=== PATIENT | male | born 1940 | race Caucasian/White ===

== ENCOUNTER 2016-09-04 10:06 | Inpatient (IN) | payer OTHER, MEDICARE ==
--- NOTE | 2016-09-04 10:36 | PDOC ---
History of Present Illness - General Chief Complaint: Hematuria Stated Complaint: BLOOD URINE History Source: Patient, Old Records Exam Limitations: Clinical Condition - History of Present Illness Travel History: No Initial Comments: 09/04/16 10:36 HPI: This 75-year-old male presents via EMS for hematuria. According to the caregiver that is present with him both of them are poor historians however they did hand me the number for his primary care physician. Patient has not had any frequency, clotting, fever, chills. Patient recently had a UTI that was treated from a senior care to home. 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 Pt has not been in contact with people who have traveled out of the country, in contact with people who have been ill with fever, n, v, d. SH: smoking use: NONE illicit drug use: NONE alcohol use: NONE Lives with Mrs. Kenisha Lou who is his caregiver PSH: Angiogram to lower extremities Home med use noted on OCT Allergies: NKA Immunizations: PCP: Dr. Peter Garcia at [phone] Digital Photographic Printer, Dr. Felix Past History - Past Medical History Allergies/Adverse Reactions: Allergies Allergy/AdvReac Type Severity Reaction Status Date / Time No Known Allergies Allergy Verified 12/17/11 10:08 Home Medications: Ambulatory Orders Aspirin [Aspirin EC] 81 mg PO DAILY 09/04/16 Atorvastatin Ca [Lipitor] 20 mg PO HS 09/04/16 Bupropion HCl [Bupropion HCl Sr] 150 mg PO BID 09/04/16 Celecoxib [Celebrex] 200 mg PO DAILY 09/04/16 Clopidogrel Bisulfate [Plavix -] 75 mg PO DAILY 09/04/16 Colchicine 0.6 mg PO DAILY 09/04/16 Finasteride 5 mg PO DAILY 09/04/16 Folic Acid 0.8 mg PO DAILY 09/04/16 Glipizide 5 mg PO BID 09/04/16 Insulin Detemir [Levemir Flextouch] 100 unit SQ DAILY 09/04/16 Insulin Lispro [Humalog] 100 unit SQ TID 09/04/16 Iron Polysaccharide Complex [Ferrex 150] 150 mg PO WEEKLY 09/04/16 Liraglutide [Victoza -] 1.8 mg SQ DAILY@0700 09/04/16 Lisinopril [Prinivil] 20 mg PO DAILY 09/04/16 Metformin HCl 500 mg PO BID 09/04/16 Metoprolol Succinate [Toprol Xl -] 25 mg PO DAILY 09/04/16 Omeprazole 20 mg PO WEEKLY 09/04/16 Sennosides [Senna] 8.6 mg PO DAILY 09/04/16 Tamsulosin HCl 0.4 mg PO DAILY 09/04/16 Thiamine HCl [Vitamin B1] 100 mg PO DAILY 09/04/16 Cardiac Disorders: Yes (cardiac stents) CHF: Yes Diabetes: Yes HTN: Yes Hypercholesterolemia: Yes - Psycho/Social/Smoking Cessation Hx Anxiety: No Suicidal Ideation: No Smoking History: Never smoked Have you smoked in the past 12 months: No Information on smoking cessation initiated: No Hx Alcohol Use: No Drug/Substance Use Hx: No Substance Use Type: None Review of Systems - Review of Systems Able to Perform ROS?: No (poor historian) Comments:: 09/04/16 11:59 *Physical Exam - Vital Signs Last Vital Signs Temp Pulse Resp BP Pulse Ox 98.3 F 100 H 20 123/67 100 09/04/16 10:17 09/04/16 10:17 09/04/16 10:17 09/04/16 10:17 09/04/16 10:17 - Physical Exam Comments: 09/04/16 11:59 General Appearance: This 75-year-old male V/S: hemodynamically stable, afebrile Skin: WNL of pt's skin color, no signs of pallor, mottling, cyanosis Head: Left-sided weakness from an old stroke tends to lean to the left Eyes: EOM's intact, PERRLA Ears: denies pain Nose: patent Lungs: Chest symmetry equal. Cap refill <3 seconds. Lung sounds diminished Cardiac: PMI at R 4MCL space, pos S1 and S2, regular rate. Abdomen: Soft, round, nontender : Becerra catheter placed with gil red blood without clotting noted Muscularskeletal: Brought in via EMS no edema +PMS Neuro: Awake and alert however does not know where he is, does not know time, does recognize his caregiver. At times he can follow commands however he has left-sided hemiparesis from a stroke in March ED Treatment Course - LABORATORY CBC & Chemistry Diagram: 09/04/16 10:43 09/04/16 10:43 Medical Decision Making - Medical Decision Making 09/04/16 11:49 Patient initially seen and examined. Patient was brought in via ambulance with hematuria. According to his home health aides son who is present with him he was at home and developed bleeding and he was concerned and called 911. He's been afebrile. According to the son he was seen by his primary physician yesterday. Patient's PMD is Dr. Garcia in [facility] at [phone] I have called and spoken with the primary in regards to the patient's past medical history as well as his recent assessment. Apparently he had bloods drawn yesterday while in the office which results have been faxed to us and attached to the chart. Labs from the physician's office noted as Glucose 229 BUN 71 Creatinine 1.66 Sodium 146 Chloride 109 Potassium 4.7 CO2 23 WBCs are 17.5 Hemoglobin is 10.8 Hematocrit 34.8 Platelets 356 He did not do a UA in the office Becerra catheter was placed and gil blood without clotting noted to drain from the Becerra catheter. Left in place. Discussed with Dr. Amin A/P Hematuria w/o stones, cystitis 1. Labs 2. Ua/cx 3. u/s bladder, kidney, renal 4. t and s 5. zosyn for ABT 6. Becerra 7. Admission 09/04/16 13:34 Pt still pending with u/s and will be going shortly Spoke with Hospitalist regarding admission and at this time does not feel it is necessary to admit suggesting a urology consult and plan for outpt work up . Called urology space operations, Dr. Parker will be arriving shortly. 09/04/16 15:18 Dr. Bhandari urology seen pt in ER and suggests pt to be admitted, spiral CT , and monitor for bleeding, hemodynamic monitor and treat IV ABT for UTI with a consult to urology. *DC/Admit/Observation/Transfer Diagnosis at time of Disposition: Hematuria, Cystitis - Discharge Dispostion Condition at time of disposition: Guarded Admit: Yes
[2016-09-04 11:02] LABS: EOSINOPHIL 5.7 % (0-4.5); MCH 28.6 pg (25.7-33.7); MCHC 31.7 g/dl (32.0-35.9); MEAN CELL VOLUME 90.1 fl (80-96); MEAN PLT VOLUME 8.4 fl (7.5-11.1); NEUTROPHILS 72.1 % (42.8-82.8); PLATELET COUNT 312 K/MM3 (134-434); RDW 15.6 % (11.9-15.9); WHITE BLOOD COUNT 12.8 K/mm3 (4.0-10.0)
[2016-09-04 11:24] LABS: ALBUMIN 3.1 g/dl (3.4-5.0); ALK PHOS 105 U/L (45-117); ANION GAP 11 (8-16); CALCIUM 9.2 mg/dL (8.5-10.1); CO2 25 mmol/L (21-32); GLUCOSE,RANDOM 190 mg/dL (74-106); SGPT/ALT 14 U/L (12-78); URINE APPEARANCE CLOUDY; URINE BILIRUBIN NEGATIVE (NEGATIVE); URINE COLOR RED; URINE GLUCOSE (UA) NEGATIVE (NEGATIVE); URINE KETONE NEGATIVE (NEGATIVE); URINE NITRITE NEGATIVE (NEGATIVE); URINE UROBILINOGEN NEGATIVE E.U./dl (0.2-1.0)
[2016-09-04 11:26] LABS: SGOT/AST 36 U/L (15-37)
[2016-09-04 11:30] LABS: URINE BLOOD 2+ (NEGATIVE); URINE LEUK ESTERASE 1+ (NEGATIVE); URINE PROTEIN 2+ (NEGATIVE)
[2016-09-04 11:32] LABS: URINE RBC 3924 /hpf (0-3); URINE WBC 21 /hpf (3-5)
[2016-09-04 11:33] LABS: INR 1.19 (0.82-1.09); PROTHROMBIN TIME (PATIENT) 13.1 SEC (9.98-11.88)
[2016-09-04] MEDS ORDERED: PIPERACILLIN/TAZOB 3.375 GM/50 ML PRE-DOCKED IV ONE (12:46)
[2016-09-04] MEDS ORDERED: PIPERACILLIN/TAZOB 3.375 GM 50 ML IVPB ONE (13:09)
--- NOTE | 2016-09-04 16:15 | EKG ---
Test Reason : Blood Pressure : / mmHG Vent. Rate : 093 BPM Atrial Rate : 093 BPM P-R Int : 164 ms QRS Dur : 104 ms QT Int : 410 ms P-R-T Axes : 071 012 021 degrees QTc Int : 509 ms NORMAL SINUS RHYTHM INFERIOR INFARCT , AGE UNDETERMINED PROLONGED QT ABNORMAL ECG WHEN COMPARED WITH ECG OF 04-SEP-2000 13:25, INFERIOR INFARCT IS NOW PRESENT T WAVE INVERSION NOW EVIDENT IN INFERIOR LEADS QT HAS LENGTHENED Confirmed by DAYTON ALLISON MD ([id number]) on 09/04/2016 4:14:48 PM Referred By: Confirmed By:DAYTON ALLISON MD
--- NOTE | 2016-09-04 17:22 | HP ---
CHIEF COMPLAINT: Hematuria PCP: PCP: Dr. Peter Garcia at [phone] Inspector Missile, Dr. Felix HISTORY OF PRESENT ILLNESS: 75-year-old male presented via EMS for hematuria x 1 day. Patient is poor historian. Accompanied by caregiver. No Hx of trauma or renal stones. Evaluate by urology service. Patient has not had any frequency, clotting, fever, chills. Patient recently had a UTI that was treated from a half-way to home. 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 Kenisha Lou who is his caregiver Family History: none reported Allergies No Known Allergies Allergy (Verified 12/17/11 10:08) HOME MEDICATIONS: Medication Instructions Recorded Aspirin [Aspirin EC] 81 mg PO DAILY 09/04/16 Atorvastatin Ca [Lipitor] 20 mg PO HS 09/04/16 Bupropion HCl [Bupropion HCl Sr] 150 mg PO BID 09/04/16 Celecoxib [Celebrex] 200 mg PO DAILY 09/04/16 Clopidogrel Bisulfate [Plavix -] 75 mg PO DAILY 09/04/16 Colchicine 0.6 mg PO DAILY 09/04/16 Finasteride 5 mg PO DAILY 09/04/16 Folic Acid 0.8 mg PO DAILY 09/04/16 Glipizide 5 mg PO BID 09/04/16 Insulin Detemir [Levemir Flextouch] 100 unit SQ DAILY 09/04/16 Insulin Lispro [Humalog] 100 unit SQ TID 09/04/16 Iron Polysaccharide Complex 150 mg PO WEEKLY 09/04/16 [Ferrex 150] Liraglutide [Victoza -] 1.8 mg SQ DAILY@0700 09/04/16 Lisinopril [Prinivil] 20 mg PO DAILY 09/04/16 Metformin HCl 500 mg PO BID 09/04/16 Metoprolol Succinate [Toprol Xl -] 25 mg PO DAILY 09/04/16 Omeprazole 20 mg PO WEEKLY 09/04/16 Sennosides [Senna] 8.6 mg PO DAILY 09/04/16 Tamsulosin HCl 0.4 mg PO DAILY 09/04/16 Thiamine HCl [Vitamin B1] 100 mg PO DAILY 09/04/16 REVIEW OF SYSTEMS CONSTITUTIONAL: Absent: fever, chills, diaphoresis, generalized weakness, malaise, loss of appetite, weight change HEENT: Absent: rhinorrhea, nasal congestion, throat pain, throat swelling, difficulty swallowing, mouth swelling, ear pain, eye pain, visual changes CARDIOVASCULAR: Absent: chest pain, syncope, palpitations, irregular heart rate, lightheadedness , peripheral edema RESPIRATORY: Absent: cough, shortness of breath, dyspnea with exertion, orthopnea, wheezing, stridor, hemoptysis GASTROINTESTINAL: Absent: abdominal pain, abdominal distension, nausea, vomiting, diarrhea, constipation, melena, hematochezia GENITOURINARY: Absent: frequency, urgency, hesitancy,flank pain, genital pain MUSCULOSKELETAL: Absent: myalgia, arthralgia, joint swelling, back pain, neck pain SKIN: Absent: rash, itching, pallor HEMATOLOGIC/IMMUNOLOGIC: Absent: easy bleeding, easy bruising, lymphadenopathy, frequent infections ENDOCRINE: Absent: unexplained weight gain, unexplained weight loss, heat intolerance, cold intolerance NEUROLOGIC: Absent: headache, dizziness, seizure, bladder or bowel incontinence + hematuria PHYSICAL EXAMINATION GENERAL: Awake, alert oriented only to self, not to place or time HEAD: Normal with no signs of trauma. EYES: sclera anicteric, conjunctiva clear. No lid lag. EARS, NOSE, THROAT: Ears normal, nares patent, oropharynx clear without exudates. Moist mucous membranes. NECK: Normal range of motion, supple without lymphadenopathy, JVD, or masses. LUNGS: Breath sounds equal, clear to auscultation bilaterally. No wheezes, and no crackles. No accessory muscle use. HEART: Regular rate and rhythm, normal S1 and S2 without murmur ABDOMEN: Soft, nontender, not distended, normoactive bowel sounds, no guarding, no rebound, no masses. No hepatomegaly or splenomegaly. MUSCULOSKELETAL: contracted upper extremities NEUROLOGICAL: impaired speech SKIN: Warm, dry, normal turgor, b/l venous stasis skin changes noted on lower ext b/l Studies Abnormal Lab Results 09/04/16 09/04/16 09/04/16 10:43 10:43 10:43 WBC 12.8 H RBC 3.99 L Hgb 11.4 L MCHC 31.7 L Eosinophils % 5.7 H INR Sodium 147 H Chloride 111 H BUN 62 H Random Glucose 190 H Albumin 3.1 L Urine Protein 2+ H Urine Blood 2+ H Ur Leukocyte Esterase 1+ H 09/04/16 11:16 WBC RBC Hgb MCHC Eosinophils % INR 1.19 H Sodium Chloride BUN Random Glucose Albumin Urine Protein Urine Blood Ur Leukocyte Esterase ASSESSMENT/PLAN: #Hematuria for one day- uncertain etiology - -observation -hold ASA and plavix -repeat CBC q 6hrs -maintain fraga catheter -avoid heparin sc -urology f/u -CT of abdomen/pelvis to evaluate for renal stones #UTI - previously on ciprofloxacin for UTI -switch to ceftriaxone 2g IVPB q24hrs # DM -insulin sliding scale -diabetic diet #HTN -controlled -continue home meds # BPH -continue tamsulosin 0.4mg qhs #DVT ppx -compression stockings b/l Visit type - Emergency Visit Emergency Visit: Yes ED Registration Date: 09/04/16 Care time: The patient presented to the Emergency Department on the above date and was hospitalized for further evaluation of their emergent condition. - New Patient This patient is new to me today: Yes Date on this admission: 09/04/16 - Critical Care Critical Care patient: No
[2016-09-04] MEDS ORDERED: PANTOPRAZOLE 20 MG TABLET (FP) PO ONE (17:45)
[2016-09-04] MEDS ORDERED: TAMSULOSIN HCL 0.4 MG CAP.ER.24H (FP) PO ONE (17:45)
[2016-09-04] MEDS ORDERED: PANTOPRAZOLE 40 MG TABLET (FP) ONE (18:28)
[2016-09-04] MEDS ORDERED: TAMSULOSIN HCL 0.4 MG CAP.ER.24H (FP) ONE (18:29)
[2016-09-04] MEDS ORDERED: CEFTRIAXONE 100 ML IVPB ONE (18:29)
[2016-09-04] MEDS: CEFTRIAXONE 100 ML IVPB SCH (18:38)
[2016-09-04 21:23] LABS: MCH 28.4 pg (25.7-33.7); MCHC 31.8 g/dl (32.0-35.9); MEAN CELL VOLUME 89.1 fl (80-96); MEAN PLT VOLUME 8.3 fl (7.5-11.1); PLATELET COUNT 294 K/MM3 (134-434); WHITE BLOOD COUNT 11.8 K/mm3 (4.0-10.0)
[2016-09-04] MEDS: ATORVASTATIN CA 20 MG TABLET (FP) PO SCH (21:26)
[2016-09-04 22:44] LABS: URINE APPEARANCE CLOUDY; URINE BILIRUBIN NEGATIVE (NEGATIVE); URINE COLOR DKYELLOW; URINE GLUCOSE (UA) 1+ (NEGATIVE); URINE KETONE NEGATIVE (NEGATIVE); URINE NITRITE NEGATIVE (NEGATIVE); URINE UROBILINOGEN NEGATIVE E.U./dl (0.2-1.0)
[2016-09-04 22:55] LABS: URINE BLOOD 2+ (NEGATIVE); URINE LEUK ESTERASE 1+ (NEGATIVE); URINE PROTEIN 2+ (NEGATIVE)
[2016-09-04 22:57] LABS: URINE BACTERIA FEW /hpf (NONE SEEN); URINE HYALINE CAST 56 /lpf; URINE RBC 553 /hpf (0-3); URINE WBC 759 /hpf (3-5)
[2016-09-04 23:06] VITALS: BMI 24.9
[2016-09-04] MEDS ORDERED: DEXTROSE 5%-NORMAL SALINE 1,000 ML IV SCH (23:45)
[2016-09-05] MEDS: INSULIN SLIDING SCALE (NOVOLOG) 1 VIAL SQ SCH ×5 (00:06→22:41)
[2016-09-05] MEDS ORDERED: INSULIN SLIDING SCALE (NOVOLOG) 1 VIAL SQ SCH ×2 (07:00)
[2016-09-05 07:39] LABS: MCHC 32.5 g/dl (32.0-35.9); MEAN CELL VOLUME 89.4 fl (80-96); MEAN PLT VOLUME 8.4 fl (7.5-11.1); PLATELET COUNT 276 K/MM3 (134-434); RDW 16.1 % (11.9-15.9); WHITE BLOOD COUNT 12.1 K/mm3 (4.0-10.0)
[2016-09-05 08:02] LABS: CALCIUM 9.2 mg/dL (8.5-10.1); CREATININE 1.1 mg/dL (0.7-1.3); MAGNESIUM 2.2 mg/dL (1.8-2.4); PHOSPHOROUS 3.6 mg/dL (2.5-4.9)
[2016-09-05] MEDS: METOPROLOL SUCCINATE 25 MG TAB.SR.24H (FP) PO SCH (10:00)
[2016-09-05] MEDS: LISINOPRIL 10 MG TABLET (FP) PO SCH (10:00)
--- NOTE | 2016-09-05 10:22 | PN ---
Physical Exam: SUBJECTIVE: Patient seen and examined. He is awake, in no acute distress. OBJECTIVE: GENERAL: Awake, alert oriented to self, anxious at times HEAD: Normal with no signs of trauma. EYES: sclera anicteric, conjunctiva clear. No lid lag. EARS, NOSE, THROAT: Ears normal, nares patent, oropharynx clear without exudates. Moist mucous membranes. NECK: Normal range of motion. LUNGS: Breath sounds equal, clear to auscultation bilaterally. No wheezes, and no crackles. No accessory muscle use. HEART: Regular rate and rhythm ABDOMEN: Soft, non-tender, not distended, normoactive bowel sounds, NEUROLOGICAL: impaired speech SKIN: multiple unsteageable pressure ulcers present on admission as follows: (1) Coccyx unstageable pressure ulcer (2 cm L x 2 cm W) (2) Right lateral malleous unstageable pressure ulcer (2cm x 2cm) (3) Right heal unstageable pressure ulcer (2.5cm L x 2.0 cm W) Vital Signs Period Temp Pulse Resp BP Sys/Olsen Pulse Ox Last 24 Hr 97.4 F-98.6 F 94-102 20-22 94-126/57-90 100 Laboratory Results - last 24 hr 09/04/16 09/04/16 09/04/16 21:00 21:30 22:15 WBC 11.8 H RBC 3.66 L Hgb 10.4 L Hct 32.6 L MCV 89.1 MCHC 31.8 L RDW 16.0 H Plt Count 294 MPV 8.3 Sodium Potassium Chloride Carbon Dioxide Anion Gap BUN Creatinine POC Glucometer 311 Random Glucose Calcium Phosphorus Magnesium Urine Color Dkyellow Urine Appearance Cloudy Urine pH 6.0 Ur Specific Zortman 1.020 Urine Protein 2+ H Urine Glucose (UA) 1+ H Urine Ketones Negative Urine Blood 2+ H Urine Nitrite Negative Urine Bilirubin Negative Urine Urobilinogen Negative Ur Leukocyte Esterase 1+ H Urine RBC 553 Urine WBC 759 Urine Bacteria Few Hyaline Casts 56 09/05/16 09/05/16 09/05/16 05:13 06:00 06:00 WBC 12.1 H RBC 3.52 L Hgb 10.2 L Hct 31.5 L MCV 89.4 MCHC 32.5 RDW 16.1 H Plt Count 276 MPV 8.4 Sodium 150 H Potassium 4.5 Chloride 113 H Carbon Dioxide 25 Anion Gap 12 BUN 63 H Creatinine 1.1 POC Glucometer 187 Random Glucose 226 H Calcium 9.2 Phosphorus 3.6 Magnesium 2.2 Urine Color Urine Appearance Urine pH Ur Specific Zortman Urine Protein Urine Glucose (UA) Urine Ketones Urine Blood Urine Nitrite Urine Bilirubin Urine Urobilinogen Ur Leukocyte Esterase Urine RBC Urine WBC Urine Bacteria Hyaline Casts Active Medications Generic Name Dose Route Start Last Admin Trade Name Brynn PRN Reason Stop Dose Admin Atorvastatin Calcium 20 mg 09/04/16 22:00 09/04/16 21:26 Lipitor - PO 20 mg HS ZARI Administration Ceftriaxone Sodium 100 mls @ 200 mls/hr 09/04/16 18:30 09/04/16 18:38 Rocephin 2gm Ivpb (Pre-Docked) IVPB 200 mls/hr DAILY ZARI Administration Sodium Chloride 1,000 mls @ 83 mls/hr 09/05/16 08:45 08/10 Normal Saline IV ASDIR ZARI Insulin Aspart 1 vial 09/05/16 07:00 09/05/16 06:07 Novolog Vial Sliding Scale - SQ Not Given ACHS [facility] Protocol Lisinopril 10 mg 09/05/16 10:00 Prinivil PO DAILY ZARI Metoprolol Succinate 25 mg 09/05/16 10:00 Toprol Xl - PO DAILY [facility] ASSESSMENT/PLAN: Patient is a 75 year old male with a significant past medical history of 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 He presented to the ED on 09/04/2016 via EMS for hematuria x 1 day. No history of trauma or renal stones reported. On admission, pt denies any frequency, urine clots, fever, chills. He was recently treated for a UTI at a longterm. : Hematuria/Cystitis - acute Assessment/Plan: Fraga catheter with with gross hematuria, no clots noted. Continue fraga cath until urine clears, then voiding trial monitor [facility]/t UTI - acute Assessment/Plan: Was recently on Cipro as outpatient His caregiver does not recall if he finished the full course of the antibiotics Now on Ceftriaxone daily (started on 09/04/2016) Urine cultures pending KOBE Assessment/Plan: Likely secondary to dehydration On 08/10 NS @ 83cc/hr Dehydration improving, BUN/Creatinine from his MD office reported to be 71/1.66 Now at 48/1.0 BPH - chronic Assessment/Plan: On flomax 0.4mg daily Endocrine: Diabetes Mellitus - On Novolog sliding scale Monitor BGMs. Cardiology: Hypertension - chronic Continue Lisinopril, Monitor BPs Integumentary/Skin: Pressure Ulcers - multiple pressure ulcers on present admission: (1) Coccyx unstageable pressure ulcer (2 cm L x 2 cm W) (2) Right lateral malleous unstageable pressure ulcer (2cm x 2cm) (3) Right heal unstageable pressure ulcer (2.5cm L x 2.0 cm W) Started on Prostat turn and pos Q2 Started on Collagenase F.E.N. Fluids: 08/10 NS @83cc/hr Electrolytes: hypernatremia, on 08/10 NS @83cc/hr Nutrition: Diabetic diet Prophylaxis: DVT: SCDs, hold anticoag secondary to hematuria GI: Protonix IVPB Will need PT evaluation as HCP is asking for short term rehab.
[2016-09-05] MEDS: CEFTRIAXONE 100 ML IVPB SCH (11:00)
--- NOTE | 2016-09-05 12:27 | CON.GU ---
Consult - History of Present Illness History of Present Illness: 75 yo male admitted with gross hematuria, reporetdly with recent uti. CT scan unremarkable. Fraga in place urine light brown in color, ucx neg to date - Alcohol/Substance Use Hx Alcohol Use: No - Smoking History Smoking history: Never smoked Have you smoked in the past 12 months: No Home Medications - Allergies Allergies/Adverse Reactions: Allergies Allergy/AdvReac Type Severity Reaction Status Date / Time No Known Allergies Allergy Verified 12/17/11 10:08 - Home Medications Home Medications: Ambulatory Orders Aspirin [Aspirin EC] 81 mg PO DAILY 09/04/16 Atorvastatin Ca [Lipitor] 20 mg PO HS 09/04/16 Bupropion HCl [Bupropion HCl Sr] 150 mg PO BID 09/04/16 Celecoxib [Celebrex] 200 mg PO DAILY 09/04/16 Clopidogrel Bisulfate [Plavix -] 75 mg PO DAILY 09/04/16 Colchicine 0.6 mg PO DAILY 09/04/16 Finasteride 5 mg PO DAILY 09/04/16 Folic Acid 0.8 mg PO DAILY 09/04/16 Glipizide 5 mg PO BID 09/04/16 Insulin Detemir [Levemir Flextouch] 100 unit SQ DAILY 09/04/16 Insulin Lispro [Humalog] 100 unit SQ TID 09/04/16 Iron Polysaccharide Complex [Ferrex 150] 150 mg PO WEEKLY 09/04/16 Liraglutide [Victoza -] 1.8 mg SQ DAILY@0700 09/04/16 Lisinopril [Prinivil] 20 mg PO DAILY 09/04/16 Metformin HCl 500 mg PO BID 09/04/16 Metoprolol Succinate [Toprol Xl -] 25 mg PO DAILY 09/04/16 Omeprazole 20 mg PO WEEKLY 09/04/16 Sennosides [Senna] 8.6 mg PO DAILY 09/04/16 Tamsulosin HCl 0.4 mg PO DAILY 09/04/16 Thiamine HCl [Vitamin B1] 100 mg PO DAILY 09/04/16 Physical Exam- Vital Signs: Vital Signs Temperature 98.6 F 09/05/16 05:26 Pulse Rate 94 H 09/05/16 05:26 Respiratory Rate 20 09/05/16 05:26 Blood Pressure 94/57 09/05/16 05:26 O2 Sat by Pulse Oximetry (%) 100 09/04/16 18:38 Labs: CBC, BMP 09/05/16 06:00 09/05/16 06:00 Imaging - Results Cat Scan: Image Reviewed Problem List - Problems (1) Hematuria Assessment/Plan: cont fraga, empiric abx, hold anticoagulants until urine is clear at which point would d/c fraga for a voiding trial Code(s): R31.9 - HEMATURIA, UNSPECIFIED
[2016-09-05] MEDS: SODIUM CHLORIDE 0.45% 1,000 ML IV SCH ×2 (15:22→20:00)
[2016-09-05] MEDS ORDERED: TAMSULOSIN HCL 0.4 MG CAP.ER.24H (FP) PO ONE ×2 (17:55→22:45)
[2016-09-05] MEDS: PANTOPRAZOLE 40 MG TABLET (FP) PO SCH (17:56)
[2016-09-05] MEDS: COLLAGENASE CLOSTRIDIUM HIST. 30 GRAMS TUBE TP SCH (17:56)
[2016-09-05] MEDS: AMINO ACIDS/PROTEIN HYDROLYS SUGAR-FREE 30 ML PACKET PO SCH (17:57)
[2016-09-05] MEDS: ATORVASTATIN CA 20 MG TABLET (FP) PO SCH (22:32)
[2016-09-05] MEDS ORDERED: INSULIN (NOVOLOG) ASPART 100 UNITS/ML 10ML VIAL ONE (22:37)
[2016-09-06] MEDS: INSULIN SLIDING SCALE (NOVOLOG) 1 VIAL SQ SCH ×3 (06:33→22:08)
[2016-09-06 07:19] LABS: BASOPHIL 0.7 % (0-2.0); EOSINOPHIL 6.5 % (0-4.5); MCH 28.9 pg (25.7-33.7); MCHC 32.1 g/dl (32.0-35.9); MEAN CELL VOLUME 90.2 fl (80-96); MEAN PLT VOLUME 8.1 fl (7.5-11.1); NEUTROPHILS 70.4 % (42.8-82.8); PLATELET COUNT 256 K/MM3 (134-434); RDW 15.9 % (11.9-15.9); WHITE BLOOD COUNT 11.1 K/mm3 (4.0-10.0)
[2016-09-06 07:55] LABS: ALBUMIN 2.6 g/dl (3.4-5.0); ALK PHOS 87 U/L (45-117); ANION GAP 10 (8-16); BILIRUBIN,TOTAL 0.7 mg/dL (0.2-1.0); CALCIUM 8.8 mg/dL (8.5-10.1); CO2 26 mmol/L (21-32); GLUCOSE,RANDOM 275 mg/dL (74-106); SGOT/AST 13 U/L (15-37); SGPT/ALT 12 U/L (12-78); TOT PROT 5.9 g/dl (6.4-8.2)
[2016-09-06] MEDS ORDERED: INSULIN SLIDING SCALE (NOVOLOG) 1 VIAL SQ SCH (08:54)
--- NOTE | 2016-09-06 10:11 | PN ---
Physical Exam: SUBJECTIVE: Patient seen and examined. His caregiver Kenisha at the bedside. Kenisha reports patient looks better today, more alert. She does not recall if he finished the full course of the antibiotics he was on previously for a UTI. OBJECTIVE: Vital Signs Period Temp Pulse Resp BP Sys/Olsen Pulse Ox Last 24 Hr 97.4 F-98.9 F 83-95 20-20 102-140/55-85 OBJECTIVE: GENERAL: Awake, alert oriented to self, anxious at times HEAD: Normal with no signs of trauma. EYES: sclera anicteric, conjunctiva clear. No lid lag. EARS, NOSE, THROAT: Ears normal, nares patent, oropharynx clear without exudates. Moist mucous membranes. NECK: Normal range of motion. LUNGS: Breath sounds equal, clear to auscultation bilaterally. No wheezes, and no crackles. No accessory muscle use. HEART: Regular rate and rhythm ABDOMEN: Soft, non-tender, not distended, normoactive bowel sounds, NEUROLOGICAL: impaired speech SKIN: multiple unsteageable pressure ulcers present on admission as follows: (1) Coccyx unstageable pressure ulcer (2 cm L x 2 cm W) (2) Right lateral malleous unstageable pressure ulcer (2cm x 2cm) (3) Right heal unstageable pressure ulcer (2.5cm L x 2.0 cm W) Laboratory Results - last 24 hr 09/05/16 09/05/16 09/06/16 17:26 22:34 05:58 WBC RBC Hgb Hct MCV MCHC RDW Plt Count MPV Neutrophils % Lymphocytes % Monocytes % Eosinophils % Basophils % Sodium Potassium Chloride Carbon Dioxide Anion Gap BUN Creatinine Creat Clearance w eGFR POC Glucometer 338 394 268 Random Glucose Calcium Total Bilirubin AST ALT Alkaline Phosphatase Total Protein Albumin 09/06/16 09/06/16 06:00 06:00 WBC 11.1 H RBC 3.40 L Hgb 9.8 L Hct 30.6 L MCV 90.2 MCHC 32.1 RDW 15.9 Plt Count 256 MPV 8.1 Neutrophils % 70.4 Lymphocytes % 13.7 Monocytes % 8.7 Eosinophils % 6.5 H Basophils % 0.7 Sodium 151 H Potassium 4.4 Chloride 115 H Carbon Dioxide 26 Anion Gap 10 BUN 48 H D Creatinine 1.0 Creat Clearance w eGFR > 60 POC Glucometer Random Glucose 275 H D Calcium 8.8 Total Bilirubin 0.7 D AST 13 L D ALT 12 Alkaline Phosphatase 87 Total Protein 5.9 L Albumin 2.6 L Active Medications Generic Name Dose Route Start Last Admin Trade Name Brynn PRN Reason Stop Dose Admin Amino Acids 30 ml 09/05/16 17:30 09/05/16 17:57 Prostat Sugar-Free Packet - PO Not Given BID@0800,1730 ZARI Atorvastatin Calcium 20 mg 09/04/16 22:00 09/05/16 22:32 Lipitor - PO 20 mg HS [facility]ARI Administration Collagenase 1 applic 09/05/16 16:00 09/05/16 17:56 Santyl - TP 1 applic DAILY [facility]I Administration Ceftriaxone Sodium 100 mls @ 200 mls/hr 09/04/16 18:30 09/05/16 11:00 Rocephin 2gm Ivpb (Pre-Docked) IVPB 200 mls/hr DAILY [facility]I Administration Sodium Chloride 1,000 mls @ 83 mls/hr 09/05/16 08:45 09/05/16 20:00 1/2 Normal Saline IV 83 mls/hr ASDIR [facility]I Administration Insulin Aspart 1 vial 09/06/16 08:54 Novolog Vial Sliding Scale - SQ ACHS [facility] Protocol Lisinopril 10 mg 09/05/16 10:00 09/05/16 10:00 Prinivil PO 10 mg DAILY [facility]I Administration Metoprolol Succinate 25 mg 09/05/16 10:00 09/05/16 10:00 Toprol Xl - PO 25 mg DAILY [facility] Administration Pantoprazole Sodium 40 mg 09/05/16 15:45 09/05/16 17:56 Protonix - PO 40 mg DAILY [facility]ARI Administration ASSESSMENT/PLAN: Patient is a 75 year old male with a significant past medical history of 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 He presented to the ED on 09/04/2016 via EMS for hematuria x 1 day. No history of trauma or renal stones reported. On admission, pt denies any frequency, urine clots, fever, chills. He was recently treated for a UTI at a halfway. : Hematuria/Cystitis - acute Assessment/Plan: Fraga catheter with with gross hematuria, no clots noted. Continue fraga cath until urine clears, then voiding trial monitor hmg/hmt - slight drop noted today UTI - acute Assessment/Plan: Was recently on Cipro as outpatient His caregiver does not recall if he finished the full course of the antibiotics Now on Ceftriaxone daily (started on 09/04/2016) Urine cultures pending KOBE - improvin Assessment/Plan: Likely secondary to dehydration On 08/10 NS @ 83cc/hr Dehydration improving, BUN/Creatinine from his MD office reported to be 71/1.66 Now at 48/1.0 BPH - chronic Assessment/Plan: On flomax 0.4mg daily Endocrine: Diabetes Mellitus - On Novolog sliding scale Adjusted Novolog scale for tighter control Cardiology: Hypertension - chronic Continue Lisinopril, Monitor BPs Integumentary/Skin: Pressure Ulcers - multiple pressure ulcers on present admission: (1) Coccyx unstageable pressure ulcer (2 cm L x 2 cm W) (2) Right lateral malleous unstageable pressure ulcer (2cm x 2cm) (3) Right heal unstageable pressure ulcer (2.5cm L x 2.0 cm W) Started on Prostat turn and pos Q2 Started on Collagenase F.E.N. Fluids: 08/10 NS @83cc/hr Electrolytes: hypernatremia, on 08/10 NS @83cc/hr Nutrition: Diabetic diet Prophylaxis: DVT: SCDs, hold anticoag secondary to hematuria GI: Protonix IVPB Will need PT evaluation as HCP is asking for short term rehab. Visit type - Emergency Visit Emergency Visit: Yes ED Registration Date: 09/04/16 Care time: The patient presented to the Emergency Department on the above date and was hospitalized for further evaluation of their emergent condition. - New Patient This patient is new to me today: No - Critical Care Critical Care patient: No - Discharge Referral Referred to [facility] Med P.C.: No
[2016-09-06] MEDS: AMINO ACIDS/PROTEIN HYDROLYS SUGAR-FREE 30 ML PACKET PO SCH ×2 (10:43→17:26)
[2016-09-06] MEDS: PANTOPRAZOLE 40 MG TABLET (FP) PO SCH (10:43)
[2016-09-06] MEDS: LISINOPRIL 10 MG TABLET (FP) PO SCH (10:43)
[2016-09-06] MEDS: METOPROLOL SUCCINATE 25 MG TAB.SR.24H (FP) PO SCH (10:43)
[2016-09-06] MEDS: CEFTRIAXONE 100 ML IVPB SCH (10:43)
[2016-09-06] MEDS: SODIUM CHLORIDE 0.45% 1,000 ML IV SCH ×2 (10:50→23:28)
[2016-09-06] MEDS: COLLAGENASE CLOSTRIDIUM HIST. 30 GRAMS TUBE TP SCH (15:37)
[2016-09-06] MEDS: TAMSULOSIN HCL 0.4 MG CAP.ER.24H (FP) PO SCH (17:26)
[2016-09-06] MEDS: ATORVASTATIN CA 20 MG TABLET (FP) PO SCH (22:09)
[2016-09-07] MEDS: INSULIN SLIDING SCALE (NOVOLOG) 1 VIAL SQ SCH ×4 (06:42→22:08)
[2016-09-07 07:14] LABS: BASOPHIL 0.3 % (0-2.0); EOSINOPHIL 9.1 % (0-4.5); MCH 28.8 pg (25.7-33.7); MCHC 32.1 g/dl (32.0-35.9); MEAN CELL VOLUME 89.9 fl (80-96); MEAN PLT VOLUME 8.6 fl (7.5-11.1); PLATELET COUNT 255 K/MM3 (134-434); RDW 15.8 % (11.9-15.9); WHITE BLOOD COUNT 11.8 K/mm3 (4.0-10.0)
[2016-09-07 07:51] LABS: ALBUMIN 2.5 g/dl (3.4-5.0); ANION GAP 9 (8-16); CALCIUM 8.6 mg/dL (8.5-10.1); CO2 25 mmol/L (21-32); CREATININE 0.7 mg/dL (0.7-1.3); GLUCOSE,RANDOM 235 mg/dL (74-106); SGOT/AST 8 U/L (15-37); SGPT/ALT 10 U/L (12-78)
[2016-09-07 07:53] LABS: ALK PHOS 82 U/L (45-117); BILIRUBIN,TOTAL 0.6 mg/dL (0.2-1.0); TOT PROT 5.8 g/dl (6.4-8.2)
[2016-09-07] MEDS ORDERED: TAMSULOSIN HCL 0.4 MG CAP.ER.24H (FP) PO SCH ×2 (08:30→10:30)
[2016-09-07] MEDS: METOPROLOL SUCCINATE 25 MG TAB.SR.24H (FP) PO SCH (09:50)
[2016-09-07] MEDS: AMINO ACIDS/PROTEIN HYDROLYS SUGAR-FREE 30 ML PACKET PO SCH ×2 (09:50→16:58)
[2016-09-07] MEDS: CEFTRIAXONE 100 ML IVPB SCH (09:51)
[2016-09-07] MEDS: PANTOPRAZOLE 40 MG TABLET (FP) PO SCH (09:51)
[2016-09-07] MEDS: TAMSULOSIN HCL 0.4 MG CAP.ER.24H (FP) PO SCH (09:51)
[2016-09-07] MEDS: LISINOPRIL 10 MG TABLET (FP) PO SCH (09:51)
[2016-09-07] MEDS: COLLAGENASE CLOSTRIDIUM HIST. 30 GRAMS TUBE TP SCH (09:51)
[2016-09-07] MEDS ORDERED: METOPROLOL SUCCINATE 25 MG TAB.SR.24H (FP) PO SCH (10:45)
[2016-09-07] MEDS ORDERED: DEXTROSE 5%-WATER - 1,000 ML IV SCH (10:45)
[2016-09-07] MEDS: SODIUM CHLORIDE 0.45% 1,000 ML IV SCH (11:09)
[2016-09-07] MEDS ORDERED: INSULIN (NOVOLOG) ASPART 100 UNITS/ML 10ML VIAL ONE ×2 (11:27→16:50)
[2016-09-07] MEDS: FINASTERIDE 5 MG TABLET (FP) PO SCH (11:35)
--- NOTE | 2016-09-07 13:14 | PN ---
Physical Exam: SUBJECTIVE: Patient seen and examined.l He is concerned with his food and when asked questions, he avoids or says fine. No acute issues noted. OBJECTIVE: Last Vital Signs Temp Pulse Resp BP Pulse Ox 98.8 F 76 20 115/61 99 09/07/16 09:00 09/07/16 09:00 09/07/16 09:00 09/07/16 09:00 09/07/16 00:00 PE Neuro: awake, alert, oriented to self, says he is in [facility], is selective about responses HEENT: missing teeth Pulm: Clear anteriorly CV: s1 s2 rrr : light red tinged urine + fraga Abd: s nt nd + bs Ext: no le edema, no LE movement, right sided weakness weakness, LUE 4/5 motor, heel ulcers CBCD WBC 11.8 K/mm3 (4.0-10.0) H 09/07/16 05:52 RBC 3.39 M/mm3 (4.00-5.60) L 09/07/16 05:52 Hgb 9.8 GM/dL (11.7-16.9) L 09/07/16 05:52 Hct 30.5 % (35.4-49) L 09/07/16 05:52 MCV 89.9 fl (80-96) 09/07/16 05:52 MCHC 32.1 g/dl (32.0-35.9) 09/07/16 05:52 RDW 15.8 % (11.9-15.9) 09/07/16 05:52 Plt Count 255 K/MM3 (134-434) 09/07/16 05:52 MPV 8.6 fl (7.5-11.1) 09/07/16 05:52 CMP Sodium 150 mmol/L (136-145) H 09/07/16 05:52 Potassium 4.5 mmol/L (3.5-5.1) 09/07/16 05:52 Chloride 116 mmol/L (98-107) H 09/07/16 05:52 Carbon Dioxide 25 mmol/L (21-32) 09/07/16 05:52 Anion Gap 9 (8-16) 09/07/16 05:52 BUN 37 mg/dL (7-18) H D 09/07/16 05:52 Creatinine 0.7 mg/dL (0.7-1.3) D 09/07/16 05:52 Creat Clearance w eGFR > 60 (>60) 09/07/16 05:52 Calcium 8.6 mg/dL (8.5-10.1) 09/07/16 05:52 Total Bilirubin 0.6 mg/dL (0.2-1.0) 09/07/16 05:52 AST 8 U/L (15-37) L D 09/07/16 05:52 ALT 10 U/L (12-78) L 09/07/16 05:52 Alkaline Phosphatase 82 U/L (45-117) 09/07/16 05:52 Total Protein 5.8 g/dl (6.4-8.2) L 09/07/16 05:52 Albumin 2.5 g/dl (3.4-5.0) L 09/07/16 05:52 Active Medications Generic Name Dose Route Start Last Admin Trade Name Freq PRN Reason Stop Dose Admin Amino Acids 30 ml 09/05/16 17:30 09/07/16 09:50 Prostat Sugar-Free Packet - PO 30 ml BID@0800,1730 ZARI Administration Atorvastatin Calcium 20 mg 09/04/16 22:00 09/06/16 22:09 Lipitor - PO Not Given HS ZARI Bupropion HCl 150 mg 09/07/16 22:00 Wellbutrin Xl - PO BID ZARI Collagenase 1 applic 09/05/16 16:00 09/07/16 09:51 Santyl - TP 1 applic DAILY ZARI Administration Finasteride 5 mg 09/07/16 10:00 09/07/16 11:35 Proscar - PO 5 mg DAILY ZARI Administration Ceftriaxone Sodium 100 mls @ 200 mls/hr 09/04/16 18:30 09/07/16 09:51 Rocephin 2gm Ivpb (Pre-Docked) IVPB 200 mls/hr DAILY ZARI Administration Dextrose 1,000 mls @ 83 mls/hr 09/07/16 10:45 09/07/16 12:00 D5w - IV 09/07/16 22:48 83 mls/hr ASDIR ZARI Administration Insulin Aspart 1 vial 09/07/16 10:29 09/07/16 11:34 Novolog Vial Sliding Scale - SQ 6 unit ACHS ZARI Administration Protocol Liraglutide 1.8 mg 09/07/16 07:00 Victoza - SQ DAILY@0700 [facility] Lisinopril 20 mg 09/07/16 10:35 Prinivil PO DAILY [facility] Metoprolol Succinate 25 mg 09/05/16 10:00 09/07/16 09:50 Toprol Xl - PO 25 mg DAILY [facility] Administration Pantoprazole Sodium 40 mg 09/05/16 15:45 09/07/16 09:51 Protonix - PO 40 mg DAILY ZARI Administration Tamsulosin HCl 0.4 mg 09/06/16 16:00 09/07/16 09:51 Flomax - PO 0.4 mg DAILY@0830 [facility] Administration Assessment: 75 year old male with a significant past medical history of 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 Plan: 1. Hematuria - Maintain fraga until urine clears - Renal US reviewed - Hgb stable - Urology seeing 2. UTI - Decrease ceftriaxone to 1gm (day 4) - Urine cx negative 3. Hypernatremia - 3L water deficit - Start D5 83cc/hr x1 bag - Recheck BMP 1600 4. BPH - Continue Flomax - Continue Finasteride - Monitor BP 5. KOBE - Resolved 6. DM II - Resume home Liraglutide - ISS BGM ACHS - Sugars likely to be elevated today with D5, will treats as needed - Home insulin regime to be adjusted following sodium correction 7. HTN - Controlled - Continue lisinopril 20mg daily - Decrease metoprolol 12.5mg daily 8. hx of DVA 03/2016 - Hold ASA/Plavix 9. PAD - Lipitor HS 10. Depression - Continue wellbutrin xl 11. Pressure ulcers - Pt admitted with ulcers - Daily wound changes with collagenase - Continue prostat 12. Prophylaxis DVT: SCDs, hold AC d/t hematuria GI: PPI Visit type - Emergency Visit Emergency Visit: Yes ED Registration Date: 09/07/16 Care time: The patient presented to the Emergency Department on the above date and was hospitalized for further evaluation of their emergent condition. - New Patient This patient is new to me today: Yes Date on this admission: 09/07/16 - Critical Care Critical Care patient: No
[2016-09-07] MEDS ORDERED: INSULIN LISPRO 100 UNIT SQ SCH (14:00)
[2016-09-07] MEDS: LIRAGLUTIDE 0.6 MG/0.1 ML PEN.INJCTR SQ SCH (16:55)
[2016-09-07 17:27] LABS: CALCIUM 8.8 mg/dL (8.5-10.1); CREATININE 0.7 mg/dL (0.7-1.3)
--- NOTE | 2016-09-07 18:41 | CON.PSY ---
Psychiatry Consult Chief Complaint: Patient is laughing, denies any psych problems. application integration engineer says patient has been cogniyivly intact at home. No history of Dementia. History of CVA [id number] - Previous Psychiatric Treatment Outpatient: None Inpatient: None - Previous Substance Abuse Treatment Outpatient: None Inpatient: None - Family History Family History: Unremarkable - Current Medications Current Medications: Active Medications Amino Acids (Prostat Sugar-Free Packet -) 30 ml PO BID@0800,1730 [facility] Last Admin: 09/07/16 16:58 Dose: 30 ml Atorvastatin Calcium (Lipitor -) 20 mg PO HS [facility] Last Admin: 09/06/16 22:09 Dose: Not Given Bupropion HCl (Wellbutrin Xl -) 150 mg PO BID [facility] Collagenase (Santyl -) 1 applic TP DAILY [facility] Last Admin: 09/07/16 09:51 Dose: 1 applic Finasteride (Proscar -) 5 mg PO DAILY [facility] Last Admin: 09/07/16 11:35 Dose: 5 mg Dextrose (D5w -) 1,000 mls @ 83 mls/hr IV ASDIR [facility] Stop: 09/07/16 22:48 Last Admin: 09/07/16 12:00 Dose: 83 mls/hr Ceftriaxone Sodium (Rocephin 1gm Ivpb (Pre-Docked)) 50 mls @ 100 mls/hr IVPB DAILY [facility] Insulin Aspart (Novolog Vial Sliding Scale -) 1 vial SQ ACHS [facility] PRN Reason: Protocol Last Admin: 09/07/16 16:58 Dose: 6 unit Insulin Detemir (Levemir Vial) 10 units SQ HS [facility] Liraglutide (Victoza -) 1.8 mg SQ DAILY@0700 [facility] Last Admin: 09/07/16 16:55 Dose: Not Given Lisinopril (Prinivil) 20 mg PO DAILY [facility] Metoprolol Succinate (Toprol Xl -) 12.5 mg PO DAILY [facility] Pantoprazole Sodium (Protonix -) 40 mg PO DAILY [facility] Last Admin: 09/07/16 09:51 Dose: 40 mg Tamsulosin HCl (Flomax -) 0.4 mg PO DAILY@0830 [facility] Last Admin: 09/07/16 09:51 Dose: 0.4 mg - Allergies Allergies: Allergies Allergy/AdvReac Type Severity Reaction Status Date / Time No Known Allergies Allergy Verified 12/17/11 10:08 - Current Living Status Usual Living Arrangement: With Significant Other - Current Mental Status Evaluation Appearance: Well Groomed Attitude: Cooperative - Affect Affect: Labile Appropriateness: Appropriate to Content - Mood Mood: Euthymic - Speech/Language Expressive: Coherent - Psychomotor Activity Psychomotor Activity: Slowed - Thought Process Thought Process: Intact - Thought Content Hallucinations: Absent Delusions: Absent - Self Perception Self Perception: No Impairment - Cognition Attention: Alert Orientation: Time, Person Memory, Short Term: 2/3 Memory, Remote with Promptin/3 - Concentration Serial Sevens Intact: No Simple Calculations Intact: No - Abstraction Proverb Interpretation: Intact Judgement: Intact - Insight Insight: Intact - Impulse Control Impulse Control: Good Control - Suicidal Ideation Suicidal Ideation: No - Homicidal Ideation Homicidal Ideation: No Assessment/Plan Patient has the functional capacity to make informed decisions at this time.
[2016-09-07] MEDS ORDERED: ATORVASTATIN CA 20 MG TABLET (FP) PO SCH (22:00)
[2016-09-07] MEDS: INSULIN DETEMIR 100 UNITS/ML MDV SQ SCH (22:07)
[2016-09-07] MEDS: ATORVASTATIN CA 20 MG TABLET (FP) PO SCH (22:08)
[2016-09-08] MEDS: LIRAGLUTIDE 0.6 MG/0.1 ML PEN.INJCTR SQ SCH (06:34)
[2016-09-08] MEDS: INSULIN SLIDING SCALE (NOVOLOG) 1 VIAL SQ SCH ×4 (06:35→22:07)
[2016-09-08] MEDS ORDERED: INSULIN DETEMIR 100 UNITS/ML MDV SQ ONE (07:06)
[2016-09-08 07:37] LABS: BASOPHIL 1.1 % (0-2.0); EOSINOPHIL 9.1 % (0-4.5); MCH 29.3 pg (25.7-33.7); MCHC 33.1 g/dl (32.0-35.9); MEAN CELL VOLUME 88.5 fl (80-96); MEAN PLT VOLUME 8.2 fl (7.5-11.1); PLATELET COUNT 259 K/MM3 (134-434); RDW 15.4 % (11.9-15.9); WHITE BLOOD COUNT 10.1 K/mm3 (4.0-10.0)
[2016-09-08 08:11] LABS: ALBUMIN 2.5 g/dl (3.4-5.0); ALK PHOS 83 U/L (45-117); ANION GAP 9 (8-16); BILIRUBIN,TOTAL 0.6 mg/dL (0.2-1.0); CALCIUM 8.9 mg/dL (8.5-10.1); CO2 26 mmol/L (21-32); CREATININE 0.8 mg/dL (0.7-1.3); GLUCOSE,RANDOM 221 mg/dL (74-106); SGOT/AST 7 U/L (15-37); SGPT/ALT 10 U/L (12-78); TOT PROT 5.7 g/dl (6.4-8.2)
[2016-09-08] MEDS: AMINO ACIDS/PROTEIN HYDROLYS SUGAR-FREE 30 ML PACKET PO SCH ×3 (08:39→17:42)
[2016-09-08] MEDS: TAMSULOSIN HCL 0.4 MG CAP.ER.24H (FP) PO SCH (08:40)
[2016-09-08] MEDS: FINASTERIDE 5 MG TABLET (FP) PO SCH (10:45)
[2016-09-08] MEDS: LISINOPRIL 20 MG TABLET (FP) PO SCH (10:49)
[2016-09-08] MEDS: CEFTRIAXONE 50 ML IVPB SCH (10:55)
[2016-09-08] MEDS: PANTOPRAZOLE 40 MG TABLET (FP) PO SCH (10:55)
[2016-09-08] MEDS: COLLAGENASE CLOSTRIDIUM HIST. 30 GRAMS TUBE TP SCH (10:56)
[2016-09-08] MEDS: METOPROLOL SUCCINATE 25 MG TAB.SR.24H (FP) PO SCH (10:56)
[2016-09-08] MEDS ORDERED: ONDANSETRON 4 MG/2 ML VIAL IVPUSH ONE (15:22)
[2016-09-08] MEDS ORDERED: BISACODYL 10 MG SUPP.RECT PR ONE (15:22)
--- NOTE | 2016-09-08 18:46 | PN ---
Physical Exam: SUBJECTIVE: Patient seen and examined. He is inquiring about his aid. He has no acute issues. OBJECTIVE: Vital Signs Period Temp Pulse Resp BP Sys/Olsen Pulse Ox Last 24 Hr 97.4 F-98.7 F 82-102 2-20 112-138/58-83 99-100 PE Neuro: awake, alert, oriented to self cn 2-12intact Pulm: Clear anteriorly CV: s1 s2 rrr no mrg Abd: s nt nd + bs Ext: no le edema, no LE movement, right sided weakness weakness, LUE 4/5 motor, heel ulcers CBCD WBC 10.1 K/mm3 (4.0-10.0) H 09/08/16 06:00 RBC 3.47 M/mm3 (4.00-5.60) L 09/08/16 06:00 Hgb 10.1 GM/dL (11.7-16.9) L 09/08/16 06:00 Hct 30.7 % (35.4-49) L 09/08/16 06:00 MCV 88.5 fl (80-96) 09/08/16 06:00 MCHC 33.1 g/dl (32.0-35.9) 09/08/16 06:00 RDW 15.4 % (11.9-15.9) 09/08/16 06:00 Plt Count 259 K/MM3 (134-434) 09/08/16 06:00 MPV 8.2 fl (7.5-11.1) 09/08/16 06:00 CMP Sodium 143 mmol/L (136-145) 09/08/16 06:00 Potassium 3.6 mmol/L (3.5-5.1) 09/08/16 06:00 Chloride 108 mmol/L (98-107) H 09/08/16 06:00 Carbon Dioxide 26 mmol/L (21-32) 09/08/16 06:00 Anion Gap 9 (8-16) 09/08/16 06:00 BUN 22 mg/dL (7-18) H D 09/08/16 06:00 Creatinine 0.8 mg/dL (0.7-1.3) 09/08/16 06:00 Creat Clearance w eGFR > 60 (>60) 09/08/16 06:00 Calcium 8.9 mg/dL (8.5-10.1) 09/08/16 06:00 Total Bilirubin 0.6 mg/dL (0.2-1.0) 09/08/16 06:00 AST 7 U/L (15-37) L 09/08/16 06:00 ALT 10 U/L (12-78) L 09/08/16 06:00 Alkaline Phosphatase 83 U/L (45-117) 09/08/16 06:00 Total Protein 5.7 g/dl (6.4-8.2) L 09/08/16 06:00 Albumin 2.5 g/dl (3.4-5.0) L 09/08/16 06:00 Active Medications Generic Name Dose Route Start Last Admin Trade Name Brynn PRN Reason Stop Dose Admin Amino Acids 30 ml 09/05/16 17:30 09/08/16 17:42 Prostat Sugar-Free Packet - PO Not Given BID@0800,1730 [facility] Atorvastatin Calcium 20 mg 09/04/16 22:00 09/07/16 22:08 Lipitor - PO 20 mg HS ZARI Administration Bupropion HCl 150 mg 09/07/16 22:00 09/08/16 10:57 Wellbutrin Xl - PO 150 mg BID [facility]ARI Administration Collagenase 1 applic 09/05/16 16:00 09/08/16 10:56 Santyl - TP 1 applic DAILY [facility]ARI Administration Finasteride 5 mg 09/07/16 10:00 09/08/16 10:45 Proscar - PO 5 mg DAILY [facility]I Administration Ceftriaxone Sodium 50 mls @ 100 mls/hr 09/08/16 10:00 09/08/16 10:55 Rocephin 1gm Ivpb (Pre-Docked) IVPB 100 mls/hr DAILY [facility]ARI Administration Insulin Aspart 1 vial 09/07/16 10:29 09/08/16 17:32 Novolog Vial Sliding Scale - SQ Not Given ACHS [facility] Protocol Insulin Detemir 10 units 09/07/16 22:00 09/07/16 22:07 Levemir Vial SQ 10 unit HS [facility]ARI Administration Liraglutide 1.8 mg 09/07/16 07:00 09/08/16 06:34 Victoza - SQ 1.8 mg DAILY@0700 [facility] Administration Lisinopril 20 mg 09/07/16 10:35 09/08/16 10:49 Prinivil PO 20 mg DAILY [facility]I Administration Metoprolol Succinate 12.5 mg 09/07/16 13:27 09/08/16 10:56 Toprol Xl - PO 12.5 mg DAILY [facility]I Administration Pantoprazole Sodium 40 mg 09/05/16 15:45 09/08/16 10:55 Protonix - PO 40 mg DAILY [facility]I Administration Tamsulosin HCl 0.4 mg 09/06/16 16:00 09/08/16 08:40 Flomax - PO 0.4 mg DAILY@0830 [facility] Administration Assessment: 75 year old male with a significant past medical history of 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 Plan: 1. Hematuria - Urine clear and yellow - Discontinue fraga now, voiding trial commences 2. UTI - Ceftriaxone to 1gm (day 5) 3. Hypernatremia - Resolved 4. BPH - Continue Flomax - Continue Finasteride - Monitor BP 5. KOBE - Resolved 6. DM II - Resume home Liraglutide - ISS BGM ACHS - Sugars likely to be elevated today with D5, will treats as needed - Home insulin regime to be adjusted following sodium correction 7. HTN - Stable with decrease in beta vane - Continue lisinopril 20mg daily - Cont metoprolol 12.5mg daily 8. hx of DVA 03/2016 - Restart ASA and Plavix tomorrow 9. PAD - Lipitor HS 10. Depression - Continue Wellbutrin xl 11. Pressure ulcers - Pt admitted with ulcers - Daily wound changes with collagenase - Continue prostat 12. Prophylaxis DVT: SCDs, hold AC d/t hematuria GI: PPI Visit type - Emergency Visit Emergency Visit: Yes ED Registration Date: 09/07/16 Care time: The patient presented to the Emergency Department on the above date and was hospitalized for further evaluation of their emergent condition. - New Patient This patient is new to me today: No - Critical Care Critical Care patient: No
[2016-09-08] MEDS ORDERED: PT OWN MED DRAWER 7, Y5N ONE (19:41)
[2016-09-08] MEDS: ATORVASTATIN CA 20 MG TABLET (FP) PO SCH (22:07)
[2016-09-08] MEDS: INSULIN DETEMIR 100 UNITS/ML MDV SQ SCH (22:07)
[2016-09-09] MEDS ORDERED: INSULIN DETEMIR 100 UNITS/ML MDV SQ ONE (05:58)
[2016-09-09] MEDS: INSULIN SLIDING SCALE (NOVOLOG) 1 VIAL SQ SCH ×4 (06:11→23:49)
[2016-09-09] MEDS: LIRAGLUTIDE 0.6 MG/0.1 ML PEN.INJCTR SQ SCH (06:11)
[2016-09-09] MEDS: AMINO ACIDS/PROTEIN HYDROLYS SUGAR-FREE 30 ML PACKET PO SCH ×2 (08:57→16:54)
[2016-09-09] MEDS: TAMSULOSIN HCL 0.4 MG CAP.ER.24H (FP) PO SCH (08:57)
[2016-09-09] MEDS: CEFTRIAXONE 50 ML IVPB SCH (09:00)
[2016-09-09] MEDS: METOPROLOL SUCCINATE 25 MG TAB.SR.24H (FP) PO SCH (09:00)
[2016-09-09] MEDS: ASPIRIN COATED 81 MG TABLET.EC PO SCH (09:01)
[2016-09-09] MEDS: PANTOPRAZOLE 40 MG TABLET (FP) PO SCH (09:01)
[2016-09-09] MEDS: FINASTERIDE 5 MG TABLET (FP) PO SCH (09:01)
[2016-09-09] MEDS: LISINOPRIL 20 MG TABLET (FP) PO SCH (09:01)
[2016-09-09] MEDS: CLOPIDOGREL BISULFATE 75 MG TABLET (FP) PO SCH (09:01)
[2016-09-09] MEDS: COLLAGENASE CLOSTRIDIUM HIST. 30 GRAMS TUBE TP SCH (10:45)
[2016-09-09] MEDS ORDERED: MAGNESIUM HYDROX 2400MG/30ML ORAL SUSPENSION 30 ML CUP PO ONE (15:51)
--- NOTE | 2016-09-09 16:00 | PN ---
Physical Exam: SUBJECTIVE: Patient seen and examined. He had a pasty bowel movement this AM. He vomited and c/o abs discomfort/pain. OBJECTIVE: Vital Signs Period Temp Pulse Resp BP Sys/Olsen Pulse Ox Last 24 Hr 97.7 F-98.5 F 95-101 2-20 112-142/60-86 100-100 PE Neuro: awake, alert, oriented to self cn 2-12intact Pulm: Clear anteriorly CV: s1 s2 rrr no mrg Abd: LLq point tenderness s nt nd + bs SKIN: Sacral ulcer stage III Ext: no le edema, no LE movement, right sided weakness weakness, LUE 4/5 motor, Laboratory Results - last 24 hr 09/08/16 09/08/16 09/09/16 17:31 22:06 05:49 POC Glucometer 127 131 132 09/09/16 11:21 POC Glucometer 147 Active Medications Generic Name Dose Route Start Last Admin Trade Name Freq PRN Reason Stop Dose Admin Amino Acids 30 ml 09/05/16 17:30 09/09/16 08:57 Prostat Sugar-Free Packet - PO 30 ml BID@0800,1730 [facility]ARI Administration Aspirin 81 mg 09/09/16 10:00 09/09/16 09:01 Ecotrin - PO 81 mg DAILY [facility]I Administration Atorvastatin Calcium 20 mg 09/04/16 22:00 09/08/16 22:07 Lipitor - PO 20 mg HS [facility]ARI Administration Bupropion HCl 150 mg 09/07/16 22:00 09/09/16 09:01 Wellbutrin Xl - PO 150 mg BID [facility]ARI Administration Clopidogrel Bisulfate 75 mg 09/09/16 10:00 09/09/16 09:01 Plavix - PO 75 mg DAILY [facility]I Administration Collagenase 1 applic 09/05/16 16:00 09/09/16 10:45 Santyl - TP 1 applic DAILY [facility] Administration Finasteride 5 mg 09/07/16 10:00 09/09/16 09:01 Proscar - PO 5 mg DAILY [facility] Administration Insulin Aspart 1 vial 09/07/16 10:29 09/09/16 11:22 Novolog Vial Sliding Scale - SQ Not Given ACHS [facility]I Protocol Insulin Detemir 10 units 09/07/16 22:00 09/08/16 22:07 Levemir Vial SQ 10 unit HS [facility] Administration Liraglutide 1.8 mg 09/07/16 07:00 02/01/17 06:11 Victoza - SQ 1.8 mg DAILY@0700 [facility] Administration Lisinopril 20 mg 09/07/16 10:35 09/09/16 09:01 Prinivil PO 20 mg DAILY [facility] Administration Magnesium Hydroxide 30 ml 09/09/16 15:51 Milk Of Magnesia - PO 09/09/16 15:52 ONCE ONE Metoprolol Succinate 12.5 mg 09/07/16 13:27 09/09/16 09:00 Toprol Xl - PO 12.5 mg DAILY [facility] Administration Pantoprazole Sodium 40 mg 09/05/16 15:45 09/09/16 09:01 Protonix - PO 40 mg DAILY [facility] Administration Senna 2 tab 09/09/16 22:00 Senna - PO HS [facility] Tamsulosin HCl 0.4 mg 09/06/16 16:00 09/09/16 08:57 Flomax - PO 0.4 mg DAILY@0830 [facility] Administration Assessment: 75 year old male with a significant past medical history of 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 Plan: 1. Hematuria - Resolved - Urinating freely 2. UTI - Completed 5 days ceftriaxone today - Urine cx neg 3. Hypernatremia - Resolved 4. BPH - Continue Flomax - Continue Finasteride 5. KOBE - Resolved 6. DM II - Levemir 10 units HS - Continue Liraglutide - ISS BGM ACHS 7. HTN - Lisinopril 20mg daily - Increase metoprolol xl 25mg daily for tachycardia 8. hx of DVA 03/2016 - Continue ASA and Plavix - Monitor for hematuria 9. PAD - Lipitor 20mg HS 10. Depression - Continue Wellbutrin xl 11. Pressure ulcers - Pt admitted with ulcers - Daily wound changes with collagenase - Continue prostat - Will need wound care follow up in wound care center and VNS 12. Constipation - Noted on KUB - Will give milk of magnesia x1, senna HS Dispo: - Probable DC home tomorrow Visit type - Emergency Visit Emergency Visit: Yes ED Registration Date: 09/07/16 Care time: The patient presented to the Emergency Department on the above date and was hospitalized for further evaluation of their emergent condition. - New Patient This patient is new to me today: No - Critical Care Critical Care patient: No
[2016-09-09] MEDS ORDERED: BISACODYL 10 MG SUPP.RECT PR ONE (19:00)
[2016-09-09] MEDS ORDERED: SODIUM CHLORIDE 1,000 ML IV SCH (19:15)
--- NOTE | 2016-09-09 22:36 | HOSP ---
Subjective - Review of Symptoms Events since last encounter: Patient is new to me, this is my first encounter. Patient admitted 4 days prior for UTI with hematuria. Notified by RN that patient had another episode of vomiting despite anorexia. chart reviewed and abdominal xray done today negative for SBO. Patient documented to have recent constipation and was given milk of magnesia On examination patient alert and in mild distress, with yellow food content vomitus on chest. Afebrile. CVS and Respiratory WNL Vital Signs - 24 hr 09/09/16 09/09/16 09/09/16 00:00 06:00 09:02 Temperature 98 F 98.5 F 97.9 F Pulse Rate 101 H 95 H 95 H Respiratory 20 20 20 Rate Blood Pressure 142/80 140/86 126/68 O2 Sat by Pulse Oximetry (%) 09/09/16 09/09/16 09/09/16 14:00 14:05 18:15 Temperature 98 F 98.2 F Pulse Rate 99 H 100 H Respiratory 20 20 20 Rate Blood Pressure 138/73 116/65 O2 Sat by Pulse 100 Oximetry (%) Physical Examination Vital Signs: Vital Signs Temperature 98.2 F 09/09/16 18:15 Pulse Rate 100 H 09/09/16 18:15 Respiratory Rate 20 09/09/16 18:15 Blood Pressure 116/65 09/09/16 18:15 O2 Sat by Pulse Oximetry (%) 100 09/09/16 14:00 Labs: CBC, BMP 09/08/16 06:00 09/08/16 06:00 Hospitalist Encounter Assessment: Nausea and vomitus, SBO ruled out, r/o ileus secondary to uncontrolled DM2 or DKA. CBC, CMP Reglan NPO IVF D5NS @100cc will consider NGT to protect airway if vomiting persist.
[2016-09-09] MEDS: INSULIN DETEMIR 100 UNITS/ML MDV SQ SCH (23:47)
[2016-09-09] MEDS: ATORVASTATIN CA 20 MG TABLET (FP) PO SCH (23:48)
[2016-09-09] MEDS: SENNOSIDES 8.6MG TABLET (FP) PO SCH (23:48)
[2016-09-09] MEDS: POLYETHYLENE GLYCOL 3350 119 GM BTL PO SCH (23:49)
[2016-09-09] MEDS: DEXTROSE 5%-NORMAL SALINE 1,000 ML IV SCH (23:50)
[2016-09-10 00:07] LABS: MCH 28.3 pg (25.7-33.7); MCHC 31.8 g/dl (32.0-35.9); MEAN CELL VOLUME 88.9 fl (80-96); MEAN PLT VOLUME 8.2 fl (7.5-11.1); PLATELET COUNT 291 K/MM3 (134-434); RDW 15.8 % (11.9-15.9); WHITE BLOOD COUNT 10.3 K/mm3 (4.0-10.0)
[2016-09-10 00:29] LABS: ALBUMIN 2.8 g/dl (3.4-5.0); ALK PHOS 94 U/L (45-117); ANION GAP 12 (8-16); BILIRUBIN,TOTAL 0.7 mg/dL (0.2-1.0); CO2 25 mmol/L (21-32); CREATININE 0.7 mg/dL (0.7-1.3); GLUCOSE,RANDOM 175 mg/dL (74-106); SGOT/AST 9 U/L (15-37); SGPT/ALT 9 U/L (12-78); TOT PROT 6.2 g/dl (6.4-8.2)
[2016-09-10] MEDS: METOCLOPRAMIDE HCL INJECTION 10 MG/2 ML VIAL IVPB PRN ×3 (06:00→11:58)
[2016-09-10] MEDS: INSULIN SLIDING SCALE (NOVOLOG) 1 VIAL SQ SCH ×4 (06:01→21:53)
[2016-09-10] MEDS: LIRAGLUTIDE 0.6 MG/0.1 ML PEN.INJCTR SQ SCH (06:01)
[2016-09-10] MEDS ORDERED: PT OWN MED DRAWER 7, Y5N ONE ×2 (06:10→17:55)
[2016-09-10] MEDS ORDERED: INSULIN DETEMIR 100 UNITS/ML MDV SQ ONE (06:15)
[2016-09-10 07:07] LABS: BASOPHIL 0.7 % (0-2.0); EOSINOPHIL 5.8 % (0-4.5); MCH 28.9 pg (25.7-33.7); MCHC 32.8 g/dl (32.0-35.9); MEAN CELL VOLUME 88.3 fl (80-96); MEAN PLT VOLUME 7.4 fl (7.5-11.1); NEUTROPHILS 68.9 % (42.8-82.8); PLATELET COUNT 251 K/MM3 (134-434); RDW 15.4 % (11.9-15.9); WHITE BLOOD COUNT 10.9 K/mm3 (4.0-10.0)
[2016-09-10 07:37] LABS: CALCIUM 8.3 mg/dL (8.5-10.1); CREATININE 0.7 mg/dL (0.7-1.3)
[2016-09-10] MEDS ORDERED: Methylnaltrexone Bromide 12 MG/0.6 ML KIT SQ ONE (09:30)
[2016-09-10] MEDS: POLYETHYLENE GLYCOL 3350 119 GM BTL PO SCH ×2 (11:53→21:41)
[2016-09-10] MEDS: AMINO ACIDS/PROTEIN HYDROLYS SUGAR-FREE 30 ML PACKET PO SCH ×2 (11:53→17:49)
[2016-09-10] MEDS: LISINOPRIL 20 MG TABLET (FP) PO SCH (12:36)
[2016-09-10] MEDS: METOPROLOL SUCCINATE 25 MG TAB.SR.24H (FP) PO SCH (12:37)
[2016-09-10] MEDS: FINASTERIDE 5 MG TABLET (FP) PO SCH (12:37)
[2016-09-10] MEDS: TAMSULOSIN HCL 0.4 MG CAP.ER.24H (FP) PO SCH (12:37)
[2016-09-10] MEDS: PANTOPRAZOLE 40 MG TABLET (FP) PO SCH (12:37)
[2016-09-10] MEDS: CLOPIDOGREL BISULFATE 75 MG TABLET (FP) PO SCH (12:37)
[2016-09-10] MEDS: ASPIRIN COATED 81 MG TABLET.EC PO SCH (12:37)
[2016-09-10] MEDS: COLLAGENASE CLOSTRIDIUM HIST. 30 GRAMS TUBE TP SCH (12:37)
--- NOTE | 2016-09-10 14:44 | PN ---
Physical Exam: SUBJECTIVE: Patient seen and examined. He vomited partially digested food overnight. He has not had a meaningful bowel movement. Abx xray shows: fecal debris in right colon OBJECTIVE: Vital Signs Period Temp Pulse Resp BP Sys/Olsen Pulse Ox Last 24 Hr 97.8 F-998.3 F 85-100 20-20 116-133/63-74 100 PE Neuro: awake, alert, oriented to self cn 2-12intact Pulm: Clear anteriorly CV: s1 s2 rrr no mrg Abd: abd tenderness lower abd, s nt nd + bs SKIN: Sacral ulcer stage III Ext: no le edema, no LE movement, right sided weakness weakness, LUE 4/5 motor CBCD WBC 10.9 K/mm3 (4.0-10.0) H 09/10/16 06:00 RBC 3.46 M/mm3 (4.00-5.60) L 09/10/16 06:00 Hgb 10.0 GM/dL (11.7-16.9) L 09/10/16 06:00 Hct 30.6 % (35.4-49) L 09/10/16 06:00 MCV 88.3 fl (80-96) 09/10/16 06:00 MCHC 32.8 g/dl (32.0-35.9) 09/10/16 06:00 RDW 15.4 % (11.9-15.9) 09/10/16 06:00 Plt Count 251 K/MM3 (134-434) 09/10/16 06:00 MPV 7.4 fl (7.5-11.1) L 09/10/16 06:00 CMP Sodium 148 mmol/L (136-145) H 09/10/16 06:00 Potassium 3.8 mmol/L (3.5-5.1) 09/10/16 06:00 Chloride 112 mmol/L (98-107) H 09/10/16 06:00 Carbon Dioxide 27 mmol/L (21-32) 09/10/16 06:00 Anion Gap 9 (8-16) 09/10/16 06:00 BUN 19 mg/dL (7-18) H 09/10/16 06:00 Creatinine 0.7 mg/dL (0.7-1.3) 09/10/16 06:00 Creat Clearance w eGFR > 60 (>60) 09/09/16 23:45 Calcium 8.3 mg/dL (8.5-10.1) L 09/10/16 06:00 Total Bilirubin 0.7 mg/dL (0.2-1.0) 09/09/16 23:45 AST 9 U/L (15-37) L D 09/09/16 23:45 ALT 9 U/L (12-78) L 09/09/16 23:45 Alkaline Phosphatase 94 U/L (45-117) 09/09/16 23:45 Total Protein 6.2 g/dl (6.4-8.2) L 09/09/16 23:45 Albumin 2.8 g/dl (3.4-5.0) L 09/09/16 23:45 Active Medications Generic Name Dose Route Start Last Admin Trade Name Freq PRN Reason Stop Dose Admin Amino Acids 30 ml 09/05/16 17:30 09/10/16 11:53 Prostat Sugar-Free Packet - PO Not Given BID@0800,1730 ZARI Aspirin 81 mg 09/09/16 10:00 09/10/16 12:37 Ecotrin - PO 81 mg DAILY ZAIR Administration Atorvastatin Calcium 20 mg 09/04/16 22:00 09/09/16 23:48 Lipitor - PO 20 mg HS ZARI Administration Bupropion HCl 150 mg 09/07/16 22:00 09/10/16 12:37 Wellbutrin Xl - PO 150 mg BID ZARI Administration Clopidogrel Bisulfate 75 mg 09/09/16 10:00 09/10/16 12:37 Plavix - PO 75 mg DAILY ZARI Administration Collagenase 1 applic 09/05/16 16:00 09/10/16 12:37 Santyl - TP 1 applic DAILY ZARI Administration Finasteride 5 mg 09/07/16 10:00 09/10/16 12:37 Proscar - PO 5 mg DAILY ZARI Administration Dextrose/Sodium Chloride 1,000 mls @ 100 mls/hr 09/09/16 22:30 09/09/16 23:50 D5-Ns - IV 100 mls/hr ASDIR ZARI Administration Insulin Aspart 1 vial 09/07/16 10:29 09/10/16 12:37 Novolog Vial Sliding Scale - SQ 4 unit ACHS ZARI Administration Protocol Insulin Detemir 12 units 09/10/16 22:00 Levemir Vial SQ HS [facility] Liraglutide 1.8 mg 09/07/16 07:00 09/10/16 06:01 Victoza - SQ 1.8 mg DAILY@0700 ZARI Administration Lisinopril 20 mg 09/07/16 10:35 09/10/16 12:36 Prinivil PO 20 mg DAILY ZARI Administration Metoclopramide HCl 10 mg 09/09/16 22:22 09/10/16 11:58 Reglan Injection - IVPB 10 mg Q6H PRN Administration NAUSEA AND/OR VOMITING Metoprolol Succinate 25 mg 09/09/16 15:56 09/10/16 12:37 Toprol Xl - PO 25 mg DAILY ZARI Administration Pantoprazole Sodium 40 mg 09/05/16 15:45 09/10/16 12:37 Protonix - PO 40 mg DAILY ZARI Administration Polyethylene Glycol 17 gm 09/09/16 22:00 09/10/16 11:53 Miralax (For Daily Use) - PO Not Given BID ZARI Senna 2 tab 09/09/16 22:00 09/09/16 23:48 Senna - PO 2 tab HS ZARI Administration Tamsulosin HCl 0.4 mg 09/06/16 16:00 09/10/16 12:37 Flomax - PO 0.4 mg DAILY@0830 ZARI Administration Assessment: 75 year old male with a significant past medical history of 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 Plan: 1. Constipation/ Vomiting - Reglan ordered overnight - Relistor x1 this AM - SSE x1 - Continue fluids 2. Hypernatremia - Water deficit 3L - Continue d5 @100cc/hr x24 hrs 3. Hematuria - Resolved - Urinating freely 4. UTI - Completed 5 days ceftriaxone today - Urine cx neg 5. Hypernatremia - Resolved 6. BPH - Continue Flomax - Continue Finasteride 7. KOBE - Resolved 8. DM II - Increase levemir 12 units HS - Continue Liraglutide - ISS BGM ACHS 9. HTN - Controlled - Lisinopril 20mg daily - Maintain home dose Metoprolol xl 25mg daily 10. hx of DVA 03/2016 - Continue ASA and Plavix - Monitor for hematuria 11. PAD - Lipitor 20mg HS 12. Depression - Continue Wellbutrin xl 13. Pressure ulcers - Pt admitted with ulcers - Daily wound changes with collagenase - Continue prostat - Will need wound care follow up in wound care center and VNS Visit type - Emergency Visit Emergency Visit: Yes ED Registration Date: 09/07/16 Care time: The patient presented to the Emergency Department on the above date and was hospitalized for further evaluation of their emergent condition. - New Patient This patient is new to me today: No - Critical Care Critical Care patient: No
[2016-09-10] MEDS ORDERED: LACTULOSE 20 GM/30 ML UDC (FOR ORAL USE ONLY) PO ONE (16:49)
[2016-09-10] MEDS: SENNOSIDES 8.6MG TABLET (FP) PO SCH (21:12)
[2016-09-10] MEDS: ATORVASTATIN CA 20 MG TABLET (FP) PO SCH (21:12)
[2016-09-10] MEDS ORDERED: INSULIN DETEMIR 100 UNITS/ML MDV SQ SCH (22:00)
[2016-09-10] MEDS: DEXTROSE 5%-NORMAL SALINE 1,000 ML IV SCH (23:17)
[2016-09-11] MEDS: DEXTROSE 5%-NORMAL SALINE 1,000 ML IV SCH (04:48)
[2016-09-11] MEDS ORDERED: PT OWN MED DRAWER 7, Y5N ONE (06:22)
[2016-09-11] MEDS: INSULIN SLIDING SCALE (NOVOLOG) 1 VIAL SQ SCH ×2 (06:35→12:40)
[2016-09-11] MEDS: LIRAGLUTIDE 0.6 MG/0.1 ML PEN.INJCTR SQ SCH (06:38)
[2016-09-11 07:12] LABS: CALCIUM 8.5 mg/dL (8.5-10.1); CREATININE 0.6 mg/dL (0.7-1.3)
[2016-09-11] MEDS: AMINO ACIDS/PROTEIN HYDROLYS SUGAR-FREE 30 ML PACKET PO SCH (10:16)
[2016-09-11] MEDS: TAMSULOSIN HCL 0.4 MG CAP.ER.24H (FP) PO SCH (10:16)
--- NOTE | 2016-09-11 10:49 | DS ---
Physical Exam: SUBJECTIVE: Patient seen and examined. 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 He is smiling, appears very comfortable at rest. OBJECTIVE: GENERAL: Awake, alert oriented HEAD: Normal with no signs of trauma. EYES: sclera anicteric, conjunctiva clear. No lid lag. EARS, NOSE, THROAT: Ears normal, nares patent, oropharynx clear without exudates. Moist mucous membranes. NECK: Normal range of motion. LUNGS: Breath sounds equal, clear to auscultation bilaterally. No wheezes, and no crackles. No accessory muscle use. HEART: Regular rate and rhythm ABDOMEN: Soft, non-tender, non distended, normoactive bowel sounds, tolerating breakfast, had small BM last night NEUROLOGICAL: impaired speech SKIN: multiple unsteageable pressure ulcers present on admission as follows: (1) Coccyx unstageable pressure ulcer (2 cm L x 2 cm W) (2) Right lateral malleous unstageable pressure ulcer (2cm x 2cm) (3) Right heal unstageable pressure ulcer (2.5cm L x 2.0 cm W) Vital Signs Period Temp Pulse Resp BP Sys/Olsen Pulse Ox Last 24 Hr 97.2 F-98.5 F 90-93 20-20 133-140/68-92 100-100 PHYSICAL EXAM LABS Laboratory Results - last 24 hr 09/10/16 09/10/16 09/10/16 12:36 16:20 21:04 Sodium Potassium Chloride Carbon Dioxide Anion Gap BUN Creatinine POC Glucometer 194 234 216 Random Glucose Calcium 09/11/16 09/11/16 05:40 06:00 Sodium 148 H Potassium 3.8 Chloride 114 H Carbon Dioxide 24 Anion Gap 10 BUN 11 D Creatinine 0.6 L POC Glucometer 163 Random Glucose 171 H Calcium 8.5 HOSPITAL COURSE: Date of Admission:09/07/16 Date of Discharge: 09/11/16 ASSESSMENT/PLAN: Patient is a 75 year old male with a significant past medical history of 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 He presented to the ED on 09/04/2016 via EMS for hematuria x 1 day. No history of trauma or renal stones reported. On admission, pt denies any frequency, urine clots, fever, chills. He was recently treated for a [facility] a detention. : Hematuria/Cystitis - resolved Assessment/Plan: Voiding freely, no urgency or pain on urination, no hematuria UTI - resolved Assessment/Plan: Finished full course of antibiotics for UTI Urine cultures negative KOBE - resolved Assessment/Plan: Likely secondary to dehydration BPH - chronic Assessment/Plan: On flomax 0.4mg daily GI: Constipation - improving Assessment/Plan: Yesterday he was noted to have episodes of vomiting, no BM Given Relistor yesterday and Reglan, had small BM today Will order Fleet enema He denies any discomfort, no pain illicited on palpation of the abdomen Abdominal xray negative for SBO Tolerating breakfast this morning, no nausea, no abdominal pain + bowel sounds on all four quadrants Endocrine: Diabetes Mellitus - On Novolog sliding scale Adjusted Novolog scale for tighter control Cardiology: Hypertension - chronic Continue Lisinopril, Monitor BPs Integumentary/Skin: Pressure Ulcers - multiple pressure ulcers on present admission: (1) Coccyx unstageable pressure ulcer (2 cm L x 2 cm W) (2) Right lateral malleous unstageable pressure ulcer (2cm x 2cm) (3) Right heal unstageable pressure ulcer (2.5cm L x 2.0 cm W) Started on Prostat turn and pos Q2 Started on Collagenase Electrolyes: Hypernatremia - slowly resolving Assessment/Plan: Will need repeat CMP as outpatient Will need close monitoring of I&Os. Minutes to complete discharge: 45 Discharge Summary Reason For Visit: HEMATURIA; CYSTITIS Current Active Problems Cystitis (Acute) Hematuria (Acute) Condition: Stable - Instructions Diet, Activity, Other Instructions: PCP: Dr. Peter Garcia at [phone] Short Order Fry Cook, Dr. Felix Please follow up with your PCP upon discharge for repeat blood work. Please drink adequate amount of fluids 8 cups of water per day. Please return to the ED if you have any of the following: Hematuria Pain on urination Clots of blood in your urine shortness of breath chest pain Disposition: LONG-TERM FACILITY - Home Medications Comprehensive Discharge Medication List: Ambulatory Orders Aspirin [Aspirin EC] 81 mg PO DAILY 09/04/16 Atorvastatin Ca [Lipitor] 20 mg PO HS 09/04/16 Bupropion HCl [Bupropion HCl Sr] 150 mg PO BID 09/04/16 Clopidogrel Bisulfate [Plavix -] 75 mg PO DAILY 09/04/16 Colchicine 0.6 mg PO DAILY 09/04/16 Finasteride 5 mg PO DAILY 09/04/16 Folic Acid 0.8 mg PO DAILY 09/04/16 Iron Polysaccharide Complex [Ferrex 150] 150 mg PO WEEKLY 09/04/16 Liraglutide [Victoza -] 1.8 mg SQ DAILY@0700 09/04/16 Lisinopril [Prinivil] 20 mg PO DAILY 09/04/16 Metoprolol Succinate [Toprol XL -] 25 mg PO DAILY 09/04/16 Omeprazole 20 mg PO WEEKLY 09/04/16 Tamsulosin HCl 0.4 mg PO DAILY 09/04/16 Thiamine HCl [Vitamin B1 -] 100 mg PO DAILY 09/04/16 Amino Acids/Protein Hydrolys [Prostat Sugar-Free Packet -] 30 ml PO BID@0800, 1730 packet 09/09/16 Collagenase Clostridium Hist. [Santyl -] 1 applic TP DAILY tube 09/09/16 Sennosides [Senna -] 1 tab PO HS #30 tablet 09/09/16 Insulin Detemir [Levemir Flextouch] 12 unit SQ HS #1 insuln.pen 09/10/16 Insulin Sliding Scale [Novolog Vial Sliding Scale -] 1 vial SQ ACHS units 09/10 This patient is new to me today: No Emergency Visit: Yes ED Registration Date: 09/07/16 Care time: The patient presented to the Emergency Department on the above date and was hospitalized for further evaluation of their emergent condition. Critical Care patient: No - Discharge Referral Referred to [facility] Med P.C.: No
[2016-09-11] MEDS: LISINOPRIL 20 MG TABLET (FP) PO SCH (10:52)
[2016-09-11] MEDS: PANTOPRAZOLE 40 MG TABLET (FP) PO SCH (10:52)
[2016-09-11] MEDS: METOCLOPRAMIDE HCL INJECTION 10 MG/2 ML VIAL IVPB PRN (10:52)
[2016-09-11] MEDS: CLOPIDOGREL BISULFATE 75 MG TABLET (FP) PO SCH (10:52)
[2016-09-11] MEDS: COLLAGENASE CLOSTRIDIUM HIST. 30 GRAMS TUBE TP SCH (10:53)
[2016-09-11] MEDS: FINASTERIDE 5 MG TABLET (FP) PO SCH (10:53)
[2016-09-11] MEDS: ASPIRIN COATED 81 MG TABLET.EC PO SCH (10:53)
[2016-09-11] MEDS: METOPROLOL SUCCINATE 25 MG TAB.SR.24H (FP) PO SCH (10:54)
[2016-09-11] MEDS: POLYETHYLENE GLYCOL 3350 119 GM BTL PO SCH (10:54)
[2016-09-11] MEDS ORDERED: SODIUM PHOSPHATE/NA BIPHOS 133 ML ENEMA PR ONE (11:30)
[2016-09-11] MEDS ORDERED: ONDANSETRON 4 MG/2 ML VIAL IVPUSH ONE (12:13)
[2016-09-11 14:29] VITALS: BP 149/74; PULSE 95; TEMP 97.7
--- NOTE | 2016-09-27 11:44 | CON.GI ---
Consult Consult Specialty:: GI Referred by:: Dr. Diop Reason for Consultation:: Vomiting - History of Present Illness Chief Complaint: Patient with minimal verbalization History of Present Illness: 75M from [place] admitted for evaluation of N/V. Recent Hospitalization end of 08/25 for gross hematuria. Noted to have vomiting at that time. Non contrast CT scan of the abdomen and pelvis at that time was unrevealing. AXR revealed fecal material in the right colon. Called to evaluate "gastroparesis vs. acute cholecystitis". Per Mr. Bhatti's nurse there has been no reported vomiting, the patient has been denying any abdominal pain and he is having formed bowel movements. there has been no reported rectal bleeding or melena. He seems to have tolerated his soft diet for breakfast this morning. In ER WBC 13K. 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 Cardio/Vascular: Yes: CAD, CHF Gastrointestinal: Yes: Other (gallbladder sludge) Renal/: Yes: BPH, Hematuria - Alcohol/Substance Use Hx Alcohol Use: No - Smoking History Smoking history: Never smoked Have you smoked in the past 12 months: No - Social History Usual Living Arrangement: Group Home Place of : [facility] History of Recent Travel: No Home Medications - Allergies Allergies/Adverse Reactions: Allergies Allergy/AdvReac Type Severity Reaction Status Date / Time No Known Allergies Allergy Verified 09/26/16 13:24 - Home Medications Home Medications: Ambulatory Orders Aspirin [Aspirin EC] 81 mg PO DAILY 09/04/16 Bupropion HCl [Bupropion HCl Sr] 150 mg PO BID 09/04/16 Clopidogrel Bisulfate [Plavix -] 75 mg PO DAILY 09/04/16 Colchicine 0.6 mg PO DAILY 09/04/16 Finasteride 5 mg PO DAILY 09/04/16 Folic Acid 0.8 mg PO DAILY 09/04/16 Iron Polysaccharide Complex [Ferrex 150] 150 mg PO WEEKLY 09/04/16 Liraglutide [Victoza -] 1.8 mg SQ DAILY@0700 09/04/16 Lisinopril [Prinivil] 20 mg PO DAILY 09/04/16 Metoprolol Succinate [Toprol XL -] 25 mg PO DAILY 09/04/16 Omeprazole 20 mg PO WEEKLY 09/04/16 Tamsulosin HCl 0.4 mg PO DAILY 09/04/16 Thiamine HCl [Vitamin B1 -] 100 mg PO DAILY 09/04/16 Amino Acids/Protein Hydrolys [Prostat Sugar-Free Packet -] 30 ml PO BID@0800, 1730 packet 09/09/16 Collagenase Clostridium Hist. [Santyl -] 1 applic TP DAILY tube 09/09/16 Sennosides [Senna -] 1 tab PO HS #30 tablet 09/09/16 Insulin Detemir [Levemir Flextouch] 12 unit SQ HS #1 insuln.pen 09/10/16 Insulin Sliding Scale [Novolog Vial Sliding Scale -] 1 vial SQ ACHS units 09/10 Atorvastatin Ca [Lipitor] 20 mg PO HS tablet 09/11/16 Polyethylene Glycol 3350 [Miralax 119 gm Btl -] 17 gm PO BID bottle 09/11/16 Ondansetron [Zofran Odt -] 4 mg SL TID 09/26/16 Family Disease History - Family Disease History Family History: Unable to Obtain Review of Systems Unable to obtain ROS, reason: Patient minimally verbal Findings/Remarks: Limited ROS - Review of Systems Gastrointestinal: denies: Abdominal Pain Physical Exam-GI Vital Signs: Vital Signs Temperature 97.7 F 09/11/16 14:28 Pulse Rate 95 H 09/11/16 14:28 Respiratory Rate 20 09/11/16 14:28 Blood Pressure 149/74 09/11/16 14:28 O2 Sat by Pulse Oximetry (%) 100 09/11/16 08:00 Constitutional: Yes: Calm Eyes: No: Sclera Icterus Cardiovascular: Yes: Regular Rate and Rhythm. No: Murmur Respiratory: Yes: Diminished (at bases b/l, poor insp effort) Gastrointestinal Inspection: No: Distention, Scars ...Auscultate: Yes: Normoactive Bowel Sounds ...Palpate: No: Hepatomegaly, Splenomegaly, Tenderness ...Percussion: No: Tympanitic ...Rectal Exam: Yes: Other (copious formed light brown stool, guaiac negative.) Extremities: Yes: Other (dressing on right foot) Edema: No (LE stasis changes) Neurological: Yes: Alert Labs: CBC, BMP 09/10/16 06:00 09/11/16 06:00 INR, PTT INR 1.19 (0.82-1.09) H 09/04/16 11:16 Imaging - Results Ultrasound: Pending Problem List - Problems (1) Vomiting Assessment/Plan: No current vomiting. No focal findings on abdominal exam. No RUQ tenderness to clinically suspect acute cholecystitis copious stool noted on rectal exam. ? if fecal retention contributing to nausea , ? if episodes of hyperglycemia contributing, polypharmacy ? if UTI contributing to elevated WBC and nausea / vomiting Plan: Ordered UA/Culture Await abdominal US Streamline medical regimen as feasible MiraLAX 17g daily UGIS if patient can cooperate Code(s): R11.10 - VOMITING, UNSPECIFIED Qualifiers: Vomiting type: unspecified Vomiting Intractability: intractable Nausea presence: with nausea Qualified Code(s): R11.2 - Nausea with vomiting , unspecified
== END 2016-09-11 16:54 | DRG 689 ==
LOC: JER 10:06 → JERBED 12:55 → J7W 20:12 → OBSVTOIN 09-07 12:55
PROVIDERS: ADMIT Internal Medicine; ATTEND Nurse Practitioner Family
DX: N30.01 Acute cystitis with hematuria (principal); L89.153 Pressure ulcer of sacral region, stage 3; I69.351 Hemiplegia and hemiparesis following cerebral infarction affecting right dominant side; N17.9 Acute kidney failure, unspecified; E87.0 Hyperosmolality and hypernatremia; N40.0 Benign prostatic hyperplasia without lower urinary tract symptoms; K59.00 Constipation, unspecified; E11.9 Type 2 diabetes mellitus without complications; I10 Essential (primary) hypertension; F32.9 Major depressive disorder, single episode, unspecified; L89.610 Pressure ulcer of right heel, unstageable
CPT/HCPCS: 36415; 71010-TC; 74000-TC; 74176; 76775-TC; 76856-TC; 80048; 80053; 81003; 81015; 83735; 84100; 85025; 85027; 85610; 86850; 86900; 86901; 87086; 93005; 93010; 97161-GP; 99285-25; G0378

== ENCOUNTER 2016-09-26 12:26 | Inpatient (IN) | payer OTHER, MEDICARE ==
--- NOTE | 2016-09-26 12:45 | PDOC ---
History of Present Illness - General History Source: Patient Exam Limitations: Clinical Condition - History of Present Illness Initial Comments: 09/26/16 13:31 The patient is a 75 year old male, resident of [facility], with a significant past medical history of right CVA (in 2005) with right-sided hemiparesis, hypertension, hypercholesterolemia, cervical osteoarthritis, BPH, kidney stones, PAD with angiogram, DM II, HTN, and anemia, who is referred to the ER by Dr. Diop for intractable vomiting for one week. Patient is a baseline poor historian. He states he has a fat pad on the right foot. He denies chills, cough, shortness of breath, chest pain. <Tamiko De Leon - Last Filed: 09/26/16 14:07> <Alicia Mckinley - Last Filed: 09/26/16 21:23> - General Chief Complaint: Nausea/Vomiting Stated Complaint: DEHYDRATION Time Seen by Provider: 09/26/16 12:38 Past History <Tamiko De Leon - Last Filed: 09/26/16 14:07> - Past Medical History Cardiac Disorders: Yes (cardiac stents) CHF: Yes Diabetes: Yes HTN: Yes Hypercholesterolemia: Yes - Psycho/Social/Smoking Cessation Hx Anxiety: No Suicidal Ideation: No Smoking History: Never smoked Have you smoked in the past 12 months: No Hx Alcohol Use: No Drug/Substance Use Hx: No Substance Use Type: None <Alicia Mckinley - Last Filed: 09/26/16 21:23> - Past Medical History Allergies/Adverse Reactions: Allergies Allergy/AdvReac Type Severity Reaction Status Date / Time No Known Allergies Allergy Verified 09/26/16 13:24 Home Medications: Ambulatory Orders Aspirin [Aspirin EC] 81 mg PO DAILY 09/04/16 Bupropion HCl [Bupropion HCl Sr] 150 mg PO BID 09/04/16 Clopidogrel Bisulfate [Plavix -] 75 mg PO DAILY 09/04/16 Colchicine 0.6 mg PO DAILY 09/04/16 Finasteride 5 mg PO DAILY 09/04/16 Folic Acid 0.8 mg PO DAILY 09/04/16 Iron Polysaccharide Complex [Ferrex 150] 150 mg PO WEEKLY 09/04/16 Liraglutide [Victoza -] 1.8 mg SQ DAILY@0700 09/04/16 Lisinopril [Prinivil] 20 mg PO DAILY 09/04/16 Metoprolol Succinate [Toprol XL -] 25 mg PO DAILY 09/04/16 Omeprazole 20 mg PO WEEKLY 09/04/16 Tamsulosin HCl 0.4 mg PO DAILY 09/04/16 Thiamine HCl [Vitamin B1 -] 100 mg PO DAILY 09/04/16 Amino Acids/Protein Hydrolys [Prostat Sugar-Free Packet -] 30 ml PO BID@0800, 1730 packet 09/09/16 Collagenase Clostridium Hist. [Santyl -] 1 applic TP DAILY tube 09/09/16 Sennosides [Senna -] 1 tab PO HS #30 tablet 09/09/16 Insulin Detemir [Levemir Flextouch] 12 unit SQ HS #1 insuln.pen 09/10/16 Insulin Sliding Scale [Novolog Vial Sliding Scale -] 1 vial SQ ACHS units 09/10 Atorvastatin Ca [Lipitor] 20 mg PO HS tablet 09/11/16 Polyethylene Glycol 3350 [Miralax 119 gm Btl -] 17 gm PO BID bottle 09/11/16 Ondansetron [Zofran Odt -] 4 mg SL TID 09/26/16 Review of Systems - Review of Systems Able to Perform ROS?: Yes Comments:: 09/26/16 13:32 GENERAL/CONSTITUTIONAL: No fever or chills. No weakness. HEAD, EYES, EARS, NOSE AND THROAT: No change in vision. No ear pain or discharge. No sore throat. CARDIOVASCULAR: No chest pain or shortness of breath. RESPIRATORY: No cough, wheezing, or hemoptysis. GASTROINTESTINAL: Nauesa, vomiting. No diarrhea or constipation. GENITOURINARY: No dysuria, frequency, or change in urination. MUSCULOSKELETAL: No joint or muscle swelling or pain. No neck or back pain. SKIN: No rash NEUROLOGIC: No headache, vertigo, loss of consciousness, or change in strength/ sensation. ENDOCRINE: No increased thirst. No abnormal weight change. HEMATOLOGIC/LYMPHATIC: Anemia. No easy bleeding, or history of blood clots. ALLERGIC/IMMUNOLOGIC: No hives or skin allergy. <Uts,Tamiko - Last Filed: 09/26/16 14:07> *Physical Exam - Vital Signs Last Vital Signs Temp Pulse Resp BP Pulse Ox 97.8 F 83 22 123/67 98 09/26/16 13:00 09/26/16 13:00 09/26/16 13:00 09/26/16 13:00 09/26/16 13:00 - Physical Exam Comments: 09/26/16 13:33 GENERAL: Awake, alert, and fully oriented, in no acute distress HEAD: No signs of trauma EYES: PERRLA, EOMI, sclera anicteric, conjunctiva clear ENT: Dry mucous membranes. Auricles normal inspection, hearing grossly normal, nares patent, oropharynx clear without exudates. NECK: Normal ROM, supple, no lymphadenopathy, JVD, or masses LUNGS: Breath sounds equal, clear to auscultation bilaterally. No wheezes, and no crackles HEART: Regular rate and rhythm, normal S1 and S2, no murmurs, rubs or gallops ABDOMEN: Tenderness on the RLQ. Soft, normoactive bowel sounds. No guarding, no rebound. No masses EXTREMITIES: Normal range of motion, no edema. No clubbing or cyanosis. No cords, erythema, or tenderness NEUROLOGICAL: Cranial nerves II through XII grossly intact. Normal speech, normal gait SKIN: Warm, Dry, normal turgor, no rashes or lesions noted. <Tamiko De Leon - Last Filed: 09/26/16 14:07> Heart Score/ECG Review - ECG Impressions Comment:: EKG read 15:36- NSR 83 bpm, no acute ST/T changes <Alicia Mckinley - Last Filed: 09/26/16 21:23> ED Treatment Course - LABORATORY CBC & Chemistry Diagram: 09/26/16 13:04 09/26/16 13:04 - ADDITIONAL ORDERS Additional order review: 09/26/16 13:04 RBC 3.97 L MCV 86.7 MCHC 32.1 RDW 15.0 MPV 7.5 Neutrophils % 70.5 Lymphocytes % 15.4 Monocytes % 6.2 Eosinophils % 6.6 H Basophils % 1.3 - Medications Given in the ED: ED Medications Discontinued Medications Generic Name Dose Route Start Last Admin Trade Name Freq PRN Reason Stop Dose Admin Sodium Chloride 250 mls @ 500 mls/hr 09/26/16 12:56 09/26/16 13:00 Normal Saline - IV 09/26/16 13:25 500 mls/hr ASDIR STA Administration Ondansetron HCl 4 mg 09/26/16 12:54 09/26/16 13:28 Zofran Injection IVPUSH 09/26/16 12:55 4 mg ONCE ONE Administration <Tamiko De Leon - Last Filed: 09/26/16 14:07> - LABORATORY CBC & Chemistry Diagram: 09/26/16 13:04 09/26/16 13:04 <Alicia Mckinley - Last Filed: 09/26/16 21:23> Medical Decision Making - Medical Decision Making 09/26/16 13:[address] Diop. Patient had recent CT with no acute findings. He has had persistent intractable vomiting. She sent him for admission to her service for additional evaluation, including GI evaluation. As per our discussion, I will not repeat CT at this time. I have given gentle hydration based on initial unclear history (patient is a very poor historian, poss hx CHF , was uncertain, but appeared dehydrated). <Alicia Mckinley - Last Filed: 09/26/16 21:23> *DC/Admit/Observation/Transfer - Attestations Scribe Attestion: 09/26/16 13:34 Documentation prepared by Tamiko De Leon, acting as medical customer service representative for Alicia Mckinley MD. <Tamiko De Leon - Last Filed: 09/26/16 14:07> - Discharge Dispostion Admit: Yes <Alicia Mckinley - Last Filed: 09/26/16 21:23> Diagnosis at time of Disposition: Dehydration Vomiting Qualifiers: Vomiting type: unspecified Vomiting Intractability: intractable Nausea presence : with nausea Qualified Code(s): R11.2 - Nausea with vomiting, unspecified - Discharge Dispostion Condition at time of disposition: Stable
[2016-09-26] MEDS ORDERED: ONDANSETRON 4 MG/2 ML VIAL IVPUSH ONE (12:54)
[2016-09-26] MEDS ORDERED: SODIUM CHLORIDE 250 ML IV STA (12:56)
[2016-09-26] MEDS ORDERED: ONDANSETRON 4 MG/2 ML VIAL ONE (13:26)
[2016-09-26 13:27] LABS: BASOPHIL 1.3 % (0-2.0); EOSINOPHIL 6.6 % (0-4.5); MCH 27.8 pg (25.7-33.7); MCHC 32.1 g/dl (32.0-35.9); MEAN CELL VOLUME 86.7 fl (80-96); MEAN PLT VOLUME 7.5 fl (7.5-11.1); NEUTROPHILS 70.5 % (42.8-82.8); PLATELET COUNT 258 K/MM3 (134-434); WHITE BLOOD COUNT 13.3 K/mm3 (4.0-10.0)
[2016-09-26 14:03] LABS: ALBUMIN 2.5 g/dl (3.4-5.0); ANION GAP 11 (8-16); BILIRUBIN,TOTAL 1.1 mg/dL (0.2-1.0); CALCIUM 8.2 mg/dL (8.5-10.1); CO2 25 mmol/L (21-32); CREATININE 0.8 mg/dL (0.7-1.3); GLUCOSE,RANDOM 244 mg/dL (74-106); SGOT/AST 6 U/L (15-37); SGPT/ALT 7 U/L (12-78)
[2016-09-26 14:06] LABS: ALK PHOS 84 U/L (45-117); TROPONIN I < 0.02 ng/ml (0.00-0.05)
[2016-09-26 17:30] VITALS: BMI 28.3
[2016-09-26] MEDS ORDERED: ONDANSETRON 4 MG/2 ML VIAL IVPB PRN (18:40)
[2016-09-26] MEDS ORDERED: PANTOPRAZOLE SODIUM 80 MG in SODIUM CHLORIDE 100 ML IVPB SCH (18:45)
[2016-09-26] MEDS: D5-1/2NS+20 MEQ KCL - 1,000 ML IV SCH (18:50)
--- NOTE | 2016-09-26 18:51 | HP ---
Admitting History and Physical - Admission Chief Complaint: nausea, vomiting , poor oral intake for more then a month intermittently History of Present Illness: 75 yo male with multiple medical problems recently admitted at [facility] for UTI, with symptoms of n/v at that time discharged to subacute rehab, in rehab he continued to have the mentioned symptoms to the point that the patient was unable to have any po intake, i decide to transfer him for complete investigations and treatment . 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) Cardiovascular: Yes: CAD, CHF, Other (peripheral artery disease, with angiogram in the past) Hepatobiliary: Yes: Cholelithiasis Renal/: Yes: BPH Musculoskeletal: Yes: Hemiplegia (right) Endocrine: Yes: Diabetes Mellitus - Past Surgical History Past Surgical History: Yes: Hernia Repair - Advance Directives Advance Directives: Yes: Health Care Proxy, DNR - Smoking History Smoking history: Never smoked Have you smoked in the past 12 months: No - Alcohol/Substance Use Hx Alcohol Use: No Home Medications - Allergies Allergies/Adverse Reactions: Allergies Allergy/AdvReac Type Severity Reaction Status Date / Time No Known Allergies Allergy Verified 09/26/16 13:24 - Home Medications Home Medications: Ambulatory Orders Aspirin [Aspirin EC] 81 mg PO DAILY 09/04/16 Bupropion HCl [Bupropion HCl Sr] 150 mg PO BID 09/04/16 Clopidogrel Bisulfate [Plavix -] 75 mg PO DAILY 09/04/16 Colchicine 0.6 mg PO DAILY 09/04/16 Finasteride 5 mg PO DAILY 09/04/16 Folic Acid 0.8 mg PO DAILY 09/04/16 Iron Polysaccharide Complex [Ferrex 150] 150 mg PO WEEKLY 09/04/16 Liraglutide [Victoza -] 1.8 mg SQ DAILY@0700 09/04/16 Lisinopril [Prinivil] 20 mg PO DAILY 09/04/16 Metoprolol Succinate [Toprol XL -] 25 mg PO DAILY 09/04/16 Omeprazole 20 mg PO WEEKLY 09/04/16 Tamsulosin HCl 0.4 mg PO DAILY 09/04/16 Thiamine HCl [Vitamin B1 -] 100 mg PO DAILY 09/04/16 Amino Acids/Protein Hydrolys [Prostat Sugar-Free Packet -] 30 ml PO BID@0800, 1730 packet 09/09/16 Collagenase Clostridium Hist. [Santyl -] 1 applic TP DAILY tube 09/09/16 Sennosides [Senna -] 1 tab PO HS #30 tablet 09/09/16 Insulin Detemir [Levemir Flextouch] 12 unit SQ HS #1 insuln.pen 09/10/16 Insulin Sliding Scale [Novolog Vial Sliding Scale -] 1 vial SQ ACHS units 09/10 Atorvastatin Ca [Lipitor] 20 mg PO HS tablet 09/11/16 Polyethylene Glycol 3350 [Miralax 119 gm Btl -] 17 gm PO BID bottle 09/11/16 Ondansetron [Zofran Odt -] 4 mg SL TID 09/26/16 Review of Systems - Review of Systems Constitutional: reports: Weakness Eyes: reports: No Symptoms HENT: reports: No Symptoms Neck: reports: No Symptoms Cardiovascular: reports: Edema (right upper extremity). denies: Chest Pain Respiratory: reports: No Symptoms Gastrointestinal: reports: Vomiting. denies: Abdominal Pain, Bloating Genitourinary: reports: No Symptoms Musculoskeletal: denies: Back Pain Integumentary: reports: Other (pressure ulcer stage 2 sacrum and pressure u; lcer right external malleola) Neurological: reports: Weakness (right hemiplegia) Endocrine: reports: No Symptoms Physical Examination Vital Signs: Vital Signs Temperature 99.7 F H 09/26/16 17:10 Pulse Rate 88 09/26/16 17:10 Respiratory Rate 18 09/26/16 17:10 Blood Pressure 114/55 09/26/16 17:10 O2 Sat by Pulse Oximetry (%) 97 09/26/16 17:10 Constitutional: Yes: No Distress Eyes: Yes: Conjunctiva Clear, EOM Intact HENT: Yes: Atraumatic, Normocephalic Neck: Yes: Supple, Trachea Midline Cardiovascular: Yes: Regular Rate and Rhythm, S1, S2 Respiratory: Yes: Regular, CTA Bilaterally Gastrointestinal: Yes: Normal Bowel Sounds, Soft, Abdomen, Obese. No: Ascites, Hepatomegaly, Splenomegaly ...Rectal Exam: Yes: Deferred Breast(s): Yes: WNL Musculoskeletal: Yes: WNL. No: Back Pain Extremities: No: Calf Tenderness Edema: RUE: 2+ Peripheral Pulses WNL: Yes Neurological: Yes: Alert, Oriented Psychiatric: Yes: Alert, Oriented Problem List - Problems (1) Cholelithiasis Assessment/Plan: non obstructing with no signs of cholecystitis on previous studies Code(s): K80.20 - CALCULUS OF GALLBLADDER W/O CHOLECYSTITIS W/O OBSTRUCTION (2) Diabetes mellitus Assessment/Plan: patient may possibly have gastroparesis Code(s): E11.9 - TYPE 2 DIABETES MELLITUS WITHOUT COMPLICATIONS (3) Cerebrovascular accident (CVA) Assessment/Plan: 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 Code(s): I63.9 - CEREBRAL INFARCTION, UNSPECIFIED (4) Pressure ulcer of right heel, stage 2 Assessment/Plan: apply collagenase daily Code(s): L89.612 - PRESSURE ULCER OF RIGHT HEEL, STAGE 2 (5) Pressure ulcer of sacral region, stage 2 Assessment/Plan: apply collagenase daily Code(s): L89.152 - PRESSURE ULCER OF SACRAL REGION, STAGE 2 (6) Pressure ulcer of right ankle, stage 2 Assessment/Plan: collagenase daily Code(s): L89.512 - PRESSURE ULCER OF RIGHT ANKLE, STAGE 2
[2016-09-26] MEDS ORDERED: CLOPIDOGREL BISULFATE 75 MG TABLET (FP) PO SCH (19:15)
[2016-09-26] MEDS: METOPROLOL SUCCINATE 25 MG TAB.SR.24H (FP) PO SCH (21:08)
[2016-09-26] MEDS: INSULIN SLIDING SCALE (NOVOLOG) 1 VIAL SQ SCH (21:12)
[2016-09-26] MEDS ORDERED: INSULIN (NOVOLOG) ASPART 100 UNITS/ML 10ML VIAL ONE (21:12)
[2016-09-27] MEDS ORDERED: INSULIN (NOVOLOG) ASPART 100 UNITS/ML 10ML VIAL ONE (06:13)
[2016-09-27] MEDS: INSULIN SLIDING SCALE (NOVOLOG) 1 VIAL SQ SCH ×4 (06:15→22:25)
[2016-09-27] MEDS: METOPROLOL SUCCINATE 25 MG TAB.SR.24H (FP) PO SCH (09:07)
[2016-09-27] MEDS: CLOPIDOGREL BISULFATE 75 MG TABLET (FP) PO SCH (09:07)
[2016-09-27] MEDS: PANTOPRAZOLE SODIUM 100 ML IVPB SCH (09:47)
[2016-09-27] MEDS: D5-1/2NS+20 MEQ KCL - 1,000 ML IV SCH ×2 (09:47→23:26)
--- NOTE | 2016-09-27 14:35 | PN ---
Progress Note, Physician Chief Complaint: patient seen, comfortable and without complaints History of Present Illness: 75 yo male with complaints of recurrent vomiting and inability to have po. He has h/o DM and CVA and is a poor historian - Current Medication List Current Medications: Active Medications Clopidogrel Bisulfate (Plavix -) 75 mg PO DAILY [facility] Last Admin: 09/27/16 09:07 Dose: 75 mg Pantoprazole Sodium (Protonix 40mg Ivpb (Pre-Docked)) 100 mls @ 200 mls/hr IVPB DAILY [facility] Last Admin: 09/27/16 09:47 Dose: 200 mls/hr Insulin Aspart (Novolog Vial Sliding Scale -) 1 vial SQ ACHS [facility] PRN Reason: Protocol Last Admin: 09/27/16 11:05 Dose: 6 units Metoprolol Succinate (Toprol Xl -) 25 mg PO DAILY [facility] Last Admin: 09/27/16 09:07 Dose: 25 mg Ondansetron HCl (Zofran Injection) 4 mg IVPB Q8H PRN PRN Reason: NAUSEA - Objective Vital Signs: Vital Signs Temperature 97.6 F 09/27/16 14:30 Pulse Rate 86 09/27/16 12:10 Respiratory Rate 20 09/27/16 14:30 Blood Pressure 105/53 09/27/16 12:10 O2 Sat by Pulse Oximetry (%) 97 09/26/16 22:00 Constitutional: Yes: No Distress, Calm Eyes: Yes: Conjunctiva Clear, EOM Intact HENT: Yes: Atraumatic, Normocephalic Neck: Yes: Supple, Trachea Midline Cardiovascular: Yes: Regular Rate and Rhythm, S1, S2 Respiratory: Yes: Regular, CTA Bilaterally Gastrointestinal: Yes: Normal Bowel Sounds, Soft. No: Hepatomegaly, Palpable Mass, Splenomegaly, Tenderness ...Rectal Exam: Yes: Deferred Breast(s): Yes: WNL Musculoskeletal: Yes: WNL Edema: Yes Edema: RUE: 1+ Peripheral Pulses WNL: Yes Integumentary: Yes: Pressure Ulcer (right malleola, sacrum) Psychiatric: Yes: Alert, Oriented Problem List - Problems (1) Cholelithiasis Assessment/Plan: non obstructing with signs of cholecystitis on ultrasound start Unasyn iv d/w surgery, cholecystectomy planned for this week Code(s): K80.20 - CALCULUS OF GALLBLADDER W/O CHOLECYSTITIS W/O OBSTRUCTION (2) Diabetes mellitus Assessment/Plan: patient may possibly have gastroparesis Code(s): E11.9 - TYPE 2 DIABETES MELLITUS WITHOUT COMPLICATIONS (3) Cerebrovascular accident (CVA) Assessment/Plan: 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, hold Plaviz, continue ASA Code(s): I63.9 - CEREBRAL INFARCTION, UNSPECIFIED
--- NOTE | 2016-09-27 19:56 | CONS ---
DATE OF CONSULTATION: 09/27/2016 REFERRING PHYSICIAN: Sofiya Diop MD REASON FOR REFERRAL: Symptomatic cholelithiasis. BRIEF HISTORY: This is a 75-year-old gentleman who was recently admitted to a subacute rehab. From that rehab, the patient was noted to have complaints of nausea and vomiting and subsequently the rehab had sent him to [facility] for further evaluation and management. Patient has a known history of biliary sludge and cholelithiasis and it is thought that the patient had biliary disease and therefore referred here for further evaluation and management. Patient had an ultrasound performed. The ultrasound results are not completed at this moment. Patient currently complains of having no abdominal pain; however, the patient is a very poor historian. He is alert and oriented to where he is, however, he is disoriented to time. Patient has no history of change in stool color or urine color; however, as mentioned, he is a very poor historian and the history is limited from this gentleman. PAST MEDICAL HISTORY: Significant for diabetes, coronary artery disease, hypertension, peptic ulcer disease. PAST SURGICAL HISTORY: Unknown. MEDICATIONS: Patient is on aspirin, BuSpar, Plavix, colchicine, finasteride, folic acid, iron, lisinopril, metoprolol, omeprazole, tamsulosin, thiamine, collagenase, insulin, atorvastatin, MiraLAX on a p.r.n. basis. SOCIAL HISTORY: Patient denies tobacco and alcohol use. PHYSICAL EXAMINATION: HEENT: There is no icterus. Abdomen: Moderately obese, soft, nontender, nondistended. LABORATORY DATA: The patient's LFTs are low. They are not elevated. He has a mild elevation in his bilirubin at 1.1. IMPRESSION/PLAN: Cholelithiasis, chronic cholecystitis. This is a 75-year-old gentleman who was admitted with nausea, vomiting, decreased p.o. intake, and abdominal pain. It was thought that this may be related to his biliary disease. At this point, the patient's gastrointestinal symptomatology is no longer present; however, the patient is a very poor historian. It is hard to determine whether or not he is truly symptomatic from his biliary disease, but given the fact that he is diabetic and a poor communicator, I feel that it is worthwhile at this time to proceed with laparoscopic cholecystectomy. If this gentleman would worsen in this condition from cholecystitis, I think he would present very late given his diabetes and being a poor historian and therefore present with higher complications therefore supporting the judgement to proceed with a laparoscopic cholecystectomy. We will discuss the case with Dr. Diop. If the patient is off anticoagulation, we can proceed with laparoscopic cholecystectomy some time during this admission. If he is on anticoagulants, the patient should be managed as an outpatient for an elective laparoscopic cholecystectomy. Further recommendations will be made after discussion with Dr. Diop. Thank you for allowing me to participate in the care of your patient. OCTAVIO MAK M.D. [id number] cc: Sofiya Diop MD
[2016-09-27] MEDS ORDERED: AMPICILLIN NA/SULBACTAM NA 3 GM in SODIUM CHLORIDE 100 ML IVPB ONE (23:00)
--- NOTE | 2016-09-28 00:46 | EKG ---
Test Reason : Blood Pressure : / mmHG Vent. Rate : 083 BPM Atrial Rate : 083 BPM P-R Int : 140 ms QRS Dur : 102 ms QT Int : 392 ms P-R-T Axes : 031 028 011 degrees QTc Int : 460 ms NORMAL SINUS RHYTHM INFERIOR INFARCT (CITED ON OR BEFORE 04-SEP-2016) ABNORMAL ECG WHEN COMPARED WITH ECG OF 04-SEP-2016 11:39, NO SIGNIFICANT CHANGE WAS FOUND Confirmed by JOHNSON FINCH MD ([id number]) on 09/28/2016 12:46:15 AM Referred By: Confirmed By:JOHNSON FINCH MD
[2016-09-28] MEDS ORDERED: INSULIN (NOVOLOG) ASPART 100 UNITS/ML 10ML VIAL ONE ×2 (06:56→11:54)
[2016-09-28] MEDS: INSULIN SLIDING SCALE (NOVOLOG) 1 VIAL SQ SCH ×4 (06:57→22:12)
[2016-09-28] MEDS: METOPROLOL SUCCINATE 25 MG TAB.SR.24H (FP) PO SCH (09:45)
[2016-09-28] MEDS: PANTOPRAZOLE SODIUM 100 ML IVPB SCH (09:47)
[2016-09-28] MEDS: AMPICILLIN NA/SULBACTAM NA 3 GM in SODIUM CHLORIDE 100 ML IVPB SCH (12:21)
--- NOTE | 2016-09-28 12:29 | PN ---
Progress Note, Physician Chief Complaint: patient developed loose stools over night, denies any abdominal pain and has no fever - Current Medication List Current Medications: Active Medications Clopidogrel Bisulfate (Plavix -) 75 mg PO DAILY [facility] Last Admin: 09/27/16 09:07 Dose: 75 mg Pantoprazole Sodium (Protonix 40mg Ivpb (Pre-Docked)) 100 mls @ 200 mls/hr IVPB DAILY [facility] Last Admin: 09/28/16 09:47 Dose: 200 mls/hr Potassium Chloride/Dextrose/Sod Cl (D5-1/2ns+20 Meq Kcl -) 1,000 mls @ 75 mls/ hr IV ASDIR [facility] Last Admin: 09/27/16 23:26 Dose: 75 mls/hr Levofloxacin (Levaquin 500 Mg Premixed Ivpb -) 100 mls @ 100 mls/hr IVPB DAILY [facility] Insulin Aspart (Novolog Vial Sliding Scale -) 1 vial SQ ACHS [facility] PRN Reason: Protocol Last Admin: 09/28/16 11:57 Dose: 8 units Metoprolol Succinate (Toprol Xl -) 25 mg PO DAILY [facility] Last Admin: 09/28/16 09:45 Dose: 25 mg - Objective Vital Signs: Vital Signs Temperature 98.6 F 09/28/16 05:53 Pulse Rate 89 09/28/16 05:53 Respiratory Rate 18 09/28/16 05:53 Blood Pressure 120/54 09/28/16 05:53 O2 Sat by Pulse Oximetry (%) 96 09/27/16 22:00 Constitutional: Yes: No Distress, Calm Eyes: Yes: Conjunctiva Clear, EOM Intact, Ptosis HENT: Yes: Normocephalic Neck: Yes: Supple, Trachea Midline Cardiovascular: Yes: Regular Rate and Rhythm, S1, S2 Respiratory: Yes: Regular, CTA Bilaterally Gastrointestinal: Yes: Normal Bowel Sounds, Soft. No: Hepatomegaly, Splenomegaly, Tenderness, Tenderness, Epigastrium, Vomiting ...Rectal Exam: Yes: Deferred Edema: Yes Edema: RUE: 1+, RLE: 1+ Peripheral Pulses WNL: Yes Integumentary: Yes: Pressure Ulcer (right heel and right malleola stage 2 , pressure ulcer of the sacral area stage 2) Neurological: Yes: Alert, Oriented Psychiatric: Yes: Alert, Oriented - ....Imaging Ultrasound: Other (of the gallbladder showing cholelithiasis and cholecystitis) Problem List - Problems (1) Cholelithiasis Assessment/Plan: non obstructing with signs of cholecystitis on ultrasound start Levaquin iv d/w surgery, cholecystectomy planned for this week Code(s): K80.20 - CALCULUS OF GALLBLADDER W/O CHOLECYSTITIS W/O OBSTRUCTION (2) Diabetes mellitus Assessment/Plan: patient may possibly have gastroparesis, nuclear gastric emptying study is pending continue accuchecks with coverage Code(s): E11.9 - TYPE 2 DIABETES MELLITUS WITHOUT COMPLICATIONS (3) Cerebrovascular accident (CVA) Assessment/Plan: 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, hold Plavix until surgery, continue ASA Code(s): I63.9 - CEREBRAL INFARCTION, UNSPECIFIED (4) Diarrhea Assessment/Plan: C dificile in stool continue IV fluids Code(s): R19.7 - DIARRHEA, UNSPECIFIED
[2016-09-28] MEDS: D5-1/2NS+20 MEQ KCL - 1,000 ML IV SCH ×2 (13:10→19:25)
[2016-09-28] MEDS: LEVOFLOXACIN 500 MG IVPB 100 ML IVPB SCH (13:11)
[2016-09-28] MEDS: COLLAGENASE CLOSTRIDIUM HIST. 30 GRAMS TUBE TP SCH ×2 (13:49→14:26)
[2016-09-29] MEDS: INSULIN SLIDING SCALE (NOVOLOG) 1 VIAL SQ SCH ×4 (06:17→21:43)
[2016-09-29 09:03] LABS: ALBUMIN 1.9 g/dl (3.4-5.0); ALK PHOS 83 U/L (45-117); ANION GAP 8 (8-16); BILIRUBIN,TOTAL 0.9 mg/dL (0.2-1.0); CALCIUM 7.8 mg/dL (8.5-10.1); CO2 26 mmol/L (21-32); CREATININE 0.7 mg/dL (0.7-1.3); GLUCOSE,RANDOM 233 mg/dL (74-106); SGOT/AST 11 U/L (15-37); SGPT/ALT 7 U/L (12-78); TOT PROT 4.9 g/dl (6.4-8.2)
[2016-09-29 09:05] LABS: INR 1.46 (0.82-1.09); PROTHROMBIN TIME (PATIENT) 16.2 SEC (9.98-11.88)
--- NOTE | 2016-09-29 10:20 | CON.CARD ---
Consult Consult Specialty:: Cardiology Referred by:: Dr. 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 He presented with intractable vomiting and was found to have cholelithiasis and cholecystitis. Surgery was consulted and currently awaits for laparoscopic cholecystectomy. He denies chest pain, shortness of breath or palpitations. He denies paroxysmal nocturnal dyspnea or orthopnea. He denies fever or chills. Denies headache or lightheadedness. Cardiology consultation was called for further evaluation and for cardiac clearance. Patient is a poor historian. 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) Cardio/Vascular: Yes: CAD, CHF, Other (peripheral artery disease, with angiogram in the past) Hepatobiliary: Yes: Cholelithiasis Renal/: Yes: BPH Musculoskeletal: Yes: Hemiplegia (right) Endocrine: Yes: Diabetes Mellitus - Past Surgical History Past Surgical History: Yes: Hernia Repair - Alcohol/Substance Use Hx Alcohol Use: No - Smoking History Smoking history: Never smoked Have you smoked in the past 12 months: No - Social History Usual Living Arrangement: With Significant Other Home Medications - Allergies Allergies/Adverse Reactions: Allergies Allergy/AdvReac Type Severity Reaction Status Date / Time No Known Allergies Allergy Verified 09/26/16 13:24 - Home Medications Home Medications: Ambulatory Orders Aspirin [Aspirin EC] 81 mg PO DAILY 09/04/16 Bupropion HCl [Bupropion HCl Sr] 150 mg PO BID 09/04/16 Clopidogrel Bisulfate [Plavix -] 75 mg PO DAILY 09/04/16 Colchicine 0.6 mg PO DAILY 09/04/16 Finasteride 5 mg PO DAILY 09/04/16 Folic Acid 0.8 mg PO DAILY 09/04/16 Iron Polysaccharide Complex [Ferrex 150] 150 mg PO WEEKLY 09/04/16 Liraglutide [Victoza -] 1.8 mg SQ DAILY@0700 09/04/16 Lisinopril [Prinivil] 20 mg PO DAILY 09/04/16 Metoprolol Succinate [Toprol XL -] 25 mg PO DAILY 09/04/16 Omeprazole 20 mg PO WEEKLY 09/04/16 Tamsulosin HCl 0.4 mg PO DAILY 09/04/16 Thiamine HCl [Vitamin B1 -] 100 mg PO DAILY 09/04/16 Amino Acids/Protein Hydrolys [Prostat Sugar-Free Packet -] 30 ml PO BID@0800, 1730 packet 09/09/16 Collagenase Clostridium Hist. [Santyl -] 1 applic TP DAILY tube 09/09/16 Sennosides [Senna -] 1 tab PO HS #30 tablet 09/09/16 Insulin Detemir [Levemir Flextouch] 12 unit SQ HS #1 insuln.pen 09/10/16 Insulin Sliding Scale [Novolog Vial Sliding Scale -] 1 vial SQ ACHS units 09/10 Atorvastatin Ca [Lipitor] 20 mg PO HS tablet 09/11/16 Polyethylene Glycol 3350 [Miralax 119 gm Btl -] 17 gm PO BID bottle 09/11/16 Ondansetron [Zofran Odt -] 4 mg SL TID 09/26/16 Family Disease History - Family Disease History Family History: Unable to Obtain Review of Systems - Review of Systems Constitutional: denies: Chills, Fever Cardiovascular: denies: Chest Pain, Palpitations, Shortness of Breath Respiratory: denies: Cough, Hemoptysis, Orthopnea, PND, SOB, SOB on Exertion Gastrointestinal: reports: Nausea, Vomiting. denies: Abdominal Pain, Constipation, Diarrhea, Melena, Rectal Bleeding Genitourinary: denies: Dysuria Neurological: denies: Dizziness, Headache, Seizure, Syncope Vital Signs: Vital Signs Temperature 98.1 F 09/29/16 09:20 Pulse Rate 86 09/29/16 09:20 Respiratory Rate 20 09/29/16 09:20 Blood Pressure 119/61 09/29/16 09:20 O2 Sat by Pulse Oximetry (%) 97 09/28/16 21:00 Neck: Yes: Supple Respiratory: Yes: Diminished Gastrointestinal: Yes: Normal Bowel Sounds, Soft. No: Tenderness Cardiovascular: Yes: Regular Rate and Rhythm JVD: No Carotid Bruit: No PMI: Non-Displaced Heart Sounds: Yes: S1, S2 Edema: No - Other Data Labs, Other Data: CBC, BMP 09/29/16 07:00 INR, PTT INR 1.46 (0.82-1.09) H 09/29/16 07:00 Laboratory Results - last 24 hr 09/29/16 09/29/16 07:00 07:00 INR 1.46 H Sodium 139 Potassium 4.1 Chloride 105 Carbon Dioxide 26 Anion Gap 8 BUN 13 Creatinine 0.7 Creat Clearance w eGFR > 60 POC Glucometer Random Glucose 233 H D Calcium 7.8 L Total Bilirubin 0.9 AST 11 L D ALT 7 L Alkaline Phosphatase 83 Total Protein 4.9 L Albumin 1.9 L D Sinus rhythm with small inferior Q wave Echo: Pending Imaging - Results Ultrasound: Report Reviewed (Gallbladder US) Problem List - Problems (1) Cerebrovascular accident (CVA) Code(s): I63.9 - CEREBRAL INFARCTION, UNSPECIFIED Qualifiers: CVA mechanism: occlusion Precerebral and cerebral artery: middle cerebral artery, left Qualified Code(s): I63.512 - Cerebral infarction due to unspecified occlusion or stenosis of left middle cerebral artery (2) Cholelithiasis Code(s): K80.20 - CALCULUS OF GALLBLADDER W/O CHOLECYSTITIS W/O OBSTRUCTION Qualifiers: Cholelithiasis location: gallbladder Cholecystitis presence: with cholecystitis Cholecystitis acuity: acute Biliary obstruction: without biliary obstruction Qualified Code(s): K80.00 - Calculus of gallbladder with acute cholecystitis without obstruction (3) Diabetes mellitus Code(s): E11.9 - TYPE 2 DIABETES MELLITUS WITHOUT COMPLICATIONS Qualifiers: Diabetes mellitus type: type 2 Diabetes mellitus complication status: without complication Diabetes mellitus long-term insulin use: without long-term use Qualified Code(s): E11.9 - Type 2 diabetes mellitus without complications (4) Vomiting Code(s): R11.10 - VOMITING, UNSPECIFIED Qualifiers: Vomiting type: unspecified Vomiting Intractability: intractable Nausea presence: with nausea Qualified Code(s): R11.2 - Nausea with vomiting , unspecified (5) HTN (hypertension) Code(s): I10 - ESSENTIAL (PRIMARY) HYPERTENSION Qualifiers: Hypertension type: essential hypertension Qualified Code(s): I10 - Essential (primary) hypertension (6) Hypercholesterolemia Code(s): E78.0 - PURE HYPERCHOLESTEROLEMIA * DO NOT USE * (7) Cholecystitis Code(s): K81.9 - CHOLECYSTITIS, UNSPECIFIED Assessment/Plan 1. Intractable vomiting with cholelithiasis and cholecystitis 2. Type 2 diabetes mellitus 3. Hypertension 4. CVA with residual right hemiparesis 5. Hypercholesterolemia 6. PAD 7. Anemia PLAN: 1. Hold Plavix prior to surgery (7 days). Continue ASA for now but will also need to be stopped prior to surgery 2. Continue Metoprolol and Prinivil as tolerated 3. Transthoracic echocardiography to assess LV and valvular function 4. Empiric antibiotic coverage 5. There appears to be no absolute contraindication in proceeding with laparoscopic cholecystectomy in view of absence of ischemic symptoms, decompensated congestive heart failure or malignant arrhythmias. Further plans are to follow Hamilton Dominguez MD
[2016-09-29] MEDS: PANTOPRAZOLE SODIUM 100 ML IVPB SCH (10:48)
[2016-09-29] MEDS: D5-1/2NS+20 MEQ KCL - 1,000 ML IV SCH (10:48)
[2016-09-29] MEDS: LEVOFLOXACIN 500 MG IVPB 100 ML IVPB SCH (10:50)
[2016-09-29] MEDS: METOPROLOL SUCCINATE 25 MG TAB.SR.24H (FP) PO SCH (10:51)
[2016-09-29] MEDS: COLLAGENASE CLOSTRIDIUM HIST. 30 GRAMS TUBE TP SCH (10:53)
[2016-09-29 12:32] LABS: BASOPHIL 1.1 % (0-2.0); EOSINOPHIL 5.4 % (0-4.5); MCH 27.9 pg (25.7-33.7); MCHC 32.2 g/dl (32.0-35.9); MEAN CELL VOLUME 86.6 fl (80-96); MEAN PLT VOLUME 8.1 fl (7.5-11.1); NEUTROPHILS 72.1 % (42.8-82.8); PLATELET COUNT 258 K/MM3 (134-434); RDW 15.1 % (11.9-15.9); WHITE BLOOD COUNT 14.5 K/mm3 (4.0-10.0)
--- NOTE | 2016-09-29 16:15 | PN ---
Progress Note, Physician Chief Complaint: patient seen, comfortable and without complaints, did not have his gastric emptying study, scheduled for surgery in am History of Present Illness: 75 yo male with intractable vomiting was admitted for evaluation. Cholecystectomy was scheduled. - Current Medication List Current Medications: Active Medications Clopidogrel Bisulfate (Plavix -) 75 mg PO DAILY [facility] Last Admin: 09/27/16 09:07 Dose: 75 mg Collagenase (Santyl -) 1 applic TP DAILY [facility] Last Admin: 09/29/16 10:53 Dose: 1 applic Pantoprazole Sodium (Protonix 40mg Ivpb (Pre-Docked)) 100 mls @ 200 mls/hr IVPB DAILY [facility] Last Admin: 09/29/16 10:48 Dose: 200 mls/hr Levofloxacin (Levaquin 500 Mg Premixed Ivpb -) 100 mls @ 100 mls/hr IVPB DAILY [facility] Last Admin: 09/29/16 10:50 Dose: 100 mls/hr Potassium Chloride/Dextrose/Sod Cl (D5-1/2ns+20 Meq Kcl -) 1,000 mls @ 50 mls/ hr IV ASDIR [facility] Last Admin: 09/29/16 10:48 Dose: 50 mls/hr Insulin Aspart (Novolog Vial Sliding Scale -) 1 vial SQ ACHS [facility] PRN Reason: Protocol Last Admin: 09/29/16 15:04 Dose: Not Given Metoprolol Succinate (Toprol Xl -) 25 mg PO DAILY [facility] Last Admin: 09/29/16 10:51 Dose: 25 mg - Objective Vital Signs: Vital Signs Temperature 98.6 F 09/29/16 13:37 Pulse Rate 75 09/29/16 13:37 Respiratory Rate 20 09/29/16 13:37 Blood Pressure 119/61 09/29/16 09:20 O2 Sat by Pulse Oximetry (%) 97 09/29/16 09:00 Constitutional: Yes: No Distress, Calm Eyes: Yes: Conjunctiva Clear, EOM Intact HENT: Yes: Atraumatic, Normocephalic Neck: Yes: Supple, Trachea Midline Cardiovascular: Yes: Regular Rate and Rhythm, S1, S2 Respiratory: Yes: Regular, CTA Bilaterally Gastrointestinal: Yes: Normal Bowel Sounds, Soft, Abdomen, Obese. No: Hepatomegaly, Palpable Mass, Splenomegaly ...Rectal Exam: Yes: Deferred Breast(s): Yes: WNL Musculoskeletal: Yes: WNL Extremities: Yes: WNL. No: Calf Tenderness Edema: Yes Edema: RUE: Trace, RLE: Trace Peripheral Pulses WNL: Yes Integumentary: Yes: Other (multiple pressure ulcers right heel and ankle sacral area) Neurological: Yes: Alert, Oriented Psychiatric: Yes: Alert, Oriented Labs: CBC, BMP 09/29/16 07:00 09/29/16 07:00 INR, PTT INR 1.46 (0.82-1.09) H 09/29/16 07:00 - ....Imaging Other: Other (ECHO: aortic sclerosis, pulmonary hypertension) Problem List - Problems (1) Cholelithiasis Assessment/Plan: non obstructing with signs of cholecystitis on ultrasound Levaquin iv d/w surgery, cholecystectomy planned for tomorrow medically clear class III ASA Code(s): K80.20 - CALCULUS OF GALLBLADDER W/O CHOLECYSTITIS W/O OBSTRUCTION Qualifiers: Cholelithiasis location: gallbladder Cholecystitis presence: with cholecystitis Cholecystitis acuity: acute Biliary obstruction: without biliary obstruction Qualified Code(s): K80.00 - Calculus of gallbladder with acute cholecystitis without obstruction (2) Diabetes mellitus Assessment/Plan: patient may possibly have gastroparesis gatric emptying study rescheduled for WednesdayOctober 02 Code(s): E11.9 - TYPE 2 DIABETES MELLITUS WITHOUT COMPLICATIONS Qualifiers: Diabetes mellitus type: type 2 Diabetes mellitus complication status: without complication Diabetes mellitus correction insulin use: without continuous churn buttermaker use Qualified Code(s): E11.9 - Type 2 diabetes mellitus without complications (3) Cerebrovascular accident (CVA) Assessment/Plan: 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, hold Plavix, and ASA pending surgery Code(s): I63.9 - CEREBRAL INFARCTION, UNSPECIFIED Qualifiers: CVA mechanism: occlusion Precerebral and cerebral artery: middle cerebral artery, left Qualified Code(s): I63.512 - Cerebral infarction due to unspecified occlusion or stenosis of left middle cerebral artery (4) Pressure ulcer of right heel, stage 2 Assessment/Plan: apply collagenase daily Code(s): L89.612 - PRESSURE ULCER OF RIGHT HEEL, STAGE 2 (5) Pressure ulcer of sacral region, stage 2 Assessment/Plan: apply collagenase daily Code(s): L89.152 - PRESSURE ULCER OF SACRAL REGION, STAGE 2 (6) Pressure ulcer of right ankle, stage 2 Assessment/Plan: collagenase daily Code(s): L89.512 - PRESSURE ULCER OF RIGHT ANKLE, STAGE 2
--- NOTE | 2016-09-29 16:42 | PN ---
Progress Note, Physician Chief Complaint: patient seen, comfortable and without complaints, did not have his gastric emptying study - Current Medication List Current Medications: Active Medications Clopidogrel Bisulfate (Plavix -) 75 mg PO DAILY [facility] Last Admin: 09/27/16 09:07 Dose: 75 mg Collagenase (Santyl -) 1 applic TP DAILY [facility] Last Admin: 09/29/16 10:53 Dose: 1 applic Pantoprazole Sodium (Protonix 40mg Ivpb (Pre-Docked)) 100 mls @ 200 mls/hr IVPB DAILY [facility] Last Admin: 09/29/16 10:48 Dose: 200 mls/hr Levofloxacin (Levaquin 500 Mg Premixed Ivpb -) 100 mls @ 100 mls/hr IVPB DAILY [facility] Last Admin: 09/29/16 10:50 Dose: 100 mls/hr Potassium Chloride/Dextrose/Sod Cl (D5-1/2ns+20 Meq Kcl -) 1,000 mls @ 50 mls/ hr IV ASDIR [facility] Last Admin: 09/29/16 10:48 Dose: 50 mls/hr Insulin Aspart (Novolog Vial Sliding Scale -) 1 vial SQ ACHS [facility] PRN Reason: Protocol Last Admin: 09/29/16 15:04 Dose: Not Given Metoprolol Succinate (Toprol Xl -) 25 mg PO DAILY [facility] Last Admin: 09/29/16 10:51 Dose: 25 mg - Objective Vital Signs: Vital Signs Temperature 98.6 F 09/29/16 13:37 Pulse Rate 75 09/29/16 13:37 Respiratory Rate 20 09/29/16 13:37 Blood Pressure 119/61 09/29/16 09:20 O2 Sat by Pulse Oximetry (%) 97 09/29/16 09:00 Constitutional: Yes: No Distress, Calm Eyes: Yes: Conjunctiva Clear, EOM Intact HENT: Yes: Atraumatic, Normocephalic Neck: Yes: Supple, Trachea Midline Cardiovascular: Yes: Regular Rate and Rhythm, S1, S2 Respiratory: Yes: Regular, CTA Bilaterally Gastrointestinal: Yes: Normal Bowel Sounds, Soft. No: Abdomen, Obese, Hepatomegaly, Splenomegaly ...Rectal Exam: Yes: Deferred Breast(s): Yes: WNL Musculoskeletal: No: Back Pain Extremities: No: Calf Tenderness Edema: RUE: Trace, RLE: Trace Peripheral Pulses WNL: Yes Integumentary: Yes: Pressure Ulcer (right malleola, right heel,posteriopr left calf open wound) Neurological: Yes: Alert, Oriented (X2) Labs: CBC, BMP 09/29/16 07:00 09/29/16 07:00 INR, PTT INR 1.46 (0.82-1.09) H 09/29/16 07:00 Problem List - Problems (1) Cholelithiasis Assessment/Plan: non obstructing with signs of cholecystitis on ultrasound Levaquin iv d/w surgery, cholecystectomy planned for tomorrow medically clear class III ASA Code(s): K80.20 - CALCULUS OF GALLBLADDER W/O CHOLECYSTITIS W/O OBSTRUCTION Qualifiers: Cholelithiasis location: gallbladder Cholecystitis presence: with cholecystitis Cholecystitis acuity: acute Biliary obstruction: without biliary obstruction Qualified Code(s): K80.00 - Calculus of gallbladder with acute cholecystitis without obstruction (2) Diabetes mellitus Assessment/Plan: patient may possibly have gastroparesis gatric emptying study rescheduled for WednesdayOctober 02 Code(s): E11.9 - TYPE 2 DIABETES MELLITUS WITHOUT COMPLICATIONS Qualifiers: Diabetes mellitus type: type 2 Diabetes mellitus complication status: without complication Diabetes mellitus mcfp insulin use: without dedicated intermodal truck driver use Qualified Code(s): E11.9 - Type 2 diabetes mellitus without complications (3) Cerebrovascular accident (CVA) Assessment/Plan: 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, hold Plavix, and ASA pending surgery Code(s): I63.9 - CEREBRAL INFARCTION, UNSPECIFIED Qualifiers: CVA mechanism: occlusion Precerebral and cerebral artery: middle cerebral artery, left Qualified Code(s): I63.512 - Cerebral infarction due to unspecified occlusion or stenosis of left middle cerebral artery (4) Pressure ulcer of right heel, stage 2 Assessment/Plan: apply collagenase daily Code(s): L89.612 - PRESSURE ULCER OF RIGHT HEEL, STAGE 2 (5) Pressure ulcer of sacral region, stage 2 Assessment/Plan: apply collagenase daily Code(s): L89.152 - PRESSURE ULCER OF SACRAL REGION, STAGE 2 (6) Pressure ulcer of right ankle, stage 2 Assessment/Plan: collagenase daily Code(s): L89.512 - PRESSURE ULCER OF RIGHT ANKLE, STAGE 2 Assessment/Plan 75 yo male with Acute Cholecystitis and cholelithiasis, medically clear class III ASA for cholecystectomy in am NPO starting midnight except for Toprol
[2016-09-29] MEDS ORDERED: INSULIN (NOVOLOG) ASPART 100 UNITS/ML 10ML VIAL ONE (17:15)
[2016-09-30] MEDS: INSULIN SLIDING SCALE (NOVOLOG) 1 VIAL SQ SCH ×4 (06:16→22:57)
[2016-09-30] MEDS: D5-1/2NS+20 MEQ KCL - 1,000 ML IV SCH ×2 (06:16→18:02)
[2016-09-30] MEDS ORDERED: PT OWN MED DRAWER 7, Y5N ONE (09:46)
[2016-09-30] MEDS: METOPROLOL SUCCINATE 25 MG TAB.SR.24H (FP) PO SCH (09:48)
[2016-09-30] MEDS: PANTOPRAZOLE SODIUM 100 ML IVPB SCH (09:48)
[2016-09-30] MEDS: LEVOFLOXACIN 500 MG IVPB 100 ML IVPB SCH (09:53)
[2016-09-30] MEDS: COLLAGENASE CLOSTRIDIUM HIST. 30 GRAMS TUBE TP SCH (10:35)
[2016-09-30] MEDS ORDERED: ETOMIDATE 20 MG/10 ML AMPUL IVPUSH ONE (12:52)
[2016-09-30] MEDS ORDERED: ROCURONIUM BROMIDE 50 MG/5 ML VIAL ONE (12:56)
[2016-09-30] MEDS ORDERED: DEXAMETHASONE SOD PHOSPHATE 4 MG/1 ML VIAL ONE (12:58)
[2016-09-30] MEDS ORDERED: SUCCINYLCHOLINE CHLORIDE 200 MG/10 ML VIAL ONE (13:00)
[2016-09-30] MEDS ORDERED: NEOSTIGMINE METHYLSULFATE 0.5 MG/ML - 10 ML MDV ONE (13:41)
[2016-09-30] MEDS ORDERED: GLYCOPYRROLATE 0.2 MG/1 ML VIAL ONE (13:41)
[2016-09-30] MEDS ORDERED: PHENYLEPHRINE HCL 10 MG/1 ML SINGLE DOSE VIAL ONE (13:59)
[2016-09-30] MEDS ORDERED: ONDANSETRON 4 MG/2 ML VIAL IVPUSH PRN ×2 (15:50→17:21)
[2016-09-30] MEDS ORDERED: morphine CARPU-JECT 4 MG/1 ML DISP.SYRIN IVPB PRN (17:20)
[2016-09-30] MEDS ORDERED: morphine CARPU-JECT 10 MG/1 ML DISP.SYRIN IVPB PRN (17:20)
[2016-09-30] MEDS ORDERED: FAMOTIDINE 20 MG/50 ML IVPB 50 ML IVPB SCH (22:00)
[2016-09-30] MEDS ORDERED: INSULIN (NOVOLOG) ASPART 100 UNITS/ML 10ML VIAL ONE (22:57)
[2016-10-01] MEDS: D5-1/2NS+20 MEQ KCL - 1,000 ML IV SCH ×2 (02:53→15:31)
[2016-10-01] MEDS ORDERED: INSULIN (NOVOLOG) ASPART 100 UNITS/ML 10ML VIAL ONE ×3 (06:32→21:48)
[2016-10-01] MEDS: INSULIN SLIDING SCALE (NOVOLOG) 1 VIAL SQ SCH ×4 (06:34→21:49)
[2016-10-01 09:17] LABS: BASOPHIL 0.2 % (0-2.0); MCH 27.3 pg (25.7-33.7); MCHC 32.4 g/dl (32.0-35.9); MEAN CELL VOLUME 84.3 fl (80-96); MEAN PLT VOLUME 7.3 fl (7.5-11.1); NEUTROPHILS 86.9 % (42.8-82.8); PLATELET COUNT 287 K/MM3 (134-434); RDW 14.8 % (11.9-15.9); WHITE BLOOD COUNT 14.4 K/mm3 (4.0-10.0)
[2016-10-01] MEDS ORDERED: PT OWN MED DRAWER 7, Y5N ONE (09:28)
[2016-10-01] MEDS: METOPROLOL SUCCINATE 25 MG TAB.SR.24H (FP) PO SCH (09:31)
[2016-10-01] MEDS: PANTOPRAZOLE SODIUM 100 ML IVPB SCH (09:31)
[2016-10-01] MEDS: LEVOFLOXACIN 500 MG IVPB 100 ML IVPB SCH (09:31)
[2016-10-01] MEDS: COLLAGENASE CLOSTRIDIUM HIST. 30 GRAMS TUBE TP SCH (09:36)
[2016-10-01 09:43] LABS: ALBUMIN 1.7 g/dl (3.4-5.0); ALK PHOS 90 U/L (45-117); ANION GAP 10 (8-16); BILIRUBIN,TOTAL 0.4 mg/dL (0.2-1.0); CALCIUM 7.7 mg/dL (8.5-10.1); CO2 22 mmol/L (21-32); CREATININE 0.7 mg/dL (0.7-1.3); GLUCOSE,RANDOM 300 mg/dL (74-106); MAGNESIUM 1.3 mg/dL (1.8-2.4); SGOT/AST 31 U/L (15-37); SGPT/ALT 17 U/L (12-78); TOT PROT 4.7 g/dl (6.4-8.2)
[2016-10-01] MEDS: CLOPIDOGREL BISULFATE 75 MG TABLET (FP) PO SCH (10:37)
--- NOTE | 2016-10-01 13:41 | OP ---
DATE OF OPERATION: 09/30/2016 PREOPERATIVE DIAGNOSES: Acute cholecystitis, chronic cholecystitis, markedly thickened gallbladder wall, multiple medical comorbidities such as diabetes, coronary artery disease, hypertension, peptic ulcer disease, history of stroke, right hemiparesis. POSTOPERATIVE DIAGNOSES: Acute cholecystitis, chronic cholecystitis, markedly thickened gallbladder wall, multiple medical comorbidities such as diabetes, coronary artery disease, hypertension, peptic ulcer disease, history of stroke, right hemiparesis. PROCEDURE: Laparoscopic cholecystectomy, drainage right upper quadrant abscess, peritoneal lavage. SURGEON: Telly Marrero MD MOTOR EXPRESS CLERK: Fredrick Astorga MD ANESTHESIA: Kaylan Huertas MD (general). ESTIMATED BLOOD LOSS: Minimal. SPECIMEN: Gallbladder. INDICATION FOR PROCEDURE: This is a 75-year-old gentleman with a multitude of medical issues admitted for nonspecific abdominal complaints and nausea and vomiting. Workup demonstrated findings consistent with that of normal gallbladder. The patient is not able to give complete history, and most of this history is obtained via the chart. After multiple discussions with the patient, primary care physician, and review of the labs, it is felt that he would benefit from a laparoscopic cholecystectomy even with his multitude of medical issues. Therefore, we are here today for a laparoscopic cholecystectomy. DESCRIPTION OF PROCEDURE: The patient was identified and appropriately positioned on the operating room table. After placement of general anesthesia, the abdomen was prepped and draped in the usual sterile fashion with ChloraPrep. An infraumbilical incision was made deep into subcutaneous tissue. The fascia was divided sharply. The peritoneum was incised under direct vision with a Veress needle followed by an 11-mm port placed. The remaining ports were placed under direct vision as well. The gallbladder was identified in the right upper quadrant. It was markedly thickened and could not be retracted over the dome of the liver in standard fashion due to its marked thickening. There was also significant omentum and transverse colon plastered to the dome and body of the gallbladder. These thickened adhesive bands were then divided with blunt dissection and the gallbladder was slowly teased out of this adhesive mess. The gallbladder was then percutaneously decompressed, and the abscess in the gallbladder was subsequently drained. This was done under direct vision. The gallbladder was reflected over the dome of the liver in standard fashion going from lateral to medial. The neck and infundibulum of the gallbladder identified followed by the cystic duct. The cystic duct was then circumferentially isolated. The cystic artery was identified more medially and posteriorly. It was subsequently clipped and then divided. The artery was clipped and divided in a similar fashion. The gallbladder itself was removed from the liver bed sharply. The operative field was noted to be hemostatic. The specimen was placed in an EndoCatch bag. The right upper quadrant was then copiously irrigated with warm saline, irrigated, and retrieved. The operative field was noted to be hemostatic. The liver bed and gallbladder peritoneal reflected edges were cauterized as needed. The ports were removed. Port sites are hemostatic. The fascia at the infraumbilical port site was markedly lengthened to facilitate removal of this markedly enlarged, thickened, inflamed gallbladder. The fascia at the midline was then reapproximated with interrupted 0 Vicryl suture. All skin closed with nahomy. At the conclusion of the case, sponge counts were correct. ATTESTATION: Brief operative note handwritten on the preprinted form. Diane SAGASTUME [id number]
--- NOTE | 2016-10-01 16:57 | PN ---
Progress Note, Physician History of Present Illness: No complaints post lap blanca with drain RUQ abscess and peritoneal lavage, tolerating clear liquids. - Current Medication List Current Medications: Active Medications Clopidogrel Bisulfate (Plavix -) 75 mg PO DAILY [facility] Last Admin: 10/01/16 10:37 Dose: 75 mg Collagenase (Santyl -) 1 applic TP DAILY [facility] Last Admin: 10/01/16 09:36 Dose: 1 applic Pantoprazole Sodium (Protonix 40mg Ivpb (Pre-Docked)) 100 mls @ 200 mls/hr IVPB DAILY [facility] Last Admin: 10/01/16 09:31 Dose: 200 mls/hr Levofloxacin (Levaquin 500 Mg Premixed Ivpb -) 100 mls @ 100 mls/hr IVPB DAILY [facility] Last Admin: 10/01/16 09:31 Dose: 100 mls/hr Potassium Chloride/Dextrose/Sod Cl (D5-1/2ns+20 Meq Kcl -) 1,000 mls @ 100 mls/ hr IV ASDIR [facility] Last Admin: 10/01/16 15:31 Dose: 100 mls/hr Insulin Aspart (Novolog Vial Sliding Scale -) 1 vial SQ ACHS [facility] PRN Reason: Protocol Last Admin: 10/01/16 16:42 Dose: 8 units Metoprolol Succinate (Toprol Xl -) 25 mg PO DAILY [facility] Last Admin: 10/01/16 09:31 Dose: 25 mg Morphine Sulfate (Morphine Injection -) 4 mg IVPB Q3H PRN Morphine Sulfate (Morphine Injection -) 6 mg IVPB Q3H PRN Ondansetron HCl (Zofran Injection) 4 mg IVPUSH Q6H PRN PRN Reason: NAUSEA AND/OR VOMITING - Objective Vital Signs: Vital Signs Temperature 97.7 F 10/01/16 14:00 Pulse Rate 74 10/01/16 14:00 Respiratory Rate 20 10/01/16 14:00 Blood Pressure 118/58 10/01/16 08:00 O2 Sat by Pulse Oximetry (%) 96 10/01/16 09:00 Constitutional: Yes: No Distress, Calm Neck: Yes: Supple Cardiovascular: Yes: Regular Rate and Rhythm Respiratory: Yes: Regular, Diminished Gastrointestinal: Yes: Soft, Hypoactive Bowel Sounds Edema: No Labs: CBC, BMP 10/01/16 08:20 10/01/16 08:20 INR, PTT INR 1.46 (0.82-1.09) H 09/29/16 07:00 Problem List - Problems (1) Cholecystitis Code(s): K81.9 - CHOLECYSTITIS, UNSPECIFIED (2) Cholelithiasis Code(s): K80.20 - CALCULUS OF GALLBLADDER W/O CHOLECYSTITIS W/O OBSTRUCTION Qualifiers: Cholelithiasis location: gallbladder Cholecystitis presence: with cholecystitis Cholecystitis acuity: acute Biliary obstruction: without biliary obstruction Qualified Code(s): K80.00 - Calculus of gallbladder with acute cholecystitis without obstruction (3) Diabetes mellitus Code(s): E11.9 - TYPE 2 DIABETES MELLITUS WITHOUT COMPLICATIONS Qualifiers: Diabetes mellitus type: type 2 Diabetes mellitus complication status: without complication Diabetes mellitus intermediate insulin use: without intermediate use Qualified Code(s): E11.9 - Type 2 diabetes mellitus without complications (4) HTN (hypertension) Code(s): I10 - ESSENTIAL (PRIMARY) HYPERTENSION Qualifiers: Hypertension type: essential hypertension Qualified Code(s): I10 - Essential (primary) hypertension (5) Hypercholesterolemia Code(s): E78.0 - PURE HYPERCHOLESTEROLEMIA * DO NOT USE * (6) Status post laparoscopic cholecystectomy Code(s): Z90.49 - ACQUIRED ABSENCE OF OTHER SPECIFIED PARTS OF DIGESTIVE TRACT Assessment/Plan 09/29/2016 Echo: Normal LV size and fxn, mild MR, TR, OK, RVSO 40-50 mmHg 1. Cholelithiasis and cholecystitis post lap blanca with drain RUQ abscess and peritoneal lavage 2. Type 2 diabetes mellitus 3. Hypertension 4. CVA with residual right hemiparesis 5. Hypercholesterolemia 6. PAD 7. Anemia PLAN: 1. Resumed Plavix post-op 2. Continue Metoprolol 25 qd 3. Complete antibiotic course 4. DVT and GI prophylaxis, post-op care, advance diet as tolerated
[2016-10-01] MEDS ORDERED: MAGNESIUM SULF 50% (8.12 MEQ/2 ML-1 GM VIAL) IVPB ONE ×2 (19:14→22:00)
--- NOTE | 2016-10-01 19:59 | PN ---
Progress Note, Physician Chief Complaint: patient had cholecystectomy yesterday did not have his gastric emptying study History of Present Illness: 75 yo male with intractable vomiting was admitted for evaluation. Cholecystectomy was performed for cholelithiasis and acute cholecystitis. The patient tolerated well the surgical intervention and today he he alert and oriented in no apparent distress, without vomiting or fever. - Current Medication List Current Medications: Active Medications Amino Acids (Prosource No Carb Liquid Pkt) 30 ml PO BID@0800,1730 [facility] Clopidogrel Bisulfate (Plavix -) 75 mg PO DAILY [facility] Last Admin: 10/01/16 10:37 Dose: 75 mg Collagenase (Santyl -) 1 applic TP DAILY [facility] Last Admin: 10/01/16 09:36 Dose: 1 applic Pantoprazole Sodium (Protonix 40mg Ivpb (Pre-Docked)) 100 mls @ 200 mls/hr IVPB DAILY [facility] Last Admin: 10/01/16 09:31 Dose: 200 mls/hr Levofloxacin (Levaquin 500 Mg Premixed Ivpb -) 100 mls @ 100 mls/hr IVPB DAILY [facility] Last Admin: 10/01/16 09:31 Dose: 100 mls/hr Potassium Chloride/Dextrose/Sod Cl (D5-1/2ns+20 Meq Kcl -) 1,000 mls @ 100 mls/ hr IV ASDIR [facility] Last Admin: 10/01/16 15:31 Dose: 100 mls/hr Insulin Aspart (Novolog Vial Sliding Scale -) 1 vial SQ ACHS [facility] PRN Reason: Protocol Last Admin: 10/01/16 16:42 Dose: 8 units Metoprolol Succinate (Toprol Xl -) 25 mg PO DAILY [facility] Last Admin: 10/01/16 09:31 Dose: 25 mg Morphine Sulfate (Morphine Injection -) 4 mg IVPB Q3H PRN Morphine Sulfate (Morphine Injection -) 6 mg IVPB Q3H PRN Ondansetron HCl (Zofran Injection) 4 mg IVPUSH Q6H PRN PRN Reason: NAUSEA AND/OR VOMITING - Objective Vital Signs: Vital Signs Temperature 97.7 F 10/01/16 14:00 Pulse Rate 74 10/01/16 14:00 Respiratory Rate 20 10/01/16 14:00 Blood Pressure 118/58 10/01/16 08:00 O2 Sat by Pulse Oximetry (%) 96 10/01/16 09:00 Constitutional: Yes: No Distress, Calm Eyes: Yes: Conjunctiva Clear, EOM Intact HENT: Yes: Atraumatic, Normocephalic Neck: Yes: Supple, Trachea Midline Cardiovascular: Yes: Regular Rate and Rhythm, S1, S2 Respiratory: Yes: Regular, CTA Bilaterally Gastrointestinal: Yes: Normal Bowel Sounds, Soft, Abdomen, Obese, Tenderness ...Rectal Exam: Yes: Deferred Breast(s): Yes: WNL Musculoskeletal: Yes: Joint Stiffness (right upper extremity and right lower extremity) Extremities: No: Calf Tenderness Edema: Yes Edema: RUE: Trace, RLE: Trace Peripheral Pulses WNL: Yes Neurological: Yes: Alert, Oriented Psychiatric: Yes: Alert, Oriented Labs: CBC, BMP 10/01/16 08:20 10/01/16 08:20 INR, PTT INR 1.46 (0.82-1.09) H 09/29/16 07:00 Problem List - Problems (1) Cholelithiasis Assessment/Plan: and cholecystitis s/p cholecystectomy continue Levaquin iv restart Plavix and ASA within 5 days post surgery Code(s): K80.20 - CALCULUS OF GALLBLADDER W/O CHOLECYSTITIS W/O OBSTRUCTION Qualifiers: Cholelithiasis location: gallbladder Cholecystitis presence: with cholecystitis Cholecystitis acuity: acute Biliary obstruction: without biliary obstruction Qualified Code(s): K80.00 - Calculus of gallbladder with acute cholecystitis without obstruction (2) Diabetes mellitus Assessment/Plan: patient may possibly have gastroparesis gatric emptying study rescheduled for WednesdayOctober 02 and to be completed as ordered Code(s): E11.9 - TYPE 2 DIABETES MELLITUS WITHOUT COMPLICATIONS Qualifiers: Diabetes mellitus type: type 2 Diabetes mellitus complication status: without complication Diabetes mellitus skilled nursing insulin use: without skilled nursing use Qualified Code(s): E11.9 - Type 2 diabetes mellitus without complications (3) Cerebrovascular accident (CVA) Assessment/Plan: 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, restart Plavix, and ASA Code(s): I63.9 - CEREBRAL INFARCTION, UNSPECIFIED Qualifiers: CVA mechanism: occlusion Precerebral and cerebral artery: middle cerebral artery, left Qualified Code(s): I63.512 - Cerebral infarction due to unspecified occlusion or stenosis of left middle cerebral artery (4) Pressure ulcer of right heel, stage 2 Assessment/Plan: apply collagenase daily Code(s): L89.612 - PRESSURE ULCER OF RIGHT HEEL, STAGE 2 (5) Pressure ulcer of sacral region, stage 2 Assessment/Plan: apply collagenase daily Code(s): L89.152 - PRESSURE ULCER OF SACRAL REGION, STAGE 2 (6) Pressure ulcer of right ankle, stage 2 Assessment/Plan: collagenase daily Code(s): L89.512 - PRESSURE ULCER OF RIGHT ANKLE, STAGE 2
[2016-10-02] MEDS: D5-1/2NS+20 MEQ KCL - 1,000 ML IV SCH ×2 (02:12→18:27)
[2016-10-02] MEDS ORDERED: INSULIN (NOVOLOG) ASPART 100 UNITS/ML 10ML VIAL ONE ×4 (06:06→22:12)
[2016-10-02] MEDS: INSULIN SLIDING SCALE (NOVOLOG) 1 VIAL SQ SCH ×4 (06:20→22:14)
[2016-10-02 07:21] LABS: BASOPHIL 0.4 % (0-2.0); EOSINOPHIL 0.6 % (0-4.5); MCH 27.7 pg (25.7-33.7); MEAN CELL VOLUME 83.8 fl (80-96); MEAN PLT VOLUME 7.5 fl (7.5-11.1); NEUTROPHILS 78.2 % (42.8-82.8); PLATELET COUNT 290 K/MM3 (134-434); RDW 14.6 % (11.9-15.9); WHITE BLOOD COUNT 9.4 K/mm3 (4.0-10.0)
[2016-10-02 07:47] LABS: ALBUMIN 1.7 g/dl (3.4-5.0); ANION GAP 7 (8-16); CALCIUM 7.9 mg/dL (8.5-10.1); CO2 25 mmol/L (21-32); GLUCOSE,RANDOM 293 mg/dL (74-106); MAGNESIUM 1.7 mg/dL (1.8-2.4)
[2016-10-02 07:51] LABS: ALK PHOS 77 U/L (45-117); BILIRUBIN,TOTAL 0.4 mg/dL (0.2-1.0); CREATININE 0.6 mg/dL (0.7-1.3); SGOT/AST 31 U/L (15-37); SGPT/ALT 20 U/L (12-78); TOT PROT 4.7 g/dl (6.4-8.2)
[2016-10-02] MEDS: AMINO ACIDS/PROTEIN HYDROLYS 30 ML LIQUID.PKT PO SCH ×2 (11:11→16:34)
[2016-10-02] MEDS: PANTOPRAZOLE SODIUM 100 ML IVPB SCH (12:36)
[2016-10-02] MEDS: CLOPIDOGREL BISULFATE 75 MG TABLET (FP) PO SCH (12:37)
[2016-10-02] MEDS: LEVOFLOXACIN 500 MG IVPB 100 ML IVPB SCH (12:37)
[2016-10-02] MEDS: METOPROLOL SUCCINATE 25 MG TAB.SR.24H (FP) PO SCH (12:38)
[2016-10-02] MEDS: COLLAGENASE CLOSTRIDIUM HIST. 30 GRAMS TUBE TP SCH (12:38)
--- NOTE | 2016-10-02 13:50 | PATH ---
Surgical Pathology Report Patient Name: WILLARD NARAYAN JR [facility]. Rec. #: [id number] /Age/Gender: 1940 (Age: 75) / M Account: [id number] Location: [address] [place] [address]/[facility] Taken: 09/30/2016 Received: 10/01/2016 Reported: 10/02/2016 Physicians: Telly Marrero Specimen(s) Received GALLBLADDER Clinical History Cholecystitis Final Diagnosis GALLBLADDER, CHOLECYSTECTOMY: MARKED ACUTE NECROTIZING AND CHRONIC CHOLECYSTITIS , CHOLELITHIASIS. Electronically Signed Randal Carrillo M.D. Gross Description Received in formalin, labeled "gallbladder" is a 12.5 x 4.5 x 4.5 cm gallbladder with a 1.0 cm in length portion of cystic duct attached. The outer surface is de la cruz-green and varies from smooth to shaggy. The lumen contains brown, tenacious bile as well as multiple brown irregular choleliths ranging from 0.1-1.0 cm in greatest dimension. The mucosa is green and focally eroded. The wall of the gallbladder is edematous and measures up to 1.1 cm in thickness. Electric Track Switch Maintainer sections are submitted in one cassette. /10/01/2016 [facility]10/01/2016
--- NOTE | 2016-10-02 20:14 | PN ---
Progress Note, Physician Chief Complaint: patient seen, comfortable and without complaints, had his gastric emptying study which shows minimal delay, scheduled for surgery in am - Current Medication List Current Medications: Active Medications Amino Acids (Prosource No Carb Liquid Pkt) 30 ml PO BID@0800,1730 [facility] Last Admin: 10/02/16 16:34 Dose: 30 ml Clopidogrel Bisulfate (Plavix -) 75 mg PO DAILY [facility] Last Admin: 10/02/16 12:37 Dose: 75 mg Collagenase (Santyl -) 1 applic TP DAILY [facility] Last Admin: 10/02/16 12:38 Dose: 1 applic Pantoprazole Sodium (Protonix 40mg Ivpb (Pre-Docked)) 100 mls @ 200 mls/hr IVPB DAILY [facility] Last Admin: 10/02/16 12:36 Dose: 200 mls/hr Levofloxacin (Levaquin 500 Mg Premixed Ivpb -) 100 mls @ 100 mls/hr IVPB DAILY [facility] Last Admin: 10/02/16 12:37 Dose: 100 mls/hr Potassium Chloride/Dextrose/Sod Cl (D5-1/2ns+20 Meq Kcl -) 1,000 mls @ 100 mls/ hr IV ASDIR [facility] Last Admin: 10/02/16 18:27 Dose: 100 mls/hr Insulin Aspart (Novolog Vial Sliding Scale -) 1 vial SQ ACHS [facility] PRN Reason: Protocol Last Admin: 10/02/16 16:34 Dose: 6 units Metoprolol Succinate (Toprol Xl -) 25 mg PO DAILY [facility] Last Admin: 10/02/16 12:38 Dose: 25 mg Morphine Sulfate (Morphine Injection -) 4 mg IVPB Q3H PRN Morphine Sulfate (Morphine Injection -) 6 mg IVPB Q3H PRN Ondansetron HCl (Zofran Injection) 4 mg IVPUSH Q6H PRN PRN Reason: NAUSEA AND/OR VOMITING - Objective Vital Signs: Vital Signs Temperature 98.1 F 10/02/16 18:51 Pulse Rate 76 10/02/16 18:51 Respiratory Rate 20 10/02/16 18:51 Blood Pressure 100/50 10/02/16 18:51 O2 Sat by Pulse Oximetry (%) 98 10/02/16 09:00 Eyes: Yes: Conjunctiva Clear, EOM Intact HENT: Yes: Atraumatic, Normocephalic Neck: Yes: Supple, Trachea Midline Cardiovascular: Yes: Regular Rate and Rhythm, S1, S2 Respiratory: Yes: Regular, CTA Bilaterally Breast(s): Yes: WNL Labs: CBC, BMP 10/02/16 06:30 10/02/16 06:30 INR, PTT INR 1.46 (0.82-1.09) H 09/29/16 07:00 Problem List - Problems (1) Cholelithiasis Assessment/Plan: non obstructing with signs of cholecystitis on ultrasound Levaquin iv d/w surgery, cholecystectomy planned for tomorrow medically clear class III ASA Code(s): K80.20 - CALCULUS OF GALLBLADDER W/O CHOLECYSTITIS W/O OBSTRUCTION Qualifiers: Cholelithiasis location: gallbladder Cholecystitis presence: with cholecystitis Cholecystitis acuity: acute Biliary obstruction: without biliary obstruction Qualified Code(s): K80.00 - Calculus of gallbladder with acute cholecystitis without obstruction (2) Diabetes mellitus Assessment/Plan: patient may possibly have gastroparesis gatric emptying study rescheduled for WednesdayOctober 02 Code(s): E11.9 - TYPE 2 DIABETES MELLITUS WITHOUT COMPLICATIONS Qualifiers: Diabetes mellitus type: type 2 Diabetes mellitus complication status: without complication Diabetes mellitus intermediate card tender insulin use: without senior care use Qualified Code(s): E11.9 - Type 2 diabetes mellitus without complications (3) Cerebrovascular accident (CVA) Assessment/Plan: 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, hold Plavix, and ASA pending surgery Code(s): I63.9 - CEREBRAL INFARCTION, UNSPECIFIED Qualifiers: CVA mechanism: occlusion Precerebral and cerebral artery: middle cerebral artery, left Qualified Code(s): I63.512 - Cerebral infarction due to unspecified occlusion or stenosis of left middle cerebral artery (4) Pressure ulcer of right heel, stage 2 Assessment/Plan: apply collagenase daily Code(s): L89.612 - PRESSURE ULCER OF RIGHT HEEL, STAGE 2 (5) Pressure ulcer of sacral region, stage 2 Assessment/Plan: apply collagenase daily Code(s): L89.152 - PRESSURE ULCER OF SACRAL REGION, STAGE 2 (6) Pressure ulcer of right ankle, stage 2 Assessment/Plan: collagenase daily Code(s): L89.512 - PRESSURE ULCER OF RIGHT ANKLE, STAGE 2
[2016-10-02] MEDS ORDERED: ACETAMINOPHEN 500 MG TABLET (FP) PO PRN (20:27)
[2016-10-03] MEDS: INSULIN SLIDING SCALE (NOVOLOG) 1 VIAL SQ SCH ×4 (06:50→22:07)
[2016-10-03 07:50] LABS: BASOPHIL 0.6 % (0-2.0); EOSINOPHIL 6.4 % (0-4.5); MCH 28.5 pg (25.7-33.7); MCHC 33.7 g/dl (32.0-35.9); MEAN CELL VOLUME 84.4 fl (80-96); MEAN PLT VOLUME 7.6 fl (7.5-11.1); PLATELET COUNT 326 K/MM3 (134-434); RDW 14.8 % (11.9-15.9); WHITE BLOOD COUNT 10.7 K/mm3 (4.0-10.0)
[2016-10-03 08:20] LABS: ALBUMIN 1.9 g/dl (3.4-5.0); ALK PHOS 76 U/L (45-117); ANION GAP 5 (8-16); BILIRUBIN,TOTAL 0.4 mg/dL (0.2-1.0); CALCIUM 8.2 mg/dL (8.5-10.1); CO2 28 mmol/L (21-32); CREATININE 0.6 mg/dL (0.7-1.3); GLUCOSE,RANDOM 179 mg/dL (74-106); SGOT/AST 21 U/L (15-37); SGPT/ALT 20 U/L (12-78); TOT PROT 4.7 g/dl (6.4-8.2)
[2016-10-03] MEDS: PANTOPRAZOLE SODIUM 100 ML IVPB SCH (10:23)
[2016-10-03] MEDS: AMINO ACIDS/PROTEIN HYDROLYS 30 ML LIQUID.PKT PO SCH ×2 (10:24→17:07)
[2016-10-03] MEDS: CLOPIDOGREL BISULFATE 75 MG TABLET (FP) PO SCH (10:25)
[2016-10-03] MEDS: METOPROLOL SUCCINATE 25 MG TAB.SR.24H (FP) PO SCH (10:25)
[2016-10-03] MEDS: MAGNESIUM OXIDE 400 MG TABLET (FP) PO SCH (10:25)
[2016-10-03] MEDS: LEVOFLOXACIN 500 MG IVPB 100 ML IVPB SCH (10:26)
[2016-10-03] MEDS: COLLAGENASE CLOSTRIDIUM HIST. 30 GRAMS TUBE TP SCH (10:26)
[2016-10-03] MEDS ORDERED: INSULIN (NOVOLOG) ASPART 100 UNITS/ML 10ML VIAL ONE ×2 (11:59→22:06)
--- NOTE | 2016-10-03 13:31 | PN ---
Progress Note, Physician - Current Medication List Current Medications: Active Medications Acetaminophen (Tylenol -) 500 mg PO Q6H PRN PRN Reason: FEVER OR PAIN Amino Acids (Prosource No Carb Liquid Pkt) 30 ml PO BID@0800,1730 [facility] Last Admin: 10/03/16 10:24 Dose: 30 ml Clopidogrel Bisulfate (Plavix -) 75 mg PO DAILY [facility] Last Admin: 10/03/16 10:25 Dose: 75 mg Collagenase (Santyl -) 1 applic TP DAILY [facility] Last Admin: 10/03/16 10:26 Dose: 1 applic Gabapentin (Neurontin -) 300 mg PO ONCE ONE Stop: 10/03/16 13:31 Pantoprazole Sodium (Protonix 40mg Ivpb (Pre-Docked)) 100 mls @ 200 mls/hr IVPB DAILY [facility] Last Admin: 10/03/16 10:23 Dose: 200 mls/hr Levofloxacin (Levaquin 500 Mg Premixed Ivpb -) 100 mls @ 100 mls/hr IVPB DAILY [facility] Last Admin: 10/03/16 10:26 Dose: 100 mls/hr Insulin Aspart (Novolog Vial Sliding Scale -) 1 vial SQ ACHS [facility] PRN Reason: Protocol Last Admin: 10/03/16 12:12 Dose: 4 units Magnesium Oxide (Mag-Ox -) 400 mg PO DAILY [facility] Last Admin: 10/03/16 10:25 Dose: 400 mg Metoprolol Succinate (Toprol Xl -) 25 mg PO DAILY [facility] Last Admin: 10/03/16 10:25 Dose: 25 mg Morphine Sulfate (Morphine Injection -) 4 mg IVPB Q3H PRN Morphine Sulfate (Morphine Injection -) 6 mg IVPB Q3H PRN Ondansetron HCl (Zofran Injection) 4 mg IVPUSH Q6H PRN PRN Reason: NAUSEA AND/OR VOMITING - Objective Vital Signs: Vital Signs Temperature 97.3 F L 10/03/16 08:34 Pulse Rate 84 10/03/16 08:34 Respiratory Rate 18 10/03/16 08:34 Blood Pressure 125/66 10/03/16 08:34 O2 Sat by Pulse Oximetry (%) 98 10/03/16 09:00 Labs: CBC, BMP 10/03/16 07:05 10/03/16 07:05 INR, PTT INR 1.46 (0.82-1.09) H 09/29/16 07:00 Problem List - Problems (1) Cholelithiasis Code(s): K80.20 - CALCULUS OF GALLBLADDER W/O CHOLECYSTITIS W/O OBSTRUCTION Qualifiers: Cholelithiasis location: gallbladder Cholecystitis presence: with cholecystitis Cholecystitis acuity: acute Biliary obstruction: without biliary obstruction Qualified Code(s): K80.00 - Calculus of gallbladder with acute cholecystitis without obstruction (2) Diabetes mellitus Code(s): E11.9 - TYPE 2 DIABETES MELLITUS WITHOUT COMPLICATIONS Qualifiers: Diabetes mellitus type: type 2 Diabetes mellitus complication status: without complication 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 mellitus truck terminal manager insulin use: without truck terminal manager use Qualified Code(s): E11.9 - Type 2 diabetes mellitus without complications (3) Cerebrovascular accident (CVA) Code(s): I63.9 - CEREBRAL INFARCTION, UNSPECIFIED Qualifiers: CVA mechanism: occlusion Precerebral and cerebral artery: middle cerebral artery, left Qualified Code(s): I63.512 - Cerebral infarction due to unspecified occlusion or stenosis of left middle cerebral artery (4) Pressure ulcer of right heel, stage 2 Code(s): L89.612 - PRESSURE ULCER OF RIGHT HEEL, STAGE 2 (5) Pressure ulcer of sacral region, stage 2 Code(s): L89.152 - PRESSURE ULCER OF SACRAL REGION, STAGE 2 (6) Pressure ulcer of right ankle, stage 2 Code(s): L89.512 - PRESSURE ULCER OF RIGHT ANKLE, STAGE 2
[2016-10-03] MEDS ORDERED: GABAPENTIN 300 MG CAPSULE (FP) PO ONE (14:30)
--- NOTE | 2016-10-03 22:10 | PN ---
Progress Note, Physician History of Present Illness: No complaints post lap blanca with drain RUQ abscess and peritoneal lavage, tolerating full diet. - Current Medication List Current Medications: Active Medications Acetaminophen (Tylenol -) 500 mg PO Q6H PRN PRN Reason: FEVER OR PAIN Amino Acids (Prosource No Carb Liquid Pkt) 30 ml PO BID@0800,1730 [facility] Last Admin: 10/03/16 17:07 Dose: 30 ml Clopidogrel Bisulfate (Plavix -) 75 mg PO DAILY [facility] Last Admin: 10/03/16 10:25 Dose: 75 mg Collagenase (Santyl -) 1 applic TP DAILY [facility] Last Admin: 10/03/16 10:26 Dose: 1 applic Gabapentin (Neurontin -) 300 mg PO BID [facility] Pantoprazole Sodium (Protonix 40mg Ivpb (Pre-Docked)) 100 mls @ 200 mls/hr IVPB DAILY [facility] Last Admin: 10/03/16 10:23 Dose: 200 mls/hr Levofloxacin (Levaquin 500 Mg Premixed Ivpb -) 100 mls @ 100 mls/hr IVPB DAILY [facility] Last Admin: 10/03/16 10:26 Dose: 100 mls/hr Insulin Aspart (Novolog Vial Sliding Scale -) 1 vial SQ ACHS [facility] PRN Reason: Protocol Last Admin: 10/03/16 22:07 Dose: 6 units Magnesium Oxide (Mag-Ox -) 400 mg PO DAILY [facility] Last Admin: 10/03/16 10:25 Dose: 400 mg Metoprolol Succinate (Toprol Xl -) 25 mg PO DAILY [facility] Last Admin: 10/03/16 10:25 Dose: 25 mg Ondansetron HCl (Zofran Injection) 4 mg IVPUSH Q6H PRN PRN Reason: NAUSEA AND/OR VOMITING - Objective Vital Signs: Vital Signs Temperature 97.6 F 10/03/16 18:00 Pulse Rate 82 10/03/16 18:00 Respiratory Rate 19 10/03/16 18:00 Blood Pressure 103/56 10/03/16 18:00 O2 Sat by Pulse Oximetry (%) 98 10/03/16 09:00 Constitutional: Yes: No Distress, Calm Neck: Yes: Supple Cardiovascular: Yes: Regular Rate and Rhythm Respiratory: Yes: Regular, CTA Bilaterally Gastrointestinal: Yes: Normal Bowel Sounds, Soft Edema: No Labs: CBC, BMP 10/03/16 07:05 10/03/16 07:05 INR, PTT INR 1.46 (0.82-1.09) H 09/29/16 07:00 Problem List - Problems (1) Cholecystitis Code(s): K81.9 - CHOLECYSTITIS, UNSPECIFIED (2) Cholelithiasis Code(s): K80.20 - CALCULUS OF GALLBLADDER W/O CHOLECYSTITIS W/O OBSTRUCTION Qualifiers: Cholelithiasis location: gallbladder Cholecystitis presence: with cholecystitis Cholecystitis acuity: acute Biliary obstruction: without biliary obstruction Qualified Code(s): K80.00 - Calculus of gallbladder with acute cholecystitis without obstruction (3) Diabetes mellitus Code(s): E11.9 - TYPE 2 DIABETES MELLITUS WITHOUT COMPLICATIONS Qualifiers: Diabetes mellitus type: type 2 Diabetes mellitus complication status: without complication Diabetes mellitus prison insulin use: without assistant terminal manager use Qualified Code(s): E11.9 - Type 2 diabetes mellitus without complications (4) HTN (hypertension) Code(s): I10 - ESSENTIAL (PRIMARY) HYPERTENSION Qualifiers: Hypertension type: essential hypertension Qualified Code(s): I10 - Essential (primary) hypertension (5) Hypercholesterolemia Code(s): E78.0 - PURE HYPERCHOLESTEROLEMIA * DO NOT USE * (6) Status post laparoscopic cholecystectomy Code(s): Z90.49 - ACQUIRED ABSENCE OF OTHER SPECIFIED PARTS OF DIGESTIVE TRACT Assessment/Plan 09/29/2016 Echo: Normal LV size and fxn, mild MR, TR, SD, RVSO 40-50 mmHg 1. Cholelithiasis and cholecystitis post lap blanca with drain RUQ abscess and peritoneal lavage 2. Type 2 diabetes mellitus 3. Hypertension 4. CVA with residual right hemiparesis 5. Hypercholesterolemia 6. PAD 7. Anemia PLAN: 1. Continue Metoprolol 25 qd and Plavix 75 qd 3. Complete antibiotic course 4. DVT and GI prophylaxis, d/c planning
[2016-10-04] MEDS ORDERED: INSULIN (NOVOLOG) ASPART 100 UNITS/ML 10ML VIAL ONE ×2 (06:08→21:32)
[2016-10-04] MEDS: INSULIN SLIDING SCALE (NOVOLOG) 1 VIAL SQ SCH ×4 (06:10→21:32)
[2016-10-04] MEDS: AMINO ACIDS/PROTEIN HYDROLYS 30 ML LIQUID.PKT PO SCH ×2 (07:53→18:17)
[2016-10-04 08:49] LABS: MCH 27.6 pg (25.7-33.7); MCHC 32.2 g/dl (32.0-35.9); MEAN CELL VOLUME 85.6 fl (80-96); MEAN PLT VOLUME 7.5 fl (7.5-11.1); NEUTROPHILS 68.1 % (42.8-82.8); PLATELET COUNT 340 K/MM3 (134-434); RDW 15.1 % (11.9-15.9); WHITE BLOOD COUNT 11.2 K/mm3 (4.0-10.0)
[2016-10-04 09:10] LABS: ALBUMIN 1.9 g/dl (3.4-5.0); ANION GAP 7 (8-16); CALCIUM 8.2 mg/dL (8.5-10.1); CO2 30 mmol/L (21-32); CREATININE 0.6 mg/dL (0.7-1.3); GLUCOSE,RANDOM 177 mg/dL (74-106); SGOT/AST 15 U/L (15-37)
[2016-10-04 09:13] LABS: ALK PHOS 77 U/L (45-117); BILIRUBIN,TOTAL 0.4 mg/dL (0.2-1.0); SGPT/ALT 17 U/L (12-78); TOT PROT 4.8 g/dl (6.4-8.2)
[2016-10-04] MEDS: LEVOFLOXACIN 500 MG IVPB 100 ML IVPB SCH (09:33)
[2016-10-04] MEDS: PANTOPRAZOLE SODIUM 100 ML IVPB SCH (09:34)
[2016-10-04] MEDS: CLOPIDOGREL BISULFATE 75 MG TABLET (FP) PO SCH (09:34)
[2016-10-04] MEDS: MAGNESIUM OXIDE 400 MG TABLET (FP) PO SCH (09:34)
[2016-10-04] MEDS: METOPROLOL SUCCINATE 25 MG TAB.SR.24H (FP) PO SCH (09:34)
[2016-10-04] MEDS: COLLAGENASE CLOSTRIDIUM HIST. 30 GRAMS TUBE TP SCH (09:34)
[2016-10-04] MEDS: GABAPENTIN 300 MG CAPSULE (FP) PO SCH ×2 (09:34→21:33)
[2016-10-04] MEDS: HEPARIN NA (PORCINE) 5,000 UNITS/ML 1ML VIAL SQ SCH ×2 (14:42→21:33)
--- NOTE | 2016-10-04 21:31 | PN ---
Progress Note, Physician Chief Complaint: patient seen, comfortable and without complaints, had his gastric emptying study which shows minimal delay is eating well and has no complaints or symptoms - Current Medication List Current Medications: Active Medications Acetaminophen (Tylenol -) 500 mg PO Q6H PRN PRN Reason: FEVER OR PAIN Amino Acids (Prosource No Carb Liquid Pkt) 30 ml PO BID@0800,1730 [facility] Last Admin: 10/04/16 18:17 Dose: 30 ml Aspirin (Asa -) 81 mg PO DAILY [facility] Clopidogrel Bisulfate (Plavix -) 75 mg PO DAILY [facility] Collagenase (Santyl -) 1 applic TP DAILY [facility] Last Admin: 10/04/16 09:34 Dose: 1 applic Gabapentin (Neurontin -) 300 mg PO BID [facility] Last Admin: 10/04/16 09:34 Dose: 300 mg Heparin Sodium (Porcine) (Heparin -) 5,000 unit SQ BID [facility] Last Admin: 10/04/16 14:42 Dose: 5,000 unit Pantoprazole Sodium (Protonix 40mg Ivpb (Pre-Docked)) 100 mls @ 200 mls/hr IVPB DAILY [facility] Last Admin: 10/04/16 09:34 Dose: 200 mls/hr Levofloxacin (Levaquin 500 Mg Premixed Ivpb -) 100 mls @ 100 mls/hr IVPB DAILY [facility] Last Admin: 10/04/16 09:33 Dose: 100 mls/hr Insulin Aspart (Novolog Vial Sliding Scale -) 1 vial SQ ACHS [facility] PRN Reason: Protocol Last Admin: 10/04/16 16:19 Dose: 4 units Magnesium Oxide (Mag-Ox -) 400 mg PO DAILY [facility] Last Admin: 10/04/16 09:34 Dose: 400 mg Metoprolol Succinate (Toprol Xl -) 25 mg PO DAILY [facility] Last Admin: 10/04/16 09:34 Dose: 25 mg Ondansetron HCl (Zofran Injection) 4 mg IVPUSH Q6H PRN PRN Reason: NAUSEA AND/OR VOMITING - Objective Vital Signs: Vital Signs Temperature 98.2 F 10/04/16 14:00 Pulse Rate 76 10/04/16 14:00 Respiratory Rate 20 10/04/16 14:00 Blood Pressure 153/71 10/04/16 10:00 O2 Sat by Pulse Oximetry (%) 97 10/03/16 21:00 Constitutional: Yes: No Distress, Calm Eyes: Yes: Conjunctiva Clear, EOM Intact HENT: Yes: Atraumatic, Normocephalic Neck: Yes: Supple, Trachea Midline Cardiovascular: Yes: Regular Rate and Rhythm, S1, S2 Respiratory: Yes: CTA Bilaterally Gastrointestinal: Yes: Normal Bowel Sounds, Soft, Abdomen, Obese, Splenomegaly. No: Hepatomegaly ...Rectal Exam: Yes: Deferred Labs: CBC, BMP 10/04/16 07:15 10/04/16 07:15 INR, PTT INR 1.46 (0.82-1.09) H 09/29/16 07:00 Problem List - Problems (1) Cholelithiasis Assessment/Plan: non obstructing with signs of cholecystitis on ultrasound Levaquin iv d/w surgery, cholecystectomy planned for tomorrow restart ASA and Plavix Code(s): K80.20 - CALCULUS OF GALLBLADDER W/O CHOLECYSTITIS W/O OBSTRUCTION Qualifiers: Cholelithiasis location: gallbladder Cholecystitis presence: with cholecystitis Cholecystitis acuity: acute Biliary obstruction: without biliary obstruction Qualified Code(s): K80.00 - Calculus of gallbladder with acute cholecystitis without obstruction (2) Diabetes mellitus Assessment/Plan: patient may possibly have gastroparesis gatric emptying study rescheduled for WednesdayOctober 02 Code(s): E11.9 - TYPE 2 DIABETES MELLITUS WITHOUT COMPLICATIONS Qualifiers: Diabetes mellitus type: type 2 Diabetes mellitus complication status: without complication Diabetes mellitus [facility] insulin use: without terminal computer operator use Qualified Code(s): E11.9 - Type 2 diabetes mellitus without complications (3) Cerebrovascular accident (CVA) Assessment/Plan: 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, restart Plavix, and ASA Code(s): I63.9 - CEREBRAL INFARCTION, UNSPECIFIED Qualifiers: CVA mechanism: occlusion Precerebral and cerebral artery: middle cerebral artery, left Qualified Code(s): I63.512 - Cerebral infarction due to unspecified occlusion or stenosis of left middle cerebral artery (4) Pressure ulcer of right heel, stage 2 Assessment/Plan: apply collagenase daily Code(s): L89.612 - PRESSURE ULCER OF RIGHT HEEL, STAGE 2 (5) Pressure ulcer of sacral region, stage 2 Assessment/Plan: apply collagenase daily Code(s): L89.152 - PRESSURE ULCER OF SACRAL REGION, STAGE 2 (6) Pressure ulcer of right ankle, stage 2 Assessment/Plan: collagenase daily Code(s): L89.512 - PRESSURE ULCER OF RIGHT ANKLE, STAGE 2
[2016-10-05] MEDS ORDERED: INSULIN (NOVOLOG) ASPART 100 UNITS/ML 10ML VIAL ONE (06:12)
[2016-10-05] MEDS: INSULIN SLIDING SCALE (NOVOLOG) 1 VIAL SQ SCH ×3 (06:13→16:44)
[2016-10-05 07:24] LABS: BASOPHIL 1.2 % (0-2.0); EOSINOPHIL 5.7 % (0-4.5); MCH 27.5 pg (25.7-33.7); MCHC 32.6 g/dl (32.0-35.9); MEAN CELL VOLUME 84.3 fl (80-96); MEAN PLT VOLUME 7.4 fl (7.5-11.1); NEUTROPHILS 71.7 % (42.8-82.8); PLATELET COUNT 299 K/MM3 (134-434); RDW 15.4 % (11.9-15.9); WHITE BLOOD COUNT 13.5 K/mm3 (4.0-10.0)
[2016-10-05 07:51] LABS: ALBUMIN 1.8 g/dl (3.4-5.0); ANION GAP 7 (8-16); BILIRUBIN,TOTAL 0.3 mg/dL (0.2-1.0); CALCIUM 7.8 mg/dL (8.5-10.1); CO2 29 mmol/L (21-32); CREATININE 0.6 mg/dL (0.7-1.3); GLUCOSE,RANDOM 244 mg/dL (74-106); SGPT/ALT 13 U/L (12-78); TOT PROT 4.6 g/dl (6.4-8.2)
[2016-10-05 07:52] LABS: ALK PHOS 75 U/L (45-117)
[2016-10-05 08:17] LABS: SGOT/AST 17 U/L (15-37)
[2016-10-05 09:05] VITALS: BP 121/61
[2016-10-05] MEDS: AMINO ACIDS/PROTEIN HYDROLYS 30 ML LIQUID.PKT PO SCH ×2 (09:18→16:45)
[2016-10-05] MEDS: METOPROLOL SUCCINATE 25 MG TAB.SR.24H (FP) PO SCH (09:18)
[2016-10-05] MEDS: PANTOPRAZOLE SODIUM 100 ML IVPB SCH (09:19)
[2016-10-05] MEDS: GABAPENTIN 300 MG CAPSULE (FP) PO SCH (09:19)
[2016-10-05] MEDS: LEVOFLOXACIN 500 MG IVPB 100 ML IVPB SCH (09:19)
[2016-10-05] MEDS: HEPARIN NA (PORCINE) 5,000 UNITS/ML 1ML VIAL SQ SCH (09:19)
[2016-10-05] MEDS: MAGNESIUM OXIDE 400 MG TABLET (FP) PO SCH (09:19)
[2016-10-05] MEDS: COLLAGENASE CLOSTRIDIUM HIST. 30 GRAMS TUBE TP SCH (09:24)
[2016-10-05] MEDS ORDERED: CLOPIDOGREL BISULFATE 75 MG TABLET (FP) PO SCH (10:00)
[2016-10-05] MEDS ORDERED: ASPIRIN 81 MG CHEWABLE TABLETS PO SCH (10:00)
--- NOTE | 2016-10-05 12:06 | PN ---
Progress Note, Physician History of Present Illness: No complaints post lap blanca with drain RUQ abscess and peritoneal lavage, tolerating full diet without nausea/emesis. - Current Medication List Current Medications: Active Medications Acetaminophen (Tylenol -) 500 mg PO Q6H PRN PRN Reason: FEVER OR PAIN Amino Acids (Prosource No Carb Liquid Pkt) 30 ml PO BID@0800,1730 [facility] Last Admin: 10/05/16 09:18 Dose: 30 ml Aspirin (Asa -) 81 mg PO DAILY [facility] Last Admin: 10/05/16 09:18 Dose: 81 mg Clopidogrel Bisulfate (Plavix -) 75 mg PO DAILY [facility] Last Admin: 10/05/16 09:19 Dose: 75 mg Collagenase (Santyl -) 1 applic TP DAILY [facility] Last Admin: 10/05/16 09:24 Dose: 1 applic Gabapentin (Neurontin -) 300 mg PO BID [facility] Last Admin: 10/05/16 09:19 Dose: 300 mg Heparin Sodium (Porcine) (Heparin -) 5,000 unit SQ BID [facility] Last Admin: 10/05/16 09:19 Dose: 5,000 unit Pantoprazole Sodium (Protonix 40mg Ivpb (Pre-Docked)) 100 mls @ 200 mls/hr IVPB DAILY [facility] Last Admin: 10/05/16 09:19 Dose: 200 mls/hr Levofloxacin (Levaquin 500 Mg Premixed Ivpb -) 100 mls @ 100 mls/hr IVPB DAILY [facility] Last Admin: 10/05/16 09:19 Dose: 100 mls/hr Insulin Aspart (Novolog Vial Sliding Scale -) 1 vial SQ ACHS [facility] PRN Reason: Protocol Last Admin: 10/05/16 11:39 Dose: 6 units Magnesium Oxide (Mag-Ox -) 400 mg PO DAILY [facility] Last Admin: 10/05/16 09:19 Dose: 400 mg Metoprolol Succinate (Toprol Xl -) 25 mg PO DAILY [facility] Last Admin: 10/05/16 09:18 Dose: 25 mg Ondansetron HCl (Zofran Injection) 4 mg IVPUSH Q6H PRN PRN Reason: NAUSEA AND/OR VOMITING - Objective Vital Signs: Vital Signs Temperature 98.2 F 10/05/16 08:59 Pulse Rate 81 10/05/16 08:59 Respiratory Rate 20 10/05/16 08:59 Blood Pressure 121/61 10/05/16 08:59 O2 Sat by Pulse Oximetry (%) 98 10/05/16 09:00 Constitutional: Yes: No Distress, Calm Neck: Yes: Supple Cardiovascular: Yes: Regular Rate and Rhythm Respiratory: Yes: Regular, Diminished Gastrointestinal: Yes: Normal Bowel Sounds, Soft Edema: No Labs: CBC, BMP 10/05/16 06:25 10/05/16 06:25 INR, PTT INR 1.46 (0.82-1.09) H 09/29/16 07:00 Problem List - Problems (1) Cholecystitis Code(s): K81.9 - CHOLECYSTITIS, UNSPECIFIED (2) Cholelithiasis Code(s): K80.20 - CALCULUS OF GALLBLADDER W/O CHOLECYSTITIS W/O OBSTRUCTION Qualifiers: Cholelithiasis location: gallbladder Cholecystitis presence: with cholecystitis Cholecystitis acuity: acute Biliary obstruction: without biliary obstruction Qualified Code(s): K80.00 - Calculus of gallbladder with acute cholecystitis without obstruction (3) Diabetes mellitus Code(s): E11.9 - TYPE 2 DIABETES MELLITUS WITHOUT COMPLICATIONS Qualifiers: Diabetes mellitus type: type 2 Diabetes mellitus complication status: without complication Diabetes mellitus jail insulin use: without jail use Qualified Code(s): E11.9 - Type 2 diabetes mellitus without complications (4) HTN (hypertension) Code(s): I10 - ESSENTIAL (PRIMARY) HYPERTENSION Qualifiers: Hypertension type: essential hypertension Qualified Code(s): I10 - Essential (primary) hypertension (5) Hypercholesterolemia Code(s): E78.0 - PURE HYPERCHOLESTEROLEMIA * DO NOT USE * (6) Status post laparoscopic cholecystectomy Code(s): Z90.49 - ACQUIRED ABSENCE OF OTHER SPECIFIED PARTS OF DIGESTIVE TRACT Assessment/Plan 09/29/2016 Echo: Normal LV size and fxn, mild MR, TR, NC, RVSO 40-50 mmHg 1. Cholelithiasis and cholecystitis post lap blanca with drain RUQ abscess and peritoneal lavage 2. Type 2 diabetes mellitus with gastroparesis 3. Hypertension 4. CVA with residual right hemiparesis 5. Hypercholesterolemia 6. PAD with chronic ulcers 7. Anemia PLAN: 1. Continue Metoprolol 25 qd, ASA 81 qd and Plavix 75 qd 3. Complete antibiotic course 4. DVT and GI prophylaxis, d/c planning
[2016-10-05] MEDS ORDERED: PT OWN MED DRAWER 7, Y5N ONE (13:27)
--- NOTE | 2016-10-05 13:41 | DS ---
Physical Examination Vital Signs: Vital Signs Temperature 98.2 F 10/05/16 08:59 Pulse Rate 81 10/05/16 08:59 Respiratory Rate 20 10/05/16 08:59 Blood Pressure 121/61 10/05/16 08:59 O2 Sat by Pulse Oximetry (%) 98 10/05/16 09:00 Findings/Remarks: 75 yo male who was admitted for intractable vomiting and inability to keep po. The patient is diabetic and was found to have cholelithiasis with cholecystitis and abscess. Today the patient is in no pain, tolerating well po. he states that his feet are sensitive at night. Constitutional: Yes: No Distress, Calm Eyes: Yes: Conjunctiva Clear, EOM Intact HENT: Yes: Atraumatic, Normocephalic Neck: Yes: Supple, Trachea Midline Cardiovascular: Yes: Regular Rate and Rhythm, S1, S2 Respiratory: Yes: Regular, CTA Bilaterally Gastrointestinal: Yes: Normal Bowel Sounds, Soft, Abdomen, Obese, Other ( surgical nahomy present in the right upper quadrant.). No: Distention, Hepatomegaly, Melena, Splenomegaly ...Rectal Exam: Yes: Deferred Breast(s): Yes: WNL Musculoskeletal: Yes: Joint Stiffness, Muscle Weakness (right lower extremity and right upper extremity weakness) Extremities: No: Calf Tenderness Edema: No Peripheral Pulses WNL: Yes Integumentary: Yes: Other (pressure ulcers present right lower and left lower extremity, sacral decubitus ulcer.) Wound/Incision: Yes: [place] Intact Neurological: Yes: Alert, Oriented Psychiatric: Yes: Alert, Oriented Labs: CBC, BMP 10/05/16 06:25 10/05/16 06:25 Discharge Summary Reason For Visit: VOMITTING Current Active Problems Cerebrovascular accident (CVA) (Acute) Cholecystitis (Acute) Cholelithiasis (Acute) Cystitis (Acute) Dehydration (Acute) Diabetes mellitus (Acute) Diarrhea (Acute) HTN (hypertension) (Acute) Hematuria (Acute) Hypercholesterolemia (Acute) Pressure ulcer of right ankle, stage 2 (Acute) Pressure ulcer of right heel, stage 2 (Acute) Pressure ulcer of sacral region, stage 2 (Acute) Status post laparoscopic cholecystectomy (Acute) Vomiting (Acute) Hospital Course: 75 yo male s/p acute cholecystitis and cholelithiasis had cholecystectomy which diagnosed paracholecystic abscess. The patient tolerated well the procedure and now is ready for discharge. A nuclear gastric emptying scan was performed and it showed minimal gastroparesis. The patient is diabetic and has diabetic neuropathy. I started him on gabapentin for Diabetic neuropathy. He s/oo CVA and has right hemiplegia with numerous pressure ulcers of the right and lefrt foot as well as sacral area. He will follow up with the surgeon carine nahomy removal in his office Condition: Stable - Home Medications Comprehensive Discharge Medication List: Ambulatory Orders Aspirin [Aspirin EC] 81 mg PO DAILY 09/04/16 Bupropion HCl [Bupropion HCl Sr] 150 mg PO BID 09/04/16 Clopidogrel Bisulfate [Plavix -] 75 mg PO DAILY 09/04/16 Colchicine 0.6 mg PO DAILY 09/04/16 Finasteride 5 mg PO DAILY 09/04/16 Folic Acid 0.8 mg PO DAILY 09/04/16 Iron Polysaccharide Complex [Ferrex 150] 150 mg PO WEEKLY 09/04/16 Liraglutide [Victoza -] 1.8 mg SQ DAILY@0700 09/04/16 Lisinopril [Prinivil] 20 mg PO DAILY 09/04/16 Metoprolol Succinate [Toprol XL -] 25 mg PO DAILY 09/04/16 Omeprazole 20 mg PO WEEKLY 09/04/16 Tamsulosin HCl 0.4 mg PO DAILY 09/04/16 Thiamine HCl [Vitamin B1 -] 100 mg PO DAILY 09/04/16 Amino Acids/Protein Hydrolys [Prostat Sugar-Free Packet -] 30 ml PO BID@0800, 1730 packet 09/09/16 Collagenase Clostridium Hist. [Santyl -] 1 applic TP DAILY tube 09/09/16 Sennosides [Senna -] 1 tab PO HS #30 tablet 09/09/16 Insulin Detemir [Levemir Flextouch] 12 unit SQ HS #1 insuln.pen 09/10/16 Insulin Sliding Scale [Novolog Vial Sliding Scale -] 1 vial SQ ACHS units 09/10 Atorvastatin Ca [Lipitor] 20 mg PO HS tablet 09/11/16 Polyethylene Glycol 3350 [Miralax 119 gm Btl -] 17 gm PO BID bottle 09/11/16 Ondansetron [Zofran Odt -] 4 mg SL TID 09/26/16
[2016-10-05 14:14] VITALS: PULSE 84; TEMP 98
== END 2016-10-05 17:17 | disposition home health service (06) | DRG 418 ==
LOC: JER 12:26 → JERBED 14:21 → J6S 17:12
PROVIDERS: ADMIT Internal Medicine; ATTEND Internal Medicine
PROC: 0FT44ZZ Resection of Gallbladder, Percutaneous Endoscopic Approach (ICD-10-PCS; principal; 2016-09-26)
PROC: 3E1M38Z Irrigation of Peritoneal Cavity using Irrigating Substance, Percutaneous Approach (ICD-10-PCS; 2016-09-26)
DX: K80.12 Calculus of gallbladder with acute and chronic cholecystitis without obstruction (principal); I69.351 Hemiplegia and hemiparesis following cerebral infarction affecting right dominant side; E78.00 Pure hypercholesterolemia, unspecified; M47.892 Other spondylosis, cervical region; N40.0 Benign prostatic hyperplasia without lower urinary tract symptoms; I73.89 Other specified peripheral vascular diseases; I10 Essential (primary) hypertension; E11.9 Type 2 diabetes mellitus without complications; E86.0 Dehydration; I25.10 Atherosclerotic heart disease of native coronary artery without angina pectoris; L89.152 Pressure ulcer of sacral region, stage 2; L89.612 Pressure ulcer of right heel, stage 2; L89.512 Pressure ulcer of right ankle, stage 2; R19.7 Diarrhea, unspecified
CPT/HCPCS: 36415; 76705-TC; 78264-TC; 80053; 82550; 82947; 83690; 83735; 84484; 85025; 85610; 87324; 87449; 88304-TC; 93005; 93010; 93306-TC; 94010; 94760; 97116-GP; 97162-PG; 99285-25; A9541; J1644

== ENCOUNTER 2016-10-21 12:43 | Inpatient (IN) | payer OTHER, MEDICARE ==
[2016-10-21] MEDS ORDERED: SODIUM CHLORIDE 0.9% 1000 ML INFUS.BAG IV PRN (13:59)
[2016-10-21] MEDS ORDERED: SODIUM CHLORIDE 1,000 ML IV STA (13:59)
--- NOTE | 2016-10-21 13:59 | PDOC ---
History of Present Illness - General History Source: Patient Exam Limitations: No Limitations - History of Present Illness Initial Comments: 10/21/16 14:02 The patient is a 75-year-old man, with a significant past medical history of anemia, hypertension, hyperchoelsterolemia, coronary artery disease status post cardiac stent placements, cerebrovascular accident status post right sided hemiparesis (bedridden at baseline), diabetes mellitus who was sent to the emergency department [facility] for possible infection. As per caregiver, the patient appeared weaker than usual 5 days ago. She measured his blood pressure, with a reported 84/50 and she states that the patient;s blood pressure got better within the last few days. Patient states that he has a visiting nurse to change his dressings, but throughout the past week, she noted foul smelling and discharge on his back ulcers. Patient had a scheduled appointment with [facility] this morning. He was evaluated by Dr. Shine and has a scheduled debridment tomorrow. She states the patient does not complain of any pain. No noted fever, chills. Allergies: No Known Drug Allergies. Past Surgical History: Gallstone removal Social History: No tobacco, ETOH and recreational drug use Primary Care Physician: Dr. Boyd (Located in [place]). Patient saw Dr. Sofiya Diop during his last admission and would like to continue his care with her. <Tricia Glover - Last Filed: 10/21/16 14:56> <Wilfrid Avalos - Last Filed: 10/21/16 15:52> - General Chief Complaint: Wound Stated Complaint: (WOUND CARE REFERRED) Time Seen by Provider: 10/21/16 13:26 Past History <Tricia Glover - Last Filed: 10/21/16 14:56> - Past Medical History Anemia: Yes Cardiac Disorders: Yes (cardiac stents) CVA: Yes (right sided weakness) CHF: Yes Diabetes: Yes HTN: Yes Hypercholesterolemia: Yes - Surgical History Cholecystectomy: (GALLSTONES REMOVED?) - Psycho/Social/Smoking Cessation Hx Anxiety: No Suicidal Ideation: No Smoking History: Never smoked Have you smoked in the past 12 months: No Hx Alcohol Use: No Drug/Substance Use Hx: No Substance Use Type: None <Wilfrid Avalos - Last Filed: 10/21/16 15:52> - Past Medical History Allergies/Adverse Reactions: Allergies Allergy/AdvReac Type Severity Reaction Status Date / Time No Known Allergies Allergy Verified 10/21/16 13:05 Home Medications: Ambulatory Orders Liraglutide [Victoza -] 1.8 mg SQ DAILY@0700 09/04/16 Metoprolol Succinate [Toprol XL -] 25 mg PO DAILY 09/04/16 Thiamine HCl [Vitamin B1 -] 100 mg PO DAILY 09/04/16 Collagenase Clostridium Hist. [Santyl -] 1 applic TP DAILY tube 09/09/16 Sennosides [Senna -] 1 tab PO HS #30 tablet 09/09/16 Amino Acids/Protein Hydrolys [Prosource No Carb Liquid Pkt] 30 ml PO BID@0800, 1730 30 Days 10/05/16 Aspirin [ASA -] 81 mg PO DAILY #30 tab.chew 10/05/16 Atorvastatin Ca [Lipitor] 20 mg PO HS #30 tablet 10/05/16 Bupropion HCl [Bupropion HCl Sr] 150 mg PO BID #60 tablet.er 10/05/16 Clopidogrel Bisulfate [Plavix -] 75 mg PO DAILY #30 tablet 10/05/16 Colchicine 0.6 mg PO DAILY #30 capsule 10/05/16 Finasteride 5 mg PO DAILY #30 tablet 10/05/16 Folic Acid 0.8 mg PO DAILY #30 capsule 10/05/16 Gabapentin [Neurontin -] 300 mg PO Q8H #90 capsule 10/05/16 Insulin Detemir [Levemir Flextouch] 12 unit SQ HS #1 insuln.pen 10/05/16 Iron Polysaccharide Complex [Ferrex 150] 150 mg PO DAILY #30 capsule 10/05/16 Lisinopril [Prinivil] 20 mg PO DAILY #30 tablet 10/05/16 Magnesium Oxide [Mag-Ox -] 400 mg PO DAILY #30 tablet 10/05/16 Omeprazole 20 mg PO DAILY #30 capsule.dr 10/05/16 Tamsulosin HCl 0.4 mg PO DAILY #30 cap.er.24h 10/05/16 Review of Systems - Review of Systems Constitutional: No: Chills, Fever Respiratory: No: Cough, Shortness of Breath ABD/GI: No: Diarrhea, Vomiting Integumentary: Yes: See HPI Neurological: Yes: Weakness (chronic R hemiparesis) All Other Systems: Reviewed and Negative <Wilfrid Avalos - Last Filed: 10/21/16 15:52> *Physical Exam - Vital Signs Last Vital Signs Temp Pulse Resp BP Pulse Ox 97.5 F L 75 16 88/52 95 10/21/16 12:57 10/21/16 12:57 10/21/16 12:57 10/21/16 12:57 10/21/16 12:57 - Physical Exam Comments: 10/21/16 14:37 GENERAL: The patient is awake, alert, and fully oriented, in no acute distress. HEAD: Normal with no signs of trauma. EYES: Pupils equal, round and reactive to light, extraocular movements intact, sclera anicteric, conjunctiva clear with no pallor. ENT: Ears normal, nares patent, oropharynx clear without exudates. Moist mucous membranes. NECK: Normal range of motion, supple without lymphadenopathy, JVD, or masses. LUNGS: Breath sounds equal, clear to auscultation bilaterally. No wheeze/ crackles. HEART: Regular rate and rhythm, normal S1 and S2 without murmur or rub. ABDOMEN: Soft/nontender/nondistended. BS wnl. No guarding or rebound. No palpable masses. No hepatosplenomegaly. EXTREMITIES: Baseline right sided hemiparesis. No edema. No clubbing or cyanosis. No cords,erythema, or tenderness. NEUROLOGICAL: Cranial nerves II through XII grossly intact. Normal speech. PSYCH: Normal mood, normal affect. SKIN: Fresh dressing in place on the coccygeal ulcer with some surrounding swelling and purulent discharge. There are also superficial right foot ulcers, that is approximately two to three centimeters, located in the right lateral malleoulus and right heel with without soft tissue swelling or cellulites. <Tricia Glover - Last Filed: 10/21/16 14:56> - Vital Signs Last Vital Signs Temp Pulse Resp BP Pulse Ox 97.5 F L 75 16 88/52 95 10/21/16 12:57 10/21/16 12:57 10/21/16 12:57 10/21/16 12:57 10/21/16 12:57 <Wilfrid Avalos - Last Filed: 10/21/16 15:52> Heart Score/ECG Review #1 ECG reviewed & interpreted by me at: 15:24 General ECG Interpretation: Sinus Rhythm, Normal Rate (77), Normal Intervals, No acute ischemic changes (Q waves III) <Wilfrid Avalos - Last Filed: 10/21/16 15:52> ED Treatment Course - LABORATORY CBC & Chemistry Diagram: 10/21/16 14:07 10/21/16 14:07 - RADIOLOGY Radiograph Interpretation: 10/21/16 14:55 EXAM: RAD/CHEST X-RAY PORTABLE IMPRESSION: Rule out sepsis. Single portable chest x-ray. Comparison study September 04, 2016. Soft tissues of the neck projecting over the left apex. Unchanged contour of the cardiomediastinal silhouette. No evidence of vascular congestion. No evidence of pulmonary infiltrates, atelectasis. No evidence of blunting of the costophrenic angles, effacement of the diaphragms. No pneumothorax, or large pleural effusion is seen. Degenerative changes of the thoracic spine. <Tricia Glover - Last Filed: 10/21/16 14:56> - LABORATORY CBC & Chemistry Diagram: 10/21/16 14:07 10/21/16 14:07 <Wilfrid Avalos - Last Filed: 10/21/16 15:52> Medical Decision Making - Medical Decision Making 10/21/16 14:18 A portion of this note was documented by scribe services under my direction. I have reviewed the details of the note, within reason, and agree with the documentation with the following case summary and management plan written by me. 75-year-old male with history of right tello-versus from CVA, bedridden complicated by coccygeal and right foot ulcers presents sent from the wound clinic with concern for infection of coccygeal ulceration, scheduled for debridement tomorrow with Dr. Shine. Patient is relatively asymptomatic, aide mentions that there has been some increased and foul-smelling discharge over the last week. Afebrile, BP noted but patient tends to have intermittent low blood pressure readings chronically. No tachycardia. Exam as noted with purulent coccygeal ulceration, baseline right hemiparesis, superficial right foot ulcerations 75-year-old male sent for debridement of likely infected coccygeal decubitus ulcer. Sepsis protocol initiated Cultures sent IV fluids, IV antibiotics Admission. Patient of Dr. Diop. 10/21/16 15:30 Leukocytosis of 18, lactate 1.7. Awaiting chemistries. Chest x-ray shows no acute infiltrate. Treated with broad-spectrum antibiotics, vancomycin and Zosyn. Will proceed with admission 10/21/16 15:51 Chemistries notable for slightly elevated BUN, normal Cr and normal Trop. Elevated WBC on UA. Accepted for inpatient med/surg by Dr. Diop. <Wilfrid Avalos - Last Filed: 10/21/16 15:52> *DC/Admit/Observation/Transfer - Attestations Scribe Attestion: 10/21/16 14:38 Documentation prepared by Tricia Glover, acting as manager of medical for Wilfrid Avalos MD. <Tricia Glover - Last Filed: 10/21/16 14:56> - Discharge Dispostion Admit: Yes <Wilfrid Avalos - Last Filed: 10/21/16 15:52> Diagnosis at time of Disposition: Pressure ulcer of sacral region, stage 2 Infected decubitus ulcer Qualifiers: Pressure ulcer stage: stage 2 Qualified Code(s): L89.92 - Pressure ulcer of unspecified site, stage 2 - Discharge Dispostion Condition at time of disposition: Fair - Referrals Referrals: Sofiya Diop MD [Primary Care Provider] -
[2016-10-21] MEDS ORDERED: PIPERACILLIN/TAZOB 3.375 GM/50 ML PRE-DOCKED IVPB ONE (14:08)
[2016-10-21] MEDS ORDERED: VANCOMYCIN 1,000 MG in DEXTROSE 5%-WATER - 250 ML IVPB ONE (14:08)
[2016-10-21 14:50] LABS: BASOPHIL 0.3 % (0-2.0); EOSINOPHIL 2.1 % (0-4.5); MCH 25.7 pg (25.7-33.7); MCHC 31.6 g/dl (32.0-35.9); MEAN CELL VOLUME 81.3 fl (80-96); MEAN PLT VOLUME 6.8 fl (7.5-11.1); NEUTROPHILS 85.7 % (42.8-82.8); PLATELET COUNT 529 K/MM3 (134-434); RDW 15.3 % (11.9-15.9); VENOUS PH 7.37 (7.32-7.42); WHITE BLOOD COUNT 18.3 K/mm3 (4.0-10.0)
[2016-10-21] MEDS ORDERED: VANCOMYCIN 1 GRAM (PRE-DOCKED) 250 ML IVPB ONE (15:00)
[2016-10-21] MEDS ORDERED: PIPERACILLIN/TAZOB 3.375 GM 50 ML IVPB ONE (15:00)
[2016-10-21 15:08] LABS: URINE APPEARANCE TURBID; URINE BILIRUBIN NEGATIVE (NEGATIVE); URINE COLOR YELLOW; URINE GLUCOSE (UA) NEGATIVE (NEGATIVE); URINE KETONE NEGATIVE (NEGATIVE); URINE NITRITE NEGATIVE (NEGATIVE); URINE UROBILINOGEN NEGATIVE E.U./dl (0.2-1.0)
[2016-10-21 15:14] LABS: URINE BLOOD 1+ (NEGATIVE); URINE LEUK ESTERASE 3+ (NEGATIVE); URINE PROTEIN 1+ (NEGATIVE)
[2016-10-21 15:15] LABS: URINE MUCUS RARE; URINE RBC 7 /hpf (0-3); URINE WBC 472 /hpf (3-5)
[2016-10-21 15:18] LABS: INR 1.17 (0.82-1.09); PROTHROMBIN TIME (PATIENT) 12.9 SEC (9.98-11.88)
[2016-10-21 15:20] LABS: ACTIVATED PTT 29.8 SECONDS (26.9-34.4)
[2016-10-21 15:29] LABS: ALBUMIN 1.9 g/dl (3.4-5.0); ANION GAP 10 (8-16); BILIRUBIN,TOTAL 0.3 mg/dL (0.2-1.0); CALCIUM 8.8 mg/dL (8.5-10.1); CO2 26 mmol/L (21-32); CREATININE 0.8 mg/dL (0.7-1.3); GLUCOSE,RANDOM 111 mg/dL (74-106); SGOT/AST 31 U/L (15-37); SGPT/ALT 31 U/L (12-78); TOT PROT 5.9 g/dl (6.4-8.2)
[2016-10-21 15:31] LABS: ALK PHOS 77 U/L (45-117); TROPONIN I < 0.02 ng/ml (0.00-0.05)
[2016-10-21 19:33] VITALS: BMI 25.5
--- NOTE | 2016-10-21 21:10 | HP ---
Admitting History and Physical - Admission Chief Complaint: sacral ulcer History of Present Illness: 75 yo male with PMH of DM type 2 and CVA with right hemiplegia developed infection of the sacral pressure ulcer and was sent to ER for evaluation. Decision was made to admit the patient.the patient had no fever and is not complaining of any increasing pain he will have debridment tomorrow with possible placement of a wound vac. The patien is eating well has no nausea or vomiting,. 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: CVA, Peripheral Neuropathy Cardiovascular: Yes: CAD, CHF, Other Hepatobiliary: Yes: Cholelithiasis Renal/: Yes: BPH Musculoskeletal: Yes: Hemiplegia Endocrine: Yes: Diabetes Mellitus Dermatology: Yes: Other (right heel ulcer and right external malleola ulcer, pre sacral pressure ulcer unstageable) - Past Surgical History Past Surgical History: Yes: Hernia Repair - Smoking History Smoking history: Never smoked Have you smoked in the past 12 months: No - Alcohol/Substance Use Hx Alcohol Use: No Home Medications - Allergies Allergies/Adverse Reactions: Allergies Allergy/AdvReac Type Severity Reaction Status Date / Time No Known Allergies Allergy Verified 10/21/16 13:05 - Home Medications Home Medications: Ambulatory Orders Liraglutide [Victoza -] 1.8 mg SQ DAILY@0700 09/04/16 Metoprolol Succinate [Toprol XL -] 25 mg PO DAILY 09/04/16 Thiamine HCl [Vitamin B1 -] 100 mg PO DAILY 09/04/16 Collagenase Clostridium Hist. [Santyl -] 1 applic TP DAILY tube 09/09/16 Sennosides [Senna -] 1 tab PO HS #30 tablet 09/09/16 Amino Acids/Protein Hydrolys [Prosource No Carb Liquid Pkt] 30 ml PO BID@0800, 1730 30 Days 10/05/16 Aspirin [ASA -] 81 mg PO DAILY #30 tab.chew 10/05/16 Atorvastatin Ca [Lipitor] 20 mg PO HS #30 tablet 10/05/16 Bupropion HCl [Bupropion HCl Sr] 150 mg PO BID #60 tablet.er 10/05/16 Clopidogrel Bisulfate [Plavix -] 75 mg PO DAILY #30 tablet 10/05/16 Colchicine 0.6 mg PO DAILY #30 capsule 10/05/16 Finasteride 5 mg PO DAILY #30 tablet 10/05/16 Folic Acid 0.8 mg PO DAILY #30 capsule 10/05/16 Gabapentin [Neurontin -] 300 mg PO Q8H #90 capsule 10/05/16 Insulin Detemir [Levemir Flextouch] 12 unit SQ HS #1 insuln.pen 10/05/16 Iron Polysaccharide Complex [Ferrex 150] 150 mg PO DAILY #30 capsule 10/05/16 Lisinopril [Prinivil] 20 mg PO DAILY #30 tablet 10/05/16 Magnesium Oxide [Mag-Ox -] 400 mg PO DAILY #30 tablet 10/05/16 Omeprazole 20 mg PO DAILY #30 capsule. 10/05/16 Tamsulosin HCl 0.4 mg PO DAILY #30 cap.er.24h 10/05/16 Lisinopril [Prinivil] 10 mg PO DAILY #30 tablet 10/21/16 Review of Systems - Review of Systems Constitutional: reports: Weakness Eyes: reports: No Symptoms HENT: reports: No Symptoms Neck: reports: No Symptoms Cardiovascular: reports: No Symptoms Respiratory: reports: No Symptoms Gastrointestinal: reports: No Symptoms Genitourinary: reports: No Symptoms Breasts: reports: No Symptoms Reported Physical Examination Vital Signs: Vital Signs Temperature 98.4 F 10/21/16 19:29 Pulse Rate 83 10/21/16 19:29 Respiratory Rate 16 10/21/16 19:29 Blood Pressure 142/76 10/21/16 19:29 O2 Sat by Pulse Oximetry (%) 99 10/21/16 16:29 Constitutional: Yes: No Distress, Calm Eyes: Yes: Conjunctiva Clear, EOM Intact HENT: Yes: Atraumatic, Normocephalic Neck: Yes: Supple, Trachea Midline Cardiovascular: Yes: Regular Rate and Rhythm, S1, S2 Respiratory: Yes: Regular, CTA Bilaterally Gastrointestinal: Yes: Normal Bowel Sounds, Soft, Abdomen, Obese, Other (post laparoscopic surgery scar in right upper abdomen,area is minimally tender to palpatioan). No: Hepatomegaly, Splenomegaly Musculoskeletal: Yes: Joint Stiffness (right hemiplegia with stiffnes of the right wrist and edema) Extremities: No: Calf Tenderness Edema: RUE: 1+, RLE: 1+ Peripheral Pulses WNL: Yes Integumentary: Yes: Pressure Ulcer (righy ankle, right heel and sacral area) Neurological: Yes: Alert, Aphasia Psychiatric: Yes: Alert Imaging - Results Chest X-ray: Other (good inspiration, no pleural effusions and no infiltrate) Problem List - Problems (1) Sepsis affecting skin Assessment/Plan: broad spectrum antibiotic coverage administered in ER with Vancomycin and Zosyn due to tge patient's MRSA history status, requested for ID input tylenol for fever Code(s): L02.91 - CUTANEOUS ABSCESS, UNSPECIFIED (2) Pressure ulcer of sacral region, stage 2 Assessment/Plan: for surgical debridment in OR tomorrow the patient has been on Plavix and aspirin and is at risk for increased bleeding , discussed with plastic surgeon, Dr Kay, and made aware Dr Ley will continue with the procedure and minimally debride while scheduling the patent for a flap within 7 days Code(s): L89.152 - PRESSURE ULCER OF SACRAL REGION, STAGE 2 (3) 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) Assessment/Plan: the patient was on Plavix and ASA, which will be on hold in view of surgical debridment and flap Code(s): I69.359 - HEMIPLGA FOLLOWING CEREBRAL INFARCTION AFFECTING UNSP SIDE (4) Diabetes mellitus Assessment/Plan: accuchecks and coverage with regular insulin while waiting for surgical debridment start D5 1/2 NS NPO starting midnight in view of surgery Code(s): E11.9 - TYPE 2 DIABETES MELLITUS WITHOUT COMPLICATIONS Qualifiers: Diabetes mellitus type: type 2 Diabetes mellitus complication status: without complication Diabetes mellitus custodial insulin use: without custodial use Qualified Code(s): E11.9 - Type 2 diabetes mellitus without complications (5) Pressure ulcer of right ankle, stage 2 Assessment/Plan: santyl applications daily Code(s): L89.512 - PRESSURE ULCER OF RIGHT ANKLE, STAGE 2 (6) Pressure ulcer of right heel, stage 2 Assessment/Plan: santyl applications daily Code(s): L89.612 - PRESSURE ULCER OF RIGHT HEEL, STAGE 2 Assessment/Plan 75 yo male with pmh of CVA with sequellae of right hemiplegia was admitted for infected sacral pressure ulcer. The patient received broad spectrum antibiotic in Er and was scheduled for surgical debridment. The patient has signs of sepsis and despite the anticoagulation with Plavix and ASA which puts him at a higher risk for bleeding will have debridment in OR tomorrow and will be scheduled for a flap at a later date. The case was discussed with the plastic surgeon Dr Ley.Patient is class III ASA medically clear for procedure. Hold ASA, and hold Plavix
[2016-10-21] MEDS ORDERED: OXYCODONE/APAP 5/325MG COMBO TABLET PO PRN (21:11)
[2016-10-21] MEDS ORDERED: oxyCODONE HCL 5 MG TABLET PO PRN (21:12)
[2016-10-21] MEDS ORDERED: ACETAMINOPHEN 325 MG TABLET (FP) PO PRN (21:12)
[2016-10-21] MEDS ORDERED: DEXTROSE 5%-0.45% SALINE 1,000 ML IV SCH (22:15)
[2016-10-21] MEDS: GABAPENTIN 300 MG CAPSULE (FP) PO SCH (23:53)
[2016-10-22] MEDS: GABAPENTIN 300 MG CAPSULE (FP) PO SCH ×3 (06:51→22:51)
[2016-10-22] MEDS: INSULIN SLIDING SCALE (NOVOLOG) 1 VIAL SQ SCH ×5 (06:52→23:10)
[2016-10-22] MEDS ORDERED: AMINO ACIDS/PROTEIN HYDROLYS 30 ML LIQUID.PKT PO SCH (08:00)
[2016-10-22 08:39] LABS: BASOPHIL 0.4 % (0-2.0); EOSINOPHIL 1.4 % (0-4.5); MCH 26.1 pg (25.7-33.7); MCHC 31.5 g/dl (32.0-35.9); MEAN CELL VOLUME 82.8 fl (80-96); MEAN PLT VOLUME 7.1 fl (7.5-11.1); NEUTROPHILS 87.7 % (42.8-82.8); RDW 15.7 % (11.9-15.9); WHITE BLOOD COUNT 15.9 K/mm3 (4.0-10.0)
--- NOTE | 2016-10-22 09:08 | PN ---
Progress Note, Physician Chief Complaint: ID Full note dictated - Current Medication List Current Medications: Active Medications Acetaminophen (Tylenol -) 650 mg PO Q4H PRN PRN Reason: PAIN LEVEL 6-10 Stop: 10/24/16 21:11 Last Admin: 10/22/16 02:31 Dose: 650 mg Amino Acids (Prosource No Carb Liquid Pkt) 30 ml PO BID@0800,1730 [facility] Bupropion HCl (Wellbutrin -) 150 mg PO BID [facility] Finasteride (Proscar -) 5 mg PO HS [facility] Folic Acid (Folic Acid -) 1 mg PO DAILY [facility] Gabapentin (Neurontin -) 300 mg PO TID [facility] Last Admin: 10/22/16 06:51 Dose: 300 mg Dextrose/Sodium Chloride (D5-1/2ns -) 1,000 mls @ 75 mls/hr IV ASDIR [facility] Last Admin: 10/21/16 23:53 Dose: 75 mls/hr Insulin Aspart (Novolog Vial Sliding Scale -) 1 vial SQ ACHS [facility] PRN Reason: Protocol Last Admin: 10/22/16 06:52 Dose: 2 units Metoprolol Succinate (Toprol Xl -) 25 mg PO DAILY [facility] Oxycodone HCl (Roxicodone -) 10 mg PO Q4H PRN PRN Reason: PAIN LEVEL 6-10 Senna (Senna -) 1 tab PO [facility] - Objective Vital Signs: Vital Signs Temperature 100.5 F H 10/22/16 06:38 Pulse Rate 94 H 10/22/16 06:38 Respiratory Rate 16 10/22/16 06:38 Blood Pressure 98/41 10/22/16 06:38 O2 Sat by Pulse Oximetry (%) 98 10/21/16 21:00 Labs: CBC, BMP 10/22/16 08:10 INR, PTT INR 1.17 (0.82-1.09) H 10/21/16 14:07 Problem List - Problems (1) Infected decubitus ulcer Code(s): L89.90 - PRESSURE ULCER OF UNSPECIFIED SITE, UNSPECIFIED STAGE Qualifiers: Pressure ulcer stage: stage 2 Qualified Code(s): L89.92 - Pressure ulcer of unspecified site, stage 2 (2) UTI (urinary tract infection) Code(s): N39.0 - URINARY TRACT INFECTION, SITE NOT SPECIFIED Assessment/Plan Microbiology 09/28/16 14:45 Stool Clostridium difficile Antigen (EDD) - Final 09/28/16 14:45 Stool Clostridium difficile Toxin Assay - Final 09/04/16 10:43 Urine - Urine Clean Catch Urine Culture - Final NO GROWTH OBTAINED Laboratory Tests 10/21/16 10/21/16 10/21/16 14:07 14:07 14:50 WBC 18.3 H D Hgb 10.0 L Plt Count 529 H D BUN 31 H D Creatinine 0.8 D Creat Clearance w eGFR > 60 Lactic Acid Urine WBC 472 10/21/16 20:45 WBC Hgb Plt Count BUN Creatinine Creat Clearance w eGFR Lactic Acid 2.006 H* Urine WBC Assessment Infected decubitus ulcer Urinary infection Plan Steffi and Tamika ordered Cultures pending OR debridement Tramaine PACHECO
[2016-10-22 09:27] LABS: ALBUMIN 1.9 g/dl (3.4-5.0); ANION GAP 12 (8-16); BILIRUBIN,TOTAL 0.3 mg/dL (0.2-1.0); CALCIUM 8.5 mg/dL (8.5-10.1); CO2 20 mmol/L (21-32); GLUCOSE,RANDOM 212 mg/dL (74-106); SGOT/AST 26 U/L (15-37); SGPT/ALT 26 U/L (12-78); TOT PROT 5.4 g/dl (6.4-8.2)
[2016-10-22 09:28] LABS: ALK PHOS 70 U/L (45-117)
[2016-10-22] MEDS ORDERED: BACITRACIN 30 GM TUBE TOPICAL OINTMENT ONE (09:29)
--- NOTE | 2016-10-22 09:32 | PN ---
Progress Note (short form) - Note Progress Note: Patient seen yesterday in wound clinic for an extensive grade IV sacral decubitus ulcer with necrosis, sepsis of all skin layers extending and exposed sacral, coccyx bone As per his proxy Ms Kenisha Lou he recently was admitted at [facility] for urinary tract infection, discharged to [facility] 10 days ago. His condition has been deteriorating, nutrition very poor. Labs show increased WBC Local examination show full necrosis Plan : 1. Excisional debridement of loose necrotic tissue, patient is on Plavix , yesterday I discussed with his primary physician regarding extent of surgical excisional debridement . Today I will remove necrotic tissue, II stage for Wednesday after Plavix is held will need more deeper excision in preparation of VAC 2. Patient medical condition is too poor to undergo any reconstructive surgery 3. Patient's needs to be improved, elemental. 4. Soft alternating mattress, turning patient for prevention 5. Can patient be managed at home? Preferably needs SNF Laboratory Tests 10/22/16 08:10 WBC 15.9 H RBC 3.66 L Hgb 9.6 L Hct 30.3 L MCHC 31.5 L MPV 7.1 L Neutrophils % 87.7 H Lymphocytes % 6.6 L High risk diabetic male in very poor general medical status
[2016-10-22] MEDS ORDERED: MIDAZOLAM HCL 2 MG/2 ML SINGLE DOSE VIAL ONE (09:38)
[2016-10-22] MEDS ORDERED: DEXAMETHASONE SOD PHOSPHATE 4 MG/1 ML VIAL ONE (09:38)
[2016-10-22 09:42] LABS: PLATELET COUNT 443 K/MM3 (134-434); PLATELET ESTIMATE SLT INCREASED (NORMAL)
--- NOTE | 2016-10-22 09:59 | CONS ---
DATE OF CONSULTATION: HISTORY: This is a 75-year-old male with known history of diabetes, stroke with right hemiplegia who developed an infected sacral pressure ulcer for which he was sent to the ER for evaluation. There was no fever noted or chills, but the patient did have a leukocytosis. He was scheduled for debridement with placement of a VAC dressing on his way to the OR at this time. PAST MEDICAL HISTORY: Includes diabetes, CVA with hemiplegia, peripheral neuropathy, coronary artery disease, CHF, cholelithiasis, right heel ulcer, right malleolar ulcer, hernia repair. MEDICATIONS: At home, Prinivil, Tamsulosin, omeprazole, lisinopril, insulin, gabapentin, colchicine, finasteride, Plavix, Lipitor, aspirin, metoprolol, Victoza. ALLERGIES: None known. SOCIAL HISTORY: Never smoked. No history of substance abuse. FAMILY HISTORY: Reviewed and noncontributory. REVIEW OF SYSTEMS: All systems reviewed and negative. PHYSICAL EXAMINATION: Vital Signs: Temperature initially 98.4, pulse 83, respiratory rate 16, blood pressure 142/76, oximetry 99%. Neck: Supple. Trachea midline. Heart: S1, S2. Regular rhythm. No murmur. Lungs: Clear to percussion and auscultation Abdomen: Normoactive bowel sounds. Soft, nontender. Surgical scar in the right upper abdomen. No hepatosplenomegaly. Skin: Reveals a dressing in place in the coccygeal area with surrounding swelling and purulent discharge. Superficial right foot ulcer is noted 2-3 cm in diameter right lateral malleolus and right heel without soft tissue swelling or cellulitis. The white count is 18.3, hemoglobin 10, platelets 529, INR 1.17, BUN 31, creatinine 0.8. Liver enzymes within normal limits. Lactic acid 2. Urinalysis 3+ leukocyte esterase, 7 RBCs, 472 WBCs. Chest x-ray with no acute infiltrate. ASSESSMENT: A 75-year-old male with comorbidities including stroke, hemiplegia, and diabetes mellitus who presents with infected coccygeal decubitus ulcer. Additionally has urinalysis suggestive of urinary tract infection. Cultures have been drawn. Thus far, his blood cultures yesterday no report of growth. Urine culture pending. The patient is on his way to the operating room for debridement and placement of a VAC dressing over the decubitus ulcer. We will empirically treat with vancomycin and Zosyn pending cultures. JOAN AYALA M.D. [id number]
[2016-10-22] MEDS ORDERED: METOPROLOL SUCCINATE 25 MG TAB.SR.24H (FP) PO SCH (10:00)
[2016-10-22] MEDS ORDERED: VANCOMYCIN 1 GRAM (PRE-DOCKED) 250 ML IVPB SCH (10:00)
[2016-10-22] MEDS ORDERED: buPROPion HCL 75 MG TABLET PO SCH ×2 (10:00→22:00)
[2016-10-22] MEDS ORDERED: PROPOFOL 20 ML ONE (10:00)
[2016-10-22] MEDS ORDERED: FOLIC ACID 1 MG TABLET (FP) PO SCH (10:00)
[2016-10-22] MEDS ORDERED: PIPERACILLIN/TAZOB 4.5 GM 100 ML IVPB SCH (10:00)
[2016-10-22] MEDS ORDERED: ENOXAPARIN NA (PORCINE) 30 MG/0.3 ML DISP.SYRIN SQ SCH (10:00)
[2016-10-22] MEDS ORDERED: LIDOCAINE 1%/EPI 1:100000 (50 ML MULTI DOSE VIAL) INF ONE ×2 (10:06)
[2016-10-22] MEDS ORDERED: ceFAZolin SODIUM 1 GM VIAL IVPB ONE (10:16)
[2016-10-22] MEDS ORDERED: BACITRACIN 50,000 UNITS VIAL TP ONE (10:23)
[2016-10-22] MEDS ORDERED: ceFAZolin SODIUM 1 GM VIAL ONE (10:31)
[2016-10-22] MEDS ORDERED: oxyCODONE HCL 5 MG TABLET PO PRN (11:04)
[2016-10-22] MEDS ORDERED: ACETAMINOPHEN 325 MG TABLET (FP) PO PRN (11:04)
[2016-10-22] MEDS ORDERED: DEXTROSE 5%-0.45% SALINE 1,000 ML IV SCH (11:04)
--- NOTE | 2016-10-22 12:41 | OP ---
DATE OF OPERATION: 10/21/2016 INDICATIONS: The patient is a 75-year-old male seen yesterday in Wound Clinic regarding a very large necrotic sacral decubitus ulcer. He was sent to the emergency room for admission for debridement under anesthesia. PREOPERATIVE DIAGNOSIS: Infected sacral decubitus. POSTOPERATIVE DIAGNOSIS: Infected sacral decubitus. PROCEDURE: 1. Excisional debridement of the skin, subcutaneous tissue. 2. Excisional debridement of necrotic muscle fascia. 3. Pulsavac with 3000 mL of normal saline solution. SURGEON: Nae Sharif MD ANESTHESIA: General. ANESTHESIOLOGIST: Melina Grider DO DESCRIPTION OF PROCEDURE: Patient was brought to the operating room, turned to the semilateral position. At this time, standard procedure of identification was carried out. Once agreed, the area was prepped and draped in a standard aseptic manner using Betadine solution. Skin and subcutaneous tissue were 1% lidocaine with epinephrine after patient had been given IV sedation. A large amount of necrotic tissue was noted. Skin was then draped in the standard aseptic manner. First part of the procedure was excisional debridement of all necrotic skin and subcutaneous tissue. Following that, the muscle and the fascia was excised with Metzenbaum scissors. A 15 blade was then used to excise skin and subcutaneous tissue at the periphery. Pulsavac of 3000 mL with Bacitracin was used. The entire wound was irrigated. Deep muscle biopsy of bone for the culture was taken. Hemostasis was secured with electrocautery. Measurements of the defect before debridement were 5.5 x 8 x 2.5 cm. PLAN OF CARE: Observation for bleeding for the next 24 hours followed by application of VAC continuous at 125. FINAL DIAGNOSIS: Infected decubitus ulcer. Cultures grown from yesterday are as follows: Group D streptococcus or enterococcus, staphylococcus species as staphylococcus coagulase, negative diphtheroid Corynebacterium, and streptococcus viridans. His hemoglobin is low, his hematocrit is low. Nutrition is very poor. Albumin is 1.9, total protein is 5.4. White count is 15.9 (it was 18.3 yesterday, hemoglobin today is 9.6 (yesterday it was 10), hematocrit is 30.3 (yesterday it was 31.6), lymphocytes and neutrophils are increased, his platelet count is 443. NAE SHARIF M.D. [id number]
[2016-10-22] MEDS: PIPERACILLIN/TAZOB 4.5 GM 100 ML IVPB SCH ×2 (12:55→17:47)
[2016-10-22] MEDS: FOLIC ACID 1 MG TABLET (FP) PO SCH (12:55)
[2016-10-22] MEDS: METOPROLOL SUCCINATE 25 MG TAB.SR.24H (FP) PO SCH (12:55)
--- NOTE | 2016-10-22 13:53 | EKG ---
Test Reason : Blood Pressure : / mmHG Vent. Rate : 077 BPM Atrial Rate : 077 BPM P-R Int : 158 ms QRS Dur : 102 ms QT Int : 406 ms P-R-T Axes : 025 021 012 degrees QTc Int : 459 ms POOR DATA QUALITY, INTERPRETATION MAY BE ADVERSELY AFFECTED NORMAL SINUS RHYTHM POSSIBLE INFERIOR INFARCT (CITED ON OR BEFORE 04-SEP-2016) ABNORMAL ECG WHEN COMPARED WITH ECG OF 26-SEP-2016 15:30, NONSPECIFIC T WAVE ABNORMALITY, IMPROVED IN INFERIOR LEADS Confirmed by PRABHA ARBOLEDA MD ([id number]) on 10/22/2016 1:53:13 PM Referred By: Confirmed By:PRABHA ARBOLEDA MD
[2016-10-22] MEDS ORDERED: PT OWN MED DRAWER 7, Y5N ONE (14:05)
[2016-10-22] MEDS: VANCOMYCIN 1 GRAM (PRE-DOCKED) 250 ML IVPB SCH ×2 (14:13→22:51)
[2016-10-22] MEDS: AMINO ACIDS/PROTEIN HYDROLYS 30 ML LIQUID.PKT PO SCH (17:47)
--- NOTE | 2016-10-22 19:50 | PN ---
Progress Note, Physician Chief Complaint: patient sedated post procedure with sacral area debridment - Current Medication List Current Medications: Active Medications Acetaminophen (Tylenol -) 650 mg PO Q4H PRN PRN Reason: PAIN LEVEL 6-10 Stop: 10/24/16 21:11 Last Admin: 10/22/16 12:55 Dose: 650 mg Amino Acids (Prosource No Carb Liquid Pkt) 30 ml PO BID@0800,1730 [facility] Last Admin: 10/22/16 17:47 Dose: 30 ml Bupropion HCl (Wellbutrin Xl -) 300 mg PO DAILY [facility] Last Admin: 10/22/16 16:37 Dose: 300 mg Enoxaparin Sodium (Lovenox -) 30 mg SQ DAILY [facility] Finasteride (Proscar -) 5 mg PO [facility] Folic Acid (Folic Acid -) 1 mg PO DAILY [facility] Last Admin: 10/22/16 12:55 Dose: 1 mg Gabapentin (Neurontin -) 300 mg PO TID [facility] Last Admin: 10/22/16 14:14 Dose: 300 mg Dextrose/Sodium Chloride (D5-1/2ns -) 1,000 mls @ 75 mls/hr IV ASDIR [facility] Last Admin: 10/22/16 11:45 Dose: 0 mls Vancomycin HCl (Vancomycin (Pre-Docked)) 250 mls @ 166.667 mls/hr IVPB BID [facility] PRN Reason: Protocol Last Admin: 10/22/16 14:13 Dose: 166.667 mls/hr Piperacillin Sod/Tazobactam Sod (Zosyn 4.5gm Ivpb (Pre-Docked)) 100 mls @ 200 mls/hr IVPB Q8H-IV [facility] PRN Reason: Protocol Last Admin: 10/22/16 17:47 Dose: 200 mls/hr Insulin Aspart (Novolog Vial Sliding Scale -) 1 vial SQ ACHS [facility] PRN Reason: Protocol Last Admin: 10/22/16 17:09 Dose: 6 units Metoprolol Succinate (Toprol Xl -) 25 mg PO DAILY [facility] Last Admin: 10/22/16 12:55 Dose: 25 mg Oxycodone HCl (Roxicodone -) 10 mg PO Q4H PRN PRN Reason: PAIN LEVEL 6-10 - Objective Vital Signs: Vital Signs Temperature 98.6 F 10/22/16 11:45 Pulse Rate 100 H 10/22/16 11:45 Respiratory Rate 20 10/22/16 11:45 Blood Pressure 118/50 10/22/16 11:45 O2 Sat by Pulse Oximetry (%) 100 10/22/16 11:30 Constitutional: Yes: No Distress, Calm HENT: Yes: Atraumatic, Normocephalic Neck: Yes: Supple, Trachea Midline Respiratory: Yes: Regular, CTA Bilaterally. No: SOB, SOB on Exertion Gastrointestinal: Yes: Normal Bowel Sounds, Soft. No: Hepatomegaly, Splenomegaly Labs: CBC, BMP 10/22/16 08:10 10/22/16 08:10 INR, PTT INR 1.17 (0.82-1.09) H 10/21/16 14:07 Problem List - Problems (1) Sepsis affecting skin Assessment/Plan: broad spectrum antibiotic coverage administered in ER with Vancomycin and Zosyn due to tge patient's MRSA history status, requested for ID input tylenol for fever Code(s): L02.91 - CUTANEOUS ABSCESS, UNSPECIFIED (2) Pressure ulcer of sacral region, stage 2 Assessment/Plan: for surgical debridment in OR tomorrow the patient has been on Plavix and aspirin and is at risk for increased bleeding , discussed with plastic surgeon, Dr Kay, and made aware Dr Shine will continue with the procedure and minimally debride while scheduling the patent for a flap within 7 days Code(s): L89.152 - PRESSURE ULCER OF SACRAL REGION, STAGE 2 (3) 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) Assessment/Plan: the patient was on Plavix and ASA, which will be on hold in view of surgical debridment and flap Code(s): I69.359 - HEMIPLGA FOLLOWING CEREBRAL INFARCTION AFFECTING UNSP SIDE (4) Diabetes mellitus Assessment/Plan: accuchecks and coverage with regular insulin while waiting for surgical debridment start D5 1/2 NS NPO starting midnight in view of surgery Code(s): E11.9 - TYPE 2 DIABETES MELLITUS WITHOUT COMPLICATIONS Qualifiers: Diabetes mellitus type: type 2 Diabetes mellitus complication status: without complication Diabetes mellitus mac developer insulin use: without correction use Qualified Code(s): E11.9 - Type 2 diabetes mellitus without complications (5) Pressure ulcer of right ankle, stage 2 Assessment/Plan: santyl applications daily Code(s): L89.512 - PRESSURE ULCER OF RIGHT ANKLE, STAGE 2 (6) Pressure ulcer of right heel, stage 2 Assessment/Plan: Smart[employer]Pants Vitamins applications daily Code(s): L89.612 - PRESSURE ULCER OF RIGHT HEEL, STAGE 2
[2016-10-22] MEDS ORDERED: FINASTERIDE 5 MG TABLET (FP) PO SCH (22:00)
[2016-10-22] MEDS ORDERED: SENNOSIDES 8.6MG TABLET (FP) PO SCH (22:00)
[2016-10-22] MEDS: FINASTERIDE 5 MG TABLET (FP) PO SCH (22:51)
[2016-10-23] MEDS: PIPERACILLIN/TAZOB 4.5 GM 100 ML IVPB SCH ×3 (02:17→17:51)
[2016-10-23] MEDS: GABAPENTIN 300 MG CAPSULE (FP) PO SCH ×3 (07:22→23:30)
[2016-10-23] MEDS: INSULIN SLIDING SCALE (NOVOLOG) 1 VIAL SQ SCH ×4 (07:23→23:32)
[2016-10-23] MEDS: AMINO ACIDS/PROTEIN HYDROLYS 30 ML LIQUID.PKT PO SCH ×2 (08:02→17:44)
[2016-10-23 08:26] LABS: BASOPHIL 0.6 % (0-2.0); EOSINOPHIL 2.3 % (0-4.5); MCH 26.2 pg (25.7-33.7); MCHC 31.9 g/dl (32.0-35.9); MEAN CELL VOLUME 82.1 fl (80-96); MEAN PLT VOLUME 7.2 fl (7.5-11.1); NEUTROPHILS 82.9 % (42.8-82.8); PLATELET COUNT 408 K/MM3 (134-434); RDW 15.9 % (11.9-15.9); WHITE BLOOD COUNT 11.3 K/mm3 (4.0-10.0)
[2016-10-23 09:39] LABS: ALBUMIN 1.8 g/dl (3.4-5.0); ALK PHOS 69 U/L (45-117); ANION GAP 11 (8-16); BILIRUBIN,TOTAL 0.4 mg/dL (0.2-1.0); CALCIUM 8.4 mg/dL (8.5-10.1); CO2 22 mmol/L (21-32); CREATININE 0.8 mg/dL (0.7-1.3); GLUCOSE,RANDOM 212 mg/dL (74-106); SGOT/AST 28 U/L (15-37); SGPT/ALT 21 U/L (12-78); TOT PROT 5.4 g/dl (6.4-8.2)
[2016-10-23] MEDS ORDERED: PT OWN MED DRAWER 7, Y5N ONE ×2 (10:01→17:34)
[2016-10-23] MEDS: ENOXAPARIN NA (PORCINE) 30 MG/0.3 ML DISP.SYRIN SQ SCH (10:13)
[2016-10-23] MEDS: METOPROLOL SUCCINATE 25 MG TAB.SR.24H (FP) PO SCH (10:13)
[2016-10-23] MEDS: FOLIC ACID 1 MG TABLET (FP) PO SCH (10:14)
[2016-10-23] MEDS ORDERED: INSULIN (NOVOLOG) ASPART 100 UNITS/ML 10ML VIAL ONE (11:17)
[2016-10-23] MEDS: VANCOMYCIN 1 GRAM (PRE-DOCKED) 250 ML IVPB SCH ×2 (11:19→23:30)
--- NOTE | 2016-10-23 11:26 | PATH ---
Surgical Pathology Report Patient Name: WILLARD NARAYAN JR [facility]. Rec. #: [id number] /Age/Gender: 1940 (Age: 75) / M Account: [id number] Location: [facility] MED/SURG Taken: 10/22/2016 Received: 10/22/2016 Reported: 10/23/2016 Physicians: Tyson Shine M.D. Specimen(s) Received REMOVED TISSUE SACRAL DECUBITI Clinical History Suspected grade 4 sacral decubitus Final Diagnosis SOFT TISSUE, SACRUM, DEBRIDEMENT: GANGRENOUS NECROSIS. Electronically Signed Vik Beltran M.D. Gross Description Received in formalin labelled "remove tissue sacral decubitus" is a 6 x 5 x 1.5 cm aggregate of ghosh and de la cruz tissue fragments with areas of necrosis grossly identifiable. No bone is identified. Bushing Press Operator sections are submitted in one cassette. [facility]/10/22/2016 [facility]/10/22/2016
--- NOTE | 2016-10-23 12:38 | PN ---
Progress Note (short form) - Note Progress Note: POD #1- s/p sacral debridement. Pt. appears somnolent, but arousable. Offers no complaints. VSS. No apparent anesthetic complications noted. Continue current care.
--- NOTE | 2016-10-23 13:21 | PN ---
Progress Note (short form) - Note Progress Note: doing well s/p debridement 10/22 Vital Signs Period Temp Pulse Resp BP Sys/Olsen Pulse Ox Last 24 Hr 97.5 F-102.3 F 71-109 18-22 80-147/50-70 97-98 cor-rrr lungs clear abd soft,nt CBC, BMP 10/23/16 06:15 10/23/16 06:15 Microbiology 10/22/16 10:25 Tissue-Other Gram Stain - Final 10/22/16 10:25 Tissue-Other Tissue Culture - Preliminary Group D Strep Or Entero Coccus Diphtheroid/Corynebacterium Pending Organism Pending Organism#2 10/21/16 14:07 Blood - Peripheral Venous Blood Culture - Preliminary NO GROWTH OBTAINED AFTER 24 HOURS, INCUBATION TO CONTINUE FOR 4 DAYS. 10/21/16 14:07 Blood - Peripheral Venous Blood Culture - Preliminary NO GROWTH OBTAINED AFTER 24 HOURS, INCUBATION TO CONTINUE FOR 4 DAYS. 10/21/16 14:07 Coccyx Gram Stain - Final 10/21/16 14:07 Coccyx Wound Culture - Preliminary Group D Strep Or Entero Coccus Staphylococcus Species Staphylococcus Coagulase Neg Diphtheroid/Corynebacterium Streptococcus Viridans 10/21/16 14:07 Urine - Urine Clean Catch Urine Culture - Final NO GROWTH OBTAINED a/p s/p debridement of infected decubitus ulcer f/u operative cultures continue vancomycin and zosyn
--- NOTE | 2016-10-23 13:29 | PN ---
Progress Note, Physician Chief Complaint: patient alert post procedure with sacral area debridment, denies pain to the site of surgery - Current Medication List Current Medications: Active Medications Acetaminophen (Tylenol -) 650 mg PO Q4H PRN PRN Reason: PAIN LEVEL 6-10 Stop: 10/24/16 21:11 Last Admin: 10/22/16 12:55 Dose: 650 mg Amino Acids (Prosource No Carb Liquid Pkt) 30 ml PO BID@0800,1730 [facility] Last Admin: 10/23/16 08:02 Dose: 30 ml Bupropion HCl (Wellbutrin Xl -) 300 mg PO DAILY [facility] Last Admin: 10/23/16 10:14 Dose: 300 mg Enoxaparin Sodium (Lovenox -) 30 mg SQ DAILY [facility] Last Admin: 10/23/16 10:13 Dose: 30 mg Finasteride (Proscar -) 5 mg PO HS [facility] Last Admin: 10/22/16 22:51 Dose: 5 mg Folic Acid (Folic Acid -) 1 mg PO DAILY [facility] Last Admin: 10/23/16 10:14 Dose: 1 mg Gabapentin (Neurontin -) 300 mg PO TID [facility] Last Admin: 10/23/16 07:22 Dose: 300 mg Vancomycin HCl (Vancomycin (Pre-Docked)) 250 mls @ 166.667 mls/hr IVPB BID [facility] PRN Reason: Protocol Last Admin: 10/23/16 11:19 Dose: 166.667 mls/hr Piperacillin Sod/Tazobactam Sod (Zosyn 4.5gm Ivpb (Pre-Docked)) 100 mls @ 200 mls/hr IVPB Q8H-IV [facility] PRN Reason: Protocol Last Admin: 10/23/16 10:14 Dose: 200 mls/hr Dextrose/Sodium Chloride (D5-1/2ns -) 1,000 mls @ 42 mls/hr IV ASDIR [facility] Insulin Aspart (Novolog Vial Sliding Scale -) 1 vial SQ ACHS [facility] PRN Reason: Protocol Last Admin: 10/23/16 11:27 Dose: 6 units Metoprolol Succinate (Toprol Xl -) 25 mg PO DAILY [facility] Last Admin: 10/23/16 10:13 Dose: 25 mg Multivitamins/Minerals/Vitamin C (Tab-A-Vit -) 1 tab PO DAILY [facility] Oxycodone HCl (Roxicodone -) 10 mg PO Q4H PRN PRN Reason: PAIN LEVEL 6-10 Zinc Sulfate (Orazinc -) 220 mg PO BID [facility] - Objective Vital Signs: Vital Signs Temperature 97.6 F 10/23/16 08:53 Pulse Rate 73 10/23/16 08:53 Respiratory Rate 18 10/23/16 08:53 Blood Pressure 104/53 10/23/16 08:53 O2 Sat by Pulse Oximetry (%) 98 10/22/16 21:00 Constitutional: Yes: No Distress, Calm Eyes: Yes: Conjunctiva Clear, EOM Intact HENT: Yes: Atraumatic, Normocephalic Neck: Yes: Supple, Trachea Midline Cardiovascular: Yes: Regular Rate and Rhythm, S1, S2 Gastrointestinal: Yes: Normal Bowel Sounds, Soft, Abdomen, Obese. No: Hepatomegaly, Splenomegaly ...Rectal Exam: Yes: Deferred Breast(s): Yes: WNL Musculoskeletal: Yes: Muscle Weakness Extremities: Yes: Other (sensitivity to light trouch and manuipulation of the lower extremities). No: Calf Tenderness Edema: No Peripheral Pulses WNL: Yes Integumentary: Yes: Other (ulcer of the righ tmalleola and right heel) Psychiatric: Yes: Alert, Oriented Labs: CBC, BMP 10/23/16 06:15 10/23/16 06:15 INR, PTT INR 1.17 (0.82-1.09) H 10/21/16 14:07 Problem List - Problems (1) Sepsis affecting skin Assessment/Plan: broad spectrum antibiotic coverage administered in ER with Vancomycin and Zosyn due to tge patient's MRSA history status, requested for ID input tylenol for fever Code(s): L02.91 - CUTANEOUS ABSCESS, UNSPECIFIED (2) Pressure ulcer of sacral region, stage 2 Assessment/Plan: for surgical debridment in OR tomorrow the patient has been on Plavix and aspirin and is at risk for increased bleeding , discussed with plastic surgeon, Dr Kay, and made aware Dr Shine will continue with the procedure and minimally debride while scheduling the patent for a flap within 7 days Code(s): L89.152 - PRESSURE ULCER OF SACRAL REGION, STAGE 2 (3) 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) Assessment/Plan: the patient was on Plavix and ASA, which will be on hold in view of surgical debridment and flap Code(s): I69.359 - HEMIPLGA FOLLOWING CEREBRAL INFARCTION AFFECTING UNSP SIDE (4) Diabetes mellitus Assessment/Plan: accuchecks and coverage with regular insulin while waiting for surgical debridment start D5 1/2 NS NPO starting midnight in view of surgery Code(s): E11.9 - TYPE 2 DIABETES MELLITUS WITHOUT COMPLICATIONS Qualifiers: Diabetes mellitus type: type 2 Diabetes mellitus complication status: without complication Diabetes mellitus intermodal owner operator truck driver insulin use: without intermodal owner operator truck driver use Qualified Code(s): E11.9 - Type 2 diabetes mellitus without complications (5) Pressure ulcer of right ankle, stage 2 Assessment/Plan: santyl applications daily Code(s): L89.512 - PRESSURE ULCER OF RIGHT ANKLE, STAGE 2 (6) Pressure ulcer of right heel, stage 2 Assessment/Plan: santyl applications daily Code(s): L89.612 - PRESSURE ULCER OF RIGHT HEEL, STAGE 2
[2016-10-23] MEDS: ZINC SULFATE 220 MG CAPSULE (FP) PO SCH ×2 (14:04→23:30)
[2016-10-23] MEDS: MULTIVITAMINS (DAILY MVI) TABLET (FP) PO SCH (14:04)
[2016-10-23] MEDS: DEXTROSE 5%-0.45% SALINE 1,000 ML IV SCH (14:04)
--- NOTE | 2016-10-23 16:29 | CONSULT ---
Admitting History and Physical - Primary Care Physician PCP: Sofiya Diop - Admission History of Present Illness: Per EMR: "75 yo M adm from home for infected decubitus ulcer. PMHx: DM, CVA, R sided hemiparesis, anemia, HTN, hypercholesterolemia, CAD- stent. PO intake 25-50%.... Pt states & RN confirms that it takes pt a long time to chew & eat. She observed coughing as well. 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: Yes: CVA, Peripheral Neuropathy Cardiovascular: Yes: CAD, CHF, Other Hepatobiliary: Yes: Cholelithiasis Renal/: Yes: BPH Musculoskeletal: Yes: Hemiplegia Endocrine: Yes: Diabetes Mellitus Dermatology: Yes: Other (right heel ulcer and right external malleola ulcer, pre sacral pressure ulcer unstageable) - Past Surgical History Past Surgical History: Yes: Hernia Repair - Smoking History Smoking history: Never smoked Have you smoked in the past 12 months: No - Alcohol/Substance Use Hx Alcohol Use: No History - Admission Reason For Visit: INFECTED DECUBITUS ULCER - Diagnostics X-ray: Report Reviewed - General Mental Status: Awake and Alert, Able to Follow Commands (1 stage), Intermittently Confused Attention: Intact Ability to Follow Directions: Fair Head/Neck Control: Needs Assist - Hearing Hearing: Normal Speech Evaluation - Communication Primary Language: SLOVENIAN Communication: Yes: Aphasia Oral Expression Ability: Yes: Moderate Impairment - Speech Production Able to Make Needs Known: Yes: Moderately Impaired Intelligibility: Yes: Mildly Impaired, Moderately Impaired - Speech Characteristics Voice Loudness: Normal Voice Pitch: Yes: Normal Voice Phonatory-based Quality: Yes: Normal Speech Pattern: Impaired Speech Clarity: < 50% Nasal Resonance: Normal Articulation: Yes: Imprecise Rate of Speech: Too Fast - Language/Auditory Comprehension Follows: Yes: 1 Stage Simple Commands - Language/Verbal Expression Aphasia: Yes: Nonfluent, Anomia, Impaired Repetition, Paraphrasic Errors, Apraxia, Grammatic Errors Able to Respond to Simple Queries: Yes: Moderately Impaired Able to Communicate Wants and Needs: Yes: Moderately Impaired Functional Communication Status: Yes: Moderately Impaired - Swallow Evaluation/Bedside Assessment Current Nutritional Intake: Regular, Thin Liquids Oral Secretions: Yes: WFL Dentition: Yes: Missing Teeth (posterioraLLY, ADVERSELY AFFECTING MASTICATION.) Laryngeal Movement: Able to Palpate Labial Seal: WFL Chewing: Impaired (extended due to missing dentition.) Oral Prep Time: Increased A-P Transit: WFL Timing of Swallow: Delayed Coughing/Throat Clear: No Change in Voice: No Recommendations - Speech Evaluation, Impression/Plan Impression: Extended mastication, likely due to missing teeth posteriorally. Seems to be fairly efficient. Swallow reflex seems fairly brisk. Aphasia, LT. - Dysphagia Impressions/Plan Swallowing Skills: Impaired Dysphagia Impressions: Mild Impairment *Silent aspiration: cannot be R/O at bedside Dysphagia Treatment Plan: Small Bites, Safe Rate, 1/2 tsp. at a time, Elevate HOB during feed - Recommendations Diet Consistency: Regular (very soft, easy to chew foods eg fish, pasta and sauce, mac and cheese, tuna, egg salad, soft cooked vege.), Other (chopped meats with gravy) Medication Administration: Whole with water Liquids: Thin Liquids Supplement: Glucerna
[2016-10-23] MEDS: FINASTERIDE 5 MG TABLET (FP) PO SCH (23:30)
[2016-10-24] MEDS: PIPERACILLIN/TAZOB 4.5 GM 100 ML IVPB SCH ×3 (02:36→19:05)
[2016-10-24] MEDS: GABAPENTIN 300 MG CAPSULE (FP) PO SCH ×3 (06:47→22:52)
[2016-10-24] MEDS: INSULIN SLIDING SCALE (NOVOLOG) 1 VIAL SQ SCH ×4 (06:50→22:54)
[2016-10-24] MEDS: AMINO ACIDS/PROTEIN HYDROLYS 30 ML LIQUID.PKT PO SCH ×2 (08:45→18:00)
[2016-10-24 08:52] LABS: BASOPHIL 0.8 % (0-2.0); MCH 26.1 pg (25.7-33.7); MCHC 32.3 g/dl (32.0-35.9); MEAN CELL VOLUME 80.9 fl (80-96); MEAN PLT VOLUME 7.3 fl (7.5-11.1); NEUTROPHILS 69.4 % (42.8-82.8); PLATELET COUNT 391 K/MM3 (134-434); RDW 15.2 % (11.9-15.9); WHITE BLOOD COUNT 11.9 K/mm3 (4.0-10.0)
[2016-10-24 09:20] LABS: ALBUMIN 1.6 g/dl (3.4-5.0); ANION GAP 11 (8-16); CO2 22 mmol/L (21-32); CREATININE 0.7 mg/dL (0.7-1.3); GLUCOSE,RANDOM 238 mg/dL (74-106); SGOT/AST 34 U/L (15-37); SGPT/ALT 25 U/L (12-78)
[2016-10-24 09:21] LABS: ALK PHOS 61 U/L (45-117); BILIRUBIN,TOTAL 0.4 mg/dL (0.2-1.0); TOT PROT 4.9 g/dl (6.4-8.2)
[2016-10-24] MEDS: ZINC SULFATE 220 MG CAPSULE (FP) PO SCH ×2 (10:47→22:52)
[2016-10-24] MEDS: METOPROLOL SUCCINATE 25 MG TAB.SR.24H (FP) PO SCH (10:48)
[2016-10-24] MEDS: ENOXAPARIN NA (PORCINE) 30 MG/0.3 ML DISP.SYRIN SQ SCH (10:50)
[2016-10-24] MEDS: FOLIC ACID 1 MG TABLET (FP) PO SCH (10:50)
[2016-10-24] MEDS: MULTIVITAMINS (DAILY MVI) TABLET (FP) PO SCH (12:47)
[2016-10-24] MEDS: VANCOMYCIN 1 GRAM (PRE-DOCKED) 250 ML IVPB SCH ×2 (12:49→22:55)
[2016-10-24] MEDS: DEXTROSE 5%-0.45% SALINE 1,000 ML IV SCH (14:34)
[2016-10-24] MEDS ORDERED: DOCUSATE SODIUM 100 MG CAPSULE (FP) PO PRN (17:07)
--- NOTE | 2016-10-24 17:09 | PN ---
Progress Note, Physician Chief Complaint: patient alert post procedure with sacral area debridment, has pain, had poor oral intake - Current Medication List Current Medications: Active Medications Acetaminophen (Tylenol -) 650 mg PO Q6H [facility] Stop: 10/24/16 21:11 Amino Acids (Prosource No Carb Liquid Pkt) 30 ml PO BID@0800,1730 [facility] Last Admin: 10/24/16 08:45 Dose: 30 ml Bupropion HCl (Wellbutrin Xl -) 300 mg PO DAILY [facility] Last Admin: 10/24/16 10:24 Dose: 300 mg Docusate Sodium (Colace -) 100 mg PO BID PRN PRN Reason: CONSTIPATION Enoxaparin Sodium (Lovenox -) 30 mg SQ DAILY [facility] Last Admin: 10/24/16 10:50 Dose: 30 mg Finasteride (Proscar -) 5 mg PO HS [facility] Last Admin: 10/23/16 23:30 Dose: 5 mg Folic Acid (Folic Acid -) 1 mg PO DAILY [facility] Last Admin: 10/24/16 10:50 Dose: 1 mg Gabapentin (Neurontin -) 300 mg PO TID [facility] Last Admin: 10/24/16 14:25 Dose: 300 mg Vancomycin HCl (Vancomycin (Pre-Docked)) 250 mls @ 166.667 mls/hr IVPB BID [facility] PRN Reason: Protocol Last Admin: 10/24/16 12:49 Dose: 166.667 mls/hr Piperacillin Sod/Tazobactam Sod (Zosyn 4.5gm Ivpb (Pre-Docked)) 100 mls @ 200 mls/hr IVPB Q8H-IV [facility] PRN Reason: Protocol Last Admin: 10/24/16 10:25 Dose: 200 mls/hr Insulin Aspart (Novolog Vial Sliding Scale -) 1 vial SQ ACHS [facility] PRN Reason: Protocol Last Admin: 10/24/16 16:33 Dose: 6 units Metoprolol Succinate (Toprol Xl -) 25 mg PO DAILY [facility] Last Admin: 10/24/16 10:48 Dose: 25 mg Multivitamins/Minerals/Vitamin C (Tab-A-Vit -) 1 tab PO DAILY [facility] Last Admin: 10/24/16 12:47 Dose: 1 tab Oxycodone HCl (Roxicodone -) 10 mg PO Q8H [facility] Zinc Sulfate (Orazinc -) 220 mg PO BID [facility] Last Admin: 10/24/16 10:47 Dose: 220 mg - Objective Vital Signs: Vital Signs Temperature 98.2 F 10/24/16 06:00 Pulse Rate 76 10/24/16 06:00 Respiratory Rate 20 10/24/16 06:00 Blood Pressure 102/56 10/24/16 06:00 O2 Sat by Pulse Oximetry (%) 98 10/23/16 21:00 Constitutional: Yes: No Distress, Calm Eyes: Yes: Conjunctiva Clear, EOM Intact HENT: Yes: Atraumatic, Normocephalic Neck: Yes: Supple, Trachea Midline Respiratory: Yes: Regular, CTA Bilaterally Gastrointestinal: Yes: Normal Bowel Sounds, Soft, Abdomen, Obese. No: Hepatomegaly, Splenomegaly Breast(s): Yes: WNL Musculoskeletal: Yes: WNL Edema: No Peripheral Pulses WNL: Yes Neurological: Yes: Alert Psychiatric: Yes: Alert Labs: CBC, BMP 10/24/16 06:50 10/24/16 06:50 INR, PTT INR 1.17 (0.82-1.09) H 10/21/16 14:07 Problem List - Problems (1) Sepsis affecting skin Assessment/Plan: broad spectrum antibiotic coverage administered in ER with Vancomycin and Zosyn due to tge patient's MRSA history status, requested for ID input tylenol for fever Code(s): L02.91 - CUTANEOUS ABSCESS, UNSPECIFIED (2) Pressure ulcer of sacral region, stage 2 Assessment/Plan: for surgical debridment in OR tomorrow the patient has been on Plavix and aspirin and is at risk for increased bleeding , discussed with plastic surgeon, Dr Kay, and made aware Dr Shine will continue with the procedure and minimally debride while scheduling the patent for a flap within 7 days Code(s): L89.152 - PRESSURE ULCER OF SACRAL REGION, STAGE 2 (3) 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) Assessment/Plan: the patient was on Plavix and ASA, which will be on hold in view of surgical debridment and flap Code(s): I69.359 - HEMIPLGA FOLLOWING CEREBRAL INFARCTION AFFECTING UNSP SIDE (4) Diabetes mellitus Assessment/Plan: accuchecks and coverage with regular insulin while waiting for surgical debridment start D5 1/2 NS NPO starting midnight in view of surgery Code(s): E11.9 - TYPE 2 DIABETES MELLITUS WITHOUT COMPLICATIONS Qualifiers: Diabetes mellitus type: type 2 Diabetes mellitus complication status: without complication Diabetes mellitus joint terminal attack controller insulin use: without joint terminal attack controller use Qualified Code(s): E11.9 - Type 2 diabetes mellitus without complications (5) Pressure ulcer of right ankle, stage 2 Assessment/Plan: santyl applications daily Code(s): L89.512 - PRESSURE ULCER OF RIGHT ANKLE, STAGE 2 (6) Pressure ulcer of right heel, stage 2 Assessment/Plan: santyl applications daily Code(s): L89.612 - PRESSURE ULCER OF RIGHT HEEL, STAGE 2
[2016-10-24] MEDS ORDERED: oxyCODONE HCL 5 MG TABLET PO PRN (17:15)
[2016-10-24] MEDS ORDERED: ACETAMINOPHEN 325 MG TABLET (FP) PO SCH (17:15)
[2016-10-24] MEDS: FINASTERIDE 5 MG TABLET (FP) PO SCH (22:52)
[2016-10-25] MEDS: PIPERACILLIN/TAZOB 4.5 GM 100 ML IVPB SCH ×2 (01:59→09:22)
[2016-10-25] MEDS: GABAPENTIN 300 MG CAPSULE (FP) PO SCH ×3 (06:45→21:57)
[2016-10-25] MEDS: INSULIN SLIDING SCALE (NOVOLOG) 1 VIAL SQ SCH ×4 (06:45→21:58)
[2016-10-25 08:53] LABS: BASOPHIL 0.5 % (0-2.0); EOSINOPHIL 6.1 % (0-4.5); MCH 25.4 pg (25.7-33.7); MEAN CELL VOLUME 81.9 fl (80-96); MEAN PLT VOLUME 6.8 fl (7.5-11.1); NEUTROPHILS 65.2 % (42.8-82.8); PLATELET COUNT 390 K/MM3 (134-434); RDW 15.6 % (11.9-15.9)
[2016-10-25] MEDS ORDERED: PT OWN MED DRAWER 7, Y5N ONE ×2 (09:07→22:00)
[2016-10-25] MEDS: ENOXAPARIN NA (PORCINE) 30 MG/0.3 ML DISP.SYRIN SQ SCH (09:20)
[2016-10-25] MEDS: FOLIC ACID 1 MG TABLET (FP) PO SCH (09:20)
[2016-10-25] MEDS: ZINC SULFATE 220 MG CAPSULE (FP) PO SCH ×2 (09:20→21:57)
[2016-10-25] MEDS: MULTIVITAMINS (DAILY MVI) TABLET (FP) PO SCH (09:21)
[2016-10-25] MEDS: VANCOMYCIN 1 GRAM (PRE-DOCKED) 250 ML IVPB SCH (09:21)
[2016-10-25] MEDS: AMINO ACIDS/PROTEIN HYDROLYS 30 ML LIQUID.PKT PO SCH ×2 (09:21→17:43)
[2016-10-25] MEDS: METOPROLOL SUCCINATE 25 MG TAB.SR.24H (FP) PO SCH (09:22)
[2016-10-25 09:40] LABS: ALBUMIN 1.6 g/dl (3.4-5.0); ANION GAP 12 (8-16); BILIRUBIN,TOTAL 0.2 mg/dL (0.2-1.0); CALCIUM 7.8 mg/dL (8.5-10.1); CO2 19 mmol/L (21-32); CREATININE 0.6 mg/dL (0.7-1.3); GLUCOSE,RANDOM 258 mg/dL (74-106); SGOT/AST 33 U/L (15-37); SGPT/ALT 29 U/L (12-78)
[2016-10-25 09:41] LABS: ALK PHOS 60 U/L (45-117)
--- NOTE | 2016-10-25 14:22 | PN ---
Progress Note, Physician Chief Complaint: patient more alert post procedure ate better, has an wound vac, has pain, - Current Medication List Current Medications: Active Medications Amino Acids (Prosource No Carb Liquid Pkt) 30 ml PO BID@0800,1730 [facility] Last Admin: 10/25/16 09:21 Dose: 30 ml Bupropion HCl (Wellbutrin Xl -) 300 mg PO DAILY [facility] Last Admin: 10/25/16 09:21 Dose: 300 mg Docusate Sodium (Colace -) 100 mg PO BID PRN PRN Reason: CONSTIPATION Enoxaparin Sodium (Lovenox -) 30 mg SQ DAILY [facility] Last Admin: 10/25/16 09:20 Dose: 30 mg Finasteride (Proscar -) 5 mg PO HS [facility] Last Admin: 10/24/16 22:52 Dose: 5 mg Folic Acid (Folic Acid -) 1 mg PO DAILY [facility] Last Admin: 10/25/16 09:20 Dose: 1 mg Gabapentin (Neurontin -) 300 mg PO TID [facility] Last Admin: 10/25/16 06:45 Dose: 300 mg Insulin Aspart (Novolog Vial Sliding Scale -) 1 vial SQ ACHS [facility] PRN Reason: Protocol Last Admin: 10/25/16 12:25 Dose: 6 units Liraglutide (Victoza -) 1.8 mg SQ DAILY@0700 [facility] Metoprolol Succinate (Toprol Xl -) 25 mg PO DAILY [facility] Last Admin: 10/25/16 09:22 Dose: Not Given Multivitamins/Minerals/Vitamin C (Tab-A-Vit -) 1 tab PO DAILY [facility] Last Admin: 10/25/16 09:21 Dose: 1 tab Oxycodone HCl (Roxicodone -) 10 mg PO Q8H PRN Zinc Sulfate (Orazinc -) 220 mg PO BID [facility] Last Admin: 10/25/16 09:20 Dose: 220 mg - Objective Vital Signs: Vital Signs Temperature 97.5 F L 10/25/16 06:00 Pulse Rate 82 10/25/16 06:00 Respiratory Rate 20 10/25/16 06:00 Blood Pressure 109/56 10/25/16 06:00 O2 Sat by Pulse Oximetry (%) 97 10/24/16 09:25 Constitutional: Yes: No Distress, Calm Eyes: Yes: Conjunctiva Clear, EOM Intact HENT: Yes: Atraumatic, Normocephalic Neck: Yes: Supple Cardiovascular: Yes: Regular Rate and Rhythm, S1, S2 Respiratory: Yes: Regular, CTA Bilaterally Gastrointestinal: Yes: Normal Bowel Sounds, Soft, Abdomen, Obese. No: Hepatomegaly, Splenomegaly Musculoskeletal: Yes: Other (right hemiplegia) Extremities: Yes: Other (pressure ulcer right foot). No: Calf Tenderness Integumentary: Yes: Other (sacral decubitis ulcer post debridment has an wound vac draining serosangvinolent fluids, right malleola pressure ulcer is better, there is excoriation from the SCD on the right anterior calf) Neurological: Yes: Aphasia (exporesive), Other (right hemiplegia) Psychiatric: Yes: Alert, Oriented Labs: CBC, BMP 10/25/16 06:50 10/25/16 06:50 INR, PTT INR 1.17 (0.82-1.09) H 10/21/16 14:07 Problem List - Problems (1) Sepsis affecting skin Assessment/Plan: broad spectrum antibiotic coverage administered in ER with Vancomycin and Zosyn due to multibacteril cultire results, MSSA and Strep tylenol for fever Code(s): L02.91 - CUTANEOUS ABSCESS, UNSPECIFIED (2) Pressure ulcer of sacral region, stage 2 Code(s): L89.152 - PRESSURE ULCER OF SACRAL REGION, STAGE 2 (3) 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) Code(s): I69.359 - HEMIPLGA FOLLOWING CEREBRAL INFARCTION AFFECTING UNSP SIDE (4) Diabetes mellitus Code(s): E11.9 - TYPE 2 DIABETES MELLITUS WITHOUT COMPLICATIONS Qualifiers: Diabetes mellitus type: type 2 Diabetes mellitus complication status: without complication Diabetes mellitus senior living insulin use: without senior living use Qualified Code(s): E11.9 - Type 2 diabetes mellitus without complications (5) Pressure ulcer of right ankle, stage 2 Code(s): L89.512 - PRESSURE ULCER OF RIGHT ANKLE, STAGE 2 (6) Pressure ulcer of right heel, stage 2 Code(s): L89.612 - PRESSURE ULCER OF RIGHT HEEL, STAGE 2
--- NOTE | 2016-10-25 14:41 | PN ---
Progress Note, Physician History of Present Illness: Awake, alert S/P debridement of decubitus VAC in place Temps,WBC down Wound c/s polymicrobial - Current Medication List Current Medications: Active Medications Amino Acids (Prosource No Carb Liquid Pkt) 30 ml PO BID@0800,1730 [facility] Last Admin: 10/25/16 09:21 Dose: 30 ml Bupropion HCl (Wellbutrin Xl -) 300 mg PO DAILY [facility] Last Admin: 10/25/16 09:21 Dose: 300 mg Docusate Sodium (Colace -) 100 mg PO BID PRN PRN Reason: CONSTIPATION Enoxaparin Sodium (Lovenox -) 30 mg SQ DAILY [facility] Last Admin: 10/25/16 09:20 Dose: 30 mg Finasteride (Proscar -) 5 mg PO HS [facility] Last Admin: 10/24/16 22:52 Dose: 5 mg Folic Acid (Folic Acid -) 1 mg PO DAILY [facility] Last Admin: 10/25/16 09:20 Dose: 1 mg Gabapentin (Neurontin -) 300 mg PO TID [facility] Last Admin: 10/25/16 06:45 Dose: 300 mg Insulin Aspart (Novolog Vial Sliding Scale -) 1 vial SQ ACHS [facility] PRN Reason: Protocol Last Admin: 10/25/16 12:25 Dose: 6 units Liraglutide (Victoza -) 1.8 mg SQ DAILY@0700 [facility] Metoprolol Succinate (Toprol Xl -) 25 mg PO DAILY [facility] Last Admin: 10/25/16 09:22 Dose: Not Given Multivitamins/Minerals/Vitamin C (Tab-A-Vit -) 1 tab PO DAILY [facility] Last Admin: 10/25/16 09:21 Dose: 1 tab Oxycodone HCl (Roxicodone -) 10 mg PO Q8H PRN Zinc Sulfate (Orazinc -) 220 mg PO BID [facility] Last Admin: 10/25/16 09:20 Dose: 220 mg - Objective Vital Signs: Vital Signs Temperature 97.5 F L 10/25/16 06:00 Pulse Rate 82 10/25/16 06:00 Respiratory Rate 20 10/25/16 06:00 Blood Pressure 109/56 10/25/16 06:00 O2 Sat by Pulse Oximetry (%) 97 10/24/16 09:25 Constitutional: Yes: No Distress Eyes: Yes: Conjunctiva Clear Cardiovascular: Yes: Regular Rate and Rhythm, S1, S2 Respiratory: Yes: CTA Bilaterally Edema: No Integumentary: Yes: Other (VAC in place, sacral area Small wound opening at periumbilical wound) Labs: CBC, BMP 10/25/16 06:50 10/25/16 06:50 INR, PTT INR 1.17 (0.82-1.09) H 10/21/16 14:07 Assessment/Plan S/P debridement, sacral decubitus Polymicrobial wound c/s S/P CVA Substitute Unasyn
[2016-10-25] MEDS: AMPICILLIN NA/SULBACTAM NA 1.5 GM in SODIUM CHLORIDE 100 ML IVPB SCH ×2 (17:40→21:57)
[2016-10-25] MEDS: FINASTERIDE 5 MG TABLET (FP) PO SCH (21:57)
[2016-10-26] MEDS ORDERED: PT OWN MED DRAWER 7, Y5N ONE ×3 (01:59→09:11)
[2016-10-26] MEDS: AMPICILLIN NA/SULBACTAM NA 1.5 GM in SODIUM CHLORIDE 100 ML IVPB SCH ×4 (02:27→21:44)
[2016-10-26] MEDS: GABAPENTIN 300 MG CAPSULE (FP) PO SCH ×4 (06:22→21:44)
[2016-10-26] MEDS: INSULIN SLIDING SCALE (NOVOLOG) 1 VIAL SQ SCH ×4 (06:22→22:25)
[2016-10-26] MEDS: LIRAGLUTIDE 0.6 MG/0.1 ML PEN.INJCTR SQ SCH (07:07)
[2016-10-26 08:25] LABS: BASOPHIL 0.9 % (0-2.0); EOSINOPHIL 6.3 % (0-4.5); MCH 25.8 pg (25.7-33.7); MEAN CELL VOLUME 80.5 fl (80-96); MEAN PLT VOLUME 6.8 fl (7.5-11.1); NEUTROPHILS 64.1 % (42.8-82.8); PLATELET COUNT 385 K/MM3 (134-434); RDW 15.4 % (11.9-15.9)
[2016-10-26] MEDS: AMINO ACIDS/PROTEIN HYDROLYS 30 ML LIQUID.PKT PO SCH ×2 (08:41→16:37)
[2016-10-26 08:57] LABS: ALBUMIN 1.6 g/dl (3.4-5.0); ALK PHOS 61 U/L (45-117); ANION GAP 9 (8-16); BILIRUBIN,TOTAL 0.3 mg/dL (0.2-1.0); CALCIUM 8.2 mg/dL (8.5-10.1); CO2 26 mmol/L (21-32); CREATININE 0.5 mg/dL (0.7-1.3); GLUCOSE,RANDOM 180 mg/dL (74-106); SGOT/AST 19 U/L (15-37); SGPT/ALT 20 U/L (12-78); TOT PROT 4.8 g/dl (6.4-8.2)
[2016-10-26] MEDS: MULTIVITAMINS (DAILY MVI) TABLET (FP) PO SCH (09:23)
[2016-10-26] MEDS: FOLIC ACID 1 MG TABLET (FP) PO SCH (09:23)
[2016-10-26] MEDS: ZINC SULFATE 220 MG CAPSULE (FP) PO SCH ×2 (09:23→21:44)
[2016-10-26] MEDS: METOPROLOL SUCCINATE 25 MG TAB.SR.24H (FP) PO SCH (09:23)
[2016-10-26] MEDS: ENOXAPARIN NA (PORCINE) 30 MG/0.3 ML DISP.SYRIN SQ SCH (09:23)
--- NOTE | 2016-10-26 11:48 | PN ---
Progress Note, Physician Chief Complaint: patient more alert post procedure ate better, has an wound vac, has pain, was started on percocet and tylenol around the clock, will have the wound vac reevaluated today - Current Medication List Current Medications: Active Medications Amino Acids (Prosource No Carb Liquid Pkt) 30 ml PO BID@0800,1730 [facility] Last Admin: 10/26/16 08:41 Dose: 30 ml Bupropion HCl (Wellbutrin Xl -) 300 mg PO DAILY [facility] Last Admin: 10/26/16 09:23 Dose: 300 mg Docusate Sodium (Colace -) 100 mg PO BID PRN PRN Reason: CONSTIPATION Enoxaparin Sodium (Lovenox -) 30 mg SQ DAILY [facility] Last Admin: 10/26/16 09:23 Dose: 30 mg Finasteride (Proscar -) 5 mg PO HS [facility] Last Admin: 10/25/16 21:57 Dose: 5 mg Folic Acid (Folic Acid -) 1 mg PO DAILY [facility] Last Admin: 10/26/16 09:23 Dose: 1 mg Gabapentin (Neurontin -) 300 mg PO TID [facility] Last Admin: 10/26/16 06:22 Dose: 300 mg Ampicillin Sodium/Sulbactam (Sodium 1.5 gm/ Sodium Chloride) 100 mls @ 200 mls/ hr IVPB Q6H-IV [facility] Last Admin: 10/26/16 09:23 Dose: 200 mls/hr Insulin Aspart (Novolog Vial Sliding Scale -) 1 vial SQ ACHS [facility] PRN Reason: Protocol Last Admin: 10/26/16 06:22 Dose: 2 units Liraglutide (Victoza -) 1.8 mg SQ DAILY@0700 [facility] Last Admin: 10/26/16 07:07 Dose: 1.8 mg Metoprolol Succinate (Toprol Xl -) 25 mg PO DAILY [facility] Last Admin: 10/26/16 09:23 Dose: 25 mg Multivitamins/Minerals/Vitamin C (Tab-A-Vit -) 1 tab PO DAILY [facility] Last Admin: 10/26/16 09:23 Dose: 1 tab Oxycodone HCl (Roxicodone -) 10 mg PO Q8H PRN Last Admin: 10/25/16 15:50 Dose: 10 mg Zinc Sulfate (Orazinc -) 220 mg PO BID [facility] Last Admin: 10/26/16 09:23 Dose: 220 mg - Objective Vital Signs: Vital Signs Temperature 97.8 F 10/26/16 06:00 Pulse Rate 90 10/26/16 06:00 Respiratory Rate 20 10/26/16 06:00 Blood Pressure 103/62 10/26/16 06:00 O2 Sat by Pulse Oximetry (%) 96 10/25/16 21:00 Constitutional: Yes: No Distress, Calm Eyes: Yes: Conjunctiva Clear, EOM Intact HENT: Yes: Atraumatic, Normocephalic Neck: Yes: Supple, Trachea Midline Cardiovascular: Yes: Regular Rate and Rhythm, S1, S2 Respiratory: Yes: Regular, CTA Bilaterally Gastrointestinal: Yes: Normal Bowel Sounds, Abdomen, Obese, Tenderness (in the right upper quadrant post recent cholecystectomy). 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) Assessment/Plan: the patient was on Plavix and ASA, which will be on hold in view of possible flap, is currently receiving Lovenox Code(s): I69.359 - HEMIPLGA FOLLOWING CEREBRAL INFARCTION AFFECTING UNSP SIDE (4) Diabetes mellitus Code(s): E11.9 - TYPE 2 DIABETES MELLITUS WITHOUT COMPLICATIONS Qualifiers: Diabetes mellitus type: type 2 Diabetes mellitus complication status: without complication Diabetes mellitus terminal manager insulin use: without correction use Qualified Code(s): E11.9 - Type 2 diabetes mellitus without complications (5) Pressure ulcer of right ankle, stage 2 Code(s): L89.512 - PRESSURE ULCER OF RIGHT ANKLE, STAGE 2 (6) Pressure ulcer of right heel, stage 2 Code(s): L89.612 - PRESSURE ULCER OF RIGHT HEEL, STAGE 2
--- NOTE | 2016-10-26 12:17 | PN ---
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 Request very soft, easy to chew foods and chopped meats to facilitate increased PO intake.
[2016-10-26] MEDS ORDERED: MAGNESIUM HYDROX 2400MG/30ML ORAL SUSPENSION 30 ML CUP PO PRN (12:21)
--- NOTE | 2016-10-26 12:57 | PN ---
Progress Note (short form) - Note Progress Note: FU for sacral decubitus, patient on VAC since Wednesday, Afebrile, no c/o pain tolerating the VAC well, 200 cc drainage Awake alert, answering question Examination local sacral No induration, minimal erythema at the peripheral margins, granulation tissue noted on the left buttock wound edges, still significant undermining around the periphery with necrotic tissue needs more surgical excisional debridement Microbiology 10/22/16 10:25 Tissue-Other Gram Stain - Final 10/22/16 10:25 Tissue-Other Anaerobic Culture - Final Enterococcus Faecalis Diphtheroid/Corynebacterium Enterococcus Avium Staphylococcus Coagulase Neg NO ANAEROBES WERE ISOLATED 10/21/16 14:07 Coccyx Wound Culture - Preliminary Group D Strep Or Entero Coccus Staphylococcus Species Staphylococcus Coagulase Neg Diphtheroid/Corynebacterium Streptococcus Viridans Selected Entries 10/25/16 10/26/16 14:00 06:00 Temperature 98.4 F 97.8 F Pulse Rate 90 Respiratory 20 Rate Blood Pressure 103/62 Laboratory Tests 10/26/16 10/26/16 07:00 07:00 WBC 12.0 H Hgb 9.1 L Hct 28.4 L BUN 19 H Total Protein 4.8 L Albumin 1.6 L Plan Scheduling for OR debridement Spoke with tobacco prizer Dr Diop informed
[2016-10-26] MEDS: DEXTROSE 5%-0.45% SALINE 1,000 ML IV SCH (13:00)
--- NOTE | 2016-10-26 13:57 | PN ---
Progress Note, Physician History of Present Illness: Awake, not conversant Afebrile Surgical follow up noted - Current Medication List Current Medications: Active Medications Amino Acids (Prosource No Carb Liquid Pkt) 30 ml PO BID@0800,1730 [facility] Last Admin: 10/26/16 08:41 Dose: 30 ml Bupropion HCl (Wellbutrin Xl -) 300 mg PO DAILY [facility] Last Admin: 10/26/16 09:23 Dose: 300 mg Docusate Sodium (Colace -) 100 mg PO BID PRN PRN Reason: CONSTIPATION Enoxaparin Sodium (Lovenox -) 30 mg SQ DAILY [facility] Last Admin: 10/26/16 09:23 Dose: 30 mg Finasteride (Proscar -) 5 mg PO HS [facility] Last Admin: 10/25/16 21:57 Dose: 5 mg Folic Acid (Folic Acid -) 1 mg PO DAILY [facility] Last Admin: 10/26/16 09:23 Dose: 1 mg Gabapentin (Neurontin -) 300 mg PO TID [facility] Last Admin: 10/26/16 06:22 Dose: 300 mg Ampicillin Sodium/Sulbactam (Sodium 1.5 gm/ Sodium Chloride) 100 mls @ 200 mls/ hr IVPB Q6H-IV [facility] Last Admin: 10/26/16 09:23 Dose: 200 mls/hr Insulin Aspart (Novolog Vial Sliding Scale -) 1 vial SQ ACHS [facility] PRN Reason: Protocol Last Admin: 10/26/16 12:09 Dose: 2 units Liraglutide (Victoza -) 1.8 mg SQ DAILY@0700 [facility] Last Admin: 10/26/16 07:07 Dose: 1.8 mg Magnesium Hydroxide (Milk Of Magnesia -) 30 ml PO DAILY PRN PRN Reason: CONSTIPATION Metoprolol Succinate (Toprol Xl -) 25 mg PO DAILY [facility] Last Admin: 10/26/16 09:23 Dose: 25 mg Multivitamins/Minerals/Vitamin C (Tab-A-Vit -) 1 tab PO DAILY [facility] Last Admin: 10/26/16 09:23 Dose: 1 tab Oxycodone HCl (Roxicodone -) 10 mg PO Q8H PRN Last Admin: 10/25/16 15:50 Dose: 10 mg Zinc Sulfate (Orazinc -) 220 mg PO BID [facility] Last Admin: 10/26/16 09:23 Dose: 220 mg - Objective Vital Signs: Vital Signs Temperature 97.8 F 10/26/16 06:00 Pulse Rate 90 10/26/16 06:00 Respiratory Rate 20 10/26/16 06:00 Blood Pressure 103/62 10/26/16 06:00 O2 Sat by Pulse Oximetry (%) 96 10/25/16 21:00 Constitutional: Yes: No Distress Eyes: Yes: Conjunctiva Clear Cardiovascular: Yes: Regular Rate and Rhythm, S1, S2 Respiratory: Yes: CTA Bilaterally Gastrointestinal: Yes: Normal Bowel Sounds, Soft. No: Tenderness Integumentary: Yes: Other (VAC in place) Labs: CBC, BMP 10/26/16 07:00 10/26/16 07:00 INR, PTT INR 1.17 (0.82-1.09) H 10/21/16 14:07 Assessment/Plan S/P debridement, sacral decubitus Polymicrobial wound c/s S/P CVA Continue Unasyn For additional surgical debridement
[2016-10-26] MEDS: FINASTERIDE 5 MG TABLET (FP) PO SCH (21:44)
[2016-10-27] MEDS ORDERED: PT OWN MED DRAWER 7, Y5N ONE ×3 (02:05→15:23)
[2016-10-27] MEDS: AMPICILLIN NA/SULBACTAM NA 1.5 GM in SODIUM CHLORIDE 100 ML IVPB SCH ×3 (02:09→15:25)
[2016-10-27] MEDS: GABAPENTIN 300 MG CAPSULE (FP) PO SCH ×3 (05:51→22:22)
[2016-10-27] MEDS: LIRAGLUTIDE 0.6 MG/0.1 ML PEN.INJCTR SQ SCH (06:16)
[2016-10-27] MEDS: INSULIN SLIDING SCALE (NOVOLOG) 1 VIAL SQ SCH ×4 (06:17→22:27)
[2016-10-27] MEDS: AMINO ACIDS/PROTEIN HYDROLYS 30 ML LIQUID.PKT PO SCH ×3 (09:28→17:36)
[2016-10-27] MEDS: ENOXAPARIN NA (PORCINE) 30 MG/0.3 ML DISP.SYRIN SQ SCH (09:29)
[2016-10-27 10:06] LABS: BASOPHIL 0.9 % (0-2.0); EOSINOPHIL 6.5 % (0-4.5); MCH 25.5 pg (25.7-33.7); MCHC 31.6 g/dl (32.0-35.9); MEAN CELL VOLUME 80.6 fl (80-96); MEAN PLT VOLUME 6.8 fl (7.5-11.1); NEUTROPHILS 63.2 % (42.8-82.8); PLATELET COUNT 383 K/MM3 (134-434); RDW 15.5 % (11.9-15.9); WHITE BLOOD COUNT 11.6 K/mm3 (4.0-10.0)
[2016-10-27 10:13] LABS: ALBUMIN 1.6 g/dl (3.4-5.0); ALK PHOS 63 U/L (45-117); ANION GAP 9 (8-16); BILIRUBIN,TOTAL 0.3 mg/dL (0.2-1.0); CALCIUM 7.7 mg/dL (8.5-10.1); CO2 25 mmol/L (21-32); CREATININE 0.5 mg/dL (0.7-1.3); GLUCOSE,RANDOM 182 mg/dL (74-106); SGOT/AST 15 U/L (15-37); SGPT/ALT 21 U/L (12-78); TOT PROT 4.7 g/dl (6.4-8.2)
[2016-10-27] MEDS: FOLIC ACID 1 MG TABLET (FP) PO SCH (10:16)
[2016-10-27] MEDS: MULTIVITAMINS (DAILY MVI) TABLET (FP) PO SCH (10:16)
[2016-10-27] MEDS: METOPROLOL SUCCINATE 25 MG TAB.SR.24H (FP) PO SCH (10:16)
[2016-10-27] MEDS: ZINC SULFATE 220 MG CAPSULE (FP) PO SCH ×2 (10:16→22:23)
[2016-10-27] MEDS: DEXTROSE 5%-0.45% SALINE 1,000 ML IV SCH ×3 (12:54→18:25)
--- NOTE | 2016-10-27 14:03 | PN ---
Progress Note, Physician History of Present Illness: More awake and alert Conversant offers no complaints afebrile WBC improved - Current Medication List Current Medications: Active Medications Amino Acids (Prosource No Carb Liquid Pkt) 30 ml PO BID@0800,1730 [facility] Last Admin: 10/27/16 09:28 Dose: Not Given Bupropion HCl (Wellbutrin Xl -) 300 mg PO DAILY [facility] Last Admin: 10/27/16 10:16 Dose: Not Given Docusate Sodium (Colace -) 100 mg PO BID PRN PRN Reason: CONSTIPATION Enoxaparin Sodium (Lovenox -) 30 mg SQ DAILY [facility] Last Admin: 10/27/16 09:29 Dose: Not Given Finasteride (Proscar -) 5 mg PO HS [facility] Last Admin: 10/26/16 21:44 Dose: 5 mg Folic Acid (Folic Acid -) 1 mg PO DAILY [facility] Last Admin: 10/27/16 10:16 Dose: Not Given Gabapentin (Neurontin -) 300 mg PO TID [facility] Last Admin: 10/27/16 05:51 Dose: Not Given Ampicillin Sodium/Sulbactam (Sodium 1.5 gm/ Sodium Chloride) 100 mls @ 200 mls/ hr IVPB Q6H-IV [facility] Last Admin: 10/27/16 10:16 Dose: 200 mls/hr Dextrose/Sodium Chloride (D5-1/2ns -) 1,000 mls @ 60 mls/hr IV ASDIR [facility] Last Admin: 10/27/16 12:54 Dose: 60 mls/hr Insulin Aspart (Novolog Vial Sliding Scale -) 1 vial SQ ACHS [facility] PRN Reason: Protocol Last Admin: 10/27/16 12:54 Dose: 2 units Liraglutide (Victoza -) 1.8 mg SQ DAILY@0700 [facility] Last Admin: 10/27/16 06:16 Dose: Not Given Magnesium Hydroxide (Milk Of Magnesia -) 30 ml PO DAILY PRN PRN Reason: CONSTIPATION Metoprolol Succinate (Toprol Xl -) 25 mg PO DAILY [facility] Last Admin: 10/27/16 10:16 Dose: 25 mg Multivitamins/Minerals/Vitamin C (Tab-A-Vit -) 1 tab PO DAILY [facility] Last Admin: 10/27/16 10:16 Dose: Not Given Oxycodone HCl (Roxicodone -) 10 mg PO Q8H PRN Last Admin: 10/25/16 15:50 Dose: 10 mg Zinc Sulfate (Orazinc -) 220 mg PO BID [facility] Last Admin: 10/27/16 10:16 Dose: Not Given - Objective Vital Signs: Vital Signs Temperature 98.1 F 10/27/16 05:57 Pulse Rate 94 H 10/27/16 05:57 Respiratory Rate 20 10/27/16 05:57 Blood Pressure 137/53 10/27/16 05:57 O2 Sat by Pulse Oximetry (%) 95 10/26/16 21:00 Constitutional: Yes: No Distress Eyes: Yes: Conjunctiva Clear Cardiovascular: Yes: Regular Rate and Rhythm, S1, S2 Respiratory: Yes: Diminished Gastrointestinal: Yes: Normal Bowel Sounds, Soft. No: Tenderness Integumentary: Yes: Other (VAC in place, sacral wound) Labs: CBC, BMP 10/27/16 07:30 10/27/16 07:30 INR, PTT INR 1.17 (0.82-1.09) H 10/21/16 14:07 Assessment/Plan S/P debridement, sacral decubitus Polymicrobial wound c/s S/P CVA Continue Unasyn For additional surgical debridement today
[2016-10-27] MEDS ORDERED: MIDAZOLAM HCL 2 MG/2 ML SINGLE DOSE VIAL ONE (15:07)
[2016-10-27] MEDS ORDERED: PROPOFOL 20 ML ONE (15:07)
[2016-10-27] MEDS ORDERED: LIDOCAINE 1%/EPI 1:100000 (50 ML MULTI DOSE VIAL) ONE (15:38)
[2016-10-27] MEDS ORDERED: BACITRACIN 30 GM TUBE TOPICAL OINTMENT ONE (15:39)
[2016-10-27] MEDS ORDERED: LIDOCAINE 1%/EPI 1:100000 (50 ML MULTI DOSE VIAL) PNB ONE (16:00)
[2016-10-27] MEDS ORDERED: ONDANSETRON 4 MG/2 ML VIAL IVPUSH PRN ×2 (16:48→17:08)
[2016-10-27] MEDS ORDERED: oxyCODONE HCL 5 MG TABLET PO PRN (17:08)
[2016-10-27] MEDS ORDERED: MAGNESIUM HYDROX 2400MG/30ML ORAL SUSPENSION 30 ML CUP PO PRN (17:08)
[2016-10-27] MEDS ORDERED: POTASSIUM CHLORIDE 40 MEQ/30 ML UNIT DOSE CUP PO ONE (20:39)
--- NOTE | 2016-10-27 20:39 | PN ---
Progress Note, Physician Chief Complaint: patient more alert, had a second o intervention for decubitus ulcer, post procedure ate better, the wound vac will be placed tomorrow, has little pain, was started on percocet and tylenol around the clock, - Current Medication List Current Medications: Active Medications Amino Acids (Prosource No Carb Liquid Pkt) 30 ml PO BID@0800,1730 [facility] Last Admin: 10/27/16 17:36 Dose: Not Given Bupropion HCl (Wellbutrin Xl -) 300 mg PO DAILY [facility] Enoxaparin Sodium (Lovenox -) 30 mg SQ DAILY [facility] Fentanyl (Sublimaze Injection -) 50 mcg IVPUSH [id number] PRN PRN Reason: PAIN Stop: 10/30/16 16:49 Finasteride (Proscar -) 5 mg PO HS [facility] Folic Acid (Folic Acid -) 1 mg PO DAILY [facility] Gabapentin (Neurontin -) 300 mg PO TID [facility] Dextrose/Sodium Chloride (D5-1/2ns -) 1,000 mls @ 60 mls/hr IV ASDIR [facility] Last Admin: 10/27/16 18:25 Dose: 60 mls/hr Ampicillin Sodium/Sulbactam Sodium (Unasyn 1.5 Gm (Pre-Docked)) 100 mls @ 200 mls/hr IVPB Q6H-IV [facility] Insulin Aspart (Novolog Vial Sliding Scale -) 1 vial SQ ACHS [facility] PRN Reason: Protocol Liraglutide (Victoza -) 1.8 mg SQ DAILY@0700 [facility] Magnesium Hydroxide (Milk Of Magnesia -) 30 ml PO DAILY PRN PRN Reason: CONSTIPATION Metoprolol Succinate (Toprol Xl -) 25 mg PO DAILY [facility] Multivitamins/Minerals/Vitamin C (Tab-A-Vit -) 1 tab PO DAILY [facility] Ondansetron HCl (Zofran Injection) 4 mg IVPUSH Q6H PRN PRN Reason: NAUSEA AND/OR VOMITING Stop: 10/27/16 22:49 Oxycodone HCl (Roxicodone -) 10 mg PO Q8H PRN Zinc Sulfate (Orazinc -) 220 mg PO BID [facility] - Objective Vital Signs: Vital Signs Temperature 97.9 F 10/27/16 18:05 Pulse Rate 81 10/27/16 18:05 Respiratory Rate 20 10/27/16 18:05 Blood Pressure 116/59 10/27/16 18:05 O2 Sat by Pulse Oximetry (%) 100 10/27/16 18:05 Constitutional: Yes: No Distress, Calm Eyes: Yes: Conjunctiva Clear HENT: Yes: Atraumatic, Normocephalic Neck: Yes: Supple, Trachea Midline Cardiovascular: Yes: Regular Rate and Rhythm Respiratory: Yes: Regular, CTA Bilaterally Gastrointestinal: Yes: Normal Bowel Sounds, Soft, Abdomen, Obese. No: Hepatomegaly, Splenomegaly ...Rectal Exam: Yes: Deferred Neurological: Yes: Alert, Oriented, Aphasia Psychiatric: Yes: Alert, Oriented Labs: CBC, BMP 10/27/16 07:30 10/27/16 07:30 INR, PTT INR 1.17 (0.82-1.09) H 10/21/16 14:07 Problem List - Problems (1) Sepsis affecting skin Assessment/Plan: antibiotic switched to Unasyn to cover for Strep and MSSA Code(s): L02.91 - CUTANEOUS ABSCESS, UNSPECIFIED (2) Pressure ulcer of sacral region, stage 2 Assessment/Plan: will have wound vac the patient has been on Plavix and aspirin and currently is receiving Lovenox, will restart Plavix and asa Code(s): L89.152 - PRESSURE ULCER OF SACRAL REGION, STAGE 2 (3) 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) Assessment/Plan: the patient was on Plavix and ASA, is currently receiving Lovenox, i will restart ASA and Plavix Code(s): I69.359 - HEMIPLGA FOLLOWING CEREBRAL INFARCTION AFFECTING UNSP SIDE (4) Diabetes mellitus Assessment/Plan: accuchecks and coverage with regular insulin while waiting for surgical debridment restarted Victoza Code(s): E11.9 - TYPE 2 DIABETES MELLITUS WITHOUT COMPLICATIONS Qualifiers: Diabetes mellitus type: type 2 Diabetes mellitus complication status: without complication Diabetes mellitus residential insulin use: without residential use Qualified Code(s): E11.9 - Type 2 diabetes mellitus without complications (5) Pressure ulcer of right ankle, stage 2 Assessment/Plan: santyl daily Code(s): L89.512 - PRESSURE ULCER OF RIGHT ANKLE, STAGE 2 (6) Pressure ulcer of right heel, stage 2 Assessment/Plan: santyl applications daily Code(s): L89.612 - PRESSURE ULCER OF RIGHT HEEL, STAGE 2
[2016-10-27] MEDS: FINASTERIDE 5 MG TABLET (FP) PO SCH (22:23)
[2016-10-27] MEDS: AMPICILLIN NA/SULBACTAM NA 100 ML IVPB SCH (22:23)
[2016-10-28] MEDS: AMPICILLIN NA/SULBACTAM NA 100 ML IVPB SCH ×4 (03:32→21:17)
[2016-10-28] MEDS: GABAPENTIN 300 MG CAPSULE (FP) PO SCH ×3 (06:50→21:44)
[2016-10-28] MEDS: INSULIN SLIDING SCALE (NOVOLOG) 1 VIAL SQ SCH ×4 (06:51→21:44)
[2016-10-28] MEDS: AMINO ACIDS/PROTEIN HYDROLYS 30 ML LIQUID.PKT PO SCH ×2 (10:37→17:57)
[2016-10-28] MEDS: MULTIVITAMINS (DAILY MVI) TABLET (FP) PO SCH (10:37)
[2016-10-28] MEDS: ENOXAPARIN NA (PORCINE) 30 MG/0.3 ML DISP.SYRIN SQ SCH (10:38)
[2016-10-28] MEDS: FOLIC ACID 1 MG TABLET (FP) PO SCH (10:38)
[2016-10-28] MEDS: ZINC SULFATE 220 MG CAPSULE (FP) PO SCH ×2 (10:38→21:44)
[2016-10-28] MEDS: METOPROLOL SUCCINATE 25 MG TAB.SR.24H (FP) PO SCH (10:38)
[2016-10-28] MEDS: LIRAGLUTIDE 0.6 MG/0.1 ML PEN.INJCTR SQ SCH (10:41)
--- NOTE | 2016-10-28 10:46 | PN ---
Progress Note, Physician History of Present Illness: Awake, alert S/P debridement of sacral decubitus No c/o pain Low grade temp noted - Current Medication List Current Medications: Active Medications Amino Acids (Prosource No Carb Liquid Pkt) 30 ml PO BID@0800,1730 [facility] Last Admin: 10/28/16 10:37 Dose: 30 ml Bupropion HCl (Wellbutrin Xl -) 300 mg PO DAILY [facility] Last Admin: 10/28/16 10:41 Dose: 300 mg Enoxaparin Sodium (Lovenox -) 30 mg SQ DAILY [facility] Last Admin: 10/28/16 10:38 Dose: 30 mg Fentanyl (Sublimaze Injection -) 50 mcg IVPUSH [id number] PRN PRN Reason: PAIN Stop: 10/30/16 16:49 Finasteride (Proscar -) 5 mg PO HS [facility] Last Admin: 10/27/16 22:23 Dose: 5 mg Folic Acid (Folic Acid -) 1 mg PO DAILY [facility] Last Admin: 10/28/16 10:38 Dose: 1 mg Gabapentin (Neurontin -) 300 mg PO TID [facility] Last Admin: 10/28/16 06:50 Dose: 300 mg Dextrose/Sodium Chloride (D5-1/2ns -) 1,000 mls @ 60 mls/hr IV ASDIR [facility] Last Admin: 10/27/16 18:25 Dose: 60 mls/hr Ampicillin Sodium/Sulbactam Sodium (Unasyn 1.5 Gm (Pre-Docked)) 100 mls @ 200 mls/hr IVPB Q6H-IV [facility] Last Admin: 10/28/16 10:39 Dose: 200 mls/hr Insulin Aspart (Novolog Vial Sliding Scale -) 1 vial SQ ACHS [facility] PRN Reason: Protocol Last Admin: 10/28/16 06:51 Dose: 2 unit Liraglutide (Victoza -) 1.8 mg SQ DAILY@0700 [facility] Last Admin: 10/28/16 10:41 Dose: Not Given Magnesium Hydroxide (Milk Of Magnesia -) 30 ml PO DAILY PRN PRN Reason: CONSTIPATION Metoprolol Succinate (Toprol Xl -) 25 mg PO DAILY [facility] Last Admin: 10/28/16 10:38 Dose: 25 mg Multivitamins/Minerals/Vitamin C (Tab-A-Vit -) 1 tab PO DAILY [facility] Last Admin: 10/28/16 10:37 Dose: 1 tab Oxycodone HCl (Roxicodone -) 10 mg PO Q8H PRN Zinc Sulfate (Orazinc -) 220 mg PO BID [facility] Last Admin: 10/28/16 10:38 Dose: 220 mg - Objective Vital Signs: Vital Signs Temperature 100.1 F H 10/28/16 06:00 Pulse Rate 93 H 10/28/16 10:25 Respiratory Rate 18 10/28/16 06:00 Blood Pressure 140/67 10/28/16 06:00 O2 Sat by Pulse Oximetry (%) 100 10/28/16 10:25 Constitutional: Yes: No Distress Eyes: Yes: Conjunctiva Clear Cardiovascular: Yes: Regular Rate and Rhythm, S1, S2 Respiratory: Yes: CTA Bilaterally Gastrointestinal: Yes: Normal Bowel Sounds, Soft. No: Tenderness Integumentary: Yes: Other (+ sacral decubitus ulcer with packing in place) Labs: CBC, BMP 10/27/16 07:30 10/27/16 07:30 INR, PTT INR 1.17 (0.82-1.09) H 10/21/16 14:07 Assessment/Plan S/P debridement, sacral decubitus Polymicrobial wound c/s S/P CVA Continue Unasyn Local wound care
--- NOTE | 2016-10-28 11:26 | OP ---
DATE OF OPERATION: DATE OF DICTATION: 10/27/2016 SURGEON: Nae Sharif MD PREOPERATIVE DIAGNOSIS: Necrotic sacral decubitus ulcer. POSTOPERATIVE DIAGNOSIS: Necrotic gluteus juli muscle, necrotic fascia, necrotic skin and subcutaneous tissue, and also coccyx and sacral bone Infection. PROCEDURE: 1. Wide excisional debridement of the skin, subcutaneous tissue, muscle fascia and gluteus portions of the gluteus juli muscle. 2. Ostectomy of coccyx bone. 3. Bone culture from the coccyx bone. FINDINGS: Significant improvement since last debridement. Still has about 60% necrotic tissue located between 1 o'clock and 9 o'clock position. PROCEDURE DONE: Patient was brought to the operating room, transferred over to the table. At this time, he was placed on a beanbag in semilateral position, 30-degree tilt. Anesthesia was administered at this time. The standard procedure of identification was carried out. Once agreed, beanbag was inflated and the periphery as well as the deep muscles was injected with 1% lidocaine with epinephrine. Skin was packed with Betadine and draped in a standard aseptic manner. Using a 10 scalpel blade, the necrotic skin, subcutaneous tissue, and muscle were excised sharply with excisional debridement. Hemostasis was secured with electrocautery. Next, all the necrotic tissue, about 80% of it, was sharply excised as well as curetted from the entire 360-degree area. Findings were involvement of coccyx bone, which was loose, soft, and had to be removed a portion of which was sent for bone culture, rest was sent for Pathology. There was involvement of the sacral bone also. At this time, it was opted not to do further excisional debridement of the bone, and it will be done as a next stage procedure once patient is ready for a flap closure. So, there is a significant sacral bone with clinically obvious signs of involvement, which is still left into the depth of the tissue. Patient is responding very well to the VAC treatment once he has developed significant contraction of the skin, reduction of the total size of the defect. At that time, if his nutrition has improved, he will undergo flap closure. During that 3rd stage procedure, all the involved bone will be possibly removed if his medical condition is stable. The measurements of defect prior to debridement were as follows: Ulcer was 6 x 5 cm, depth was 1.8 cm, undermining from 1 to 9 o'clock position was 3.8 cm. There was no induration. Odors has decreased. There was some amount of discharge especially in the canister of the VAC. Rest of the tissues did look more healthy. There was more bleeding noted. Fat color was a little bit more yellowish in some areas, still darker in color. This was excised. There is still 30% of the gluteus juli fibers at the midline area, which are necrosed due to pressure. These were excised, but in order to prevent more blood loss, conservative excisional debridement of the muscle was carried out. Wound was then well irrigated with normal saline solution. Several bulb syringes were used to irrigate it. Hemostasis was then again controlled with electrocautery. Wound was loosely packed with a moist normal saline sponge to be observed for the next 24 hours. If no bleeding, reapplication of VAC at 100 mmHg continues. Patient will continue to receive IV antibiotics until such time as the involved bone is removed. NAE SHARIF M.D. [id number]
--- NOTE | 2016-10-28 11:26 | PN ---
DATE OF VISIT: DATE OF DICTATION: 10/27/2016 INCIDENTAL OBSERVATION ON THE PATIENT: There is a left ischial grade 2 decubitus with loss of superficial skin. There is a non-blanchable skin patch on his left hip area measuring 6.5 x 5.5 diagnosed as a skin injury. NAE SHARIF M.D. [id number]
--- NOTE | 2016-10-28 13:10 | PN ---
Progress Note, Physician Chief Complaint: patient more alert, had a second o intervention for decubitus ulcer, post procedure ate better, the wound vac will be placed today, has little pain, was started on percocet and tylenol around the clock, - Current Medication List Current Medications: Active Medications Amino Acids (Prosource No Carb Liquid Pkt) 30 ml PO BID@0800,1730 [facility] Last Admin: 10/28/16 10:37 Dose: 30 ml Bupropion HCl (Wellbutrin Xl -) 300 mg PO DAILY [facility] Last Admin: 10/28/16 10:41 Dose: 300 mg Enoxaparin Sodium (Lovenox -) 30 mg SQ DAILY [facility] Last Admin: 10/28/16 10:38 Dose: 30 mg Fentanyl (Sublimaze Injection -) 50 mcg IVPUSH [id number] PRN PRN Reason: PAIN Stop: 10/30/16 16:49 Finasteride (Proscar -) 5 mg PO HS [facility] Last Admin: 10/27/16 22:23 Dose: 5 mg Folic Acid (Folic Acid -) 1 mg PO DAILY [facility] Last Admin: 10/28/16 10:38 Dose: 1 mg Gabapentin (Neurontin -) 300 mg PO TID [facility] Last Admin: 10/28/16 06:50 Dose: 300 mg Dextrose/Sodium Chloride (D5-1/2ns -) 1,000 mls @ 60 mls/hr IV ASDIR [facility] Last Admin: 10/27/16 18:25 Dose: 60 mls/hr Ampicillin Sodium/Sulbactam Sodium (Unasyn 1.5 Gm (Pre-Docked)) 100 mls @ 200 mls/hr IVPB Q6H-IV [facility] Last Admin: 10/28/16 10:39 Dose: 200 mls/hr Insulin Aspart (Novolog Vial Sliding Scale -) 1 vial SQ ACHS [facility] PRN Reason: Protocol Last Admin: 10/28/16 11:33 Dose: 6 unit Liraglutide (Victoza -) 1.8 mg SQ DAILY@0700 [facility] Last Admin: 10/28/16 10:41 Dose: Not Given Magnesium Hydroxide (Milk Of Magnesia -) 30 ml PO DAILY PRN PRN Reason: CONSTIPATION Metoprolol Succinate (Toprol Xl -) 25 mg PO DAILY [facility] Last Admin: 10/28/16 10:38 Dose: 25 mg Multivitamins/Minerals/Vitamin C (Tab-A-Vit -) 1 tab PO DAILY [facility] Last Admin: 10/28/16 10:37 Dose: 1 tab Oxycodone HCl (Roxicodone -) 10 mg PO Q8H PRN Last Admin: 10/28/16 12:23 Dose: 10 mg Zinc Sulfate (Orazinc -) 220 mg PO BID [facility] Last Admin: 10/28/16 10:38 Dose: 220 mg - Objective Vital Signs: Vital Signs Temperature 99.2 F 10/28/16 10:47 Pulse Rate 90 10/28/16 10:47 Respiratory Rate 18 10/28/16 10:47 Blood Pressure 102/64 10/28/16 10:47 O2 Sat by Pulse Oximetry (%) 100 10/28/16 10:25 Constitutional: Yes: No Distress, Calm Eyes: Yes: Conjunctiva Clear, EOM Intact HENT: Yes: Atraumatic, Normocephalic Neck: Yes: Supple, Trachea Midline Cardiovascular: Yes: Regular Rate and Rhythm, S1, S2 Respiratory: Yes: Regular, CTA Bilaterally Gastrointestinal: Yes: Normal Bowel Sounds, Soft, Abdomen, Obese. No: Hepatomegaly, Splenomegaly, Tenderness, Epigastrium ...Rectal Exam: Yes: Deferred Musculoskeletal: Yes: Other (right hemiplegia) Extremities: No: Calf Tenderness Edema: No Peripheral Pulses WNL: Yes Labs: CBC, BMP 10/27/16 07:30 10/27/16 07:30 INR, PTT INR 1.17 (0.82-1.09) H 10/21/16 14:07 Problem List - Problems (1) Sepsis affecting skin Assessment/Plan: antibiotic switched to Unasyn to cover for Strep and MSSA Code(s): L02.91 - CUTANEOUS ABSCESS, UNSPECIFIED (2) Pressure ulcer of sacral region, stage 2 Assessment/Plan: will have wound vac the patient has been on Plavix and aspirin and currently is receiving Lovenox, will restart Plavix and asa Code(s): L89.152 - PRESSURE ULCER OF SACRAL REGION, STAGE 2 (3) 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) Assessment/Plan: the patient was on Plavix and ASA, is currently receiving Lovenox, i will restart ASA and Plavix Code(s): I69.359 - HEMIPLGA FOLLOWING CEREBRAL INFARCTION AFFECTING UNSP SIDE (4) Diabetes mellitus Assessment/Plan: accuchecks and coverage with regular insulin while waiting for surgical debridment restarted Arieltoza Code(s): E11.9 - TYPE 2 DIABETES MELLITUS WITHOUT COMPLICATIONS Qualifiers: Diabetes mellitus type: type 2 Diabetes mellitus complication status: without complication Diabetes mellitus rat exterminator insulin use: without rat exterminator use Qualified Code(s): E11.9 - Type 2 diabetes mellitus without complications (5) Pressure ulcer of right ankle, stage 2 Assessment/Plan: santyl daily Code(s): L89.512 - PRESSURE ULCER OF RIGHT ANKLE, STAGE 2 (6) Pressure ulcer of right heel, stage 2 Assessment/Plan: santyl applications daily Code(s): L89.612 - PRESSURE ULCER OF RIGHT HEEL, STAGE 2
--- NOTE | 2016-10-28 13:21 | PN ---
Progress Note (short form) - Note Progress Note: Post op day#1.S/P Debredment of sacral decubeti under TIVA uneventful.Patient stable.NO any anesthesia related problem.Patient dc from the anesthesia care.
[2016-10-28 14:00] LABS: BASOPHIL 1.4 % (0-2.0); EOSINOPHIL 3.7 % (0-4.5); MCH 25.6 pg (25.7-33.7); MCHC 31.8 g/dl (32.0-35.9); MEAN CELL VOLUME 80.4 fl (80-96); MEAN PLT VOLUME 6.7 fl (7.5-11.1); NEUTROPHILS 75.4 % (42.8-82.8); PLATELET COUNT 383 K/MM3 (134-434); RDW 15.6 % (11.9-15.9); WHITE BLOOD COUNT 16.3 K/mm3 (4.0-10.0)
[2016-10-28 14:24] LABS: ALBUMIN 1.6 g/dl (3.4-5.0); ANION GAP 9 (8-16); BILIRUBIN,TOTAL 0.3 mg/dL (0.2-1.0); CALCIUM 7.6 mg/dL (8.5-10.1); CO2 24 mmol/L (21-32); CREATININE 0.6 mg/dL (0.7-1.3); GLUCOSE,RANDOM 247 mg/dL (74-106); SGOT/AST 14 U/L (15-37)
[2016-10-28 14:37] LABS: ALK PHOS 78 U/L (45-117); SGPT/ALT 17 U/L (12-78); TOT PROT 4.7 g/dl (6.4-8.2)
[2016-10-28] MEDS ORDERED: PT OWN MED DRAWER 7, Y5N ONE (17:30)
[2016-10-28] MEDS: DEXTROSE 5%-0.45% SALINE 1,000 ML IV SCH (17:57)
[2016-10-28] MEDS ORDERED: SODIUM CHLORIDE 200 ML IV ONE (18:15)
[2016-10-28] MEDS: FINASTERIDE 5 MG TABLET (FP) PO SCH (21:44)
[2016-10-29] MEDS: AMPICILLIN NA/SULBACTAM NA 100 ML IVPB SCH ×4 (03:16→21:50)
[2016-10-29] MEDS ORDERED: PT OWN MED DRAWER 7, Y5N ONE ×2 (05:38→21:16)
[2016-10-29] MEDS: INSULIN SLIDING SCALE (NOVOLOG) 1 VIAL SQ SCH ×4 (06:23→22:00)
[2016-10-29] MEDS: GABAPENTIN 300 MG CAPSULE (FP) PO SCH ×3 (06:23→21:51)
[2016-10-29] MEDS: LIRAGLUTIDE 0.6 MG/0.1 ML PEN.INJCTR SQ SCH (06:23)
[2016-10-29] MEDS: METOPROLOL SUCCINATE 25 MG TAB.SR.24H (FP) PO SCH (10:18)
[2016-10-29] MEDS: ENOXAPARIN NA (PORCINE) 30 MG/0.3 ML DISP.SYRIN SQ SCH (10:18)
[2016-10-29] MEDS: FOLIC ACID 1 MG TABLET (FP) PO SCH (10:18)
[2016-10-29] MEDS: AMINO ACIDS/PROTEIN HYDROLYS 30 ML LIQUID.PKT PO SCH ×2 (10:18→17:40)
[2016-10-29] MEDS: MULTIVITAMINS (DAILY MVI) TABLET (FP) PO SCH (10:18)
[2016-10-29] MEDS: ZINC SULFATE 220 MG CAPSULE (FP) PO SCH ×2 (10:18→21:51)
--- NOTE | 2016-10-29 11:33 | PN ---
Progress Note, [facility] - Note Progress Note: Selected Entries 10/28/16 10/28/16 10/28/16 02:00 06:00 09:55 Breakfast 75% Lunch Supper Temperature 98.4 F 100.1 F H 10/28/16 10/28/16 10/28/16 10:00 10:47 14:36 Breakfast Lunch 75% Supper Temperature 98.9 F 99.2 F 98.3 F 10/28/16 10/28/16 10/28/16 17:09 18:52 21:31 Breakfast Lunch Supper 50% Temperature 97.3 F L 98.8 F 10/29/16 10/29/16 10/29/16 03:48 06:00 09:59 Breakfast 75% Lunch Supper Temperature 98.0 F 98.6 F Laboratory Tests 10/26/16 10/27/16 10/28/16 07:00 07:30 13:54 WBC 12.0 H 11.6 H 16.3 H D Pt is tolerating diet. No further f/u indicated.
--- NOTE | 2016-10-29 13:37 | PN ---
Progress Note, Physician History of Present Illness: Awake, responsive No complaints offered low grade temp noted - Current Medication List Current Medications: Active Medications Amino Acids (Prosource No Carb Liquid Pkt) 30 ml PO BID@0800,1730 [facility] Last Admin: 10/29/16 10:18 Dose: 30 ml Bupropion HCl (Wellbutrin Xl -) 300 mg PO DAILY [facility] Last Admin: 10/29/16 10:20 Dose: 300 mg Enoxaparin Sodium (Lovenox -) 30 mg SQ DAILY [facility] Last Admin: 10/29/16 10:18 Dose: 30 mg Fentanyl (Sublimaze Injection -) 50 mcg IVPUSH [id number] PRN PRN Reason: PAIN Stop: 10/30/16 16:49 Finasteride (Proscar -) 5 mg PO HS [facility] Last Admin: 10/28/16 21:44 Dose: 5 mg Folic Acid (Folic Acid -) 1 mg PO DAILY [facility] Last Admin: 10/29/16 10:18 Dose: 1 mg Gabapentin (Neurontin -) 300 mg PO TID [facility] Last Admin: 10/29/16 06:23 Dose: 300 mg Dextrose/Sodium Chloride (D5-1/2ns -) 1,000 mls @ 60 mls/hr IV ASDIR [facility] Last Admin: 10/28/16 17:57 Dose: 60 mls/hr Ampicillin Sodium/Sulbactam Sodium (Unasyn 1.5 Gm (Pre-Docked)) 100 mls @ 200 mls/hr IVPB Q6H-IV [facility] Last Admin: 10/29/16 10:19 Dose: 200 mls/hr Insulin Aspart (Novolog Vial Sliding Scale -) 1 vial SQ ACHS [facility] PRN Reason: Protocol Last Admin: 10/29/16 11:46 Dose: 4 unit Liraglutide (Victoza -) 1.8 mg SQ DAILY@0700 [facility] Last Admin: 10/29/16 06:23 Dose: 1.8 mg Magnesium Hydroxide (Milk Of Magnesia -) 30 ml PO DAILY PRN PRN Reason: CONSTIPATION Metoprolol Succinate (Toprol Xl -) 25 mg PO DAILY [facility] Last Admin: 10/29/16 10:18 Dose: 25 mg Multivitamins/Minerals/Vitamin C (Tab-A-Vit -) 1 tab PO DAILY [facility] Last Admin: 10/29/16 10:18 Dose: 1 tab Oxycodone HCl (Roxicodone -) 10 mg PO Q8H PRN Last Admin: 10/28/16 12:23 Dose: 10 mg Zinc Sulfate (Orazinc -) 220 mg PO BID [facility] Last Admin: 10/29/16 10:18 Dose: 220 mg - Objective Vital Signs: Vital Signs Temperature 98.6 F 10/29/16 06:00 Pulse Rate 80 10/29/16 06:00 Respiratory Rate 20 10/29/16 06:00 Blood Pressure 112/60 10/29/16 06:00 O2 Sat by Pulse Oximetry (%) 100 10/28/16 21:00 Constitutional: Yes: No Distress Eyes: Yes: Conjunctiva Clear Cardiovascular: Yes: Regular Rate and Rhythm, S1 Respiratory: Yes: CTA Bilaterally Gastrointestinal: Yes: Normal Bowel Sounds, Soft. No: Tenderness Extremities: Yes: Other (R foot lateral malleolus, heel ulcers) Labs: CBC, BMP 10/28/16 13:54 10/28/16 13:54 INR, PTT INR 1.17 (0.82-1.09) H 10/21/16 14:07 Assessment/Plan S/P debridement, sacral decubitus Polymicrobial wound c/s S/P CVA Low grade temp Continue Unasyn Local wound care
--- NOTE | 2016-10-29 14:36 | PATH ---
Surgical Pathology Report Patient Name: WILLARD NARAYAN JR [facility]. Rec. #: [id number] /Age/Gender: 1940 (Age: 76) / M Account: [id number] Location: [facility] MED/SURG Taken: 10/27/2016 Received: 10/28/2016 Reported: 10/29/2016 Physicians: Tyson Shine M.D. Specimen(s) Received A: DEBRIDEMENT TISSUE B: BX COCCYX BONE FRAGMENT Clinical History Infected decubitus ulcer Final Diagnosis A. SOFT TISSUE, DECUBITUS, DEBRIDEMENT: FIBROCONNECTIVE AND FIBROFATTY TISSUE WITH ACUTE NECROTIZING INFLAMMATION AND GANGRENOUS NECROSIS. B. BONE, COCCYX, EXCISION: BONE WITH EVIDENCE OF ACUTE OSTEOMYELITIS. Electronically Signed Randal Carrillo M.D. Gross Description A. Received in formalin labeled "debrided tissue" is a 5.0 x 3.5 x 0.7 cm aggregate of de la cruz-ghosh, necrotic portions of skin and soft tissue. A event representative portion is submitted in one cassette. B. Received in formalin labeled "coccyx bone" is a 1.5 x 0.7 x 0.7 cm de la cruz, irregular portion of bone. The specimen is trisected and entirely submitted in one cassette, following decalcification. 10/28/2016 [facility]/28/[facility]
--- NOTE | 2016-10-29 15:23 | PN ---
Progress Note (short form) - Note Progress Note: FU for Sacral decubitus post Excisional debridement Awake alert, answering questions., looks comfortable not in pain Sacral wound responding to VAC...clean, granulation tissue Labs noted WBC Still high over 16 Microbiology 10/22/16 10:25 Tissue-Other Gram Stain - Final 10/22/16 10:25 Tissue-Other Anaerobic Culture - Final Enterococcus Faecalis Diphtheroid/Corynebacterium Enterococcus Avium Staphylococcus Coagulase Neg NO ANAEROBES WERE ISOLATED Selected Entries 10/29/16 10/29/16 06:00 14:57 Temperature 98.6 F Respiratory 18 Rate Blood Pressure 123/69 Weight 191 lb 6 oz Laboratory Tests 10/27/16 10/27/16 10/28/16 07:30 07:30 13:54 WBC 11.6 H Hgb 8.3 L 8.9 L Hct 26.3 L MCHC 31.6 L MPV 6.8 L Eosinophils % 6.5 H Potassium 3.3 L Total Protein 4.7 L Albumin 1.6 L Plan of Care; Needs to continue on VAC Needs to continue on High protein diet PT at home FU in wound clinic on Wednesday
[2016-10-29] MEDS: DEXTROSE 5%-0.45% SALINE 1,000 ML IV SCH (17:21)
--- NOTE | 2016-10-29 20:52 | PN ---
Progress Note, Physician Chief Complaint: patient alert, comfortable, post sacral decubitus ulcer debridment, the wound vac in place and draining sangvinolent fluid, History of Present Illness: 76 yo male with PMH of Diabetes and right hemiplegia post CVA developed sacral decubitus ulcer. The patient had surgical debridment and a wound vac was put in place. He is receiving broad spectrum iv antibiotics. During the past 24 hours his blood pressure dropped to a systolic of 88 mm hg and he received a bolus of 200 cc NS with normalization of the BP values. He will be discharged home with [facility] for wound care. It would be optimal to have this patinet discharged to a subacute nursing facility for wound care but the family can not afford the costs - Current Medication List Current Medications: Active Medications Amino Acids (Prosource No Carb Liquid Pkt) 30 ml PO BID@0800,1730 [facility] Last Admin: 10/29/16 17:40 Dose: 30 ml Bupropion HCl (Wellbutrin Xl -) 300 mg PO DAILY [facility] Last Admin: 10/29/16 10:20 Dose: 300 mg Enoxaparin Sodium (Lovenox -) 30 mg SQ DAILY [facility] Last Admin: 10/29/16 10:18 Dose: 30 mg Fentanyl (Sublimaze Injection -) 50 mcg IVPUSH [id number] PRN PRN Reason: PAIN Stop: 10/30/16 16:49 Finasteride (Proscar -) 5 mg PO HS [facility] Last Admin: 10/28/16 21:44 Dose: 5 mg Folic Acid (Folic Acid -) 1 mg PO DAILY [facility] Last Admin: 10/29/16 10:18 Dose: 1 mg Gabapentin (Neurontin -) 300 mg PO TID [facility] Last Admin: 10/29/16 16:27 Dose: 300 mg Dextrose/Sodium Chloride (D5-1/2ns -) 1,000 mls @ 60 mls/hr IV ASDIR [facility] Last Admin: 10/29/16 17:21 Dose: Not Given Ampicillin Sodium/Sulbactam Sodium (Unasyn 1.5 Gm (Pre-Docked)) 100 mls @ 200 mls/hr IVPB Q6H-IV [facility] Last Admin: 10/29/16 16:27 Dose: 200 mls/hr Insulin Aspart (Novolog Vial Sliding Scale -) 1 vial SQ ACHS [facility] PRN Reason: Protocol Last Admin: 10/29/16 17:40 Dose: 2 unit Liraglutide (Victoza -) 1.8 mg SQ DAILY@0700 [facility] Last Admin: 10/29/16 06:23 Dose: 1.8 mg Magnesium Hydroxide (Milk Of Magnesia -) 30 ml PO DAILY PRN PRN Reason: CONSTIPATION Metoprolol Succinate (Toprol Xl -) 25 mg PO DAILY [facility] Last Admin: 10/29/16 10:18 Dose: 25 mg Multivitamins/Minerals/Vitamin C (Tab-A-Vit -) 1 tab PO DAILY [facility] Last Admin: 10/29/16 10:18 Dose: 1 tab Zinc Sulfate (Orazinc -) 220 mg PO BID [facility] Last Admin: 10/29/16 10:18 Dose: 220 mg - Objective Vital Signs: Vital Signs Temperature 99.1 F 10/29/16 17:01 Pulse Rate 90 10/29/16 17:01 Respiratory Rate 20 10/29/16 18:29 Blood Pressure 115/61 10/29/16 17:01 O2 Sat by Pulse Oximetry (%) 100 10/29/16 18:29 Constitutional: Yes: No Distress, Calm Eyes: Yes: Conjunctiva Clear, EOM Intact HENT: Yes: Atraumatic, Normocephalic Neck: Yes: Supple, Trachea Midline Cardiovascular: Yes: Regular Rate and Rhythm, S1, S2 Respiratory: Yes: Regular, CTA Bilaterally Gastrointestinal: Yes: Normal Bowel Sounds, Soft, Abdomen, Obese. No: Hepatomegaly, Splenomegaly ...Rectal Exam: Yes: Other (sacral wound vac present) Genitourinary: Yes: WNL Breast(s): Yes: WNL Musculoskeletal: Yes: Other (left hemiplegia and edema of the left hand) Extremities: Yes: Other (extremities sensitive to light touch). No: Calf Tenderness Edema: No Peripheral Pulses WNL: Yes Integumentary: Yes: Other (ulcer of the right heel and malleola unstageable) Wound/Incision: Yes: Other (wound vac in place draining the sacral area) Neurological: Yes: Alert, Oriented, Aphasia (expressive), Other (right hemiplegia) Psychiatric: Yes: Alert, Oriented Labs: CBC, BMP 10/28/16 13:54 10/28/16 13:54 INR, PTT INR 1.17 (0.82-1.09) H 10/21/16 14:07 Problem List - Problems (1) Sepsis affecting skin Assessment/Plan: antibiotic switched to Unasyn to cover for Strep and MSSA the patient is scheduled to be discharged tomorrow blood tests will be repeated antibiotic switched to oral Augmentin since there is no fever over the past 24 hours and iv access was lost awaiting the CBC results in am to monitor the WBC recent elevation Code(s): L02.91 - CUTANEOUS ABSCESS, UNSPECIFIED (2) Pressure ulcer of sacral region, stage 2 Assessment/Plan: using wound vac the patient has been on Plavix and aspirin and currently is receiving Lovenox, will restart Plavix and asa Code(s): L89.152 - PRESSURE ULCER OF SACRAL REGION, STAGE 2 (3) 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) Assessment/Plan: the patient was on Plavix and ASA, is currently receiving Lovenox, i will restart ASA and Plavix Code(s): I69.359 - HEMIPLGA FOLLOWING CEREBRAL INFARCTION AFFECTING UNSP SIDE (4) Diabetes mellitus Assessment/Plan: accuchecks and coverage with regular insulin while waiting for surgical debridment restarted Victoza Code(s): E11.9 - TYPE 2 DIABETES MELLITUS WITHOUT COMPLICATIONS Qualifiers: Diabetes mellitus type: type 2 Diabetes mellitus complication status: without complication Diabetes mellitus nursing home insulin use: without termite exterminator use Qualified Code(s): E11.9 - Type 2 diabetes mellitus without complications (5) Pressure ulcer of right ankle, stage 2 Assessment/Plan: santyl daily Code(s): L89.512 - PRESSURE ULCER OF RIGHT ANKLE, STAGE 2 (6) Pressure ulcer of right heel, stage 2 Assessment/Plan: santyl applications daily Code(s): L89.612 - PRESSURE ULCER OF RIGHT HEEL, STAGE 2 Assessment/Plan 75 yo male with pmh of CVA with sequellae of right hemiplegia was admitted for infected sacral pressure ulcer. The patient received broad spectrum antibiotic in Er. The patient had surgical debridment in OR with the placement of a wound vac. He is waiting now for discharge with [facility] wound care
[2016-10-29] MEDS: FINASTERIDE 5 MG TABLET (FP) PO SCH (21:51)
[2016-10-30] MEDS: GABAPENTIN 300 MG CAPSULE (FP) PO SCH ×3 (06:15→21:14)
[2016-10-30] MEDS: INSULIN SLIDING SCALE (NOVOLOG) 1 VIAL SQ SCH ×4 (06:16→21:29)
[2016-10-30] MEDS: LIRAGLUTIDE 0.6 MG/0.1 ML PEN.INJCTR SQ SCH (06:16)
[2016-10-30] MEDS ORDERED: PT OWN MED DRAWER 7, Y5N ONE ×2 (06:32→09:24)
[2016-10-30] MEDS: AMINO ACIDS/PROTEIN HYDROLYS 30 ML LIQUID.PKT PO SCH ×2 (08:16→17:08)
[2016-10-30] MEDS: AMOX TR/POT CLAV 875MG/125MG TABLETS (FP) PO SCH ×2 (08:16→17:08)
[2016-10-30 08:47] LABS: BASOPHIL 1.2 % (0-2.0); EOSINOPHIL 6.3 % (0-4.5); MCH 25.6 pg (25.7-33.7); MCHC 32.1 g/dl (32.0-35.9); MEAN CELL VOLUME 79.9 fl (80-96); NEUTROPHILS 62.5 % (42.8-82.8); PLATELET COUNT 387 K/MM3 (134-434); RDW 15.9 % (11.9-15.9); WHITE BLOOD COUNT 12.2 K/mm3 (4.0-10.0)
[2016-10-30] MEDS: ASPIRIN 81 MG CHEWABLE TABLETS PO SCH (09:27)
[2016-10-30] MEDS: FOLIC ACID 1 MG TABLET (FP) PO SCH (09:27)
[2016-10-30] MEDS: MULTIVITAMINS (DAILY MVI) TABLET (FP) PO SCH (09:27)
[2016-10-30] MEDS: ZINC SULFATE 220 MG CAPSULE (FP) PO SCH ×2 (09:27→21:14)
[2016-10-30] MEDS: CLOPIDOGREL BISULFATE 75 MG TABLET (FP) PO SCH (09:27)
[2016-10-30] MEDS: ENOXAPARIN NA (PORCINE) 30 MG/0.3 ML DISP.SYRIN SQ SCH (09:28)
[2016-10-30] MEDS: METOPROLOL SUCCINATE 25 MG TAB.SR.24H (FP) PO SCH (09:28)
[2016-10-30 09:53] LABS: ALBUMIN 1.5 g/dl (3.4-5.0); ALK PHOS 66 U/L (45-117); ANION GAP 10 (8-16); BILIRUBIN,TOTAL 0.3 mg/dL (0.2-1.0); CALCIUM 7.8 mg/dL (8.5-10.1); CO2 26 mmol/L (21-32); CREATININE 0.4 mg/dL (0.7-1.3); GLUCOSE,RANDOM 114 mg/dL (74-106); SGOT/AST 13 U/L (15-37); SGPT/ALT 12 U/L (12-78); TOT PROT 4.5 g/dl (6.4-8.2)
--- NOTE | 2016-10-30 19:00 | DS ---
Physical Examination Vital Signs: Vital Signs Temperature 98.2 F 10/30/16 14:51 Pulse Rate 88 10/30/16 14:51 Respiratory Rate 16 10/30/16 14:51 Blood Pressure 115/82 10/30/16 14:51 O2 Sat by Pulse Oximetry (%) 100 10/29/16 21:00 Constitutional: Yes: No Distress, Calm Eyes: Yes: Conjunctiva Clear, EOM Intact HENT: Yes: Atraumatic, Normocephalic Neck: Yes: Supple, Trachea Midline Cardiovascular: Yes: Regular Rate and Rhythm, S1, S2 Respiratory: Yes: Regular, CTA Bilaterally Gastrointestinal: Yes: Normal Bowel Sounds, Soft, Abdomen, Obese. No: Hepatomegaly, Splenomegaly ...Rectal Exam: Yes: Other (sacral area pressure ulcer s/p debridment, wound vac applied) Breast(s): Yes: WNL Musculoskeletal: Yes: Joint Stiffness (right hemiplegia) Edema: No Peripheral Pulses WNL: Yes Integumentary: Yes: Other (right leateral mallola pressure ulcer stage 2 and right heel pressure ulcer stage 2) Wound/Incision: Yes: Other (wound vac) Neurological: Yes: Alert, Oriented, Aphasia Psychiatric: Yes: Alert, Oriented Labs: CBC, BMP 10/30/16 06:30 10/30/16 06:30 Discharge Summary Reason For Visit: INFECTED DECUBITUS ULCER Current Active Problems Cystitis (Acute) Hematuria (Acute) 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) (Acute) Infected decubitus ulcer (Acute) Pressure ulcer of sacral region, stage 2 (Acute) Sepsis affecting skin (Acute) UTI (urinary tract infection) (Acute) Hospital Course: 76 yo male who was admitted for infected sacral pressure ulcer. The patient is S./P CVA and has right hemiplegia, he is bed ridden and can not ambulate or change position in bed. He underwent surgical debridment,tolerated well and received broad spectrum iv antibiotics. The patient responded well to treatment. The debrided sacral area is quite large approximately 10 cm diameter exposed area and approximately 5 cm length tunneled area which require wound vac . He will be discharged iin an with visiting nurse services Condition: Fair - Instructions Referrals: Sofiya Diop MD [Primary Care Provider] - - Home Medications Comprehensive Discharge Medication List: Ambulatory Orders Liraglutide [Victoza -] 1.8 mg SQ DAILY@0700 09/04/16 Metoprolol Succinate [Toprol XL -] 25 mg PO DAILY 09/04/16 Thiamine HCl [Vitamin B1 -] 100 mg PO DAILY 09/04/16 Collagenase Clostridium Hist. [Santyl -] 1 applic TP DAILY tube 09/09/16 Sennosides [Senna -] 1 tab PO HS #30 tablet 09/09/16 Amino Acids/Protein Hydrolys [Prosource No Carb Liquid Pkt] 30 ml PO BID@0800, 1730 30 Days 10/05/16 Aspirin [ASA -] 81 mg PO DAILY #30 tab.chew 10/05/16 Atorvastatin Ca [Lipitor] 20 mg PO HS #30 tablet 10/05/16 Bupropion HCl [Bupropion HCl Sr] 150 mg PO BID #60 tablet.er 10/05/16 Clopidogrel Bisulfate [Plavix -] 75 mg PO DAILY #30 tablet 10/05/16 Colchicine 0.6 mg PO DAILY #30 capsule 10/05/16 Finasteride 5 mg PO DAILY #30 tablet 10/05/16 Folic Acid 0.8 mg PO DAILY #30 capsule 10/05/16 Gabapentin [Neurontin -] 300 mg PO Q8H #90 capsule 10/05/16 Insulin Detemir [Levemir Flextouch] 12 unit SQ HS #1 insuln.pen 10/05/16 Iron Polysaccharide Complex [Ferrex 150] 150 mg PO DAILY #30 capsule 10/05/16 Lisinopril [Prinivil] 20 mg PO DAILY #30 tablet 10/05/16 Magnesium Oxide [Mag-Ox -] 400 mg PO DAILY #30 tablet 10/05/16 Omeprazole 20 mg PO DAILY #30 capsule. 10/05/16 Tamsulosin HCl 0.4 mg PO DAILY #30 cap.er.24h 10/05/16 Lisinopril [Prinivil] 10 mg PO DAILY #30 tablet 10/21/16
[2016-10-30] MEDS: FINASTERIDE 5 MG TABLET (FP) PO SCH (21:14)
--- NOTE | 2016-10-30 22:07 | PN ---
Progress Note, Physician Chief Complaint: patient alert, comfortable, post sacral decubitus ulcer debridment, the wound vac in place and draining sangvinolent fluid, History of Present Illness: 76 yo male with PMH of Diabetes and right hemiplegia post CVA developed sacral decubitus ulcer. The patient had surgical debridment and a wound vac was put in place. He received broad spectrum iv antibiotics. During the past 24 hours his blood pressure normalized after an episode of hypotension. He will be discharged home with [facility] for wound care. It would be optimal to have this patient discharged to a subacute nursing facility for wound care but the family can not afford the costs and the insurance would not cover the admission - Current Medication List Current Medications: Active Medications Amino Acids (Prosource No Carb Liquid Pkt) 30 ml PO BID@0800,1730 [facility] Last Admin: 10/30/16 17:08 Dose: 30 ml Amoxicillin/Clavulanate Potassium (Augmentin - 875mg Tablet) 1 tab PO BIDWM [facility] Last Admin: 10/30/16 17:08 Dose: 1 tab Aspirin (Asa -) 81 mg PO DAILY [facility] Last Admin: 10/30/16 09:27 Dose: 81 mg Bupropion HCl (Wellbutrin Xl -) 300 mg PO DAILY [facility] Last Admin: 10/30/16 09:28 Dose: 300 mg Clopidogrel Bisulfate (Plavix -) 75 mg PO DAILY [facility] Last Admin: 10/30/16 09:27 Dose: 75 mg Enoxaparin Sodium (Lovenox -) 30 mg SQ DAILY [facility] Last Admin: 10/30/16 09:28 Dose: 30 mg Finasteride (Proscar -) 5 mg PO HS [facility] Last Admin: 10/30/16 21:14 Dose: 5 mg Folic Acid (Folic Acid -) 1 mg PO DAILY [facility] Last Admin: 10/30/16 09:27 Dose: 1 mg Gabapentin (Neurontin -) 300 mg PO TID [facility] Last Admin: 10/30/16 21:14 Dose: 300 mg Insulin Aspart (Novolog Vial Sliding Scale -) 1 vial SQ ACHS [facility] PRN Reason: Protocol Last Admin: 10/30/16 21:29 Dose: 4 unit Liraglutide (Victoza -) 1.8 mg SQ DAILY@0700 [facility] Last Admin: 10/30/16 06:16 Dose: 1.8 mg Magnesium Hydroxide (Milk Of Magnesia -) 30 ml PO DAILY PRN PRN Reason: CONSTIPATION Metoprolol Succinate (Toprol Xl -) 25 mg PO DAILY [facility] Last Admin: 10/30/16 09:28 Dose: 25 mg Multivitamins/Minerals/Vitamin C (Tab-A-Vit -) 1 tab PO DAILY [facility] Last Admin: 10/30/16 09:27 Dose: 1 tab Zinc Sulfate (Orazinc -) 220 mg PO BID [facility] Last Admin: 10/30/16 21:14 Dose: 220 mg - Objective Vital Signs: Vital Signs Temperature 98.2 F 10/30/16 14:51 Pulse Rate 88 10/30/16 14:51 Respiratory Rate 16 10/30/16 14:51 Blood Pressure 115/82 10/30/16 14:51 O2 Sat by Pulse Oximetry (%) 100 10/29/16 21:00 Constitutional: Yes: No Distress, Calm Eyes: Yes: Conjunctiva Clear HENT: Yes: Atraumatic, Normocephalic Neck: Yes: Supple, Trachea Midline Cardiovascular: Yes: Regular Rate and Rhythm Respiratory: Yes: Regular, CTA Bilaterally Gastrointestinal: Yes: Normal Bowel Sounds, Soft, Abdomen, Obese ...Rectal Exam: Yes: Other (wound vac in place) Genitourinary: Yes: WNL Musculoskeletal: Yes: WNL Extremities: Yes: WNL. No: Calf Tenderness Edema: No Peripheral Pulses WNL: Yes Integumentary: Yes: WNL Wound/Incision: Yes: Other (wound vac present) Neurological: Yes: Alert, Oriented, Aphasia ...Motor Strength: RUE (hemiplegia), RLE (hemiplegia) Psychiatric: Yes: Alert, Oriented, Agitated Labs: CBC, BMP 10/30/16 06:30 10/30/16 06:30 INR, PTT INR 1.17 (0.82-1.09) H 10/21/16 14:07 Problem List - Problems (1) Sepsis affecting skin Assessment/Plan: antibiotic switched to Augmentin for 5 more days to cover for Strep and MSSA the patient is scheduled to be discharged tomorrow Code(s): L02.91 - CUTANEOUS ABSCESS, UNSPECIFIED (2) Pressure ulcer of sacral region, stage 2 Assessment/Plan: using wound vac the patient has been on Plavix and aspirin stopped Lovenox,restarted Plavix and asa Code(s): L89.152 - PRESSURE ULCER OF SACRAL REGION, STAGE 2 (3) 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) Assessment/Plan: restarted ASA and Plavix Code(s): I69.359 - HEMIPLGA FOLLOWING CEREBRAL INFARCTION AFFECTING UNSP SIDE (4) Diabetes mellitus Assessment/Plan: accuchecks and coverage with regular insulin while waiting for surgical debridment restarted Victoza Code(s): E11.9 - TYPE 2 DIABETES MELLITUS WITHOUT COMPLICATIONS Qualifiers: Diabetes mellitus type: type 2 Diabetes mellitus complication status: without complication Diabetes mellitus director long term care insulin use: without director long term care use Qualified Code(s): E11.9 - Type 2 diabetes mellitus without complications (5) Pressure ulcer of right ankle, stage 2 Assessment/Plan: santyl daily Code(s): L89.512 - PRESSURE ULCER OF RIGHT ANKLE, STAGE 2 (6) Pressure ulcer of right heel, stage 2 Assessment/Plan: santyl applications daily Code(s): L89.612 - PRESSURE ULCER OF RIGHT HEEL, STAGE 2 Assessment/Plan 75 yo male with pmh of CVA with sequellae of right hemiplegia was admitted for infected sacral pressure ulcer. The patient received broad spectrum antibiotic. The patient had surgical debridment in OR with the placement of a wound vac. He is waiting now for discharge home with [facility] wound care will complete antibiotic treatment with Augmentin
[2016-10-31] MEDS ORDERED: PT OWN MED DRAWER 7, Y5N ONE ×2 (03:56→10:42)
[2016-10-31] MEDS: INSULIN SLIDING SCALE (NOVOLOG) 1 VIAL SQ SCH ×2 (06:25→12:27)
[2016-10-31] MEDS: GABAPENTIN 300 MG CAPSULE (FP) PO SCH ×2 (06:25→14:07)
[2016-10-31] MEDS: LIRAGLUTIDE 0.6 MG/0.1 ML PEN.INJCTR SQ SCH (06:25)
[2016-10-31] MEDS: AMOX TR/POT CLAV 875MG/125MG TABLETS (FP) PO SCH (08:53)
[2016-10-31] MEDS: AMINO ACIDS/PROTEIN HYDROLYS 30 ML LIQUID.PKT PO SCH (08:53)
--- NOTE | 2016-10-31 10:27 | PN ---
Progress Note, Physician History of Present Illness: Awake, alert No complaints - Current Medication List Current Medications: Active Medications Amino Acids (Prosource No Carb Liquid Pkt) 30 ml PO BID@0800,1730 [facility] Last Admin: 10/31/16 08:53 Dose: 30 ml Amoxicillin/Clavulanate Potassium (Augmentin - 875mg Tablet) 1 tab PO BIDWM [facility] Last Admin: 10/31/16 08:53 Dose: 1 tab Aspirin (Asa -) 81 mg PO DAILY [facility] Last Admin: 10/30/16 09:27 Dose: 81 mg Bupropion HCl (Wellbutrin Xl -) 300 mg PO DAILY [facility] Last Admin: 10/30/16 09:28 Dose: 300 mg Clopidogrel Bisulfate (Plavix -) 75 mg PO DAILY [facility] Last Admin: 10/30/16 09:27 Dose: 75 mg Enoxaparin Sodium (Lovenox -) 30 mg SQ DAILY [facility] Last Admin: 10/30/16 09:28 Dose: 30 mg Finasteride (Proscar -) 5 mg PO HS [facility] Last Admin: 10/30/16 21:14 Dose: 5 mg Folic Acid (Folic Acid -) 1 mg PO DAILY [facility] Last Admin: 10/30/16 09:27 Dose: 1 mg Gabapentin (Neurontin -) 300 mg PO TID [facility] Last Admin: 10/31/16 06:25 Dose: 300 mg Insulin Aspart (Novolog Vial Sliding Scale -) 1 vial SQ ACHS [facility] PRN Reason: Protocol Last Admin: 10/31/16 06:25 Dose: Not Given Liraglutide (Victoza -) 1.8 mg SQ DAILY@0700 [facility] Last Admin: 10/31/16 06:25 Dose: 1.8 mg Magnesium Hydroxide (Milk Of Magnesia -) 30 ml PO DAILY PRN PRN Reason: CONSTIPATION Metoprolol Succinate (Toprol Xl -) 25 mg PO DAILY [facility] Last Admin: 10/30/16 09:28 Dose: 25 mg Multivitamins/Minerals/Vitamin C (Tab-A-Vit -) 1 tab PO DAILY [facility] Last Admin: 10/30/16 09:27 Dose: 1 tab Zinc Sulfate (Orazinc -) 220 mg PO BID [facility] Last Admin: 10/30/16 21:14 Dose: 220 mg - Objective Vital Signs: Vital Signs Temperature 97.8 F 10/31/16 07:45 Pulse Rate 91 H 10/31/16 07:45 Respiratory Rate 20 10/31/16 07:45 Blood Pressure 135/77 10/31/16 07:45 O2 Sat by Pulse Oximetry (%) 100 10/29/16 21:00 Constitutional: Yes: No Distress Eyes: Yes: Conjunctiva Clear Cardiovascular: Yes: Regular Rate and Rhythm, S1, S2 Respiratory: Yes: CTA Bilaterally Gastrointestinal: Yes: Normal Bowel Sounds, Soft. No: Tenderness Integumentary: Yes: Other (VAC in place, sacral decubitus) Labs: CBC, BMP 10/30/16 06:30 10/30/16 06:30 INR, PTT INR 1.17 (0.82-1.09) H 10/21/16 14:07 Assessment/Plan S/P debridement, sacral decubitus Polymicrobial wound c/s S/P CVA Low grade temp Substitute po Augmentin Outpatient follow up with Dr Shine
[2016-10-31] MEDS: ASPIRIN 81 MG CHEWABLE TABLETS PO SCH (10:45)
[2016-10-31] MEDS: ENOXAPARIN NA (PORCINE) 30 MG/0.3 ML DISP.SYRIN SQ SCH (10:45)
[2016-10-31] MEDS: MULTIVITAMINS (DAILY MVI) TABLET (FP) PO SCH (10:45)
[2016-10-31] MEDS: METOPROLOL SUCCINATE 25 MG TAB.SR.24H (FP) PO SCH (10:45)
[2016-10-31] MEDS: CLOPIDOGREL BISULFATE 75 MG TABLET (FP) PO SCH (10:45)
[2016-10-31] MEDS: ZINC SULFATE 220 MG CAPSULE (FP) PO SCH (10:45)
[2016-10-31] MEDS: FOLIC ACID 1 MG TABLET (FP) PO SCH (10:45)
[2016-10-31] MEDS ORDERED: INSULIN (NOVOLOG) ASPART 100 UNITS/ML 10ML VIAL ONE (12:19)
[2016-10-31 13:15] VITALS: BP 129/73; PULSE 90; TEMP 98.1
== END 2016-10-31 15:39 | disposition home or self-care (01) | DRG 853 ==
LOC: JER 12:43 → JERBED 15:52 → J8W 18:20
PROVIDERS: ADMIT Internal Medicine; ATTEND Internal Medicine
PROC: 0JB70ZZ Excision of Back Subcutaneous Tissue and Fascia, Open Approach (ICD-10-PCS; principal; 2016-10-21)
PROC: 2W15X6Z Compression of Back using Pressure Dressing (ICD-10-PCS; 2016-10-21)
PROC: 0JB70ZZ Excision of Back Subcutaneous Tissue and Fascia, Open Approach (ICD-10-PCS; 2016-10-27)
PROC: 0QBS0ZX Excision of Coccyx, Open Approach, Diagnostic (ICD-10-PCS; 2016-10-27)
PROC: 0KBP0ZZ Excision of Left Hip Muscle, Open Approach (ICD-10-PCS; 2016-10-27)
DX: A41.9 Sepsis, unspecified organism (principal); L89.154 Pressure ulcer of sacral region, stage 4; I69.351 Hemiplegia and hemiparesis following cerebral infarction affecting right dominant side; N39.0 Urinary tract infection, site not specified; M86.8X8 Other osteomyelitis, other site; I96 Gangrene, not elsewhere classified; E11.52 Type 2 diabetes mellitus with diabetic peripheral angiopathy with gangrene; I25.10 Atherosclerotic heart disease of native coronary artery without angina pectoris; N40.0 Benign prostatic hyperplasia without lower urinary tract symptoms; G62.89 Other specified polyneuropathies; I11.0 Hypertensive heart disease with heart failure; I50.9 Heart failure, unspecified; L89.612 Pressure ulcer of right heel, stage 2; L89.512 Pressure ulcer of right ankle, stage 2; Z74.01 Bed confinement status; Z95.5 Presence of coronary angioplasty implant and graft
CPT/HCPCS: 36415; 71010-TC; 80053; 81003; 81015; 82550; 82803; 83605; 84484; 85025; 85610; 85730; 86850; 86900; 86901; 87040; 87070; 87075; 87086; 87186; 87205; 88304-TC; 88305-TC; 93005; 93010; 94760; 99285-25; G0463-25

== ENCOUNTER 2016-11-18 10:37 | Inpatient (IN) | payer OTHER, MEDICARE ==
--- NOTE | 2016-11-18 10:44 | PDOC ---
History of Present Illness - General History Source: Family Exam Limitations: Clinical Condition - History of Present Illness Initial Comments: 11/18/16 10:46 The patient is a 76-year-old man, accompanied by girlfriend, with a significant past medical history of anemia, hypertension, hypecholesterolemia, congestive heart failure(March 2016; right sided residual weakness), cerebrovascular accident, diabetes mellitus who presents to the emergency department via EMS for further evaluation of hypotension. As per EMS, the patent, on scene was hypotensive to 90/40. Upon ED arrival, the patient was noted have a blood pressure of 112/66, heart rate of 97 and oxygen saturation of 99%. At baseline, the patient is verbal. As per patient's girlfriend, the patient has been noted have a decreased appetite with noted vomiting over the past 2 days. He also has been noted to be less verbal. She states she has been given the patient his favorite meals, but the patient keeps vomiting. Patient has also been noted to have decreased urinary output. No recent fever, chills, falls. Patient's girlfriend also states that the patient has a sacral ulcer and a right ankle ulcer. Patient currently complaints of right arm pain, which is chronic since his CVA, as per patient's girlfriend. Allergies: None Known Past Surgical History: Gallstone removal Social History: No tobacco, ETOH and recreational drug use. Primary Care Physician: Dr. Sofiya Diop [phone] <Tricia Glover - Last Filed: 11/18/16 13:18> - General History Source: Family, Old Records Exam Limitations: Clinical Condition <Ese Rizzo - Last Filed: 11/18/16 13:21> - General Chief Complaint: Blood Pressure Problem Stated Complaint: SENT FROM WOUND CARE Time Seen by Provider: 11/18/16 10:43 Past History <Tricia Glover - Last Filed: 11/18/16 13:18> - Past Medical History Anemia: Yes Cardiac Disorders: Yes (cardiac stents) CVA: Yes (right sided weakness) CHF: Yes Diabetes: Yes HTN: Yes Hypercholesterolemia: Yes - Surgical History Cholecystectomy: (GALLSTONES REMOVED?) - Psycho/Social/Smoking Cessation Hx Anxiety: No Suicidal Ideation: No Smoking History: Never smoked Have you smoked in the past 12 months: No Hx Alcohol Use: No Drug/Substance Use Hx: No Substance Use Type: None <Ese Rizzo - Last Filed: 11/18/16 13:21> - Past Medical History Allergies/Adverse Reactions: Allergies Allergy/AdvReac Type Severity Reaction Status Date / Time No Known Allergies Allergy Verified 10/21/16 13:05 Home Medications: Ambulatory Orders Amino Acids/Protein Hydrolys [Prosource No Carb Liquid Pkt] 30 ml PO BID@0800, 1730 30 Days 10/05/16 Aspirin [ASA -] 81 mg PO DAILY #30 tab.chew 10/05/16 Colchicine 0.6 mg PO DAILY #30 capsule 10/05/16 Gabapentin [Neurontin -] 300 mg PO Q8H #90 capsule 10/05/16 Amox-Tr/K Cl [Augmentin 875-125mg Tablet -] 1 tab PO BIDWM #14 tablet 10/31/16 Aspirin [ASA -] 81 mg PO DAILY #90 tab.chew 10/31/16 Atorvastatin Ca [Lipitor] 20 mg PO HS #90 tablet 10/31/16 Bupropion HCl [Bupropion HCl Sr] 300 mg PO DAILY #90 tablet.er 10/31/16 Clopidogrel Bisulfate [Plavix -] 75 mg PO DAILY #90 tablet 10/31/16 Clopidogrel Bisulfate [Plavix -] 75 mg PO DAILY #90 tablet 10/31/16 Collagenase Clostridium Hist. [Santyl -] 1 applic TP DAILY #0 tube 10/31/16 Finasteride 5 mg PO DAILY #90 tablet 10/31/16 Folic Acid - 1 mg PO DAILY #90 tablet 10/31/16 Insulin Detemir [Levemir Flextouch] 8 unit SQ HS #1 insuln.pen 10/31/16 Iron Polysaccharide Complex [Ferrex 150] 150 mg PO DAILY #90 capsule 10/31/16 Liraglutide [Victoza -] 1.8 mg SQ DAILY@0700 #90 10/31/16 Lisinopril [Prinivil] 10 mg PO DAILY #90 tablet 10/31/16 Lisinopril [Prinivil] 20 mg PO DAILY #90 tablet 10/31/16 Magnesium Oxide [Mag-Ox -] 400 mg PO DAILY #90 tablet 10/31/16 Metoprolol Succinate [Toprol XL -] 25 mg PO DAILY #90 10/31/16 Multivitamins [Multivit ([facility] Formulary)] 1 tab PO DAILY #90 tab 10/31/16 Sennosides [Senna -] 2 tab PO HS #120 tablet 10/31/16 Tamsulosin HCl 0.4 mg PO DAILY #90 cap.er.24h 10/31/16 Thiamine HCl [Vitamin B1 -] 100 mg PO DAILY #90 10/31/16 Review of Systems - Review of Systems Able to Perform ROS?: No (Limited) Comments:: 11/18/16 11:10 CONSTITUTIONAL: Present: Loss of Appetite. Absent: fever, chills, loss of appetite CARDIOVASCULAR: Present: Hypotensive, as per EMS. Absent: chest pain, syncope, palpitations, irregular heart rate, lightheadedness, peripheral edema GASTROINTESTINAL: Present: Vomiting. Absent: abdominal pain, nausea, vomiting, diarrhea, constipation, melena, hematochezia GENITOURINARY: Present: Decreased urinary output. Absent: dysuria, frequency, urgency, hesitancy, hematuria, flank pain, genital pain MUSCULOSKELETAL: Absent: myalgia, arthralgia, joint swelling SKIN: Present: Skin ulcers. Absent: rash, itching, pallor <Glover,Tricia - Last Filed: 11/18/16 13:18> *Physical Exam - Physical Exam Comments: 11/18/16 11:01 GENERAL: Awake. Alert. HEENT: Normocephalic, atraumatic. PERRLA, EOMI. No conjunctival pallor. Sclera are non-icteric. Dry mucous membranes. Oropharynx is clear. NECK: Supple. Full ROM. No JVD. CARDIOVASCULAR: Regular rate and rhythm. No murmurs, rubs, or gallops. PULMONARY: No evidence of respiratory distress. Lungs clear to auscultation bilaterally. No wheezing, rales or rhonchi. ABDOMINAL: There is some ecchymosis at his waistline. Soft. Non-tender. Non- distended. No rebound or guarding. No organomegaly. Normoactive bowel sounds. MUSCULOSKELETAL: Chronic right hemiparesis. No bony deformities or tenderness. No CVA tenderness. EXTREMITIES: No cyanosis. No clubbing. No edema. No calf tenderness. SKIN: There is an approximately 6 centimeter by 6 centimeter stage III sacral decubitus ulcer that has fibrinous exudates without surrounding erythema. There is also an approximately 2 centimeter by 2 centimeter stage II healing ulcer over the right ankle without signs of infection NEUROLOGICAL: <GloverTricia - Last Filed: 11/18/16 13:18> Heart Score/ECG Review #1 ECG reviewed & interpreted by me at: 10:57 Sinus tachycardia, with a borderline widened QRS complex and q waves in the inferior leads. Biphasic p waves in the lateral leads. <AdalbertoTricia - Last Filed: 11/18/16 13:18> ED Treatment Course - LABORATORY CBC & Chemistry Diagram: 11/18/16 11:31 11/18/16 11:31 - RADIOLOGY Radiograph Interpretation: 11/18/16 11:38 EXAM: RAD/CHEST X-RAY PORTABLE IMPRESSION: Since 10/26/2016 at 1517 hours, there is no significant change. There is a prominent mediastinum, degenerative changes, slight rotation and clear lung ball. There is an elevated right hemidiaphragm. The angles are sharp and the soft tissues are intact. <AdalbertoTricia - Last Filed: 11/18/16 13:18> - LABORATORY CBC & Chemistry Diagram: 11/18/16 11:31 11/18/16 11:31 <Ese Rizzo - Last Filed: 11/18/16 13:21> Medical Decision Making - Medical Decision Making 11/18/16 13:[address] Diop. 11/18/16 13:[address] Diop. 11/18/16 13:[address] Diop. Case was discussed. <AdalbertoTricia - Last Filed: 11/18/16 13:18> - Medical Decision Making 11/18/16 11:02 76-year-old male with history of diabetes, CVA with residual right hemiparesis and pressure ulcers to the sacral area and the right foot and ankle presents to the emergency department from wound care for evaluation of hypotension; he is had decrease in by mouth intake, nausea and vomiting and decreased urine output. Differential diagnosis includes but is not limited to: Sepsis, dehydration, electrolyte abnormality, intra-abdominal process, toxic/metabolic derangement, DKA, uncontrolled diabetes. Plan: 1. Labs 2. Blood cultures and lactate 3. IV fluids for hydration 4. Chest x-ray 5. Urine analysis 6. Observe and reevaluate 11/18/16 13:19 Addendum: Labs were reviewed and are noted in the EMR. The WBC's are elevated and the urine is +for nitrites and WBC 2500+. Will admit to med/surg. The case was discussed with the patient's PCP, Dr Diop. <Ese Rizzo - Last Filed: 11/18/16 13:21> *DC/Admit/Observation/Transfer - Attestations Scribe Attestion: 11/18/16 11:02 Documentation prepared by Tricia Glover, acting as pediatric medical assistant for Ese Rizzo MD. <Tricia Glover - Last Filed: 11/18/16 13:18> - Discharge Dispostion Admit: Yes - Attestations Physician Attestion: 11/18/16 11:04 I, Dr. Ese Rizzo, attest that the scribes documentation that appears above has been prepared under my direction and personally reviewed by me in its entirety. I confirmed that the note above accurately reflects all work, treatment, procedures, and medical decision-making performed by me. <Ese Rizzo - Last Filed: 11/18/16 13:21> Diagnosis at time of Disposition: Nausea & vomiting, Pressure ulcer of sacral region, stage 3, UTI (urinary tract infection), Sepsis - Discharge Dispostion Condition at time of disposition: Stable - Referrals Referrals: Sofiya Diop MD [Primary Care Provider] -
[2016-11-18] MEDS ORDERED: SODIUM CHLORIDE 2,000 ML IV STA (10:57)
[2016-11-18 11:34] LABS: EOSINOPHIL 2.7 % (0-4.5); MCH 24.8 pg (25.7-33.7); MCHC 31.1 g/dl (32.0-35.9); MEAN CELL VOLUME 79.7 fl (80-96); MEAN PLT VOLUME 6.9 fl (7.5-11.1); NEUTROPHILS 81.7 % (42.8-82.8); PLATELET COUNT 437 K/MM3 (134-434); RDW 17.3 % (11.9-15.9); WHITE BLOOD COUNT 19.6 K/mm3 (4.0-10.0)
[2016-11-18 11:55] LABS: INR 1.17 (0.82-1.09); PROTHROMBIN TIME (PATIENT) 12.9 SEC (9.98-11.88)
[2016-11-18 12:02] LABS: ALBUMIN 2.4 g/dl (3.4-5.0); ANION GAP 11 (8-16); CO2 25 mmol/L (21-32); COCKROFT - GAULT 104.18; CREATININE 0.8 mg/dL (0.7-1.3); GLUCOSE,RANDOM 146 mg/dL (74-106); SGPT/ALT 13 U/L (12-78)
[2016-11-18 12:07] LABS: ALK PHOS 79 U/L (45-117); BILIRUBIN,TOTAL 0.4 mg/dL (0.2-1.0); TOT PROT 6.6 g/dl (6.4-8.2); TROPONIN I < 0.02 ng/ml (0.00-0.05)
[2016-11-18 12:10] LABS: SGOT/AST 18 U/L (15-37)
[2016-11-18 12:18] LABS: URINE APPEARANCE TURBID; URINE BILIRUBIN NEGATIVE (NEGATIVE); URINE COLOR YELLOW; URINE GLUCOSE (UA) NEGATIVE (NEGATIVE); URINE KETONE TRACE (NEGATIVE); URINE NITRITE NEGATIVE (NEGATIVE); URINE UROBILINOGEN NEGATIVE E.U./dl (0.2-1.0)
[2016-11-18 12:23] LABS: URINE BLOOD 2+ (NEGATIVE); URINE LEUK ESTERASE 3+ (NEGATIVE); URINE PROTEIN 2+ (NEGATIVE)
[2016-11-18 12:28] LABS: URINE HYALINE CAST 18 /lpf; URINE MUCUS FEW; URINE RBC 38 /hpf (0-3); URINE WBC 2569 /hpf (3-5)
[2016-11-18] MEDS ORDERED: PIPERACILLIN/TAZOB 3.375 GM/50 ML PRE-DOCKED IV ONE (12:59)
[2016-11-18] MEDS ORDERED: VANCOMYCIN 1,000 MG in DEXTROSE 5%-WATER - 250 ML IVPB ONE (12:59)
[2016-11-18] MEDS ORDERED: VANCOMYCIN 1 GRAM (PRE-DOCKED) 250 ML IVPB ONE (13:20)
[2016-11-18] MEDS ORDERED: PIPERACILLIN/TAZOB 3.375 GM 50 ML IVPB ONE (13:21)
--- NOTE | 2016-11-18 14:15 | EKG ---
Test Reason : Blood Pressure : / mmHG Vent. Rate : 102 BPM Atrial Rate : 102 BPM P-R Int : 120 ms QRS Dur : 100 ms QT Int : 356 ms P-R-T Axes : 252 039 -05 degrees QTc Int : 463 ms UNUSUAL P AXIS AND SHORT WI, PROBABLE JUNCTIONAL TACHYCARDIA POSSIBLE INFERIOR INFARCT (CITED ON OR BEFORE 04-SEP-2016) ABNORMAL ECG WHEN COMPARED WITH ECG OF 21-OCT-2016 15:24, JUNCTIONAL RHYTHM HAS REPLACED SINUS RHYTHM Confirmed by ZULEMA SERRANO MD ([id number]) on 11/18/2016 2:15:16 PM Referred By: Confirmed By:ZULEMA SERRANO MD
[2016-11-18 18:39] VITALS: BMI 13.2
[2016-11-19] MEDS: AMPICILLIN NA/SULBACTAM NA 100 ML IVPB SCH ×4 (03:02→23:07)
[2016-11-19] MEDS ORDERED: INSULIN SLIDING SCALE (NOVOLOG) 1 VIAL SQ SCH (07:00)
[2016-11-19 07:43] LABS: BASOPHIL 0.9 % (0-2.0); EOSINOPHIL 2.4 % (0-4.5); MCH 25.3 pg (25.7-33.7); MCHC 31.7 g/dl (32.0-35.9); MEAN CELL VOLUME 79.8 fl (80-96); MEAN PLT VOLUME 6.5 fl (7.5-11.1); NEUTROPHILS 82.6 % (42.8-82.8); PLATELET COUNT 417 K/MM3 (134-434); RDW 16.6 % (11.9-15.9); WHITE BLOOD COUNT 17.3 K/mm3 (4.0-10.0)
[2016-11-19 08:08] LABS: ALBUMIN 2.2 g/dl (3.4-5.0); ALK PHOS 78 U/L (45-117); ANION GAP 13 (8-16); BILIRUBIN,TOTAL 0.5 mg/dL (0.2-1.0); CALCIUM 8.5 mg/dL (8.5-10.1); CO2 24 mmol/L (21-32); CREATININE 0.6 mg/dL (0.7-1.3); GLUCOSE,RANDOM 136 mg/dL (74-106); SGOT/AST 10 U/L (15-37); SGPT/ALT 10 U/L (12-78); TOT PROT 6.1 g/dl (6.4-8.2)
[2016-11-19] MEDS ORDERED: HEMOQUE TEST 1 EACH EACH ONE (11:50)
--- NOTE | 2016-11-19 11:59 | CONSULT ---
Admitting History and Physical - Primary Care Physician PCP: Sofiya Diop - Admission History of Present Illness: History of Present Illness Initial Comments: 11/18/16 10:46 "The patient is a 76-year-old man, accompanied by girlfriend, with a significant past medical history of anemia, hypertension, hypecholesterolemia, congestive heart failure(March 2016; right sided residual weakness), cerebrovascular accident, diabetes mellitus who presents to the emergency department via EMS for further evaluation of hypotension. As per EMS, the patent , on scene was hypotensive to 90/40. Upon ED arrival, the patient was noted have a blood pressure of 112/66, heart rate of 97 and oxygen saturation of 99%. At baseline, the patient is verbal. As per patient's girlfriend, the patient has been noted have a decreased appetite with noted vomiting over the past 2 days. He also has been noted to be less verbal. She states she has been given the patient his favorite meals, but the patient keeps vomiting. Patient has also been noted to have decreased urinary output. No recent fever, chills, falls. Patient's girlfriend also states that the patient has a sacral ulcer and a right ankle ulcer. Patient currently complaints of right arm pain, which is chronic since his CVA, as per patient's girlfriend." ER IMP: "Nausea & vomiting, Pressure ulcer of sacral region, stage 3, UTI ( urinary tract infection), Sepsis" Seen by me during recent admission with 75% PO intake mealtime on very soft, easy to chew, cohesive food. 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, Peripheral Neuropathy Cardiovascular: Yes: CAD, CHF, Other Hepatobiliary: Yes: Cholelithiasis Renal/: Yes: BPH Musculoskeletal: Yes: Hemiplegia Endocrine: Yes: Diabetes Mellitus Dermatology: Yes: Other (right heel ulcer and right external malleola ulcer, pre sacral pressure ulcer unstageable) - Past Surgical History Past Surgical History: Yes: Hernia Repair - Advance Directives Advance Directives: Yes: Health Care Proxy - Smoking History Smoking history: Never smoked Have you smoked in the past 12 months: No - Alcohol/Substance Use Hx Alcohol Use: No History - Admission Reason For Visit: NAUSEA,VOMITTING,UTI,SEPSIS - Diagnostics X-ray: Report Reviewed - General Mental Status: Awake and Alert, Able to Follow Commands (simple), Vague, Intermittently Confused Attention: Distractible Ability to Follow Directions: Fair - Hearing Hearing: Normal Hearing Aide: No Speech Evaluation - Communication Primary Language: PERSIAN Communication: Yes: Aphasia Oral Expression Ability: Yes: Moderate Impairment - Speech Production Able to Make Needs Known: Yes: Moderately Impaired Intelligibility: Yes: Mildly Impaired, Moderately Impaired - Speech Characteristics Voice Loudness: Normal Voice Pitch: Yes: Normal Voice Phonatory-based Quality: Yes: Normal Speech Pattern: Impaired Speech Clarity: < 50% Nasal Resonance: Normal Articulation: Yes: Imprecise Rate of Speech: Too Fast - Language/Auditory Comprehension Follows: Yes: 1 Stage Simple Commands Observation: Comprehends Conversational Speech: Yes (simple) - Language/Verbal Expression Aphasia: Yes: Nonfluent, Anomia, Impaired Repetition, Paraphrasic Errors, Apraxia, Grammatic Errors Able to Communicate Wants and Needs: Yes: Moderately Impaired Functional Communication Status: Yes: Moderately Impaired - Swallow Evaluation/Bedside Assessment Current Nutritional Intake: Soft, Thin Liquids Oral Secretions: Yes: WFL Dentition: Yes: Missing Teeth Lingual Movement: Symmetric Labial Seal: WFL Chewing: Impaired (extended) Oral Prep Time: Increased A-P Transit: WFL Coughing/Throat Clear: No Change in Voice: No Recommendations - Speech Evaluation, Impression/Plan Impression: Admitted following vomiting with impaired appetite per chart. Ate breakfast this am but refused lunch. No vomiting reported. Pt accepted 75% of meals during last admission in October. - Dysphagia Impressions/Plan Dysphagia Impressions: Mild Impairment, Ongoing Evaluation *Silent aspiration: cannot be R/O at bedside Recommendations: Other (RD consult regarding risk of insufficient Po intake) - Recommendations Diet Consistency: Regular (soft, easy to chew, choppede meat with extra jerry) Medication Administration: Whole with water Liquids: Thin Liquids Supplement: Glucerna
[2016-11-19] MEDS: GABAPENTIN 300 MG CAPSULE (FP) PO SCH ×2 (14:57→23:07)
--- NOTE | 2016-11-19 15:03 | CON.GI ---
Consult Consult Specialty:: GI Referred by:: Dr. Diop Reason for Consultation:: Vomiting - History of Present Illness Chief Complaint: Patient verbal however does not give a CC History of Present Illness: 76 M admitted for evaluation of N/V, decreased PO intake and hypotension. Called to evaluate for PEG. There has been no reported vomiting, the patient denies any abdominal pain. There has been no reported rectal bleeding or melena. He underwent laparoscopic cholecystectomy on his last admission 10/23. In ER WBC noted 19k with + UA. Placed on unasyn. He was seen by S/S. Dawn Turk noted that Mr. Bhatti ate 75% oe his meals at the last admission but could not perform a bedside evaluation at this time. - Past Medical History OFFICE ASSISTANT: Yes: CVA, Peripheral Neuropathy Cardio/Vascular: Yes: CAD, CHF, Other Hepatobiliary: Yes: Cholelithiasis Renal/: Yes: BPH Musculoskeletal: Yes: Hemiplegia Endocrine: Yes: Diabetes Mellitus Dermatology: Yes: Other (right heel ulcer and right external malleola ulcer, pre sacral pressure ulcer unstageable) - Past Surgical History Past Surgical History: Yes: Cholecystectomy, Hernia Repair - Alcohol/Substance Use Hx Alcohol Use: No - Smoking History Smoking history: Never smoked Have you smoked in the past 12 months: No - Social History Usual Living Arrangement: With Significant Other Place of : [facility] History of Recent Travel: No Home Medications - Allergies Allergies/Adverse Reactions: Allergies Allergy/AdvReac Type Severity Reaction Status Date / Time No Known Allergies Allergy Verified 10/21/16 13:05 - Home Medications Home Medications: Ambulatory Orders Amino Acids/Protein Hydrolys [Prosource No Carb Liquid Pkt] 30 ml PO BID@0800, 1730 30 Days 10/05/16 Aspirin [ASA -] 81 mg PO DAILY #30 tab.chew 10/05/16 Colchicine 0.6 mg PO DAILY #30 capsule 10/05/16 Gabapentin [Neurontin -] 300 mg PO Q8H #90 capsule 10/05/16 Amox-Tr/K Cl [Augmentin 875-125mg Tablet -] 1 tab PO BIDWM #14 tablet 10/31/16 Aspirin [ASA -] 81 mg PO DAILY #90 tab.chew 10/31/16 Atorvastatin Ca [Lipitor] 20 mg PO HS #90 tablet 10/31/16 Bupropion HCl [Bupropion HCl Sr] 300 mg PO DAILY #90 tablet.er 10/31/16 Clopidogrel Bisulfate [Plavix -] 75 mg PO DAILY #90 tablet 10/31/16 Collagenase Clostridium Hist. [Santyl -] 1 applic TP DAILY #0 tube 10/31/16 Finasteride 5 mg PO DAILY #90 tablet 10/31/16 Folic Acid - 1 mg PO DAILY #90 tablet 10/31/16 Insulin Detemir [Levemir Flextouch] 8 unit SQ HS #1 insuln.pen 10/31/16 Iron Polysaccharide Complex [Ferrex 150] 150 mg PO DAILY #90 capsule 10/31/16 Liraglutide [Victoza -] 1.8 mg SQ DAILY@0700 #90 10/31/16 Lisinopril [Prinivil] 10 mg PO DAILY #90 tablet 10/31/16 Lisinopril [Prinivil] 20 mg PO DAILY #90 tablet 10/31/16 Magnesium Oxide [Mag-Ox -] 400 mg PO DAILY #90 tablet 10/31/16 Metoprolol Succinate [Toprol XL -] 25 mg PO DAILY #90 10/31/16 Multivitamins [Multivit ([facility] Formulary)] 1 tab PO DAILY #90 tab 10/31/16 Sennosides [Senna -] 2 tab PO HS #120 tablet 10/31/16 Tamsulosin HCl 0.4 mg PO DAILY #90 cap.er.24h 10/31/16 Thiamine HCl [Vitamin B1 -] 100 mg PO DAILY #90 10/31/16 Family Disease History - Family Disease History Family History: Unable to Obtain Review of Systems Findings/Remarks: Patient gave limited ROS - Review of Systems Gastrointestinal: denies: Abdominal Pain, Melena, Rectal Bleeding Physical Exam-GI Vital Signs: Vital Signs Temperature Refused oral temp 11/19/16 14:30 Pulse Rate 118 H 11/19/16 14:30 Respiratory Rate 20 11/19/16 14:30 Blood Pressure 155/122 11/19/16 14:30 O2 Sat by Pulse Oximetry (%) 100 11/19/16 14:30 Constitutional: Yes: Calm Eyes: No: Sclera Icterus Cardiovascular: Yes: Tachycardia. No: Murmur Respiratory: Yes: Diminished (at bases, poor insp. effort) Gastrointestinal Inspection: Yes: Scars (periumbilical scar). No: Distention ...Auscultate: Yes: Normoactive Bowel Sounds Labs: CBC, BMP 11/19/16 07:20 11/19/16 07:20 INR, PTT INR 1.17 (0.82-1.09) H 11/18/16 11:31 Problem List - Problems (1) Nausea & vomiting Assessment/Plan: No current vomiting. When I evaluated Mr. Bhatti he was still in the ER, tachycardic and felt warm. I attempted to take his temperature orally as he refused a rectal exam but he would not cooperate. I did discuss this with his nurse. ? if change in eating habits and vomiting secondary to underlying infection given UA findings. I ordered an AXR to assess for ileus, fecal retention When acute issues are resolved, agree with continued S/S evaluation to see if he can maintain his caloric needs as opposed to PEG placement. Consider ID evaluation Code(s): R11.2 - NAUSEA WITH VOMITING, UNSPECIFIED
[2016-11-19] MEDS ORDERED: INSULIN (NOVOLOG) ASPART 100 UNITS/ML 10ML VIAL ONE ×2 (17:52→23:38)
[2016-11-19] MEDS: INSULIN SLIDING SCALE (NOVOLOG) 1 VIAL SQ SCH ×2 (18:17→23:39)
--- NOTE | 2016-11-19 18:24 | HP ---
Admitting History and Physical - Admission Chief Complaint: fever, poor oral intake, nausea, vomiting History of Present Illness: 76 yo male with PMH of IDDM, CVA with right hemiplegia, bed bound, developed a pressure ulcer for which he is receiving wound care with Dr. Kay, I received a phone call yesterday from dr. Kay with intention of admitting the patient for poor oral intake, nausea and vomiting and concerns of delayed healing of the ulcer. Recommendations were made for a PEG tube placement. The patient did not have a MBS recently. 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: CVA, Peripheral Neuropathy Cardiovascular: Yes: CAD, CHF, Other Hepatobiliary: Yes: Cholelithiasis Renal/: Yes: BPH Musculoskeletal: Yes: Hemiplegia Endocrine: Yes: Diabetes Mellitus Dermatology: Yes: Other (right heel ulcer and right external malleola ulcer, pre sacral pressure ulcer unstageable) - Past Surgical History Past Surgical History: Yes: Cholecystectomy, Hernia Repair - Advance Directives Advance Directives: Yes: Health Care Proxy - Smoking History Smoking history: Never smoked Have you smoked in the past 12 months: No - Alcohol/Substance Use Hx Alcohol Use: No - Social History History of Recent Travel: No Home Medications - Allergies Allergies/Adverse Reactions: Allergies Allergy/AdvReac Type Severity Reaction Status Date / Time No Known Allergies Allergy Verified 10/21/16 13:05 - Home Medications Home Medications: Ambulatory Orders Amino Acids/Protein Hydrolys [Prosource No Carb Liquid Pkt] 30 ml PO BID@0800, 1730 30 Days 10/05/16 Aspirin [ASA -] 81 mg PO DAILY #30 tab.chew 10/05/16 Colchicine 0.6 mg PO DAILY #30 capsule 10/05/16 Gabapentin [Neurontin -] 300 mg PO Q8H #90 capsule 10/05/16 Amox-Tr/K Cl [Augmentin 875-125mg Tablet -] 1 tab PO BIDWM #14 tablet 10/31/16 Aspirin [ASA -] 81 mg PO DAILY #90 tab.chew 10/31/16 Atorvastatin Ca [Lipitor] 20 mg PO HS #90 tablet 10/31/16 Bupropion HCl [Bupropion HCl Sr] 300 mg PO DAILY #90 tablet.er 10/31/16 Clopidogrel Bisulfate [Plavix -] 75 mg PO DAILY #90 tablet 10/31/16 Collagenase Clostridium Hist. [Santyl -] 1 applic TP DAILY #0 tube 10/31/16 Finasteride 5 mg PO DAILY #90 tablet 10/31/16 Folic Acid - 1 mg PO DAILY #90 tablet 10/31/16 Insulin Detemir [Levemir Flextouch] 8 unit SQ HS #1 insuln.pen 10/31/16 Iron Polysaccharide Complex [Ferrex 150] 150 mg PO DAILY #90 capsule 10/31/16 Liraglutide [Victoza -] 1.8 mg SQ DAILY@0700 #90 10/31/16 Lisinopril [Prinivil] 10 mg PO DAILY #90 tablet 10/31/16 Lisinopril [Prinivil] 20 mg PO DAILY #90 tablet 10/31/16 Magnesium Oxide [Mag-Ox -] 400 mg PO DAILY #90 tablet 10/31/16 Metoprolol Succinate [Toprol XL -] 25 mg PO DAILY #90 10/31/16 Multivitamins [Multivit ([facility] Formulary)] 1 tab PO DAILY #90 tab 10/31/16 Sennosides [Senna -] 2 tab PO HS #120 tablet 10/31/16 Tamsulosin HCl 0.4 mg PO DAILY #90 cap.er.24h 10/31/16 Thiamine HCl [Vitamin B1 -] 100 mg PO DAILY #90 10/31/16 Review of Systems - Review of Systems Constitutional: reports: Fever Eyes: reports: No Symptoms HENT: reports: No Symptoms Neck: reports: No Symptoms Cardiovascular: reports: No Symptoms. denies: Palpitations, Shortness of Breath Respiratory: denies: Cough Gastrointestinal: reports: Constipation, Vomiting Breasts: reports: No Symptoms Reported Musculoskeletal: reports: No Symptoms Neurological: reports: Weakness Psychiatric: reports: No Symptoms Physical Examination Vital Signs: Vital Signs Temperature 100.1 F H 11/19/16 16:30 Pulse Rate 108 H 11/19/16 16:30 Respiratory Rate 18 11/19/16 16:30 Blood Pressure 132/83 11/19/16 16:30 O2 Sat by Pulse Oximetry (%) 96 11/19/16 09:00 Constitutional: Yes: No Distress, Calm Eyes: Yes: Conjunctiva Clear HENT: Yes: Atraumatic, Normocephalic Neck: Yes: Supple, Trachea Midline Cardiovascular: Yes: Regular Rate and Rhythm Respiratory: Yes: Regular, CTA Bilaterally Gastrointestinal: Yes: Normal Bowel Sounds, Soft, Abdomen, Obese. No: Distention, Hepatomegaly, Splenomegaly, Tenderness Renal/: Yes: Becerra Present Musculoskeletal: Yes: Other (right upper extremity pain to mobilization and palpation) Extremities: No: Calf Tenderness Edema: No Peripheral Pulses WNL: Yes Integumentary: Yes: Other (decubitius ulcer of the sacral area , not examined) Wound/Incision: Yes: Other (right external malleola stage 2 pressure ulcer, decubitus ulcer of the sacral area stage 3 , clean base) Neurological: Yes: Alert, Oriented Psychiatric: Yes: Alert, Oriented Labs: CBC, BMP 11/19/16 07:20 11/19/16 07:20 Imaging - Results Chest X-ray: Image Reviewed (possible cardiomegaly, no pleural effusion and no infiltrates, leads covering the left presternal area) X-ray: Other (AXR- dilated right hemicolon, stool in the left sigmoid and descending colon) Problem List - Problems (1) Nausea & vomiting Assessment/Plan: patient has been having these symptoms at least since September, consequently his gallstone gallbladder was removed, he did not improve he does have history of constupation and requires high dosages of stool softners and occasionally enemas AXR showing distended right hemicolon and coprostasis in the left descending colon and sigmoid Code(s): R11.2 - NAUSEA WITH VOMITING, UNSPECIFIED (2) Pressure ulcer of sacral region, stage 3 Assessment/Plan: the patient's albumin level is 2.2 pre albumin level in am the patient was admitted for possible PEG tube placement and MBS will be ordered hydrogel Code(s): L89.153 - PRESSURE ULCER OF SACRAL REGION, STAGE 3 (3) Sepsis Assessment/Plan: ua and urine cultures are negative, blood cultures are pending it is possible that the source of sepsis is the patient's sacral decubitus broad spectrum antibiotic coverage wit Unasyn until cultures results back GENTLE HYDRATION UNTIL THE PATIENT's intake improves Code(s): A41.9 - SEPSIS, UNSPECIFIED ORGANISM (4) Cerebrovascular accident (CVA) Assessment/Plan: the patient was on ASA and Plavix, medication will be restarted since there is no clear indication that he will have the PEG placed right hemiplegia Code(s): I63.9 - CEREBRAL INFARCTION, UNSPECIFIED Qualifiers: CVA mechanism: occlusion Precerebral and cerebral artery: middle cerebral artery, left (5) Diabetes mellitus Assessment/Plan: on Victoza and Lantus i WILL STOP vICTOZA SINCE IT CAN CAUSE NAUSEA Code(s): E11.9 - TYPE 2 DIABETES MELLITUS WITHOUT COMPLICATIONS Qualifiers: Diabetes mellitus type: type 2 Diabetes mellitus complication status: without complication Diabetes mellitus care home insulin use: without injection molding supervisor use Qualified Code(s): E11.9 - Type 2 diabetes mellitus without complications (6) Pressure ulcer of right ankle, stage 2 Assessment/Plan: SAntyl daily Code(s): L89.512 - PRESSURE ULCER OF RIGHT ANKLE, STAGE 2
[2016-11-19] MEDS ORDERED: OXYCODONE/APAP 5/325MG COMBO TABLET PO PRN (18:53)
[2016-11-19] MEDS ORDERED: ACETAMINOPHEN 325 MG TABLET (FP) PO PRN (18:56)
[2016-11-19] MEDS ORDERED: oxyCODONE HCL 5 MG TABLET PO PRN (18:56)
[2016-11-19] MEDS: ASPIRIN COATED 81 MG TABLET.EC PO SCH (19:56)
[2016-11-19] MEDS: DEXTROSE 5%-0.45% SALINE 1,000 ML IV SCH (19:56)
[2016-11-19] MEDS: DOCUSATE SODIUM 100 MG CAPSULE (FP) PO SCH (23:07)
[2016-11-19] MEDS: COLLAGENASE CLOSTRIDIUM HIST. 30 GRAMS TUBE TP SCH (23:07)
[2016-11-19] MEDS: ZINC SULFATE 220 MG CAPSULE (FP) PO SCH (23:09)
[2016-11-20] MEDS: AMPICILLIN NA/SULBACTAM NA 100 ML IVPB SCH (03:53)
[2016-11-20] MEDS: INSULIN SLIDING SCALE (NOVOLOG) 1 VIAL SQ SCH ×4 (06:23→22:10)
[2016-11-20] MEDS: GABAPENTIN 300 MG CAPSULE (FP) PO SCH ×3 (06:28→22:13)
--- NOTE | 2016-11-20 08:47 | PN ---
Progress Note, Physician Chief Complaint: ID Full note dictated and patient is known to ur service from recent admission in October sacral decubiti debrided Presently in NAD Nonverbal - Current Medication List Current Medications: Active Medications Acetaminophen (Tylenol -) 650 mg PO Q6H PRN PRN Reason: PAIN Amino Acids (Prosource No Carb Liquid Pkt) 30 ml PO BID@0800,1730 [facility] Aspirin (Ecotrin -) 81 mg PO DAILY [facility] Last Admin: 11/19/16 19:56 Dose: 81 mg Bupropion HCl (Wellbutrin Xl -) 300 mg PO DAILY [facility] Last Admin: 11/19/16 11:40 Dose: 300 mg Clopidogrel Bisulfate (Plavix -) 75 mg PO DAILY [facility] Collagenase (Santyl -) 1 applic TP DAILY [facility] Last Admin: 11/19/16 23:07 Dose: 1 applic Docusate Sodium (Colace -) 300 mg PO HS [facility] Last Admin: 11/19/16 23:07 Dose: 300 mg Gabapentin (Neurontin -) 300 mg PO TID [facility] Last Admin: 11/20/16 06:28 Dose: 300 mg Ampicillin Sodium/Sulbactam Sodium (Unasyn 1.5 Gm (Pre-Docked)) 100 mls @ 200 mls/hr IVPB Q6H-IV [facility] Last Admin: 11/20/16 03:53 Dose: 200 mls/hr Dextrose/Sodium Chloride (D5-1/2ns -) 1,000 mls @ 42 mls/hr IV ASDIR [facility] Last Admin: 11/19/16 19:56 Dose: 42 mls/hr Insulin Aspart (Novolog Vial Sliding Scale -) 1 vial SQ ACHS [facility] PRN Reason: Protocol Last Admin: 11/20/16 06:23 Dose: Not Given Multivitamins/Minerals (Theragran-M) 1 each PO DAILY [facility] Oxycodone HCl (Roxicodone -) 10 mg PO Q6H PRN PRN Reason: PAIN SCALE 6-10 Zinc Sulfate (Orazinc -) 220 mg PO BID [facility] Last Admin: 11/19/16 23:09 Dose: 220 mg - Objective Vital Signs: Vital Signs Temperature 97.7 F 11/20/16 05:45 Pulse Rate 106 H 11/20/16 05:45 Respiratory Rate 18 11/20/16 05:45 Blood Pressure 111/71 11/20/16 05:45 O2 Sat by Pulse Oximetry (%) 96 11/19/16 22:00 Constitutional: Yes: No Distress Cardiovascular: Yes: S1, S2 Respiratory: Yes: WNL, Regular, CTA Bilaterally Integumentary: Yes: Pressure Ulcer, Other (sacral ulcer) Labs: CBC, BMP 11/19/16 07:20 11/19/16 07:20 INR, PTT INR 1.17 (0.82-1.09) H 11/18/16 11:31 Problem List - Problems (1) Pressure ulcer of sacral region, stage 3 Code(s): L89.153 - PRESSURE ULCER OF SACRAL REGION, STAGE 3 (2) Sepsis Code(s): A41.9 - SEPSIS, UNSPECIFIED ORGANISM (3) UTI (urinary tract infection) Code(s): N39.0 - URINARY TRACT INFECTION, SITE NOT SPECIFIED Assessment/Plan Microbiology 11/18/16 11:31 Urine - Urine Becerra Urine Culture - Final NO GROWTH OBTAINED 10/27/16 17:45 Bone Gram Stain - Final 10/27/16 17:45 Bone Anaerobic Culture - Final Enterococcus Casseliflavus NO ANAEROBES WERE ISOLATED 10/22/16 10:25 Tissue-Other Gram Stain - Final 10/22/16 10:25 Tissue-Other Anaerobic Culture - Final Enterococcus Faecalis Diphtheroid/Corynebacterium Enterococcus Avium Staphylococcus Coagulase Neg NO ANAEROBES WERE ISOLATED 10/21/16 14:07 Coccyx Gram Stain - Final 10/21/16 14:07 Coccyx Wound Culture - Final Vr Ec Faecalis Staphylococcus Aureus Staphylococcus Coagulase Neg Diphtheroid/Corynebacterium Streptococcus Viridans 11/18/16 11:31 Blood - Peripheral Venous Blood Culture - Preliminary NO GROWTH OBTAINED AFTER 24 HOURS, INCUBATION TO CONTINUE FOR 4 DAYS. 11/18/16 11:31 Blood - Peripheral Venous Blood Culture - Preliminary NO GROWTH OBTAINED AFTER 24 HOURS, INCUBATION TO CONTINUE FOR 4 DAYS. Laboratory Tests 11/18/16 11/18/16 11/19/16 11:31 11:31 07:20 WBC 19.6 H D 17.3 H Hgb 10.5 L Hct 33.0 L Plt Count 417 BUN Creatinine Total Bilirubin AST Ur Leukocyte Esterase 3+ H Urine RBC 38 Urine WBC 2569 11/19/16 07:20 WBC Hgb Hct Plt Count BUN 33 H D Creatinine 0.6 L D Total Bilirubin 0.5 D AST 10 L D Ur Leukocyte Esterase Urine RBC Urine WBC Assessment Fever N/V leukocytosis ? source. Yes he has pyuria but he always has this on U/A and his urine culture is no growth Prostate could still be source of UTI with negative culture. Additionally had sacral excisional ostectomy with positive bone culture c/s osteo. Resistant enterococci cultures Linezold or dapto only ! Advise Isolate resistant organism Linezolid and Zosyn empirically Duration of therapy to be dicsused with PMD Tramaine PACHECO
[2016-11-20 09:16] LABS: EOSINOPHIL 2.8 % (0-4.5); MCH 25.5 pg (25.7-33.7); MCHC 32.1 g/dl (32.0-35.9); MEAN CELL VOLUME 79.4 fl (80-96); MEAN PLT VOLUME 7.1 fl (7.5-11.1); NEUTROPHILS 76.3 % (42.8-82.8); PLATELET COUNT 402 K/MM3 (134-434); RDW 17.2 % (11.9-15.9); WHITE BLOOD COUNT 17.5 K/mm3 (4.0-10.0)
[2016-11-20] MEDS: AMINO ACIDS/PROTEIN HYDROLYS 30 ML LIQUID.PKT PO SCH ×2 (09:19→17:52)
[2016-11-20] MEDS: CLOPIDOGREL BISULFATE 75 MG TABLET (FP) PO SCH (09:19)
[2016-11-20] MEDS: ZINC SULFATE 220 MG CAPSULE (FP) PO SCH ×2 (09:20→22:30)
[2016-11-20] MEDS: MULTIVITAMINS THER W-MINERALS COMBO TABLET (FP) PO SCH (09:20)
[2016-11-20] MEDS: ASPIRIN COATED 81 MG TABLET.EC PO SCH (09:21)
[2016-11-20 09:47] LABS: ANION GAP 9 (8-16); CALCIUM 8.3 mg/dL (8.5-10.1); CO2 26 mmol/L (21-32); COCKROFT - GAULT 116.42; CREATININE 0.6 mg/dL (0.7-1.3); GLUCOSE,RANDOM 155 mg/dL (74-106); SGOT/AST 11 U/L (15-37); SGPT/ALT 9 U/L (12-78)
[2016-11-20 09:48] LABS: ALK PHOS 72 U/L (45-117); BILIRUBIN,TOTAL 0.5 mg/dL (0.2-1.0); TOT PROT 5.7 g/dl (6.4-8.2)
--- NOTE | 2016-11-20 10:34 | CONS ---
DATE OF CONSULTATION: DATE OF DICTATION: 11/20/2016 HISTORY OF PRESENT ILLNESS: This is a 76-year-old male with a history of CVA, bedbound, who was referred by way of Dr. Shine, his plastic surgeon, for a deep sacral decubitus ulcer. According to the notes, the patient was admitted for poor oral intake, nausea, vomiting, and delayed healing of a large sacral ulcer. Upon admission here, he was noted to have an elevated white cell count of 17,000 along with low-grade fever. He is a poor historian and essentially is nonverbal. He was empirically placed on ampicillin sulbactam by his primary medical doctor with concern for possible urinary tract infection based on his current urinalysis. The patient is diabetic with additional medication history including peripheral neuropathy, coronary artery disease, congestive heart failure, BPH, and cholelithiasis. Note that he had been admitted in October for management of a deep sacral ulcer. He was also admitted in September. Patient was seen and taken to the operating room on October 21 with the surgical procedure note indicating excisional debridement of skin, subcutaneous tissue, necrotic muscle fascia. A bone biopsy was performed at that time, and a VAC dressing was subsequently placed. The defect measured 5.5 x 8 x 2.5 prior to debridement. At that time, the patient was seen both by myself and Dr. Cain. Subsequently, a surgical pathology report indicated soft tissue of the sacrum debridement with gangrenous necrosis. An ostectotomy of the coccyx bone was performed and bone cultures were obtained. Originally, a wound culture obtained from tissue on October 22 had polymicrobial gram-positive pipo. A bone biopsy culture October 27 was positive for enterococcus cacceliflavus sensitive only to linezolid and daptomycin. No anaerobes were isolated. Presently, he is on Unasyn and already his blood and urine cultures are no growth. His temperature has come down, and his white count as of today, however, remains elevated at 17.5. CURRENT MEDICATIONS: Include Neurontin, Wellbutrin, insulin, Roxicodone, Plavix, and Unasyn. ALLERGIES: None known. SOCIAL HISTORY: Difficult to obtain from patient. No history of smoking or alcohol use. FAMILY HISTORY: Unobtainable. REVIEW OF SYSTEMS: Respiratory: No cough or shortness of breath noted. Cardiac: No history of chest pain, palpitations, syncope. Gastrointestinal: Nausea and vomiting noted originally, but not at the time of my seeing him. No obvious abdominal pain, blood per rectum, diarrhea. Genitourinary: Incontinent of urine, in diapers. No gross hematuria evident. Neuromuscular: History of stroke, nonverbal. No history of seizures, muscle pains, joint pains. PHYSICAL EXAMINATION: General Revealed a [id number]-[id number]-[id number] male, nonverbal, in no acute distress. Vital signs: His maximum temperature was 101.1, currently afebrile, pulse 106, blood pressure 111/71, respirations 18. Neck: Supple. Lungs: Clear to percussion and auscultation. Heart: S1, S2, regular rhythm, without audible murmur. Abdomen: Soft, nontender, without hepatosplenomegaly. Extremities: Revealed a pressure ulcer of the right heel, stage 4 sacral decubitus ulcer noted. The white count was 17.5, hemoglobin 9.4, platelets 402. BUN 29, creatinine 0.6. UA with 2569 white cells, 3+ leukocyte esterase. Blood and urine cultures pending. Abdominal x-ray shows distended loops both large and small bowels. ASSESSMENT: This is a 76-year-old male with multiple comorbidities including stroke, diabetes with stage 4 sacral decubitus, presents with nausea and vomiting. However, currently, no nausea and vomiting, and no evidence of intraabdominal infection. While he does have what appears to be significant pyuria on urinalysis, he has had persistent pyuria previously. Currently, he has a negative urine culture. I am not sure if he was on any antibiotics prior to admission. The possibility of an underlying prostate infection is also considered. The sacral decubitus ulcer stage 4 is an obvious persistent source of infection, and I suspect that he has underlying osteomyelitis. I reviewed the surgical pathology report from October 27 indicating bone fragments with evidence of acute osteo on the biopsy. He has a resistant enterococcus on the bone culture only sensitive to linezolid and daptomycin. No anaerobes were isolated. While I would have been inclined initially to give him linezolid, I see that he is on antidepressants, and thus, linezolid may be contraindicated. For now, I will treat him broadly for the possibility of infection related to both the urinary tract as well as osteomyelitis of the sacrum. A sedimentation rate and CRP will be obtained, and I will discuss the case further with Dr. Shine regarding her opinions as to her plans for any further debridement of the decubitus ulcer. He will be maintained on contact isolation for resistant organisms with further recommendations to follow. Unasyn will be discontinued. JOAN AYALA M.D. [id number]
[2016-11-20 10:42] LABS: C-REACTIVE PROTEIN 10.1 MG/DL (0.00-0.3)
[2016-11-20] MEDS ORDERED: DAPTOMYCIN IVPB SCH (11:00)
[2016-11-20] MEDS ORDERED: SODIUM CHLORIDE IVPB SCH (11:00)
--- NOTE | 2016-11-20 11:33 | PN ---
Progress Note, [employer] - Note Progress Note: Selected Entries 11/18/16 11/18/16 11/18/16 11:01 11:10 18:10 Breakfast Supper Temperature 99.4 F 99.4 F 97.7 F 11/18/16 11/19/16 11/19/16 21:00 02:05 06:00 Breakfast Supper Temperature 98.4 F 98.2 F 97.5 F L 11/19/16 11/19/16 11/19/16 10:00 16:30 19:52 Breakfast Supper 50% Temperature 97.9 F 100.1 F H 11/19/16 11/20/16 11/20/16 20:33 05:45 10:58 Breakfast 25% Supper Temperature 99.0 F 97.7 F Laboratory Tests 11/18/16 11/19/16 11/20/16 11:31 07:20 07:45 WBC 19.6 H D 17.3 H 17.5 H Medical notes reviewed. Sleepy this am with limited po acceptance. However, tolerated lunch well when fed, with good intake of cut up chicken, thin liquids etc. Consider Glucerna supplement b/n meals, Refer to RD recommendations. REC: Feed pt Supplements Calorie count
[2016-11-20] MEDS: PIPERACILLIN/TAZOB 4.5 GM/100 ML PRE-DOCKED IVPB SCH ×2 (12:24→17:51)
--- NOTE | 2016-11-20 15:53 | PN ---
Progress Note, Physician Chief Complaint: PAteint was lethargic in the am , but more alert now, he was able to tolerate his breakfast and lunch History of Present Illness: 76 yo n male admitted for poor oral intake, fever, nausea and vomiting with the intention of placing a PEG tube, since admission the Victoza was stopped and since this may cause nausea we will observe the patient's intake during the following days, he was started on broad spectrum antibiotics for the treatment of his decubitus ulcer - Current Medication List Current Medications: Active Medications Acetaminophen (Tylenol -) 650 mg PO Q6H PRN PRN Reason: PAIN Amino Acids (Prosource No Carb Liquid Pkt) 30 ml PO BID@0800,1730 [facility] Last Admin: 11/20/16 09:19 Dose: 30 ml Aspirin (Ecotrin -) 81 mg PO DAILY [facility] Last Admin: 11/20/16 09:21 Dose: 81 mg Bupropion HCl (Wellbutrin Xl -) 300 mg PO DAILY [facility] Last Admin: 11/20/16 09:20 Dose: 300 mg Clopidogrel Bisulfate (Plavix -) 75 mg PO DAILY [facility] Last Admin: 11/20/16 09:19 Dose: 75 mg Collagenase (Santyl -) 1 applic TP DAILY [facility] Last Admin: 11/19/16 23:07 Dose: 1 applic Docusate Sodium (Colace -) 300 mg PO HS [facility] Last Admin: 11/19/16 23:07 Dose: 300 mg Gabapentin (Neurontin -) 300 mg PO TID [facility] Last Admin: 11/20/16 06:28 Dose: 300 mg Dextrose/Sodium Chloride (D5-1/2ns -) 1,000 mls @ 42 mls/hr IV ASDIR [facility] Last Admin: 11/19/16 19:56 Dose: 42 mls/hr Daptomycin 480 mg/ Sodium (Chloride) 100 mls @ 100 mls/hr IVPB DAILY [facility] Last Admin: 11/20/16 11:28 Dose: 100 mls/hr Insulin Aspart (Novolog Vial Sliding Scale -) 1 vial SQ ACHS [facility] PRN Reason: Protocol Last Admin: 11/20/16 06:23 Dose: Not Given Multivitamins/Minerals (Theragran-M) 1 each PO DAILY [facility] Last Admin: 11/20/16 09:20 Dose: 1 each Oxycodone HCl (Roxicodone -) 10 mg PO Q6H PRN PRN Reason: PAIN SCALE 6-10 Piperacillin Sod/Tazobactam Sod (Zosyn 4.5gm Ivpb (Pre-Docked)) 4.5 gm IVPB Q8H -IV [facility] Last Admin: 11/20/16 12:24 Dose: 4.5 gm Zinc Sulfate (Orazinc -) 220 mg PO BID [facility] Last Admin: 11/20/16 09:20 Dose: 220 mg - Objective Vital Signs: Vital Signs Temperature 98.0 F 11/20/16 14:47 Pulse Rate 92 H 11/20/16 14:47 Respiratory Rate 20 11/20/16 14:47 Blood Pressure 115/66 11/20/16 14:47 O2 Sat by Pulse Oximetry (%) 96 11/19/16 22:00 Constitutional: Yes: No Distress, Calm Eyes: Yes: Conjunctiva Clear, EOM Intact HENT: Yes: Atraumatic, Normocephalic Neck: Yes: Supple, Trachea Midline Cardiovascular: Yes: Regular Rate and Rhythm, S1, S2 Respiratory: Yes: Regular, CTA Bilaterally Gastrointestinal: Yes: Normal Bowel Sounds, Soft, Abdomen, Obese. No: Hepatomegaly, Splenomegaly, Tenderness, Tenderness, Epigastrium, Vomiting ...Rectal Exam: Yes: WNL Musculoskeletal: Yes: Other (right hemiplegia) Extremities: No: Calf Tenderness Edema: No Neurological: Yes: Alert, Oriented, Other (right hemiplegia) Psychiatric: Yes: Alert, Oriented Labs: CBC, BMP 11/20/16 07:45 11/20/16 07:45 INR, PTT INR 1.17 (0.82-1.09) H 11/18/16 11:31 Problem List - Problems (1) Nausea & vomiting Assessment/Plan: symptomatic since September,s/p cholecystectomy, possible gastroparesuis? stopped Victoza and observing Code(s): R11.2 - NAUSEA WITH VOMITING, UNSPECIFIED (2) Pressure ulcer of sacral region, stage 3 Assessment/Plan: the patient's albumin level is 2.2 pre albumin level in am the patient was admitted for possible PEG tube placement MBS is pending recommendations for wound vac to the sacral area Code(s): L89.153 - PRESSURE ULCER OF SACRAL REGION, STAGE 3 (3) Sepsis Assessment/Plan: ua and urine cultures are negative, blood cultures are pending started DAptomycicn and Zosyn broad coverage it is possible that the source of sepsis is the patient's sacral decubitus PSA in am to rule out prostatitis, (the patient has normal PSA at baseline) broad spectrum antibiotic coverage wit Unasyn until cultures results back GENTLE HYDRATION UNTIL THE PATIENT's intake improves Code(s): A41.9 - SEPSIS, UNSPECIFIED ORGANISM (4) Cerebrovascular accident (CVA) Assessment/Plan: old on ASA and Plavix, medication restarted since there is no clear indication that he will have the PEG placed right hemiplegia Code(s): I63.9 - CEREBRAL INFARCTION, UNSPECIFIED Qualifiers: CVA mechanism: occlusion Precerebral and cerebral artery: middle cerebral artery, left (5) Diabetes mellitus Code(s): E11.9 - TYPE 2 DIABETES MELLITUS WITHOUT COMPLICATIONS Qualifiers: Diabetes mellitus type: type 2 Diabetes mellitus complication status: without complication Diabetes mellitus fpc insulin use: without fpc use Qualified Code(s): E11.9 - Type 2 diabetes mellitus without complications (6) Pressure ulcer of right ankle, stage 2 Code(s): L89.512 - PRESSURE ULCER OF RIGHT ANKLE, STAGE 2
--- NOTE | 2016-11-20 17:02 | PN ---
Progress Note (short form) - Note Progress Note: FU for grade IV sacral decubitus .patient admitted for poor intake, low albumin , failure to thrive Wound re-evaluated has 30% or more slough no erythema at the edges no odor majority of wound has a better color improvement Plan of Care: [address] Hairston regarding antibiotics for osteomyelitis sacral bone. Patient will benefit with ostectomy but nutrionallly very poor 2.2 2. Once stabilized and able to increase his oral intake, he can be discharged 3. Continue VAC 100mmhg Intermittent 4 FU wound clinic
[2016-11-20] MEDS: COLLAGENASE CLOSTRIDIUM HIST. 30 GRAMS TUBE TP SCH (17:54)
[2016-11-20] MEDS: DEXTROSE 5%-0.45% SALINE 1,000 ML IV SCH ×2 (19:00→22:09)
[2016-11-20] MEDS: DOCUSATE SODIUM 100 MG CAPSULE (FP) PO SCH (22:13)
[2016-11-21] MEDS: PIPERACILLIN/TAZOB 4.5 GM/100 ML PRE-DOCKED IVPB SCH (02:15)
[2016-11-21] MEDS: GABAPENTIN 300 MG CAPSULE (FP) PO SCH ×4 (06:33→22:04)
[2016-11-21] MEDS: INSULIN SLIDING SCALE (NOVOLOG) 1 VIAL SQ SCH ×4 (06:33→22:06)
[2016-11-21] MEDS ORDERED: POTASSIUM CHLORIDE ORAL LIQUID 20 MEQ/15 ML PO ONE ×2 (07:25→10:30)
[2016-11-21] MEDS ORDERED: POTASSIUM CHLORIDE TABS 20 MEQ TABLET.ER (FP) PO ONE (07:25)
--- NOTE | 2016-11-21 07:34 | PN ---
Progress Note, Physician Chief Complaint: patient examined, still sleepy but arousable no fever, comfortable possible osteomyelitis of the sacral bone considered as diagnosis, inflammation markers are pending, wound vac in place since yesterday patient is in a poor nutritional status; added MVT. Zinc, Aminoacids, Vit C medications have been adjusted to hopefully resolve vomiting ( stopped Victoza) and the nausea and symptoms associated with hypotension: stopped Flomax, Lisinopril. Started Levemir for BS control, corrected K and stopped iv fluids this am. History of Present Illness: 76 yo male admitted for poor oral intake, fever, nausea and vomiting with the intention of placing a PEG tube, since admission the Victoza was stopped and since this may cause nausea we will observe the patient's intake during the following days, he was started on broad spectrum antibiotics for the treatment of his decubitus ulcer with possible osteomyelitis - Current Medication List Current Medications: Active Medications Acetaminophen (Tylenol -) 650 mg PO Q6H PRN PRN Reason: PAIN Amino Acids (Prosource No Carb Liquid Pkt) 30 ml PO BID@0800,1730 [facility]S [facility] 234 BEDS AT THE [facility] Last Admin: 11/20/16 17:52 Dose: 30 ml Aspirin (Ecotrin -) 81 mg PO DAILY COUNTS [facility]CLUDE 234 BEDS AT THE [facility] Last Admin: 11/20/16 09:21 Dose: 81 mg Bupropion HCl (Wellbutrin Xl -) 300 mg PO DAILY [facility]S [facility]CLUDE 234 BEDS AT THE [facility] Last Admin: 11/20/16 09:20 Dose: 300 mg Clopidogrel Bisulfate (Plavix -) 75 mg PO DAILY [facility]S [facility]CLUDE 234 BEDS AT [facility] Last Admin: 11/20/16 09:19 Dose: 75 mg Collagenase (Santyl -) 1 applic TP DAILY [facility]S [facility]CLUDE 234 BEDS AT [facility] Last Admin: 11/20/16 17:54 Dose: Not Given Docusate Sodium (Colace -) 300 mg PO HS COUNTS [facility]CLUDE 234 BEDS AT THE [facility] Last Admin: 11/20/16 22:13 Dose: 300 mg Gabapentin (Neurontin -) 300 mg PO TID COUNTS [facility]CLUDE 234 BEDS AT [facility] Last Admin: 11/21/16 06:33 Dose: 300 mg Daptomycin 480 mg/ Sodium (Chloride) 100 mls @ 100 mls/hr IVPB DAILY COUNTS [facility]CLUDE 234 BEDS AT THE [facility] Last Admin: 11/20/16 11:28 Dose: 100 mls/hr Insulin Aspart (Novolog Vial Sliding Scale -) 1 vial SQ ACHS COUNTS [facility]CLUDE 234 BEDS AT [facility] PRN Reason: Protocol Last Admin: 11/21/16 06:33 Dose: 2 units Insulin Detemir (Levemir Vial) 8 units SQ HS COUNTS [facility]CLUDE 234 BEDS AT THE [facility] Multivitamins/Minerals (Theragran-M) 1 each PO DAILY COUNTS [facility]CLUDE 234 BEDS AT THE [facility] Last Admin: 11/20/16 09:20 Dose: 1 each Oxycodone HCl (Roxicodone -) 10 mg PO Q6H PRN PRN Reason: PAIN SCALE 6-10 Piperacillin Sod/Tazobactam Sod (Zosyn 4.5gm Ivpb (Pre-Docked)) 4.5 gm IVPB Q8H -IV COUNTS INCLUDE 234 BEDS AT THE [facility] Last Admin: 11/21/16 02:15 Dose: 4.5 gm Potassium Chloride (Potassium Chloride Oral Liquid) 20 meq PO ONCE ONE Stop: 11/21/16 07:26 Potassium Chloride (K-Dur -) 20 meq PO ONCE ONE Stop: 11/21/16 07:26 Zinc Sulfate (Orazinc -) 220 mg PO BID COUNTS INCLUDE 234 BEDS AT THE [facility] Last Admin: 11/20/16 22:30 Dose: 220 mg - Objective Vital Signs: Vital Signs Temperature 97.4 F L 11/21/16 05:59 Pulse Rate 90 11/21/16 05:59 Respiratory Rate 18 11/21/16 05:59 Blood Pressure 117/68 11/21/16 05:59 O2 Sat by Pulse Oximetry (%) 95 11/20/16 21:00 Constitutional: Yes: No Distress, Calm Eyes: Yes: Conjunctiva Clear, EOM Intact HENT: Yes: Atraumatic, Normocephalic Neck: Yes: Supple, Trachea Midline Cardiovascular: Yes: Regular Rate and Rhythm, S1, S2 Respiratory: Yes: Regular, CTA Bilaterally Gastrointestinal: Yes: Normal Bowel Sounds, Soft, Abdomen, Obese. No: Distention, Hepatomegaly, Splenomegaly Breast(s): Yes: WNL Musculoskeletal: Yes: Joint Stiffness (stiff right MCP joints), Other (right hemiplegia) Extremities: Yes: Pallor. No: Calf Tenderness Edema: No Peripheral Pulses WNL: Yes Integumentary: Yes: Other (sacral pressure ulcer S/P surgical debridment and wound vac placement) Wound/Incision: Yes: Draining, Other (wound vac present) ...Motor Strength: LUE (hemiplegia), RUE, RLE (rightb hemiplegia) Psychiatric: Yes: Alert, Oriented Labs: CBC, BMP 11/20/16 07:45 11/20/16 07:45 INR, PTT INR 1.17 (0.82-1.09) H 11/18/16 11:31 Problem List - Problems (1) Nausea & vomiting Assessment/Plan: not present since admission tolerating po Code(s): R11.2 - NAUSEA WITH VOMITING, UNSPECIFIED (2) Pressure ulcer of sacral region, stage 3 Assessment/Plan: the patient's albumin level is 2.2 pre albumin level is 9.65 1/2 of the lower normal limit the patient was admitted for possible PEG tube placement MBS is pending recommendations for wound vac to the sacral area Code(s): L89.153 - PRESSURE ULCER OF SACRAL REGION, STAGE 3 (3) Sepsis Assessment/Plan: ua and urine cultures are negative, blood cultures are pending started DAptomycicn and Zosyn broad coverage WBc is improving it is possible that the source of sepsis is the patient's sacral decubitus/ osteomyelitis PSA in am to rule out prostatitis, (the patient has normal PSA at baseline) Code(s): A41.9 - SEPSIS, UNSPECIFIED ORGANISM (4) Cerebrovascular accident (CVA) Assessment/Plan: old on ASA and Plavix, medication restarted since there is no clear indication that he will have the PEG placed right hemiplegia Code(s): I63.9 - CEREBRAL INFARCTION, UNSPECIFIED Qualifiers: CVA mechanism: occlusion Precerebral and cerebral artery: middle cerebral artery, left (5) Diabetes mellitus Assessment/Plan: Lantus and accuchecks Code(s): E11.9 - TYPE 2 DIABETES MELLITUS WITHOUT COMPLICATIONS Qualifiers: Diabetes mellitus type: type 2 Diabetes mellitus complication status: without complication 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
[2016-11-21 08:19] LABS: BASOPHIL 0.9 % (0-2.0); MCH 25.4 pg (25.7-33.7); MCHC 32.6 g/dl (32.0-35.9); MEAN CELL VOLUME 77.9 fl (80-96); MEAN PLT VOLUME 6.8 fl (7.5-11.1); PLATELET COUNT 328 K/MM3 (134-434); RDW 17.3 % (11.9-15.9); WHITE BLOOD COUNT 14.6 K/mm3 (4.0-10.0)
[2016-11-21 08:42] LABS: ALBUMIN 1.8 g/dl (3.4-5.0); ANION GAP 8 (8-16); CALCIUM 7.6 mg/dL (8.5-10.1); CO2 26 mmol/L (21-32); GLUCOSE,RANDOM 159 mg/dL (74-106)
[2016-11-21 08:47] LABS: ALK PHOS 60 U/L (45-117); BILIRUBIN,TOTAL 0.6 mg/dL (0.2-1.0); COCKROFT - GAULT 121.71; CREATININE 0.6 mg/dL (0.7-1.3); SGOT/AST 13 U/L (15-37); SGPT/ALT 9 U/L (12-78); TOT PROT 5.1 g/dl (6.4-8.2)
--- NOTE | 2016-11-21 09:40 | PN ---
Progress Note, Physician Chief Complaint: ID Dapto Zosyn day 1 therapy Alert in good spirits today Afebrile - Current Medication List Current Medications: Active Medications Acetaminophen (Tylenol -) 650 mg PO Q6H PRN PRN Reason: PAIN Amino Acids (Prosource No Carb Liquid Pkt) 30 ml PO BID@0800,1730 [facility] Last Admin: 11/20/16 17:52 Dose: 30 ml Aspirin (Ecotrin -) 81 mg PO DAILY [facility] Last Admin: 11/20/16 09:21 Dose: 81 mg Bupropion HCl (Wellbutrin Xl -) 300 mg PO DAILY [facility] Last Admin: 11/20/16 09:20 Dose: 300 mg Clopidogrel Bisulfate (Plavix -) 75 mg PO DAILY [facility] Last Admin: 11/20/16 09:19 Dose: 75 mg Collagenase (Santyl -) 1 applic TP DAILY [facility] Last Admin: 11/20/16 17:54 Dose: Not Given Docusate Sodium (Colace -) 300 mg PO HS [facility] Last Admin: 11/20/16 22:13 Dose: 300 mg Gabapentin (Neurontin -) 300 mg PO TID [facility] Last Admin: 11/21/16 06:33 Dose: 300 mg Daptomycin 480 mg/ Sodium (Chloride) 100 mls @ 100 mls/hr IVPB DAILY [facility] Last Admin: 11/20/16 11:28 Dose: 100 mls/hr Insulin Aspart (Novolog Vial Sliding Scale -) 1 vial SQ ACHS [facility] PRN Reason: Protocol Last Admin: 11/21/16 06:33 Dose: 2 units Insulin Detemir (Levemir Vial) 8 units SQ HS [facility] Multivitamins/Minerals (Theragran-M) 1 each PO DAILY [facility] Last Admin: 11/20/16 09:20 Dose: 1 each Oxycodone HCl (Roxicodone -) 10 mg PO Q6H PRN PRN Reason: PAIN SCALE 6-10 Piperacillin Sod/Tazobactam Sod (Zosyn 4.5gm Ivpb (Pre-Docked)) 4.5 gm IVPB Q8H -IV [facility] Last Admin: 11/21/16 02:15 Dose: 4.5 gm Zinc Sulfate (Orazinc -) 220 mg PO BID [facility] Last Admin: 11/20/16 22:30 Dose: 220 mg - Objective Vital Signs: Vital Signs Temperature 97.4 F L 11/21/16 05:59 Pulse Rate 90 11/21/16 05:59 Respiratory Rate 18 11/21/16 05:59 Blood Pressure 117/68 11/21/16 05:59 O2 Sat by Pulse Oximetry (%) 95 11/20/16 21:00 Labs: CBC, BMP 11/21/16 07:40 11/21/16 07:40 INR, PTT INR 1.17 (0.82-1.09) H 11/18/16 11:31 Problem List - Problems (1) Pressure ulcer of sacral region, stage 3 Code(s): L89.153 - PRESSURE ULCER OF SACRAL REGION, STAGE 3 (2) Sepsis Code(s): A41.9 - SEPSIS, UNSPECIFIED ORGANISM (3) UTI (urinary tract infection) Code(s): N39.0 - URINARY TRACT INFECTION, SITE NOT SPECIFIED Assessment/Plan Microbiology 11/18/16 11:31 Urine - Urine Becerra Urine Culture - Final NO GROWTH OBTAINED 11/18/16 11:31 Blood - Peripheral Venous Blood Culture - Preliminary NO GROWTH OBTAINED AFTER 48 HOURS, INCUBATION TO CONTINUE FOR 3 DAYS. 11/18/16 11:31 Blood - Peripheral Venous Blood Culture - Preliminary NO GROWTH OBTAINED AFTER 48 HOURS, INCUBATION TO CONTINUE FOR 3 DAYS. Laboratory Tests 11/21/16 07:40 WBC 14.6 H Hgb 8.4 L D Plt Count 328 Assessment As discussed with Dr Shine will not treat osteo at this point Need to focus on his nutritional status for any prospect of wound healing. His blood and urine cultures no growth He is afebrile and sent for PEG tube only Plan Stop antibiotics now PEG placement ? Tramaine PACHECO
[2016-11-21] MEDS: AMINO ACIDS/PROTEIN HYDROLYS 30 ML LIQUID.PKT PO SCH ×3 (10:35→16:15)
[2016-11-21] MEDS: CLOPIDOGREL BISULFATE 75 MG TABLET (FP) PO SCH (10:36)
[2016-11-21] MEDS: POTASSIUM CHLORIDE TABS 20 MEQ TABLET.ER (FP) PO ONE ×2 (10:36→11:56)
[2016-11-21] MEDS: ZINC SULFATE 220 MG CAPSULE (FP) PO SCH ×2 (10:36→22:04)
[2016-11-21] MEDS: MULTIVITAMINS THER W-MINERALS COMBO TABLET (FP) PO SCH (10:37)
[2016-11-21] MEDS: ASPIRIN COATED 81 MG TABLET.EC PO SCH (10:37)
[2016-11-21] MEDS: COLLAGENASE CLOSTRIDIUM HIST. 30 GRAMS TUBE TP SCH (10:38)
[2016-11-21] MEDS ORDERED: INSULIN (NOVOLOG) ASPART 100 UNITS/ML 10ML VIAL ONE (11:37)
[2016-11-21] MEDS: DOCUSATE SODIUM 100 MG CAPSULE (FP) PO SCH (22:04)
[2016-11-21] MEDS: INSULIN DETEMIR 100 UNITS/ML MDV SQ SCH (22:04)
[2016-11-22] MEDS ORDERED: INSULIN (NOVOLOG) ASPART 100 UNITS/ML 10ML VIAL ONE ×2 (06:46→20:59)
[2016-11-22] MEDS: GABAPENTIN 300 MG CAPSULE (FP) PO SCH ×3 (06:48→21:03)
[2016-11-22] MEDS: INSULIN SLIDING SCALE (NOVOLOG) 1 VIAL SQ SCH ×4 (06:48→21:04)
[2016-11-22 08:21] LABS: BASOPHIL 0.8 % (0-2.0); EOSINOPHIL 5.7 % (0-4.5); MCH 24.8 pg (25.7-33.7); MCHC 31.1 g/dl (32.0-35.9); MEAN CELL VOLUME 79.6 fl (80-96); MEAN PLT VOLUME 6.8 fl (7.5-11.1); NEUTROPHILS 72.4 % (42.8-82.8); PLATELET COUNT 393 K/MM3 (134-434); WHITE BLOOD COUNT 16.1 K/mm3 (4.0-10.0)
[2016-11-22 08:55] LABS: ALBUMIN 1.9 g/dl (3.4-5.0); ANION GAP 9 (8-16); BILIRUBIN,TOTAL 0.3 mg/dL (0.2-1.0); CALCIUM 8.1 mg/dL (8.5-10.1); CO2 25 mmol/L (21-32); COCKROFT - GAULT 147.99; CREATININE 0.5 mg/dL (0.7-1.3); GLUCOSE,RANDOM 154 mg/dL (74-106); SGOT/AST 15 U/L (15-37); SGPT/ALT 10 U/L (12-78); TOT PROT 5.6 g/dl (6.4-8.2)
[2016-11-22 08:56] LABS: ALK PHOS 61 U/L (45-117)
[2016-11-22] MEDS: ASPIRIN COATED 81 MG TABLET.EC PO SCH (10:06)
[2016-11-22] MEDS: MULTIVITAMINS THER W-MINERALS COMBO TABLET (FP) PO SCH (10:06)
[2016-11-22] MEDS: CLOPIDOGREL BISULFATE 75 MG TABLET (FP) PO SCH (10:06)
[2016-11-22] MEDS: ZINC SULFATE 220 MG CAPSULE (FP) PO SCH ×2 (10:06→21:04)
[2016-11-22] MEDS: COLLAGENASE CLOSTRIDIUM HIST. 30 GRAMS TUBE TP SCH (10:07)
[2016-11-22] MEDS: AMINO ACIDS/PROTEIN HYDROLYS 30 ML LIQUID.PKT PO SCH ×2 (10:07→17:30)
--- NOTE | 2016-11-22 20:51 | PN ---
Progress Note, Physician Chief Complaint: patient examined, eating breakfast,, very hungry and with excellent appetite no fever, comfortable possible osteomyelitis of the sacral bone considered as diagnosis, wound vac in place draining serosangvinolent fluid - Current Medication List Current Medications: Active Medications Acetaminophen (Tylenol -) 650 mg PO Q6H PRN PRN Reason: PAIN Amino Acids (Prosource No Carb Liquid Pkt) 30 ml PO BID@0800,1730 [facility] Last Admin: 11/22/16 17:30 Dose: 30 ml Aspirin (Ecotrin -) 81 mg PO DAILY [facility] Last Admin: 11/22/16 10:06 Dose: 81 mg Bupropion HCl (Wellbutrin Xl -) 300 mg PO DAILY [facility] Last Admin: 11/22/16 10:07 Dose: 300 mg Clopidogrel Bisulfate (Plavix -) 75 mg PO DAILY [facility] Last Admin: 11/22/16 10:06 Dose: 75 mg Collagenase (Santyl -) 1 applic TP DAILY [facility] Last Admin: 11/22/16 10:07 Dose: 1 applic Docusate Sodium (Colace -) 300 mg PO HS [facility] Last Admin: 11/21/16 22:04 Dose: 300 mg Gabapentin (Neurontin -) 300 mg PO TID [facility] Last Admin: 11/22/16 15:30 Dose: 300 mg Insulin Aspart (Novolog Vial Sliding Scale -) 1 vial SQ ACHS [facility] PRN Reason: Protocol Last Admin: 11/22/16 17:30 Dose: 2 units Insulin Detemir (Levemir Vial) 8 units SQ HS [facility] Last Admin: 11/21/16 22:04 Dose: 8 units Multivitamins/Minerals (Theragran-M) 1 each PO DAILY [facility] Last Admin: 11/22/16 10:06 Dose: 1 each Oxycodone HCl (Roxicodone -) 10 mg PO Q6H PRN PRN Reason: PAIN SCALE 6-10 Zinc Sulfate (Orazinc -) 220 mg PO BID [facility] Last Admin: 11/22/16 10:06 Dose: 220 mg - Objective Vital Signs: Vital Signs Temperature 97.8 F 11/22/16 14:06 Pulse Rate 89 11/22/16 14:06 Respiratory Rate 18 11/22/16 20:13 Blood Pressure 130/60 11/22/16 14:06 O2 Sat by Pulse Oximetry (%) 96 11/22/16 20:13 Constitutional: Yes: No Distress, Calm Eyes: Yes: Conjunctiva Clear, EOM Intact HENT: Yes: Atraumatic, Normocephalic Neck: Yes: Supple, Trachea Midline Cardiovascular: Yes: Regular Rate and Rhythm, S1, S2 Respiratory: Yes: Regular, CTA Bilaterally Gastrointestinal: Yes: Normal Bowel Sounds, Soft, Abdomen, Obese ...Rectal Exam: Yes: Deferred Musculoskeletal: Yes: Other (right hemiplegia) Extremities: No: Calf Tenderness Edema: No Peripheral Pulses WNL: Yes Integumentary: Yes: Other (pressure ulcer sacral area) Neurological: Yes: Alert, Oriented, Aphasia Psychiatric: Yes: Alert, Oriented Labs: CBC, BMP 11/22/16 07:20 11/22/16 07:20 INR, PTT INR 1.17 (0.82-1.09) H 11/18/16 11:31 Problem List - Problems (1) Nausea & vomiting Assessment/Plan: not present since admission and since medications adjusted tolerating well po Code(s): R11.2 - NAUSEA WITH VOMITING, UNSPECIFIED (2) Pressure ulcer of sacral region, stage 3 Assessment/Plan: the patient's albumin level improving the patient was admitted for possible PEG tube placement but his appetite is improving MBS is pending wound vac to the sacral area Code(s): L89.153 - PRESSURE ULCER OF SACRAL REGION, STAGE 3 (3) Sepsis Assessment/Plan: ua and urine cultures are negative, blood cultures are pending with negative preliminaries off antibiotics for observation WBc increasing again it is possible that the source of sepsis is the patient's sacral decubitus/ osteomyelitis PSA is normal , diagnosis of prostatitis is unlikely Code(s): A41.9 - SEPSIS, UNSPECIFIED ORGANISM (4) Cerebrovascular accident (CVA) Assessment/Plan: old on ASA and Plavix, medication restarted since there is no clear indication that he will have the PEG placed right hemiplegia Code(s): I63.9 - CEREBRAL INFARCTION, UNSPECIFIED Qualifiers: CVA mechanism: occlusion Precerebral and cerebral artery: middle cerebral artery, left (5) Diabetes mellitus Assessment/Plan: Lantus and accuchecks with regular insulin coverage Code(s): E11.9 - TYPE 2 DIABETES MELLITUS WITHOUT COMPLICATIONS Qualifiers: Diabetes mellitus type: type 2 Diabetes mellitus complication status: without complication 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
[2016-11-22] MEDS: DOCUSATE SODIUM 100 MG CAPSULE (FP) PO SCH (21:03)
[2016-11-22] MEDS: INSULIN DETEMIR 100 UNITS/ML MDV SQ SCH (21:04)
[2016-11-23] MEDS: GABAPENTIN 300 MG CAPSULE (FP) PO SCH ×3 (06:04→21:25)
[2016-11-23] MEDS: INSULIN SLIDING SCALE (NOVOLOG) 1 VIAL SQ SCH ×4 (06:42→21:49)
[2016-11-23 07:56] LABS: BASOPHIL 1.2 % (0-2.0); EOSINOPHIL 7.4 % (0-4.5); MCH 24.6 pg (25.7-33.7); MCHC 31.1 g/dl (32.0-35.9); MEAN PLT VOLUME 6.9 fl (7.5-11.1); NEUTROPHILS 70.2 % (42.8-82.8); PLATELET COUNT 381 K/MM3 (134-434); RDW 17.3 % (11.9-15.9); WHITE BLOOD COUNT 13.2 K/mm3 (4.0-10.0)
[2016-11-23] MEDS: AMINO ACIDS/PROTEIN HYDROLYS 30 ML LIQUID.PKT PO SCH ×3 (09:05→17:09)
[2016-11-23] MEDS ORDERED: PT OWN MED DRAWER 7, Y5N ONE (10:14)
[2016-11-23] MEDS: MULTIVITAMINS THER W-MINERALS COMBO TABLET (FP) PO SCH (10:17)
[2016-11-23] MEDS: ZINC SULFATE 220 MG CAPSULE (FP) PO SCH ×2 (10:17→21:25)
[2016-11-23] MEDS: ASPIRIN COATED 81 MG TABLET.EC PO SCH (10:17)
[2016-11-23] MEDS: CLOPIDOGREL BISULFATE 75 MG TABLET (FP) PO SCH (10:17)
[2016-11-23] MEDS ORDERED: INSULIN (NOVOLOG) ASPART 100 UNITS/ML 10ML VIAL ONE (11:42)
[2016-11-23] MEDS: COLLAGENASE CLOSTRIDIUM HIST. 30 GRAMS TUBE TP SCH (11:44)
--- NOTE | 2016-11-23 15:05 | PN ---
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 Encourage supplements b/n meals for additional density of PO intake. Indication for PEG insertion? Sufficient caloric intake? RD f/u.
--- NOTE | 2016-11-23 19:25 | PN ---
Progress Note, Physician Chief Complaint: patient examined, with an excellent appetite and tolerating po no fever, comfortable possible osteomyelitis of the sacral bone considered as diagnosis, wound vac in place draining serosangvinolent fluid History of Present Illness: 76 yo male admitted for poor oral intake, fever, nausea and vomiting with the intention of placing a PEG tube, since admission the Victoza was stopped and since this may cause nausea we will observe the patient's intake during the following days, he was started on broad spectrum antibiotics for the treatment of his decubitus ulcer with possible osteomyelitis - Current Medication List Current Medications: Active Medications Acetaminophen (Tylenol -) 650 mg PO Q6H PRN PRN Reason: PAIN Amino Acids (Prosource No Carb Liquid Pkt) 30 ml PO BID@0800,1730 [facility] Last Admin: 11/23/16 17:09 Dose: 30 ml Aspirin (Ecotrin -) 81 mg PO DAILY [facility] Last Admin: 11/23/16 10:17 Dose: 81 mg Bupropion HCl (Wellbutrin Xl -) 300 mg PO DAILY [facility] Last Admin: 11/23/16 10:17 Dose: 300 mg Clopidogrel Bisulfate (Plavix -) 75 mg PO DAILY [facility] Last Admin: 11/23/16 10:17 Dose: 75 mg Collagenase (Santyl -) 1 applic TP DAILY [facility] Last Admin: 11/23/16 11:44 Dose: 1 applic Docusate Sodium (Colace -) 300 mg PO HS [facility] Last Admin: 11/22/16 21:03 Dose: 300 mg Gabapentin (Neurontin -) 300 mg PO TID [facility] Last Admin: 11/23/16 14:24 Dose: 300 mg Insulin Aspart (Novolog Vial Sliding Scale -) 1 vial SQ ACHS [facility] PRN Reason: Protocol Last Admin: 11/23/16 17:08 Dose: 6 units Insulin Detemir (Levemir Vial) 8 units SQ HS [facility] Last Admin: 11/22/16 21:04 Dose: 8 units Multivitamins/Minerals (Theragran-M) 1 each PO DAILY [facility] Last Admin: 11/23/16 10:17 Dose: 1 each Oxycodone HCl (Roxicodone -) 10 mg PO Q6H PRN PRN Reason: PAIN SCALE 6-10 Zinc Sulfate (Orazinc -) 220 mg PO BID [facility] Last Admin: 11/23/16 10:17 Dose: 220 mg - Objective Vital Signs: Vital Signs Temperature 98.0 F 11/23/16 13:56 Pulse Rate 88 11/23/16 13:56 Respiratory Rate 20 11/23/16 13:56 Blood Pressure 94/42 11/23/16 09:00 O2 Sat by Pulse Oximetry (%) 99 11/23/16 09:00 Constitutional: Yes: No Distress, Calm Eyes: Yes: Conjunctiva Clear, EOM Intact HENT: Yes: Atraumatic, Normocephalic Neck: Yes: Supple, Trachea Midline Cardiovascular: Yes: Regular Rate and Rhythm Respiratory: Yes: Regular, CTA Bilaterally. No: SOB Gastrointestinal: Yes: Normal Bowel Sounds, Soft, Abdomen, Obese. No: Hepatomegaly, Splenomegaly ...Rectal Exam: Yes: Deferred Genitourinary: Yes: WNL Musculoskeletal: Yes: Other (right hemiplegia) Extremities: No: Calf Tenderness Edema: No Integumentary: Yes: Other (sacral ulcer) Wound/Incision: Yes: Other (wound vac applied to ulcer of ther sacral area) Neurological: Yes: Alert, Oriented, Aphasia, Other (right hemiplegia) Psychiatric: Yes: Alert, Oriented Labs: CBC, BMP 11/23/16 07:10 11/22/16 07:20 INR, PTT INR 1.17 (0.82-1.09) H 11/18/16 11:31 Problem List - Problems (1) Nausea & vomiting Assessment/Plan: not present since admission and since medications adjusted tolerating well po Code(s): R11.2 - NAUSEA WITH VOMITING, UNSPECIFIED (2) Pressure ulcer of sacral region, stage 3 Assessment/Plan: the patient's albumin level improving the patient was admitted for possible PEG tube placement but his appetite is improving wound vac to the sacral area Code(s): L89.153 - PRESSURE ULCER OF SACRAL REGION, STAGE 3 (3) Sepsis Assessment/Plan: ua and urine cultures are negative, blood cultures are pending with negative preliminaries off antibiotics for observation WBc increasing again it is possible that the source of sepsis is the patient's sacral decubitus/ osteomyelitis PSA is normal , diagnosis of prostatitis is unlikely Code(s): A41.9 - SEPSIS, UNSPECIFIED ORGANISM (4) Cerebrovascular accident (CVA) Assessment/Plan: old on ASA and Plavix, medication restarted since there is no clear indication that he will have the PEG placed right hemiplegia Code(s): I63.9 - CEREBRAL INFARCTION, UNSPECIFIED Qualifiers: CVA mechanism: occlusion Precerebral and cerebral artery: middle cerebral artery, left (5) Diabetes mellitus Assessment/Plan: Lantus and accuchecks with regular insulin coverage Code(s): E11.9 - TYPE 2 DIABETES MELLITUS WITHOUT COMPLICATIONS Qualifiers: Diabetes mellitus type: type 2 Diabetes mellitus complication status: without complication 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
[2016-11-23] MEDS: DOCUSATE SODIUM 100 MG CAPSULE (FP) PO SCH (21:25)
[2016-11-23] MEDS: INSULIN DETEMIR 100 UNITS/ML MDV SQ SCH (21:49)
[2016-11-24] MEDS: GABAPENTIN 300 MG CAPSULE (FP) PO SCH ×3 (06:02→22:03)
[2016-11-24] MEDS: INSULIN SLIDING SCALE (NOVOLOG) 1 VIAL SQ SCH ×4 (06:37→22:04)
[2016-11-24] MEDS ORDERED: INSULIN (NOVOLOG) ASPART 100 UNITS/ML 10ML VIAL ONE ×2 (06:47→11:26)
[2016-11-24 08:29] LABS: BASOPHIL 1.3 % (0-2.0); EOSINOPHIL 7.1 % (0-4.5); MCH 24.9 pg (25.7-33.7); MCHC 31.3 g/dl (32.0-35.9); MEAN CELL VOLUME 79.5 fl (80-96); NEUTROPHILS 68.9 % (42.8-82.8); PLATELET COUNT 413 K/MM3 (134-434); RDW 17.2 % (11.9-15.9); WHITE BLOOD COUNT 15.6 K/mm3 (4.0-10.0)
[2016-11-24] MEDS: AMINO ACIDS/PROTEIN HYDROLYS 30 ML LIQUID.PKT PO SCH ×2 (08:49→17:02)
[2016-11-24 09:07] LABS: ALBUMIN 1.9 g/dl (3.4-5.0); ALK PHOS 61 U/L (45-117); ANION GAP 7 (8-16); BILIRUBIN,TOTAL 0.3 mg/dL (0.2-1.0); CALCIUM 8.3 mg/dL (8.5-10.1); CO2 26 mmol/L (21-32); CREATININE 0.6 mg/dL (0.7-1.3); GLUCOSE,RANDOM 123 mg/dL (74-106); SGOT/AST 15 U/L (15-37); SGPT/ALT 16 U/L (12-78); TOT PROT 5.4 g/dl (6.4-8.2)
[2016-11-24] MEDS ORDERED: PT OWN MED DRAWER 7, Y5N ONE (10:05)
--- NOTE | 2016-11-24 10:19 | PN ---
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 Supplements b/n meals. Pending d/c
[2016-11-24] MEDS: ASPIRIN COATED 81 MG TABLET.EC PO SCH (10:21)
[2016-11-24] MEDS: MULTIVITAMINS THER W-MINERALS COMBO TABLET (FP) PO SCH (10:21)
[2016-11-24] MEDS: ZINC SULFATE 220 MG CAPSULE (FP) PO SCH ×2 (10:21→22:06)
[2016-11-24] MEDS: CLOPIDOGREL BISULFATE 75 MG TABLET (FP) PO SCH (10:21)
[2016-11-24] MEDS: COLLAGENASE CLOSTRIDIUM HIST. 30 GRAMS TUBE TP SCH (10:22)
--- NOTE | 2016-11-24 18:51 | PN ---
Progress Note, Physician Chief Complaint: patient examined, with a GOOD appetite and tolerating po no fever, comfortable possible osteomyelitis of the sacral bone considered as diagnosis, wound vac WAS CHANGED yesterday draining serosangvinolent fluid - Current Medication List Current Medications: Active Medications Acetaminophen (Tylenol -) 650 mg PO Q6H PRN PRN Reason: PAIN Amino Acids (Prosource No Carb Liquid Pkt) 30 ml PO BID@0800,1730 [facility] Last Admin: 11/24/16 17:02 Dose: 30 ml Aspirin (Ecotrin -) 81 mg PO DAILY [facility] Last Admin: 11/24/16 10:21 Dose: 81 mg Bupropion HCl (Wellbutrin Xl -) 300 mg PO DAILY [facility] Last Admin: 11/24/16 10:22 Dose: 300 mg Clopidogrel Bisulfate (Plavix -) 75 mg PO DAILY [facility] Last Admin: 11/24/16 10:21 Dose: 75 mg Collagenase (Santyl -) 1 applic TP DAILY [facility] Last Admin: 11/24/16 10:22 Dose: 1 applic Docusate Sodium (Colace -) 300 mg PO HS [facility] Last Admin: 11/23/16 21:25 Dose: 300 mg Gabapentin (Neurontin -) 300 mg PO TID [facility] Last Admin: 11/24/16 14:18 Dose: 300 mg Insulin Aspart (Novolog Vial Sliding Scale -) 1 vial SQ ACHS [facility] PRN Reason: Protocol Last Admin: 11/24/16 17:01 Dose: 4 units Insulin Detemir (Levemir Vial) 8 units SQ HS [facility] Last Admin: 11/23/16 21:49 Dose: 8 units Multivitamins/Minerals (Theragran-M) 1 each PO DAILY [facility] Last Admin: 11/24/16 10:21 Dose: 1 each Oxycodone HCl (Roxicodone -) 10 mg PO Q6H PRN PRN Reason: PAIN SCALE 6-10 Zinc Sulfate (Orazinc -) 220 mg PO BID [facility] Last Admin: 11/24/16 10:21 Dose: 220 mg - Objective Vital Signs: Vital Signs Temperature 98.3 F 11/24/16 13:18 Pulse Rate 88 11/24/16 13:18 Respiratory Rate 21 11/24/16 13:18 Blood Pressure 90/50 11/24/16 09:00 O2 Sat by Pulse Oximetry (%) 99 11/24/16 09:00 Constitutional: Yes: No Distress, Calm Eyes: Yes: Conjunctiva Clear, EOM Intact HENT: Yes: Atraumatic, Normocephalic Neck: Yes: Supple, Trachea Midline Cardiovascular: Yes: Regular Rate and Rhythm, S1, S2 Respiratory: Yes: Regular, CTA Bilaterally Gastrointestinal: Yes: Normal Bowel Sounds, Soft Musculoskeletal: Yes: Other (right hemip[legia) Edema: No Peripheral Pulses WNL: Yes Wound/Incision: Yes: Other (wound of the sacral area draining via wound vac) Neurological: Yes: Alert, Oriented, Aphasia Psychiatric: Yes: Alert, Oriented Labs: CBC, BMP 11/24/16 07:45 11/24/16 07:45 INR, PTT INR 1.17 (0.82-1.09) H 11/18/16 11:31 Problem List - Problems (1) Pressure ulcer of sacral region, stage 3 Assessment/Plan: the patient's albumin level improving the patient was admitted for possible PEG tube placement but his appetite is improving wound vac to the sacral area Code(s): L89.153 - PRESSURE ULCER OF SACRAL REGION, STAGE 3 (2) Sepsis Assessment/Plan: ua and urine cultures are negative, blood cultures are pending with negative preliminaries off antibiotics for observation WBc increasing again it is possible that the source of sepsis is the patient's sacral decubitus/ osteomyelitis PSA is normal , diagnosis of prostatitis is unlikely Code(s): A41.9 - SEPSIS, UNSPECIFIED ORGANISM (3) Cerebrovascular accident (CVA) Assessment/Plan: old on ASA and Plavix, medication restarted since there is no clear indication that he will have the PEG placed right hemiplegia Code(s): I63.9 - CEREBRAL INFARCTION, UNSPECIFIED Qualifiers: CVA mechanism: occlusion Precerebral and cerebral artery: middle cerebral artery, left (4) Diabetes mellitus Assessment/Plan: Levemir and accuchecks with regular insulin coverage Code(s): E11.9 - TYPE 2 DIABETES MELLITUS WITHOUT COMPLICATIONS Qualifiers: Diabetes mellitus type: type 2 Diabetes mellitus complication status: without complication 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
[2016-11-24] MEDS ORDERED: INSULIN DETEMIR 100 UNITS/ML MDV SQ SCH (18:53)
[2016-11-24] MEDS: DOCUSATE SODIUM 100 MG CAPSULE (FP) PO SCH (22:02)
[2016-11-25] MEDS: GABAPENTIN 300 MG CAPSULE (FP) PO SCH ×3 (06:04→21:16)
[2016-11-25] MEDS: INSULIN SLIDING SCALE (NOVOLOG) 1 VIAL SQ SCH ×4 (06:24→21:19)
[2016-11-25] MEDS ORDERED: INSULIN (NOVOLOG) ASPART 100 UNITS/ML 10ML VIAL ONE ×3 (06:33→21:13)
[2016-11-25] MEDS: AMINO ACIDS/PROTEIN HYDROLYS 30 ML LIQUID.PKT PO SCH ×2 (07:58→17:35)
[2016-11-25 08:49] LABS: BASOPHIL 0.9 % (0-2.0); EOSINOPHIL 7.4 % (0-4.5); MCH 25.5 pg (25.7-33.7); MCHC 32.6 g/dl (32.0-35.9); MEAN CELL VOLUME 78.1 fl (80-96); MEAN PLT VOLUME 7.3 fl (7.5-11.1); NEUTROPHILS 69.4 % (42.8-82.8); PLATELET COUNT 433 K/MM3 (134-434); RDW 17.3 % (11.9-15.9); WHITE BLOOD COUNT 17.7 K/mm3 (4.0-10.0)
[2016-11-25] MEDS ORDERED: PT OWN MED DRAWER 7, Y5N ONE (09:34)
[2016-11-25] MEDS: ZINC SULFATE 220 MG CAPSULE (FP) PO SCH ×2 (09:39→21:16)
[2016-11-25] MEDS: CLOPIDOGREL BISULFATE 75 MG TABLET (FP) PO SCH (09:39)
[2016-11-25] MEDS: ASPIRIN COATED 81 MG TABLET.EC PO SCH (09:39)
[2016-11-25] MEDS: MULTIVITAMINS THER W-MINERALS COMBO TABLET (FP) PO SCH (09:39)
[2016-11-25] MEDS: COLLAGENASE CLOSTRIDIUM HIST. 30 GRAMS TUBE TP SCH (10:55)
--- NOTE | 2016-11-25 14:43 | PN ---
Progress Note (short form) - Note Progress Note: rising WBC noted off antibiotics alert eating improved Vital Signs Period Temp Pulse Resp BP Sys/Olsen Pulse Ox Last 24 Hr 98.0 F-99.5 F 94-110 17-20 105-113/56-70 96 cor-rrr lungs decreased bs at bases abd soft,nt sacral vac placed ext no edema CBC, BMP 11/25/16 07:45 11/24/16 07:45 a/p leukocytosis sacral ulcer - now with vac repeat cbc in am to d/w Dr Redd and Dr Shine call into Dr Diop to discuss
--- NOTE | 2016-11-25 20:17 | PN ---
Progress Note, Physician Chief Complaint: patient examined, with a GOOD appetite and tolerating po no fever, comfortable possible osteomyelitis of the sacral bone considered as diagnosis, wound vac WAS CHANGED yesterday draining serosangvinolent fluid History of Present Illness: 76 yo male admitted for poor oral intake, fever, nausea and vomiting with the intention of placing a PEG tube, since admission the Victoza was stopped and since this may cause nausea we will observe the patient's intake during the following days, he was started on broad spectrum antibiotics for the treatment of his decubitus ulcer with possible osteomyelitis - Current Medication List Current Medications: Active Medications Acetaminophen (Tylenol -) 650 mg PO Q6H PRN PRN Reason: PAIN Amino Acids (Prosource No Carb Liquid Pkt) 30 ml PO BID@0800,1730 [facility] Last Admin: 11/25/16 17:35 Dose: 30 ml Aspirin (Ecotrin -) 81 mg PO DAILY [facility] Last Admin: 11/25/16 09:39 Dose: 81 mg Bupropion HCl (Wellbutrin Xl -) 300 mg PO DAILY [facility] Last Admin: 11/25/16 09:39 Dose: 300 mg Clopidogrel Bisulfate (Plavix -) 75 mg PO DAILY [facility] Last Admin: 11/25/16 09:39 Dose: 75 mg Collagenase (Santyl -) 1 applic TP DAILY [facility] Last Admin: 11/25/16 10:55 Dose: 1 applic Docusate Sodium (Colace -) 300 mg PO HS [facility] Last Admin: 11/24/16 22:02 Dose: 300 mg Gabapentin (Neurontin -) 300 mg PO TID [facility] Last Admin: 11/25/16 14:29 Dose: 300 mg Insulin Aspart (Novolog Vial Sliding Scale -) 1 vial SQ ACHS [facility] PRN Reason: Protocol Last Admin: 11/25/16 17:40 Dose: 4 units Insulin Detemir (Levemir Vial) 12 units SQ HS [facility] Multivitamins/Minerals (Theragran-M) 1 each PO DAILY [facility] Last Admin: 11/25/16 09:39 Dose: 1 each Oxycodone HCl (Roxicodone -) 10 mg PO Q6H PRN PRN Reason: PAIN SCALE 6-10 Zinc Sulfate (Orazinc -) 220 mg PO BID [facility] Last Admin: 11/25/16 09:39 Dose: 220 mg - Objective Vital Signs: Vital Signs Temperature 98.0 F 11/25/16 13:37 Pulse Rate 95 H 11/25/16 13:37 Respiratory Rate 20 11/25/16 13:37 Blood Pressure 106/62 11/25/16 09:11 O2 Sat by Pulse Oximetry (%) 94 L 11/25/16 09:00 Constitutional: Yes: No Distress, Calm Eyes: Yes: Conjunctiva Clear, EOM Intact HENT: Yes: Atraumatic, Normocephalic Neck: Yes: Supple, Trachea Midline Cardiovascular: Yes: Regular Rate and Rhythm, S1, S2 Respiratory: Yes: Regular, CTA Bilaterally Gastrointestinal: Yes: Normal Bowel Sounds, Abdomen, Obese Musculoskeletal: Yes: Joint Stiffness, Other (right hemiplegia) Extremities: No: Calf Tenderness Wound/Incision: Yes: Well Approximated Neurological: Yes: Alert, Oriented Psychiatric: Yes: Alert, Oriented Labs: CBC, BMP 11/25/16 07:45 11/24/16 07:45 INR, PTT INR 1.17 (0.82-1.09) H 11/18/16 11:31 Problem List - Problems (1) Pressure ulcer of sacral region, stage 3 Assessment/Plan: the patient's albumin level improving the patient was admitted for possible PEG tube placement but his appetite is improving nan dthe PEG placement will be on hold wound vac to the sacral area Code(s): L89.153 - PRESSURE ULCER OF SACRAL REGION, STAGE 3 (2) Sepsis Assessment/Plan: WBc continues to increase it is possible that the source of sepsis is the patient's sacral decubitus/ osteomyelitis Code(s): A41.9 - SEPSIS, UNSPECIFIED ORGANISM (3) Cerebrovascular accident (CVA) Assessment/Plan: old on ASA and Plavix, medication restarted since there is no clear indication that he will have the PEG placed right hemiplegia Code(s): I63.9 - CEREBRAL INFARCTION, UNSPECIFIED Qualifiers: CVA mechanism: occlusion Precerebral and cerebral artery: middle cerebral artery, left (4) Diabetes mellitus Assessment/Plan: Lantus and accuchecks with regular insulin coverage Code(s): E11.9 - TYPE 2 DIABETES MELLITUS WITHOUT COMPLICATIONS Qualifiers: Diabetes mellitus type: type 2 Diabetes mellitus complication status: without complication 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
[2016-11-25] MEDS: INSULIN DETEMIR 100 UNITS/ML MDV SQ SCH (21:16)
[2016-11-25] MEDS: DOCUSATE SODIUM 100 MG CAPSULE (FP) PO SCH (21:16)
[2016-11-26] MEDS: GABAPENTIN 300 MG CAPSULE (FP) PO SCH ×3 (05:55→21:54)
[2016-11-26] MEDS: INSULIN SLIDING SCALE (NOVOLOG) 1 VIAL SQ SCH ×4 (06:13→21:55)
[2016-11-26] MEDS ORDERED: INSULIN (NOVOLOG) ASPART 100 UNITS/ML 10ML VIAL ONE (06:22)
[2016-11-26] MEDS: AMINO ACIDS/PROTEIN HYDROLYS 30 ML LIQUID.PKT PO SCH (07:48)
[2016-11-26 08:24] LABS: BASOPHIL 0.9 % (0-2.0); EOSINOPHIL 7.2 % (0-4.5); MCH 25.2 pg (25.7-33.7); MEAN CELL VOLUME 78.7 fl (80-96); MEAN PLT VOLUME 7.5 fl (7.5-11.1); NEUTROPHILS 67.6 % (42.8-82.8); PLATELET COUNT 432 K/MM3 (134-434); RDW 17.7 % (11.9-15.9); WHITE BLOOD COUNT 16.8 K/mm3 (4.0-10.0)
[2016-11-26 08:27] LABS: ALBUMIN 1.9 g/dl (3.4-5.0); ANION GAP 10 (8-16); CALCIUM 8.5 mg/dL (8.5-10.1); CO2 26 mmol/L (21-32); COCKROFT - GAULT 116.54; CREATININE 0.6 mg/dL (0.7-1.3); GLUCOSE,RANDOM 132 mg/dL (74-106); SGOT/AST 12 U/L (15-37); SGPT/ALT 15 U/L (12-78)
[2016-11-26 08:32] LABS: ALK PHOS 61 U/L (45-117); BILIRUBIN,TOTAL 0.3 mg/dL (0.2-1.0); TOT PROT 5.4 g/dl (6.4-8.2)
[2016-11-26] MEDS: CLOPIDOGREL BISULFATE 75 MG TABLET (FP) PO SCH (10:01)
[2016-11-26] MEDS: ZINC SULFATE 220 MG CAPSULE (FP) PO SCH ×2 (10:01→21:54)
[2016-11-26] MEDS: ASPIRIN COATED 81 MG TABLET.EC PO SCH (10:01)
[2016-11-26] MEDS: MULTIVITAMINS THER W-MINERALS COMBO TABLET (FP) PO SCH (10:01)
[2016-11-26] MEDS: COLLAGENASE CLOSTRIDIUM HIST. 30 GRAMS TUBE TP SCH (10:02)
--- NOTE | 2016-11-26 14:08 | PN ---
Physical Exam: SUBJECTIVE: Patient seen and examined by me at bedside. Patient has been afebrile. Offers no complaints and denies fever, chills, nausea, vomiting, diarrhea, shortness of breath, chest pain, palpitation. OBJECTIVE: Vital Signs Period Temp Pulse Resp BP Sys/Olsen Pulse Ox Last 24 Hr 98.3 F-99.8 F 22-104 19-22 103-137/53-75 96 GENERAL: The patient is awake, alert, and fully oriented, in no acute distress. LUNGS: Breath sounds equal, clear to auscultation bilaterally, no wheezes, no crackles, no accessory muscle use. HEART: Regular rate and rhythm, S1, S2 without murmur, rub or gallop. ABDOMEN: Soft, nontender, nondistended, no guarding, no rebound. EXTREMITIES: No peripheral edema Sacral Vac with serosanguinous drainage Laboratory Results - last 24 hr 11/25/16 11/25/16 11/26/16 17:33 21:07 05:29 WBC RBC Hgb Hct MCV MCHC RDW Plt Count MPV Neutrophils % Lymphocytes % Monocytes % Eosinophils % Basophils % Sodium Potassium Chloride Carbon Dioxide Anion Gap BUN Creatinine Creat Clearance w eGFR POC Glucometer 235 251 163 Random Glucose Calcium Total Bilirubin AST ALT Alkaline Phosphatase Total Protein Albumin Prealbumin 11/26/16 11/26/16 11/26/16 05:38 05:38 11:42 WBC 16.8 H RBC 3.46 L Hgb 8.7 L Hct 27.2 L MCV 78.7 L MCHC 32.0 RDW 17.7 H Plt Count 432 MPV 7.5 Neutrophils % 67.6 Lymphocytes % 18.4 Monocytes % 5.9 Eosinophils % 7.2 H Basophils % 0.9 Sodium 141 Potassium 4.5 Chloride 105 Carbon Dioxide 26 Anion Gap 10 BUN 30 H D Creatinine 0.6 L Creat Clearance w eGFR > 60 POC Glucometer 224 Random Glucose 132 H Calcium 8.5 Total Bilirubin 0.3 AST 12 L ALT 15 Alkaline Phosphatase 61 Total Protein 5.4 L Albumin 1.9 L Prealbumin 10.4 L Active Medications Generic Name Dose Route Start Last Admin Trade Name Freq PRN Reason Stop Dose Admin Acetaminophen 650 mg 11/19/16 18:56 Tylenol - PO Q6H PRN PAIN Amino Acids 30 ml 11/20/16 08:00 11/26/16 07:48 Prosource No Carb Liquid Pkt PO 30 ml BID@0800,1730 [facility] Administration Aspirin 81 mg 11/19/16 19:00 11/26/16 10:01 Ecotrin - PO 81 mg DAILY [facility] Administration Bupropion HCl 300 mg 11/19/16 10:00 11/26/16 10:02 Wellbutrin Xl - PO 300 mg DAILY [facility] Administration Clopidogrel Bisulfate 75 mg 11/20/16 10:00 11/26/16 10:01 Plavix - PO 75 mg DAILY [facility] Administration Collagenase 1 applic 11/19/16 19:15 11/26/16 10:02 Santyl - TP 1 applic DAILY [facility] Administration Docusate Sodium 300 mg 11/19/16 22:00 11/25/16 21:16 Colace - PO 300 mg HS [facility] Administration Gabapentin 300 mg 11/19/16 06:00 11/26/16 05:55 Neurontin - PO 300 mg TID [facility] Administration Insulin Aspart 1 vial 11/19/16 16:30 11/26/16 12:08 Novolog Vial Sliding Scale - SQ 4 units ACHS [facility] Administration Protocol Insulin Detemir 12 units 11/25/16 22:00 11/25/16 21:16 Levemir Vial SQ 12 units HS [facility] Administration Multivitamins/Minerals 1 each 11/20/16 10:00 11/26/16 10:01 Theragran-M PO 1 each DAILY [facility] Administration Zinc Sulfate 220 mg 11/19/16 22:00 11/26/16 10:01 Orazinc - PO 220 mg BID [facility] Administration ASSESSMENT/PLAN: Sacral Decubitus Ulcer -Wound vac placed -Chronic osteo. Patient afebrile nontoxic. No need for 6 week course of antibiotics -Continue with Wound Vac Visit type - Emergency Visit Emergency Visit: Yes ED Registration Date: 11/18/16 Care time: The patient presented to the Emergency Department on the above date and was hospitalized for further evaluation of their emergent condition. - New Patient This patient is new to me today: Yes Date on this admission: 11/26/16 - Critical Care Critical Care patient: No
--- NOTE | 2016-11-26 14:20 | PN ---
Progress Note (short form) - Note Progress Note: ID Afebrile VAC dressing for large sacral wound Selected Entries 11/26/16 11/26/16 06:02 14:00 Temperature 99.1 F Pulse Rate 22 L Respiratory 22 Rate Blood Pressure 104/53 Laboratory Tests 11/26/16 05:38 WBC 16.8 H Microbiology 11/18/16 11:31 Urine - Urine Becerra Urine Culture - Final NO GROWTH OBTAINED 11/18/16 11:31 Blood - Peripheral Venous Blood Culture - Final NO GROWTH AFTER 5 DAYS INCUBATION 11/18/16 11:31 Blood - Peripheral Venous Blood Culture - Final NO GROWTH AFTER 5 DAYS INCUBATION Laboratory Tests 11/26/16 05:38 WBC 16.8 H Hgb 8.7 L Hct 27.2 L Plt Count 432 Neutrophils % 67.6 Lymphocytes % 18.4 Monocytes % 5.9 Eosinophils % 7.2 H Basophils % 0.9 Assessment sacral decubitus ulcer VAC Plan Would not commit this patient to 6 weeks of broad spectrum antibiotic for osteo WBC ? chronic not toxic and afebrile Prospects for healing wound not good Tramaine PACHECO Problem List - Problems (1) Pressure ulcer of sacral region, stage 3 Code(s): L89.153 - PRESSURE ULCER OF SACRAL REGION, STAGE 3 (2) Sepsis Code(s): A41.9 - SEPSIS, UNSPECIFIED ORGANISM (3) UTI (urinary tract infection) Code(s): N39.0 - URINARY TRACT INFECTION, SITE NOT SPECIFIED
[2016-11-26] MEDS: DOCUSATE SODIUM 100 MG CAPSULE (FP) PO SCH (21:54)
[2016-11-26] MEDS: INSULIN DETEMIR 100 UNITS/ML MDV SQ SCH (21:55)
[2016-11-27] MEDS: GABAPENTIN 300 MG CAPSULE (FP) PO SCH ×2 (06:44→13:49)
[2016-11-27] MEDS: INSULIN SLIDING SCALE (NOVOLOG) 1 VIAL SQ SCH ×3 (06:45→17:34)
[2016-11-27] MEDS ORDERED: PT OWN MED DRAWER 7, Y5N ONE (10:13)
[2016-11-27] MEDS: ASPIRIN COATED 81 MG TABLET.EC PO SCH (10:18)
[2016-11-27] MEDS: ZINC SULFATE 220 MG CAPSULE (FP) PO SCH (10:18)
[2016-11-27] MEDS: CLOPIDOGREL BISULFATE 75 MG TABLET (FP) PO SCH (10:18)
[2016-11-27] MEDS: AMINO ACIDS/PROTEIN HYDROLYS 30 ML LIQUID.PKT PO SCH ×2 (10:19→17:34)
[2016-11-27] MEDS: MULTIVITAMINS THER W-MINERALS COMBO TABLET (FP) PO SCH (10:19)
[2016-11-27] MEDS: COLLAGENASE CLOSTRIDIUM HIST. 30 GRAMS TUBE TP SCH (10:20)
[2016-11-27] MEDS ORDERED: INSULIN (NOVOLOG) ASPART 100 UNITS/ML 10ML VIAL ONE (11:31)
--- NOTE | 2016-11-27 13:45 | DS ---
Physical Examination Vital Signs: Vital Signs Temperature 98.4 F 11/27/16 10:00 Pulse Rate 95 H 11/27/16 10:00 Respiratory Rate 20 11/27/16 10:00 Blood Pressure 102/60 11/27/16 10:00 O2 Sat by Pulse Oximetry (%) 98 11/27/16 09:00 Constitutional: Yes: No Distress, Calm Eyes: Yes: Conjunctiva Clear, EOM Intact HENT: Yes: Atraumatic, Normocephalic Neck: Yes: Supple, Trachea Midline Cardiovascular: Yes: Regular Rate and Rhythm, S1, S2 Respiratory: Yes: Regular, CTA Bilaterally Gastrointestinal: Yes: Normal Bowel Sounds, Soft, Abdomen, Obese. No: Hepatomegaly, Splenomegaly ...Rectal Exam: Yes: Deferred Breast(s): Yes: WNL Musculoskeletal: Yes: Other (right hemiplegia) Extremities: Yes: Other (right hemiplegia). No: Calf Tenderness Edema: No Peripheral Pulses WNL: Yes Wound/Incision: Yes: Other (sacral wound with wound vac pesent) Psychiatric: Yes: Alert, Oriented Labs: CBC, BMP 11/26/16 05:38 11/26/16 05:38 Discharge Summary Reason For Visit: NAUSEA,VOMITTING,UTI,SEPSIS Current Active Problems Cystitis (Acute) Hematuria (Acute) Pressure ulcer of sacral region, stage 3 (Acute) Sepsis (Acute) UTI (urinary tract infection) (Acute) Hospital Course: 76 yo male admitted for poor oral intake associated with vomiting. The patient has a pressure ulcer of the sacral area which was debrided surgically and for which he was on iv antibiotics during this admission. His medications were adjusted since the patient had persistently low blood pressure and nausea after receiving Victoza. Currently he receives only Levemir for diabetes and various supplements. His appetite improved significantly. His pain is controlled only with Tylenol. Despite persisting elevated WBC decision was made not to continue IV antibiotics since the wound is healing and there is no fever. It is possible that the elevated WBC is stress leukocytosis due to presence of the wound vac. Condition: Stable - Instructions Diet, Activity, Other Instructions: continue with wound vac 100 mmHG intermittent-CHANGE M-W- follow wound care clinic Referrals: Zachery Redd MD [Staff Physician] - Tyson Shine MD [Staff Physician] - Sofiya Diop MD [Primary Care Provider] - Disposition: HOME - Home Medications Comprehensive Discharge Medication List: Ambulatory Orders Amino Acids/Protein Hydrolys [Prosource No Carb Liquid Pkt] 30 ml PO BID@0800, 1730 30 Days 10/05/16 Aspirin [ASA -] 81 mg PO DAILY #30 tab.chew 10/05/16 Colchicine 0.6 mg PO DAILY #30 capsule 10/05/16 Gabapentin [Neurontin -] 300 mg PO Q8H #90 capsule 10/05/16 Aspirin [ASA -] 81 mg PO DAILY #90 tab.chew 10/31/16 Atorvastatin Ca [Lipitor] 20 mg PO HS #90 tablet 10/31/16 Bupropion HCl [Bupropion HCl Sr] 300 mg PO DAILY #90 tablet.er 10/31/16 Clopidogrel Bisulfate [Plavix -] 75 mg PO DAILY #90 tablet 10/31/16 Collagenase Clostridium Hist. [Santyl -] 1 applic TP DAILY #0 tube 10/31/16 Folic Acid - 1 mg PO DAILY #90 tablet 10/31/16 Insulin Detemir [Levemir Flextouch] 8 unit SQ HS #1 insuln.pen 10/31/16 Iron Polysaccharide Complex [Ferrex 150] 150 mg PO DAILY #90 capsule 10/31/16 Multivitamins [Multivit ([facility] Formulary)] 1 tab PO DAILY #90 tab 10/31/16 Sennosides [Senna -] 2 tab PO HS #120 tablet 10/31/16 Thiamine HCl [Vitamin B1 -] 100 mg PO DAILY #90 10/31/16 Acetaminophen [Tylenol .Regular Strength -] 650 mg PO Q6H PRN #120 tablet Amino Acids/Protein Hydrolys [Prosource No Carb Liquid Pkt] 30 ml PO BID@0800, 1730 #60 packet 11/27/16 Clopidogrel Bisulfate [Plavix -] 75 mg PO DAILY tablet 11/27/16 Collagenase Clostridium Hist. [Santyl -] 1 applic TP DAILY tube 11/27/16 Insulin (Levemir) [Levemir Vial] 12 units SQ HS ml 11/27/16
[2016-11-27 17:58] VITALS: BP 118/77; PULSE 93; TEMP 98.4
== END 2016-11-27 20:20 | disposition home or self-care (01) | DRG 871 ==
LOC: JER 10:37 → JERBED 13:21 → J6S 11-19 16:01
PROVIDERS: ADMIT Internal Medicine; ATTEND Internal Medicine
DX: A41.9 Sepsis, unspecified organism (principal); L89.153 Pressure ulcer of sacral region, stage 3; I69.351 Hemiplegia and hemiparesis following cerebral infarction affecting right dominant side; N39.0 Urinary tract infection, site not specified; R11.2 Nausea with vomiting, unspecified; E11.9 Type 2 diabetes mellitus without complications; L89.512 Pressure ulcer of right ankle, stage 2; D72.829 Elevated white blood cell count, unspecified
CPT/HCPCS: 36415; 71010-TC; 74000-TC; 76775-TC; 80053; 81003; 81015; 82550; 83036; 83605; 83690; 84134; 84153; 84484; 85025; 85610; 85651; 85730; 86140; 86682; 86850; 86900; 86901; 87040; 87086; 93005; 93010; 99285-25; G0463-25; J0878

== ENCOUNTER 2017-03-11 10:24 | Inpatient (IN) | payer OTHER, MEDICARE ==
[2017-03-11 11:38] LABS: INR 1.08 (0.82-1.09); PROTHROMBIN TIME (PATIENT) 11.9 SEC (9.98-11.88)
[2017-03-11 11:41] LABS: ACTIVATED PTT 31.7 SECONDS (26.9-34.4)
[2017-03-11] MEDS ORDERED: BUPIVACAINE HCL/PF 0.5% (5MG/ML) 10 ML VIAL ONE (12:16)
--- NOTE | 2017-03-11 12:22 | HP ---
History & Physical Update - History History: No Change - Physical Physical: No Change - Plan Plan: No Change (76 year male with grade IV sacral decubtitus, treated at [facility]. Patient for definite closure with Fascio-cutaneous flap, patient will require speciality bed patient also needs more nutritional support. He is more awake and energetic. Will need to admit Dr Javid Greer)
[2017-03-11] MEDS ORDERED: MIDAZOLAM HCL 2 MG/2 ML SINGLE DOSE VIAL ONE ×2 (12:59)
[2017-03-11] MEDS ORDERED: PROPOFOL 20 ML ONE ×2 (12:59)
[2017-03-11] MEDS ORDERED: ROCURONIUM BROMIDE 50 MG/5 ML VIAL ONE (13:09)
[2017-03-11] MEDS ORDERED: ceFAZolin SODIUM 1 GM VIAL IVPB ONE (13:44)
[2017-03-11] MEDS ORDERED: BUPIVACAINE HCL/PF 0.5% (5MG/ML) 10 ML VIAL IJ ONE (13:45)
[2017-03-11] MEDS ORDERED: PHENYLEPHRINE HCL 10 MG/1 ML SINGLE DOSE VIAL ONE (15:00)
[2017-03-11] MEDS ORDERED: NEOSTIGMINE METHYLSULFATE 0.5 MG/ML - 10 ML MDV ONE (15:37)
[2017-03-11] MEDS ORDERED: GLYCOPYRROLATE 0.2 MG/1 ML VIAL ONE ×2 (15:37→15:38)
[2017-03-11] MEDS ORDERED: ceFAZolin SODIUM 1 GM VIAL ONE (15:38)
[2017-03-11] MEDS ORDERED: KETOROLAC TROMETHAMINE 30 MG/1 ML VIAL ONE (15:38)
[2017-03-11] MEDS ORDERED: DEXAMETHASONE SOD PHOSPHATE 4 MG/1 ML VIAL ONE (15:38)
[2017-03-11] MEDS ORDERED: ONDANSETRON 4 MG/2 ML VIAL IVPUSH PRN (16:08)
[2017-03-11] MEDS ORDERED: PROMETHAZINE HCL 25 MG/1 ML VIAL IVPUSH PRN (16:08)
[2017-03-11] MEDS ORDERED: oxyCODONE HCL 5 MG TABLET PO PRN (16:08)
[2017-03-11] MEDS ORDERED: PROMETHAZINE HCL 25 MG/1 ML VIAL ONE (16:58)
--- NOTE | 2017-03-11 19:26 | HP ---
Admitting History and Physical - Primary Care Physician PCP: Maria Victoria Greer - Admission History of Present Illness: 76 yo male with stage 4 decub ulcer s/p debridement by dr menon - Past Medical History INTRANET SUPPORT: Yes: CVA, Peripheral Neuropathy Cardiovascular: Yes: CAD, CHF, Other Hepatobiliary: Yes: Cholelithiasis Renal/: Yes: BPH Musculoskeletal: Yes: Hemiplegia Endocrine: Yes: Diabetes Mellitus Dermatology: Yes: Other (right heel ulcer and right external malleola ulcer, pre sacral pressure ulcer unstageable) - Past Surgical History Past Surgical History: Yes: Cholecystectomy, Hernia Repair - Advance Directives Advance Directives: Yes: Health Care Proxy, DNR - Smoking History Smoking history: Never smoked Have you smoked in the past 12 months: No - Alcohol/Substance Use Hx Alcohol Use: No - Social History History of Recent Travel: No Home Medications - Allergies Allergies/Adverse Reactions: Allergies Allergy/AdvReac Type Severity Reaction Status Date / Time No Known Allergies Allergy Verified 03/11/17 11:42 - Home Medications Home Medications: Ambulatory Orders Aspirin [ASA -] 81 mg PO DAILY #30 tab.chew 10/05/16 Colchicine 0.6 mg PO DAILY #30 capsule 10/05/16 Gabapentin [Neurontin -] 300 mg PO Q8H #90 capsule 10/05/16 Atorvastatin Ca [Lipitor] 20 mg PO HS #90 tablet 10/31/16 Bupropion HCl [Bupropion HCl Sr] 300 mg PO DAILY #90 tablet.er 10/31/16 Folic Acid - 1 mg PO DAILY #90 tablet 10/31/16 Iron Polysaccharide Complex [Ferrex 150] 150 mg PO DAILY #90 capsule 10/31/16 Multivitamins [Multivit ([facility] Formulary)] 1 tab PO DAILY #90 tab 10/31/16 Sennosides [Senna -] 2 tab PO HS #120 tablet 10/31/16 Thiamine HCl [Vitamin B1 -] 100 mg PO DAILY #90 10/31/16 Clopidogrel Bisulfate [Plavix -] 75 mg PO DAILY 03/03/17 Insulin (Levemir) [Levemir Vial] 8 units SQ HS 03/03/17 Piperacillin/Tazob 4.5 gm [Zosyn -] 4.5 gm IVPB Q8H-IV #60 vial 03/18/17 Physical Examination Vital Signs: Vital Signs Temperature 97.0 F L 03/11/17 18:44 Pulse Rate 80 03/11/17 18:44 Respiratory Rate 16 03/11/17 18:44 Blood Pressure 120/70 03/11/17 18:44 O2 Sat by Pulse Oximetry (%) 100 03/11/17 18:44 HENT: Yes: Atraumatic Neck: Yes: Supple Cardiovascular: Yes: Regular Rate and Rhythm Respiratory: Yes: CTA Bilaterally, Rhonchi Gastrointestinal: Yes: Normal Bowel Sounds Extremities: Yes: WNL Neurological: Yes: Other (drowsy but arousable) Labs: CBC, BMP 03/11/17 10:46 Problem List - Problems (1) Diabetes mellitus Assessment/Plan: bgms on insulin Code(s): E11.9 - TYPE 2 DIABETES MELLITUS WITHOUT COMPLICATIONS Qualifiers: (2) HTN (hypertension) Assessment/Plan: on meds stable Code(s): I10 - ESSENTIAL (PRIMARY) HYPERTENSION Qualifiers: (3) Hypercholesterolemia Assessment/Plan: on meds stable Code(s): E78.0 - PURE HYPERCHOLESTEROLEMIA * DO NOT USE * (4) Pressure ulcer, stage IV Assessment/Plan: S/P FLAP CLOSURE SURGERY on iv bax wound care dcplanning picc line placement need id to let us know how many days of abx Code(s): L89.94 - PRESSURE ULCER OF UNSPECIFIED SITE, STAGE 4 Assessment/Plan Laboratory Tests 03/11/17 03/11/17 03/11/17 10:46 10:46 11:45 INR 1.08 PTT (Actin FS) 31.7 POC Glucometer 201 Random Glucose 194 H Active Medications Generic Name Dose Route Start Last Admin Trade Name Freq PRN Reason Stop Dose Admin Heparin Sodium (Porcine) 5,000 unit 03/12/17 10:00 Heparin - SQ BID ZARI Cefazolin Sodium 50 mls @ 100 mls/hr 03/12/17 02:00 Ancef 1gm Ivpb (Pre-Docked) IVPB Q8H-IV ZARI Ondansetron HCl 4 mg 03/11/17 16:08 03/11/17 16:15 Zofran Injection IVPUSH 03/11/17 22:09 4 mg Q6H PRN Administration NAUSEA AND/OR VOMITING Oxycodone HCl 5 mg 03/11/17 16:08 Roxicodone - PO 03/12/17 16:07 Q4H PRN MILD PAIN Promethazine HCl 12.5 mg 03/11/17 16:08 03/11/17 17:00 Phenergan Injection - IVPUSH 03/11/17 22:09 6.25 mg Q6H PRN Administration NAUSEA
[2017-03-11] MEDS: INSULIN SLIDING SCALE (NOVOLOG) 1 VIAL SQ SCH (22:39)
[2017-03-11] MEDS: GABAPENTIN 300 MG CAPSULE (FP) PO SCH (22:41)
[2017-03-11] MEDS: ATORVASTATIN CA 20 MG TABLET (FP) PO SCH (22:41)
[2017-03-12] MEDS ORDERED: ceFAZolin SODIUM 1 GM VIAL ONE ×3 (01:30→16:10)
[2017-03-12] MEDS ORDERED: DEXTROSE 5%-WATER - 50 ML IVPB ONE ×3 (01:30→16:10)
[2017-03-12] MEDS: CEFAZOLIN 1 GM in DEXTROSE 5%-WATER - 50 ML IVPB SCH ×3 (01:32→17:23)
[2017-03-12] MEDS ORDERED: CEFAZOLIN (PRE-DOCKED) 50 ML IVPB SCH (02:00)
[2017-03-12] MEDS: GABAPENTIN 300 MG CAPSULE (FP) PO SCH ×3 (06:07→21:07)
[2017-03-12] MEDS: INSULIN SLIDING SCALE (NOVOLOG) 1 VIAL SQ SCH ×4 (06:10→21:07)
[2017-03-12 08:02] LABS: BASOPHIL 1.1 % (0-2.0); EOSINOPHIL 2.1 % (0-4.5); MCH 25.5 pg (25.7-33.7); MCHC 31.8 g/dl (32.0-35.9); MEAN PLT VOLUME 8.5 fl (7.5-11.1); NEUTROPHILS 70.2 % (42.8-82.8); PLATELET COUNT 235 K/MM3 (134-434); RDW 17.5 % (11.9-15.9); WHITE BLOOD COUNT 12.1 K/mm3 (4.0-10.0)
--- NOTE | 2017-03-12 08:34 | OP ---
DATE OF OPERATION: PREOPERATIVE DIAGNOSIS: Grade 4 sacral decubitus. POSTOPERATIVE DIAGNOSIS: Grade 4 sacral decubitus. PROCEDURE: 1. Excisional debridement of a large sacral decubitus measuring 9 cm x 6 cm x 2.5 cm, excisional debridement skin, subcutaneous tissue, fascia. 2. Bone biopsy. 3. Bone culture. SURGEON: Tyson Shine MD ANESTHESIA: General. HISTORY: The patient is a 76-year-old diabetic male with diabetic nephropathy with sacral grade 4 decubitus. The patient has been treated in the wound clinic for several weeks undergoing debridements including VAC , his wound is now well prepared for flap reconstruction. DESCRIPTION OF PROCEDURE: The patient was brought to the operating room. Informed consent had been taken as well as the risk had been explained to the patient all questions answered . patient was intubated prior to transferred onto Asad frame in a prone position. Preparation : Preparation of the skin surrounding both buttocks, lower back was done with Betadine soap and solution and then draped in a standard aseptic manner. Markings were carried out, followed by local anesthetic of 1% lidocaine with epinephrine with Marcaine. A total of 37 mL was injected in S/C tissue sacral area. First part of the procedure was excisional debridement extending down to the level of the coccyx bone. The entire ulcer was removed using # 10 scalpel blade as well as cutting current electrocautery.. Hemostasis was secured with electrocautery. Large surgical defect wound was thoroughly irrigated with normal saline solution. Flap : A flap was then designed on his left buttock. A fasciocutaneous flap propeller type on a haul cane brakeman vessel was incised in a V-shaped manner. Dissection was carried down to the level of the fascia covering the gluteus juli muscle. It was then rotated in a propeller fashion into the defect where a multilayer closure was done with 2-0 Vicryl. J-P drain was placed in the depth of the wound base close to sacral bone. Part of the flap was de-epithelialized buried ,sutured .This portion of flap is being used for padding purposes over the sacral bone. Drain : J-P was brought through a separate stab incision. Reconstruction of the flap : Multilayered closure with 2-0 Vicryl was carried out once the cavity was well filled, suture lines were repaired meticulously. Skin Approximation : Final closure /approximation of Epidermal skin edges performed and stabilized using dermabond over the V- part of the flap , while the Vertical portion was approximated using sutures. At the end of the procedure, circulation to the flap was satisfactory. Extended Length of stay : Patient will be hospitalized so as to be on a low- pressure mattress to avoid pressure injury to the flap edges. Estimated blood loss was 50cc. At the end of the procedure, suture, instrument count was correct. Diane [id number] MTDD
--- NOTE | 2017-03-12 08:47 | PN ---
Progress Note (short form) - Note Progress Note: Anesthesia Post Op Pt seen and examined S;Awake O: Vital Signs Temperature 98.0 F 03/12/17 07:54 Pulse Rate 84 03/12/17 07:54 Respiratory Rate 18 03/12/17 07:54 Blood Pressure 102/63 03/12/17 07:54 O2 Sat by Pulse Oximetry (%) 100 03/12/17 08:01 CBC, BMP 03/12/17 05:35 A/P:Current Active Problems Cystitis (Acute) Hematuria (Acute) Pressure ulcer, stage IV (Acute) s/p debridement skin graft Doing well post op Continue current care Ton Walter MD
[2017-03-12 08:54] LABS: ALBUMIN 2.6 g/dl (3.4-5.0); ALK PHOS 130 U/L (45-117); ANION GAP 9 (8-16); BILIRUBIN,TOTAL 0.4 mg/dL (0.2-1.0); CALCIUM 8.7 mg/dL (8.5-10.1); CO2 24 mmol/L (21-32); CREATININE 0.8 mg/dL (0.7-1.3); GLUCOSE,RANDOM 144 mg/dL (74-106); SGOT/AST 51 U/L (15-37); SGPT/ALT 59 U/L (12-78); TOT PROT 5.7 g/dl (6.4-8.2)
[2017-03-12] MEDS: ASPIRIN 81 MG CHEWABLE TABLETS PO SCH (09:33)
[2017-03-12] MEDS: HEPARIN NA (PORCINE) 5,000 UNITS/ML 1ML VIAL SQ SCH ×2 (09:33→21:07)
[2017-03-12] MEDS: MULTIVITAMINS (DAILY MVI) TABLET (FP) PO SCH (09:34)
[2017-03-12] MEDS: COLCHICINE 0.6 MG TABLET (FP) PO SCH (09:34)
[2017-03-12] MEDS: THIAMINE HCL 100 MG TABLET (FP) PO SCH (09:34)
[2017-03-12] MEDS: CLOPIDOGREL BISULFATE 75 MG TABLET (FP) PO SCH (09:34)
[2017-03-12] MEDS: FOLIC ACID 1 MG TABLET (FP) PO SCH (09:35)
--- NOTE | 2017-03-12 14:16 | PN ---
Progress Note (short form) - Note Progress Note: FU Post flap closure Grade IV sacral decubitus ulcer Patient drowsy, as per patient he was awake alert and fed himself well Flap evaluated, color good, no erythema, no induration On lower pressure mattress and turning side to side Plan continue Pressure relief Continue Oral intake high protein Continue DARYA drainage monitoring Selected Entries 11/20/16 03/12/17 14:47 07:54 Temperature 98.0 F 98.0 F Pulse Rate 92 H 84 Blood Pressure 115/66 102/63
--- NOTE | 2017-03-12 14:18 | CONSULT ---
Consult Consult Specialty:: infectious diseases Reason for Consultation:: r/o wound infection post graft - History of Present Illness History of Present Illness: 76-year-old man, t past medical history of anemia, hypertension, hypecholesterolemia, congestive heart failure(March 2016; right sided residual weakness), cerebrovascular accident, diabetes mellitus admitted to the hospital for closure and flap of stage 4 sacral decubitus ulcer patient underwent the surgical procedure and now is post op from the flap closure patient has a known history of chronic sacral osteo currently patinet does not ahve any complaints 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 - History Source History Provided By: Patient, Caregiver Limitations to Obtaining History: No Limitations - Past Medical History 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 HAND: Yes: CVA, Peripheral Neuropathy Cardio/Vascular: Yes: CAD, CHF, Other Hepatobiliary: Yes: Cholelithiasis Renal/: Yes: BPH Musculoskeletal: Yes: Hemiplegia Endocrine: Yes: Diabetes Mellitus Dermatology: Yes: Other (right heel ulcer and right external malleola ulcer, pre sacral pressure ulcer unstageable) - Past Surgical History Past Surgical History: Yes: Cholecystectomy, Hernia Repair - Alcohol/Substance Use Hx Alcohol Use: No - Smoking History Smoking history: Never smoked Have you smoked in the past 12 months: No - Social History Usual Living Arrangement: With Significant Other History of Recent Travel: No Home Medications - Allergies Allergies/Adverse Reactions: Allergies Allergy/AdvReac Type Severity Reaction Status Date / Time No Known Allergies Allergy Verified 03/11/17 11:42 - Home Medications Home Medications: Ambulatory Orders Aspirin [ASA -] 81 mg PO DAILY #30 tab.chew 10/05/16 Colchicine 0.6 mg PO DAILY #30 capsule 10/05/16 Gabapentin [Neurontin -] 300 mg PO Q8H #90 capsule 10/05/16 Atorvastatin Ca [Lipitor] 20 mg PO HS #90 tablet 10/31/16 Bupropion HCl [Bupropion HCl Sr] 300 mg PO DAILY #90 tablet.er 10/31/16 Folic Acid - 1 mg PO DAILY #90 tablet 10/31/16 Iron Polysaccharide Complex [Ferrex 150] 150 mg PO DAILY #90 capsule 10/31/16 Multivitamins [Multivit ([facility] Formulary)] 1 tab PO DAILY #90 tab 10/31/16 Sennosides [Senna -] 2 tab PO HS #120 tablet 10/31/16 Thiamine HCl [Vitamin B1 -] 100 mg PO DAILY #90 10/31/16 Clopidogrel Bisulfate [Plavix -] 75 mg PO DAILY 03/03/17 Insulin (Levemir) [Levemir Vial] 8 units SQ HS 03/03/17 Review of Systems - Review of Systems Constitutional: reports: No Symptoms Eyes: reports: No Symptoms HENT: reports: No Symptoms Neck: reports: No Symptoms Cardiovascular: reports: No Symptoms Respiratory: reports: No Symptoms Gastrointestinal: reports: No Symptoms Genitourinary: reports: No Symptoms Musculoskeletal: reports: No Symptoms Integumentary: reports: No Symptoms Neurological: reports: No Symptoms Endocrine: reports: No Symptoms Hematology/Lymphatic: reports: No Symptoms Psychiatric: reports: No Symptoms Physical Exam Vital Signs: Vital Signs Temperature 98.0 F 03/12/17 07:54 Pulse Rate 84 03/12/17 07:54 Respiratory Rate 18 03/12/17 07:54 Blood Pressure 102/63 03/12/17 07:54 O2 Sat by Pulse Oximetry (%) 100 03/12/17 08:01 Constitutional: Yes: No Distress, Calm, Other (bedbound) Eyes: Yes: Conjunctiva Clear HENT: Yes: Atraumatic Neck: Yes: Supple, Trachea Midline Cardiovascular: Yes: Regular Rate and Rhythm Respiratory: Yes: Regular, CTA Bilaterally Gastrointestinal: Yes: Normal Bowel Sounds, Soft Musculoskeletal: Yes: Other Extremities: Yes: WNL Wound/Incision: Yes: Other (flap closure with draiange in place) Neurological: Yes: Alert, Oriented Psychiatric: Yes: Alert, Oriented Labs: CBC, BMP 03/12/17 05:35 03/12/17 05:35 Assessment/Plan Problem List (1) Pressure ulcer of sacral region, stage 4 Code(s): L89.153 - PRESSURE ULCER OF SACRAL REGION, STAGE 3 (2) Cerebrovascular accident (CVA) Code(s): I63.9 - CEREBRAL INFARCTION, UNSPECIFIED Qualifiers: CVA mechanism: occlusion Precerebral and cerebral artery: middle cerebral artery, left (3) Diabetes mellitus Code(s): E11.9 - TYPE 2 DIABETES MELLITUS WITHOUT COMPLICATIONS Qualifiers: Diabetes mellitus type: type 2 Diabetes mellitus complication status: without complication Diabetes mellitus fpc insulin use: without fpc use Qualified Code(s): E11.9 - Type 2 diabetes mellitus without complications i have seen all his infection history and also the organism he grew.decision was taken not to treat his chronic osteo before currently patient is post vac and with a fresh graft cx have been send from the wound plan at the moment will not start him on any abx if the wound shows infection then we have no choice but to start treatment or the graft will fail will await for cx to come back then we will make the final decision
--- NOTE | 2017-03-12 19:59 | PN ---
Progress Note, Physician History of Present Illness: doing well - Current Medication List Current Medications: Active Medications Aspirin (Asa -) 81 mg PO DAILY [facility] Last Admin: 03/12/17 09:33 Dose: 81 mg Atorvastatin Calcium (Lipitor -) 20 mg PO HS [facility] Last Admin: 03/11/17 22:41 Dose: 20 mg Bupropion HCl (Wellbutrin Xl -) 300 mg PO DAILY [facility] Last Admin: 03/12/17 09:34 Dose: 300 mg Clopidogrel Bisulfate (Plavix -) 75 mg PO DAILY [facility] Last Admin: 03/12/17 09:34 Dose: 75 mg Colchicine (Colcrys -) 0.6 mg PO DAILY [facility] Last Admin: 03/12/17 09:34 Dose: 0.6 mg Folic Acid (Folic Acid -) 1 mg PO DAILY [facility] Last Admin: 03/12/17 09:35 Dose: 1 mg Gabapentin (Neurontin -) 300 mg PO TID [facility] Last Admin: 03/12/17 13:07 Dose: 300 mg Heparin Sodium (Porcine) (Heparin -) 5,000 unit SQ BID [facility] Last Admin: 03/12/17 09:33 Dose: 5,000 unit Cefazolin Sodium 1 gm/ (Dextrose) 50 mls @ 100 mls/hr IVPB Q8H-IV [facility] Last Admin: 03/12/17 17:23 Dose: 100 mls/hr Insulin Aspart (Novolog Vial Sliding Scale -) 1 vial SQ ACHS [facility] PRN Reason: Protocol Last Admin: 03/12/17 17:22 Dose: 6 units Multivitamins/Minerals/Vitamin C (Tab-A-Vit -) 1 tab PO DAILY [facility] Last Admin: 03/12/17 09:34 Dose: 1 tab Thiamine HCl (Vitamin B1 -) 100 mg PO DAILY [facility] Last Admin: 03/12/17 09:34 Dose: 100 mg - Objective Vital Signs: Vital Signs Temperature 98.0 F 03/12/17 19:16 Pulse Rate 82 03/12/17 19:16 Respiratory Rate 18 03/12/17 19:16 Blood Pressure 110/68 03/12/17 19:16 O2 Sat by Pulse Oximetry (%) 100 03/12/17 08:01 Constitutional: Yes: No Distress HENT: Yes: Atraumatic Neck: Yes: Supple Cardiovascular: Yes: Regular Rate and Rhythm Respiratory: Yes: CTA Bilaterally Gastrointestinal: Yes: Normal Bowel Sounds Extremities: Yes: WNL Neurological: Yes: Alert Labs: CBC, BMP 03/12/17 05:35 03/12/17 05:35 INR, PTT INR 1.08 (0.82-1.09) 03/11/17 10:46 Problem List - Problems (1) Diabetes mellitus Assessment/Plan: bgms on insulin Code(s): E11.9 - TYPE 2 DIABETES MELLITUS WITHOUT COMPLICATIONS Qualifiers: (2) HTN (hypertension) Assessment/Plan: on meds stable Code(s): I10 - ESSENTIAL (PRIMARY) HYPERTENSION Qualifiers: (3) Hypercholesterolemia Assessment/Plan: on meds stable Code(s): E78.0 - PURE HYPERCHOLESTEROLEMIA * DO NOT USE * (4) Pressure ulcer, stage IV Assessment/Plan: S/PFLAP SURGERY Code(s): L89.94 - PRESSURE ULCER OF UNSPECIFIED SITE, STAGE 4 Assessment/Plan
[2017-03-12] MEDS ORDERED: INSULIN (NOVOLOG) ASPART 100 UNITS/ML 10ML VIAL ONE (21:03)
[2017-03-12] MEDS: ATORVASTATIN CA 20 MG TABLET (FP) PO SCH (21:07)
[2017-03-13] MEDS ORDERED: DEXTROSE 5%-WATER - 50 ML IVPB ONE ×4 (01:15→16:52)
[2017-03-13] MEDS ORDERED: ceFAZolin SODIUM 1 GM VIAL ONE ×4 (01:15→16:51)
[2017-03-13] MEDS: CEFAZOLIN 1 GM in DEXTROSE 5%-WATER - 50 ML IVPB SCH ×3 (01:17→17:00)
[2017-03-13] MEDS: INSULIN SLIDING SCALE (NOVOLOG) 1 VIAL SQ SCH ×4 (06:31→21:57)
[2017-03-13] MEDS: GABAPENTIN 300 MG CAPSULE (FP) PO SCH ×3 (06:32→21:58)
[2017-03-13] MEDS ORDERED: PT OWN MED DRAWER 7, Y5N ONE (10:29)
[2017-03-13] MEDS: COLCHICINE 0.6 MG TABLET (FP) PO SCH (10:34)
[2017-03-13] MEDS: THIAMINE HCL 100 MG TABLET (FP) PO SCH (10:34)
[2017-03-13] MEDS: ASPIRIN 81 MG CHEWABLE TABLETS PO SCH (10:34)
[2017-03-13] MEDS: MULTIVITAMINS (DAILY MVI) TABLET (FP) PO SCH (10:34)
[2017-03-13] MEDS: CLOPIDOGREL BISULFATE 75 MG TABLET (FP) PO SCH (10:34)
[2017-03-13] MEDS: FOLIC ACID 1 MG TABLET (FP) PO SCH (10:34)
[2017-03-13] MEDS: HEPARIN NA (PORCINE) 5,000 UNITS/ML 1ML VIAL SQ SCH ×2 (10:35→21:58)
[2017-03-13] MEDS ORDERED: INSULIN (NOVOLOG) ASPART 100 UNITS/ML 10ML VIAL ONE (11:01)
--- NOTE | 2017-03-13 13:07 | PN ---
Progress Note, Physician Chief Complaint: Infectious Disease History of Present Illness: Pt s/p Sacral DU Flap closure He is alert, denies having any specific complaints - Current Medication List Current Medications: Active Medications Aspirin (Asa -) 81 mg PO DAILY [facility] Last Admin: 03/13/17 10:34 Dose: 81 mg Atorvastatin Calcium (Lipitor -) 20 mg PO HS [facility] Last Admin: 03/12/17 21:07 Dose: 20 mg Bupropion HCl (Wellbutrin Xl -) 300 mg PO DAILY [facility] Last Admin: 03/13/17 10:35 Dose: 300 mg Clopidogrel Bisulfate (Plavix -) 75 mg PO DAILY [facility] Last Admin: 03/13/17 10:34 Dose: 75 mg Colchicine (Colcrys -) 0.6 mg PO DAILY [facility] Last Admin: 03/13/17 10:34 Dose: 0.6 mg Folic Acid (Folic Acid -) 1 mg PO DAILY [facility] Last Admin: 03/13/17 10:34 Dose: 1 mg Gabapentin (Neurontin -) 300 mg PO TID [facility] Last Admin: 03/13/17 06:32 Dose: 300 mg Heparin Sodium (Porcine) (Heparin -) 5,000 unit SQ BID [facility] Last Admin: 03/13/17 10:35 Dose: 5,000 unit Cefazolin Sodium 1 gm/ (Dextrose) 50 mls @ 100 mls/hr IVPB Q8H-IV [facility] Last Admin: 03/13/17 10:34 Dose: 100 mls/hr Insulin Aspart (Novolog Vial Sliding Scale -) 1 vial SQ ACHS [facility] PRN Reason: Protocol Last Admin: 03/13/17 11:17 Dose: 4 units Multivitamins/Minerals/Vitamin C (Tab-A-Vit -) 1 tab PO DAILY [facility] Last Admin: 03/13/17 10:34 Dose: 1 tab Thiamine HCl (Vitamin B1 -) 100 mg PO DAILY [facility] Last Admin: 03/13/17 10:34 Dose: 100 mg - Objective Vital Signs: Vital Signs Temperature 98.1 F 03/13/17 08:00 Pulse Rate 87 03/13/17 08:00 Respiratory Rate 18 03/13/17 08:00 Blood Pressure 94/50 03/13/17 08:00 O2 Sat by Pulse Oximetry (%) 98 03/13/17 09:00 Constitutional: Yes: No Distress Cardiovascular: Yes: Regular Rate and Rhythm Respiratory: Yes: Regular Gastrointestinal: Yes: Normal Bowel Sounds, Soft Extremities: Yes: Other (Rt heel/malleolar ulcer) Integumentary: Yes: Pressure Ulcer (Sacral Ulcer St IV with dressing intact, DARYA drain with serosanguinous fluid) Wound/Incision: Yes: Draining (DARYA drain) Labs: CBC, BMP 03/12/17 05:35 03/12/17 05:35 INR, PTT INR 1.08 (0.82-1.09) 03/11/17 10:46 Microbiology 03/12/17 08:00 Bone Gram Stain - Final 03/12/17 08:00 Bone Tissue Culture - Preliminary Pending Organism Pending Organism#2 Assessment/Plan Sacral St IV DU s/p flap/graft - continue monitor closely for now, on Ancef - follow up culture results pending
--- NOTE | 2017-03-13 16:04 | PN ---
Progress Note, Physician History of Present Illness: doing well - Current Medication List Current Medications: Active Medications Aspirin (Asa -) 81 mg PO DAILY [facility] Last Admin: 03/13/17 10:34 Dose: 81 mg Atorvastatin Calcium (Lipitor -) 20 mg PO HS [facility] Last Admin: 03/12/17 21:07 Dose: 20 mg Bupropion HCl (Wellbutrin Xl -) 300 mg PO DAILY [facility] Last Admin: 03/13/17 10:35 Dose: 300 mg Clopidogrel Bisulfate (Plavix -) 75 mg PO DAILY [facility] Last Admin: 03/13/17 10:34 Dose: 75 mg Colchicine (Colcrys -) 0.6 mg PO DAILY [facility] Last Admin: 03/13/17 10:34 Dose: 0.6 mg Folic Acid (Folic Acid -) 1 mg PO DAILY [facility] Last Admin: 03/13/17 10:34 Dose: 1 mg Gabapentin (Neurontin -) 300 mg PO TID [facility] Last Admin: 03/13/17 13:57 Dose: 300 mg Heparin Sodium (Porcine) (Heparin -) 5,000 unit SQ BID [facility] Last Admin: 03/13/17 10:35 Dose: 5,000 unit Cefazolin Sodium 1 gm/ (Dextrose) 50 mls @ 100 mls/hr IVPB Q8H-IV [facility] Last Admin: 03/13/17 10:34 Dose: 100 mls/hr Insulin Aspart (Novolog Vial Sliding Scale -) 1 vial SQ ACHS [facility] PRN Reason: Protocol Last Admin: 03/13/17 11:17 Dose: 4 units Multivitamins/Minerals/Vitamin C (Tab-A-Vit -) 1 tab PO DAILY [facility] Last Admin: 03/13/17 10:34 Dose: 1 tab Thiamine HCl (Vitamin B1 -) 100 mg PO DAILY [facility] Last Admin: 03/13/17 10:34 Dose: 100 mg - Objective Vital Signs: Vital Signs Temperature 98.7 F 03/13/17 14:19 Pulse Rate 91 H 03/13/17 14:19 Respiratory Rate 18 03/13/17 08:00 Blood Pressure 101/44 03/13/17 14:19 O2 Sat by Pulse Oximetry (%) 98 03/13/17 09:00 Constitutional: Yes: No Distress HENT: Yes: Atraumatic Neck: Yes: Supple Cardiovascular: Yes: Regular Rate and Rhythm Respiratory: Yes: Rhonchi Gastrointestinal: Yes: Normal Bowel Sounds Extremities: Yes: WNL Neurological: Yes: Alert, Oriented Labs: CBC, BMP 03/12/17 05:35 03/12/17 05:35 INR, PTT INR 1.08 (0.82-1.09) 03/11/17 10:46 Problem List - Problems (1) Diabetes mellitus Assessment/Plan: bgms on insulin Code(s): E11.9 - TYPE 2 DIABETES MELLITUS WITHOUT COMPLICATIONS Qualifiers: (2) HTN (hypertension) Assessment/Plan: on meds stable Code(s): I10 - ESSENTIAL (PRIMARY) HYPERTENSION Qualifiers: (3) Hypercholesterolemia Assessment/Plan: on meds stable Code(s): E78.0 - PURE HYPERCHOLESTEROLEMIA * DO NOT USE * (4) Pressure ulcer, stage IV Code(s): L89.94 - PRESSURE ULCER OF UNSPECIFIED SITE, STAGE 4 Assessment/Plan
[2017-03-13] MEDS: ATORVASTATIN CA 20 MG TABLET (FP) PO SCH (21:58)
[2017-03-14] MEDS ORDERED: ceFAZolin SODIUM 1 GM VIAL ONE ×2 (02:31→10:29)
[2017-03-14] MEDS ORDERED: DEXTROSE 5%-WATER - 50 ML IVPB ONE ×2 (02:31→10:29)
[2017-03-14] MEDS: CEFAZOLIN 1 GM in DEXTROSE 5%-WATER - 50 ML IVPB SCH ×2 (02:36→10:59)
[2017-03-14] MEDS: GABAPENTIN 300 MG CAPSULE (FP) PO SCH ×3 (06:32→21:17)
[2017-03-14] MEDS: INSULIN SLIDING SCALE (NOVOLOG) 1 VIAL SQ SCH ×4 (06:32→21:20)
[2017-03-14] MEDS: CLOPIDOGREL BISULFATE 75 MG TABLET (FP) PO SCH (11:00)
[2017-03-14] MEDS: MULTIVITAMINS (DAILY MVI) TABLET (FP) PO SCH (11:00)
[2017-03-14] MEDS: THIAMINE HCL 100 MG TABLET (FP) PO SCH (11:00)
[2017-03-14] MEDS: ASPIRIN 81 MG CHEWABLE TABLETS PO SCH (11:00)
[2017-03-14] MEDS: HEPARIN NA (PORCINE) 5,000 UNITS/ML 1ML VIAL SQ SCH ×2 (11:00→21:16)
[2017-03-14] MEDS: COLCHICINE 0.6 MG TABLET (FP) PO SCH (11:00)
[2017-03-14] MEDS: FOLIC ACID 1 MG TABLET (FP) PO SCH (11:00)
--- NOTE | 2017-03-14 11:20 | PN ---
Progress Note (short form) - Note Progress Note: Post Op day 3 Awake alert, C/O Pain left buttock, drain site Dressing changed, skin edges evaluated , no erythema, no induration, mild odor related occlusive dressing. 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 2nd Organism still need identification Dr Shine
--- NOTE | 2017-03-14 17:21 | PN ---
Progress Note, Physician History of Present Illness: Pt is alert, states he feels well, eating dinner Denies pain, fever, or chills - Current Medication List Current Medications: Active Medications Aspirin (Asa -) 81 mg PO DAILY COUNTS [facility]CLUDE 234 BEDS AT THE [facility] Last Admin: 03/14/17 11:00 Dose: 81 mg Atorvastatin Calcium (Lipitor -) 20 mg PO HS COUNTS INCLUDE 234 BEDS AT THE [facility] Last Admin: 03/13/17 21:58 Dose: 20 mg Bupropion HCl (Wellbutrin Xl -) 300 mg PO DAILY COUNTS INCLUDE 234 BEDS AT THE [facility] Last Admin: 03/14/17 11:00 Dose: 300 mg Clopidogrel Bisulfate (Plavix -) 75 mg PO DAILY COUNTS INCLUDE 234 BEDS AT THE [facility] Last Admin: 03/14/17 11:00 Dose: 75 mg Colchicine (Colcrys -) 0.6 mg PO DAILY COUNTS INCLUDE 234 BEDS AT THE [facility] Last Admin: 03/14/17 11:00 Dose: 0.6 mg Folic Acid (Folic Acid -) 1 mg PO DAILY COUNTS INCLUDE 234 BEDS AT THE [facility] Last Admin: 03/14/17 11:00 Dose: 1 mg Gabapentin (Neurontin -) 300 mg PO TID COUNTS INCLUDE 234 BEDS AT THE [facility] Last Admin: 03/14/17 13:29 Dose: 300 mg Heparin Sodium (Porcine) (Heparin -) 5,000 unit SQ BID COUNTS INCLUDE 234 BEDS AT THE [facility] Last Admin: 03/14/17 11:00 Dose: 5,000 unit Piperacillin Sod/Tazobactam (Sod 4.5 gm/ Dextrose) 100 mls @ 200 mls/hr IVPB Q8H-IV COUNTS INCLUDE 234 BEDS AT THE [facility] PRN Reason: Protocol Insulin Aspart (Novolog Vial Sliding Scale -) 1 vial SQ ACHS COUNTS INCLUDE 234 BEDS AT THE [facility] PRN Reason: Protocol Last Admin: 03/14/17 16:46 Dose: 8 units Multivitamins/Minerals/Vitamin C (Tab-A-Vit -) 1 tab PO DAILY COUNTS INCLUDE 234 BEDS AT THE [facility] Last Admin: 03/14/17 11:00 Dose: 1 tab Thiamine HCl (Vitamin B1 -) 100 mg PO DAILY COUNTS INCLUDE 234 BEDS AT THE [facility] Last Admin: 03/14/17 11:00 Dose: 100 mg - Objective Vital Signs: Vital Signs Temperature 97.5 F L 03/14/17 15:25 Pulse Rate 84 03/14/17 15:25 Respiratory Rate 18 03/14/17 08:00 Blood Pressure 96/52 03/14/17 15:25 O2 Sat by Pulse Oximetry (%) 99 03/14/17 09:00 Constitutional: Yes: Well Nourished Respiratory: Yes: WNL Gastrointestinal: Yes: Normal Bowel Sounds, Soft Wound/Incision: Yes: Dressing Dry and Intact Labs: CBC, BMP 03/12/17 05:35 03/12/17 05:35 INR, PTT INR 1.08 (0.82-1.09) 03/11/17 10:46 Microbiology 03/12/17 08:00 Gram Stain - Final Bone Tissue Culture - Preliminary Beta Hem Streptococcus Group G Pending Organism#2 Lactose Fermenting Neg Bacilli Group D Strep Or Entero Coccus Problem List - Problems (1) Pressure ulcer, stage IV Code(s): L89.94 - PRESSURE ULCER OF UNSPECIFIED SITE, STAGE 4 (2) Diabetes mellitus Code(s): E11.9 - TYPE 2 DIABETES MELLITUS WITHOUT COMPLICATIONS Qualifiers: Assessment/Plan Sacral St IV DU s/p flap closure OM - d/c Ancef, started Zosyn - f/u final bone culture results - polymicrobial growth -continue wound care
[2017-03-14] MEDS ORDERED: DEXTROSE 5%-WATER 100 ML IVPB ONE (20:16)
[2017-03-14] MEDS ORDERED: PIPERACILLIN/TAZOBACTAM 4.5 GM VIAL IVPB ONE (20:16)
[2017-03-14] MEDS: PIPERACILLIN/TAZOB 4.5 GM 4.5 GM in DEXTROSE 5%-WATER 100 ML IVPB SCH (20:17)
[2017-03-14] MEDS: ATORVASTATIN CA 20 MG TABLET (FP) PO SCH (21:16)
[2017-03-14] MEDS ORDERED: INSULIN (NOVOLOG) ASPART 100 UNITS/ML 10ML VIAL ONE (21:19)
--- NOTE | 2017-03-14 21:24 | PN ---
Progress Note, Physician History of Present Illness: doing well - Current Medication List Current Medications: Active Medications Aspirin (Asa -) 81 mg PO DAILY [facility] Last Admin: 03/14/17 11:00 Dose: 81 mg Atorvastatin Calcium (Lipitor -) 20 mg PO HS [facility] Last Admin: 03/13/17 21:58 Dose: 20 mg Bupropion HCl (Wellbutrin Xl -) 300 mg PO DAILY [facility] Last Admin: 03/14/17 11:00 Dose: 300 mg Clopidogrel Bisulfate (Plavix -) 75 mg PO DAILY [facility] Last Admin: 03/14/17 11:00 Dose: 75 mg Colchicine (Colcrys -) 0.6 mg PO DAILY [facility] Last Admin: 03/14/17 11:00 Dose: 0.6 mg Folic Acid (Folic Acid -) 1 mg PO DAILY [facility] Last Admin: 03/14/17 11:00 Dose: 1 mg Gabapentin (Neurontin -) 300 mg PO TID [facility] Last Admin: 03/14/17 13:29 Dose: 300 mg Heparin Sodium (Porcine) (Heparin -) 5,000 unit SQ BID [facility] Last Admin: 03/14/17 11:00 Dose: 5,000 unit Piperacillin Sod/Tazobactam (Sod 4.5 gm/ Dextrose) 100 mls @ 200 mls/hr IVPB Q8H-IV [facility] PRN Reason: Protocol Last Admin: 03/14/17 20:17 Dose: 200 mls/hr Insulin Aspart (Novolog Vial Sliding Scale -) 1 vial SQ ACHS [facility] PRN Reason: Protocol Last Admin: 03/14/17 16:46 Dose: 8 units Multivitamins/Minerals/Vitamin C (Tab-A-Vit -) 1 tab PO DAILY [facility] Last Admin: 03/14/17 11:00 Dose: 1 tab Thiamine HCl (Vitamin B1 -) 100 mg PO DAILY [facility] Last Admin: 03/14/17 11:00 Dose: 100 mg - Objective Vital Signs: Vital Signs Temperature 97.5 F L 03/14/17 15:25 Pulse Rate 84 03/14/17 15:25 Respiratory Rate 18 03/14/17 08:00 Blood Pressure 96/52 03/14/17 15:25 O2 Sat by Pulse Oximetry (%) 96 03/14/17 20:25 Constitutional: Yes: No Distress HENT: Yes: Atraumatic Neck: Yes: Supple Cardiovascular: Yes: Regular Rate and Rhythm Respiratory: Yes: CTA Bilaterally Gastrointestinal: Yes: Normal Bowel Sounds Extremities: Yes: WNL Neurological: Yes: Alert, Oriented Labs: CBC, BMP 03/12/17 05:35 03/12/17 05:35 INR, PTT INR 1.08 (0.82-1.09) 03/11/17 10:46 Problem List - Problems (1) Diabetes mellitus Assessment/Plan: bgms on insulin Code(s): E11.9 - TYPE 2 DIABETES MELLITUS WITHOUT COMPLICATIONS Qualifiers: (2) HTN (hypertension) Assessment/Plan: on meds stable Code(s): I10 - ESSENTIAL (PRIMARY) HYPERTENSION Qualifiers: (3) Hypercholesterolemia Assessment/Plan: on meds stable Code(s): E78.0 - PURE HYPERCHOLESTEROLEMIA * DO NOT USE * (4) Pressure ulcer, stage IV Code(s): L89.94 - PRESSURE ULCER OF UNSPECIFIED SITE, STAGE 4
[2017-03-15] MEDS ORDERED: PIPERACILLIN/TAZOBACTAM 4.5 GM VIAL IVPB ONE ×3 (02:10→16:52)
[2017-03-15] MEDS ORDERED: DEXTROSE 5%-WATER 100 ML IVPB ONE ×3 (02:10→16:52)
[2017-03-15] MEDS: PIPERACILLIN/TAZOB 4.5 GM 4.5 GM in DEXTROSE 5%-WATER 100 ML IVPB SCH ×3 (02:12→17:27)
[2017-03-15] MEDS: GABAPENTIN 300 MG CAPSULE (FP) PO SCH ×3 (06:09→22:12)
[2017-03-15] MEDS ORDERED: INSULIN (NOVOLOG) ASPART 100 UNITS/ML 10ML VIAL ONE ×2 (06:12→11:34)
[2017-03-15] MEDS: INSULIN SLIDING SCALE (NOVOLOG) 1 VIAL SQ SCH ×4 (06:13→22:12)
[2017-03-15] MEDS ORDERED: PT OWN MED DRAWER 7, Y5N ONE (09:25)
[2017-03-15] MEDS: ASPIRIN 81 MG CHEWABLE TABLETS PO SCH (09:40)
[2017-03-15] MEDS: COLCHICINE 0.6 MG TABLET (FP) PO SCH (09:40)
[2017-03-15] MEDS: FOLIC ACID 1 MG TABLET (FP) PO SCH (09:40)
[2017-03-15] MEDS: THIAMINE HCL 100 MG TABLET (FP) PO SCH (09:40)
[2017-03-15] MEDS: CLOPIDOGREL BISULFATE 75 MG TABLET (FP) PO SCH (09:40)
[2017-03-15] MEDS: MULTIVITAMINS (DAILY MVI) TABLET (FP) PO SCH (09:40)
[2017-03-15] MEDS: HEPARIN NA (PORCINE) 5,000 UNITS/ML 1ML VIAL SQ SCH ×2 (09:41→22:12)
--- NOTE | 2017-03-15 12:39 | PATH ---
Surgical Pathology Report Patient Name: WILLARD NARAYAN JR [facility]. Rec. #: [id number] /Age/Gender: 1940 (Age: 76) / M Account: [id number] Location: [address] [place] [address]/[facility] Taken: 03/11/2017 Received: 03/12/2017 Reported: 03/15/2017 Physicians: Tyson Shine M.D. Specimen(s) Received A: BONE BX COCCYX B: SACRAL DECUBITUS TISSUE Clinical History Sacral ulcer Final Diagnosis A. BONE, COCCYX, BIOPSY: BONE WITH MARKED REACTIVE CHANGES. NO OSTEOMYELITIS IDENTIFIED. B. SKIN AND SOFT TISSUE, SACRUM, DEBRIDEMENT: SKIN WITH ULCERATION AND ASSOCIATED INFLAMED GRANULATION TISSUE. Electronically Signed Vik Beltran M.D. Gross Description A. Received in formalin labeled "bone biopsy coccyx," a 1.0 x 0.7 x 0.1 cm aggregate of de la cruz possible bone fragments. The specimen is submitted in toto in one cassette, following decalcification. B. Received in formalin labeled "sacral decubitus tissue," is a 12.0 x 4.0 x 1.3 cm focally ulcerated portion of skin with underlying soft tissue. Back Roll Lathe Operator sections are submitted in one cassette. /03/12/201703/12/2017
--- NOTE | 2017-03-15 12:42 | PN ---
Progress Note, Physician History of Present Illness: clinically patient is stable post flap closure still with drainage no distress - Current Medication List Current Medications: Active Medications Aspirin (Asa -) 81 mg PO DAILY [facility] Last Admin: 03/15/17 09:40 Dose: 81 mg Atorvastatin Calcium (Lipitor -) 20 mg PO HS [facility] Last Admin: 03/14/17 21:16 Dose: 20 mg Bupropion HCl (Wellbutrin Xl -) 300 mg PO DAILY [facility] Last Admin: 03/15/17 09:40 Dose: 300 mg Clopidogrel Bisulfate (Plavix -) 75 mg PO DAILY [facility] Last Admin: 03/15/17 09:40 Dose: 75 mg Colchicine (Colcrys -) 0.6 mg PO DAILY [facility] Last Admin: 03/15/17 09:40 Dose: 0.6 mg Folic Acid (Folic Acid -) 1 mg PO DAILY [facility] Last Admin: 03/15/17 09:40 Dose: 1 mg Gabapentin (Neurontin -) 300 mg PO TID [facility] Last Admin: 03/15/17 06:09 Dose: 300 mg Heparin Sodium (Porcine) (Heparin -) 5,000 unit SQ BID [facility] Last Admin: 03/15/17 09:41 Dose: 5,000 unit Piperacillin Sod/Tazobactam (Sod 4.5 gm/ Dextrose) 100 mls @ 200 mls/hr IVPB Q8H-IV [facility] PRN Reason: Protocol Last Admin: 03/15/17 09:39 Dose: 200 mls/hr Insulin Aspart (Novolog Vial Sliding Scale -) 1 vial SQ ACHS [facility] PRN Reason: Protocol Last Admin: 03/15/17 11:39 Dose: 10 units Multivitamins/Minerals/Vitamin C (Tab-A-Vit -) 1 tab PO DAILY [facility] Last Admin: 03/15/17 09:40 Dose: 1 tab Thiamine HCl (Vitamin B1 -) 100 mg PO DAILY [facility] Last Admin: 03/15/17 09:40 Dose: 100 mg - Objective Vital Signs: Vital Signs Temperature 97.8 F 03/15/17 08:00 Pulse Rate 90 03/15/17 08:00 Respiratory Rate 18 03/15/17 08:00 Blood Pressure 93/60 03/15/17 08:00 O2 Sat by Pulse Oximetry (%) 96 03/15/17 09:00 Constitutional: Yes: No Distress, Calm Cardiovascular: Yes: Regular Rate and Rhythm Respiratory: Yes: Regular, CTA Bilaterally Gastrointestinal: Yes: Normal Bowel Sounds, Soft Musculoskeletal: Yes: WNL Extremities: Yes: WNL Integumentary: Yes: Other Wound/Incision: Yes: Dressing Dry and Intact, Draining Neurological: Yes: Alert, Oriented Psychiatric: Yes: Alert, Oriented Labs: CBC, BMP 03/12/17 05:35 03/12/17 05:35 INR, PTT INR 1.08 (0.82-1.09) 03/11/17 10:46 Assessment/Plan Problem List (1) Pressure ulcer of sacral region, stage 4 Code(s): L89.153 - PRESSURE ULCER OF SACRAL REGION, STAGE 3 (2) Cerebrovascular accident (CVA) Code(s): I63.9 - CEREBRAL INFARCTION, UNSPECIFIED Qualifiers: CVA mechanism: occlusion Precerebral and cerebral artery: middle cerebral artery, left (3) Diabetes mellitus Code(s): E11.9 - TYPE 2 DIABETES MELLITUS WITHOUT COMPLICATIONS Qualifiers: Diabetes mellitus type: type 2 Diabetes mellitus complication status: without complication Diabetes mellitus machine long goods helper insulin use: without machine long goods helper use Qualified Code(s): E11.9 - Type 2 diabetes mellitus without complications await for all the bacteria to be identified will treat as sacral osteo plan continue zosyn will need it for [facility] as it is from bone and patient has a fresh flap rest continue current mgmt await for identification of all bacteria
--- NOTE | 2017-03-15 19:27 | PN ---
Progress Note, Physician History of Present Illness: doing well - Current Medication List Current Medications: Active Medications Aspirin (Asa -) 81 mg PO DAILY [facility] Last Admin: 03/15/17 09:40 Dose: 81 mg Atorvastatin Calcium (Lipitor -) 20 mg PO HS [facility] Last Admin: 03/14/17 21:16 Dose: 20 mg Bupropion HCl (Wellbutrin Xl -) 300 mg PO DAILY [facility] Last Admin: 03/15/17 09:40 Dose: 300 mg Clopidogrel Bisulfate (Plavix -) 75 mg PO DAILY [facility] Last Admin: 03/15/17 09:40 Dose: 75 mg Colchicine (Colcrys -) 0.6 mg PO DAILY [facility] Last Admin: 03/15/17 09:40 Dose: 0.6 mg Folic Acid (Folic Acid -) 1 mg PO DAILY [facility] Last Admin: 03/15/17 09:40 Dose: 1 mg Gabapentin (Neurontin -) 300 mg PO TID [facility] Last Admin: 03/15/17 14:02 Dose: 300 mg Heparin Sodium (Porcine) (Heparin -) 5,000 unit SQ BID [facility] Last Admin: 03/15/17 09:41 Dose: 5,000 unit Piperacillin Sod/Tazobactam (Sod 4.5 gm/ Dextrose) 100 mls @ 200 mls/hr IVPB Q8H-IV [facility] PRN Reason: Protocol Last Admin: 03/15/17 17:27 Dose: 200 mls/hr Insulin Aspart (Novolog Vial Sliding Scale -) 1 vial SQ ACHS [facility] PRN Reason: Protocol Last Admin: 03/15/17 17:26 Dose: 10 units Multivitamins/Minerals/Vitamin C (Tab-A-Vit -) 1 tab PO DAILY [facility] Last Admin: 03/15/17 09:40 Dose: 1 tab Thiamine HCl (Vitamin B1 -) 100 mg PO DAILY [facility] Last Admin: 03/15/17 09:40 Dose: 100 mg - Objective Vital Signs: Vital Signs Temperature 98.0 F 03/15/17 14:00 Pulse Rate 97 H 03/15/17 14:00 Respiratory Rate 20 03/15/17 14:00 Blood Pressure 110/59 03/15/17 14:00 O2 Sat by Pulse Oximetry (%) 96 03/15/17 09:00 Constitutional: Yes: No Distress HENT: Yes: Atraumatic Neck: Yes: Supple Cardiovascular: Yes: Regular Rate and Rhythm Respiratory: Yes: CTA Bilaterally Gastrointestinal: Yes: Normal Bowel Sounds Extremities: Yes: WNL Neurological: Yes: Alert, Oriented Labs: CBC, BMP 03/12/17 05:35 03/12/17 05:35 INR, PTT INR 1.08 (0.82-1.09) 03/11/17 10:46 Problem List - Problems (1) Diabetes mellitus Assessment/Plan: bgms on insulin Code(s): E11.9 - TYPE 2 DIABETES MELLITUS WITHOUT COMPLICATIONS Qualifiers: (2) HTN (hypertension) Assessment/Plan: on meds stable Code(s): I10 - ESSENTIAL (PRIMARY) HYPERTENSION Qualifiers: (3) Hypercholesterolemia Assessment/Plan: on meds stable Code(s): E78.0 - PURE HYPERCHOLESTEROLEMIA * DO NOT USE * (4) Pressure ulcer, stage IV Assessment/Plan: S/P FLAP CLOSURE SURGERY Code(s): L89.94 - PRESSURE ULCER OF UNSPECIFIED SITE, STAGE 4
[2017-03-15] MEDS: ATORVASTATIN CA 20 MG TABLET (FP) PO SCH (22:12)
[2017-03-15] MEDS ORDERED: PICC LINE 8 ML FLUSH PROTOCOL IVPUSH PRN (22:42)
[2017-03-16] MEDS ORDERED: DEXTROSE 5%-WATER 100 ML IVPB ONE ×3 (01:52→16:58)
[2017-03-16] MEDS ORDERED: PIPERACILLIN/TAZOBACTAM 4.5 GM VIAL IVPB ONE ×3 (01:52→16:58)
[2017-03-16] MEDS: PIPERACILLIN/TAZOB 4.5 GM 4.5 GM in DEXTROSE 5%-WATER 100 ML IVPB SCH ×3 (02:11→17:16)
[2017-03-16] MEDS: INSULIN SLIDING SCALE (NOVOLOG) 1 VIAL SQ SCH ×4 (06:13→21:10)
[2017-03-16] MEDS: GABAPENTIN 300 MG CAPSULE (FP) PO SCH ×3 (06:14→21:10)
[2017-03-16 08:49] LABS: EOSINOPHIL 6.8 % (0-4.5); MCH 25.3 pg (25.7-33.7); MCHC 31.2 g/dl (32.0-35.9); MEAN CELL VOLUME 80.8 fl (80-96); MEAN PLT VOLUME 8.5 fl (7.5-11.1); NEUTROPHILS 65.5 % (42.8-82.8); PLATELET COUNT 271 K/MM3 (134-434); RDW 17.2 % (11.9-15.9)
[2017-03-16 09:24] LABS: ALBUMIN 2.2 g/dl (3.4-5.0); ANION GAP 5 (8-16); CALCIUM 8.5 mg/dL (8.5-10.1); CO2 30 mmol/L (21-32); CREATININE 0.7 mg/dL (0.7-1.3); GLUCOSE,RANDOM 168 mg/dL (74-106); SGOT/AST 6 U/L (15-37); SGPT/ALT 13 U/L (12-78)
[2017-03-16 09:26] LABS: ALK PHOS 71 U/L (45-117); BILIRUBIN,TOTAL 0.6 mg/dL (0.2-1.0); TOT PROT 5.5 g/dl (6.4-8.2)
[2017-03-16] MEDS: HEPARIN NA (PORCINE) 5,000 UNITS/ML 1ML VIAL SQ SCH ×2 (10:17→21:10)
[2017-03-16] MEDS: THIAMINE HCL 100 MG TABLET (FP) PO SCH (10:18)
[2017-03-16] MEDS: CLOPIDOGREL BISULFATE 75 MG TABLET (FP) PO SCH (10:18)
[2017-03-16] MEDS: ASPIRIN 81 MG CHEWABLE TABLETS PO SCH (10:18)
[2017-03-16] MEDS: COLCHICINE 0.6 MG TABLET (FP) PO SCH (10:18)
[2017-03-16] MEDS: MULTIVITAMINS (DAILY MVI) TABLET (FP) PO SCH (10:18)
[2017-03-16] MEDS: FOLIC ACID 1 MG TABLET (FP) PO SCH (10:18)
[2017-03-16] MEDS: POLYETHYLENE GLYCOL 3350 119 GM BTL PO SCH (10:20)
[2017-03-16] MEDS ORDERED: INSULIN (NOVOLOG) ASPART 100 UNITS/ML 10ML VIAL ONE (11:46)
--- NOTE | 2017-03-16 14:25 | PN ---
Progress Note, Physician History of Present Illness: patient stable no new issues drainage minimal - Current Medication List Current Medications: Active Medications Aspirin (Asa -) 81 mg PO DAILY [facility] Last Admin: 03/16/17 10:18 Dose: 81 mg Atorvastatin Calcium (Lipitor -) 20 mg PO HS [facility] Last Admin: 03/15/17 22:12 Dose: 20 mg Bupropion HCl (Wellbutrin Xl -) 300 mg PO DAILY [facility] Last Admin: 03/16/17 10:18 Dose: 300 mg Clopidogrel Bisulfate (Plavix -) 75 mg PO DAILY [facility] Last Admin: 03/16/17 10:18 Dose: 75 mg Colchicine (Colcrys -) 0.6 mg PO DAILY [facility] Last Admin: 03/16/17 10:18 Dose: 0.6 mg Folic Acid (Folic Acid -) 1 mg PO DAILY [facility] Last Admin: 03/16/17 10:18 Dose: 1 mg Gabapentin (Neurontin -) 300 mg PO TID [facility] Last Admin: 03/16/17 14:06 Dose: 300 mg Heparin Sodium (Porcine) (Heparin -) 5,000 unit SQ BID [facility] Last Admin: 03/16/17 10:17 Dose: 5,000 unit IV Flush (Picc Line Flush) 8 ml IVPUSH PRN PRN PRN Reason: Protocol Piperacillin Sod/Tazobactam (Sod 4.5 gm/ Dextrose) 100 mls @ 200 mls/hr IVPB Q8H-IV [facility] PRN Reason: Protocol Last Admin: 03/16/17 10:17 Dose: 200 mls/hr Insulin Aspart (Novolog Vial Sliding Scale -) 1 vial SQ ACHS [facility] PRN Reason: Protocol Last Admin: 03/16/17 11:55 Dose: 6 units Multivitamins/Minerals/Vitamin C (Tab-A-Vit -) 1 tab PO DAILY [facility] Last Admin: 03/16/17 10:18 Dose: 1 tab Polyethylene Glycol (Miralax (For Daily Use) -) 17 gm PO DAILY [facility] Last Admin: 03/16/17 10:20 Dose: 17 gm Thiamine HCl (Vitamin B1 -) 100 mg PO DAILY [facility] Last Admin: 03/16/17 10:18 Dose: 100 mg - Objective Vital Signs: Vital Signs Temperature 97.8 F 03/16/17 14:00 Pulse Rate 90 03/16/17 14:00 Respiratory Rate 17 03/16/17 14:00 Blood Pressure 99/57 03/16/17 14:00 O2 Sat by Pulse Oximetry (%) 96 03/15/17 09:00 Constitutional: Yes: No Distress, Calm Cardiovascular: Yes: Regular Rate and Rhythm Respiratory: Yes: Regular, CTA Bilaterally Gastrointestinal: Yes: Normal Bowel Sounds, Soft Musculoskeletal: Yes: Other Extremities: Yes: Other Wound/Incision: Yes: Draining (minimal), Other Neurological: Yes: Alert, Oriented Psychiatric: Yes: Alert, Oriented Labs: CBC, BMP 03/16/17 08:36 03/16/17 08:36 INR, PTT INR 1.08 (0.82-1.09) 03/11/17 10:46 Assessment/Plan Problem List (1) Pressure ulcer of sacral region, stage 4 Code(s): L89.153 - PRESSURE ULCER OF SACRAL REGION, STAGE 3 (2) Cerebrovascular accident (CVA) Code(s): I63.9 - CEREBRAL INFARCTION, UNSPECIFIED Qualifiers: CVA mechanism: occlusion 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
--- NOTE | 2017-03-16 16:09 | PN ---
Progress Note, Physician History of Present Illness: doing well - Current Medication List Current Medications: Active Medications Aspirin (Asa -) 81 mg PO DAILY [facility] Last Admin: 03/16/17 10:18 Dose: 81 mg Atorvastatin Calcium (Lipitor -) 20 mg PO HS [facility] Last Admin: 03/15/17 22:12 Dose: 20 mg Bupropion HCl (Wellbutrin Xl -) 300 mg PO DAILY [facility] Last Admin: 03/16/17 10:18 Dose: 300 mg Clopidogrel Bisulfate (Plavix -) 75 mg PO DAILY [facility] Last Admin: 03/16/17 10:18 Dose: 75 mg Colchicine (Colcrys -) 0.6 mg PO DAILY [facility] Last Admin: 03/16/17 10:18 Dose: 0.6 mg Folic Acid (Folic Acid -) 1 mg PO DAILY [facility] Last Admin: 03/16/17 10:18 Dose: 1 mg Gabapentin (Neurontin -) 300 mg PO TID [facility] Last Admin: 03/16/17 14:06 Dose: 300 mg Heparin Sodium (Porcine) (Heparin -) 5,000 unit SQ BID [facility] Last Admin: 03/16/17 10:17 Dose: 5,000 unit IV Flush (Picc Line Flush) 8 ml IVPUSH PRN PRN PRN Reason: Protocol Piperacillin Sod/Tazobactam (Sod 4.5 gm/ Dextrose) 100 mls @ 200 mls/hr IVPB Q8H-IV [facility] PRN Reason: Protocol Last Admin: 03/16/17 10:17 Dose: 200 mls/hr Insulin Aspart (Novolog Vial Sliding Scale -) 1 vial SQ ACHS [facility] PRN Reason: Protocol Last Admin: 03/16/17 11:55 Dose: 6 units Multivitamins/Minerals/Vitamin C (Tab-A-Vit -) 1 tab PO DAILY [facility] Last Admin: 03/16/17 10:18 Dose: 1 tab Polyethylene Glycol (Miralax (For Daily Use) -) 17 gm PO DAILY [facility] Last Admin: 03/16/17 10:20 Dose: 17 gm Thiamine HCl (Vitamin B1 -) 100 mg PO DAILY [facility] Last Admin: 03/16/17 10:18 Dose: 100 mg - Objective Vital Signs: Vital Signs Temperature 97.8 F 03/16/17 14:00 Pulse Rate 90 03/16/17 14:00 Respiratory Rate 17 03/16/17 14:00 Blood Pressure 99/57 08/08/17 14:00 O2 Sat by Pulse Oximetry (%) 96 03/15/17 09:00 HENT: Yes: Atraumatic Neck: Yes: Supple Cardiovascular: Yes: Regular Rate and Rhythm Respiratory: Yes: CTA Bilaterally Gastrointestinal: Yes: Normal Bowel Sounds Extremities: Yes: WNL Neurological: Yes: Alert Labs: CBC, BMP 03/16/17 08:36 03/16/17 08:36 INR, PTT INR 1.08 (0.82-1.09) 03/11/17 10:46 Problem List - Problems (1) Diabetes mellitus Assessment/Plan: bgms on insulin Code(s): E11.9 - TYPE 2 DIABETES MELLITUS WITHOUT COMPLICATIONS Qualifiers: (2) HTN (hypertension) Assessment/Plan: on meds stable Code(s): I10 - ESSENTIAL (PRIMARY) HYPERTENSION Qualifiers: (3) Hypercholesterolemia Assessment/Plan: on meds stable Code(s): E78.0 - PURE HYPERCHOLESTEROLEMIA * DO NOT USE * (4) Pressure ulcer, stage IV Assessment/Plan: S/P FLAP CLOSURE SURGERY Code(s): L89.94 - PRESSURE ULCER OF UNSPECIFIED SITE, STAGE 4 (5) Cerebrovascular accident (CVA) Code(s): I63.9 - CEREBRAL INFARCTION, UNSPECIFIED Qualifiers: CVA mechanism: occlusion Precerebral and cerebral artery: middle cerebral artery, left
[2017-03-16] MEDS: ATORVASTATIN CA 20 MG TABLET (FP) PO SCH (21:10)
[2017-03-17] MEDS ORDERED: PIPERACILLIN/TAZOBACTAM 4.5 GM VIAL IVPB ONE ×3 (01:16→16:54)
[2017-03-17] MEDS ORDERED: DEXTROSE 5%-WATER 100 ML IVPB ONE ×3 (01:17→16:55)
[2017-03-17] MEDS: PIPERACILLIN/TAZOB 4.5 GM 4.5 GM in DEXTROSE 5%-WATER 100 ML IVPB SCH ×3 (01:24→17:03)
[2017-03-17] MEDS: GABAPENTIN 300 MG CAPSULE (FP) PO SCH ×3 (06:27→21:00)
[2017-03-17] MEDS: INSULIN SLIDING SCALE (NOVOLOG) 1 VIAL SQ SCH ×4 (06:28→21:00)
[2017-03-17] MEDS ORDERED: PT OWN MED DRAWER 7, Y5N ONE (09:19)
[2017-03-17] MEDS: COLCHICINE 0.6 MG TABLET (FP) PO SCH (09:42)
[2017-03-17] MEDS: THIAMINE HCL 100 MG TABLET (FP) PO SCH (09:42)
[2017-03-17] MEDS: HEPARIN NA (PORCINE) 5,000 UNITS/ML 1ML VIAL SQ SCH ×2 (09:42→21:00)
[2017-03-17] MEDS: CLOPIDOGREL BISULFATE 75 MG TABLET (FP) PO SCH (09:42)
[2017-03-17] MEDS: MULTIVITAMINS (DAILY MVI) TABLET (FP) PO SCH (09:42)
[2017-03-17] MEDS: ASPIRIN 81 MG CHEWABLE TABLETS PO SCH (09:42)
[2017-03-17] MEDS: POLYETHYLENE GLYCOL 3350 119 GM BTL PO SCH (09:43)
[2017-03-17] MEDS: FOLIC ACID 1 MG TABLET (FP) PO SCH (09:43)
[2017-03-17] MEDS ORDERED: INSULIN (NOVOLOG) ASPART 100 UNITS/ML 10ML VIAL ONE (11:23)
--- NOTE | 2017-03-17 14:32 | PN ---
Progress Note (short form) - Note Progress Note: Post Op day 3 Awake alert,C/O more on left buttock, possible site is drain site Dressing changed, skin edges evaluated , no erythema, no induration, mild odor, occlusive dressing? Flap intact, sutures lines intact DARYA drainage is significant, was 160cc /24hr, just now emptied 25cc since early change, serosangious C&S: Bone biopsy Positive for Group D Streptococcus, Hemolytic G Group WBC elevated 12.[address] Escobar regarding wound biopsy , ?change antibiotics 2nd Organism still need identification Dr Shine
--- NOTE | 2017-03-17 14:38 | PN ---
Progress Note (short form) - Note Progress Note: Post Day 6 Awake alert, answering questions coherently Flap evaluated, suture line intact, no erythema DARYA drainage decreasing well...minimal in last 24 hours, dry coagulated DARYA removed atraumaticlly Microbiology 03/12/17 08:00 Bone Gram Stain - Final 03/12/17 08:00 Bone Anaerobic Culture - Final Beta Hem Streptococcus Group G Diphtheroid/Corynebacterium Escherichia Coli Enterococcus Faecalis NO ANAEROBES WERE ISOLATED 03/12/17 08:00 Bone Gram Stain - Final 03/12/17 08:00 Bone Tissue Culture - Preliminary Beta Hem Streptococcus Group G Pending Organism#2 Selected Entries 03/14/17 03/17/17 03/17/17 08:00 05:52 14:00 Temperature 97.9 F 98.4 F 98.1 F Pulse Rate 88 Respiratory 18 20 Rate Blood Pressure 120/65 106/62 Blood Pressure 76 Mean Blood Pressure Supine Position Laboratory Tests 03/12/17 05:35 WBC 12.1 H Hgb 10.7 L D Hct 33.7 L MCH 25.5 L MCHC 31.8 L RDW 17.5 H Dressing changed Plan : 1 Dr Escobar suggestions regarding 4 weeks of IV therapy nooted, Positive bone biopsy 2. Patient flap is still fragile, trasfer will require extra care, no pulling , pushing on buttocks/Hip joints 3 Patient not to lie supine longer than 30 min 4 Turn side to side on a low relief mattress 5 Continue Nutritional support, High protein diet with supplements/Vit C 6 Patient to FU in wound clinic in one month to avoid trauma during transportation
--- NOTE | 2017-03-17 15:02 | PN ---
Progress Note, Physician History of Present Illness: patient stable no new issues drainage tube removed - Current Medication List Current Medications: Active Medications Aspirin (Asa -) 81 mg PO DAILY [facility] Last Admin: 03/17/17 09:42 Dose: 81 mg Atorvastatin Calcium (Lipitor -) 20 mg PO HS [facility] Last Admin: 03/16/17 21:10 Dose: 20 mg Bupropion HCl (Wellbutrin Xl -) 300 mg PO DAILY [facility] Last Admin: 03/17/17 09:42 Dose: 300 mg Clopidogrel Bisulfate (Plavix -) 75 mg PO DAILY [facility] Last Admin: 03/17/17 09:42 Dose: 75 mg Colchicine (Colcrys -) 0.6 mg PO DAILY [facility] Last Admin: 03/17/17 09:42 Dose: 0.6 mg Folic Acid (Folic Acid -) 1 mg PO DAILY [facility] Last Admin: 03/17/17 09:43 Dose: 1 mg Gabapentin (Neurontin -) 300 mg PO TID [facility] Last Admin: 03/17/17 14:36 Dose: 300 mg Heparin Sodium (Porcine) (Heparin -) 5,000 unit SQ BID [facility] Last Admin: 03/17/17 09:42 Dose: 5,000 unit IV Flush (Picc Line Flush) 8 ml IVPUSH PRN PRN PRN Reason: Protocol Piperacillin Sod/Tazobactam (Sod 4.5 gm/ Dextrose) 100 mls @ 200 mls/hr IVPB Q8H-IV [facility]I PRN Reason: Protocol Last Admin: 03/17/17 09:43 Dose: 200 mls/hr Insulin Aspart (Novolog Vial Sliding Scale -) 1 vial SQ ACHS Z[facility]I PRN Reason: Protocol Last Admin: 03/17/17 11:43 Dose: 8 units Multivitamins/Minerals/Vitamin C (Tab-A-Vit -) 1 tab PO DAILY [facility] Last Admin: 03/17/17 09:42 Dose: 1 tab Polyethylene Glycol (Miralax (For Daily Use) -) 17 gm PO DAILY [facility] Last Admin: 03/17/17 09:43 Dose: 17 gm Thiamine HCl (Vitamin B1 -) 100 mg PO DAILY [facility] Last Admin: 03/17/17 09:42 Dose: 100 mg - Objective Vital Signs: Vital Signs Temperature 98.1 F 03/17/17 14:00 Pulse Rate 93 H 03/17/17 14:00 Respiratory Rate 20 03/17/17 14:00 Blood Pressure 106/62 03/17/17 14:00 O2 Sat by Pulse Oximetry (%) 99 03/17/17 09:00 Constitutional: Yes: No Distress, Calm Cardiovascular: Yes: Regular Rate and Rhythm Respiratory: Yes: Regular, CTA Bilaterally Gastrointestinal: Yes: Normal Bowel Sounds, Soft Musculoskeletal: Yes: WNL Extremities: Yes: WNL Wound/Incision: Yes: Dressing Dry and Intact Neurological: Yes: Alert, Other Labs: CBC, BMP 03/16/17 08:36 03/16/17 08:36 INR, PTT INR 1.08 (0.82-1.09) 03/11/17 10:46 Assessment/Plan Problem List (1) Pressure ulcer of sacral region, stage 4 Code(s): L89.153 - PRESSURE ULCER OF SACRAL REGION, STAGE 3 (2) Cerebrovascular accident (CVA) Code(s): I63.9 - CEREBRAL INFARCTION, UNSPECIFIED Qualifiers: CVA mechanism: occlusion Precerebral and cerebral artery: middle cerebral artery, left (3) Diabetes mellitus Code(s): E11.9 - TYPE 2 DIABETES MELLITUS WITHOUT COMPLICATIONS Qualifiers: Diabetes mellitus type: type 2 Diabetes mellitus complication status: without complication Diabetes mellitus terminal computer operator insulin use: without terminal computer operator use Qualified Code(s): E11.9 - Type 2 diabetes mellitus without complications await for all the bacteria to be identified will treat as sacral osteo plan continue abx no new issues rest as per plastics primary
--- NOTE | 2017-03-17 17:15 | PN ---
Progress Note, Physician History of Present Illness: doing well - Current Medication List Current Medications: Active Medications Aspirin (Asa -) 81 mg PO DAILY [facility] Last Admin: 03/17/17 09:42 Dose: 81 mg Atorvastatin Calcium (Lipitor -) 20 mg PO HS [facility] Last Admin: 03/16/17 21:10 Dose: 20 mg Bupropion HCl (Wellbutrin Xl -) 300 mg PO DAILY [facility] Last Admin: 03/17/17 09:42 Dose: 300 mg Clopidogrel Bisulfate (Plavix -) 75 mg PO DAILY [facility] Last Admin: 03/17/17 09:42 Dose: 75 mg Colchicine (Colcrys -) 0.6 mg PO DAILY [facility] Last Admin: 03/17/17 09:42 Dose: 0.6 mg Folic Acid (Folic Acid -) 1 mg PO DAILY [facility] Last Admin: 03/17/17 09:43 Dose: 1 mg Gabapentin (Neurontin -) 300 mg PO TID [facility] Last Admin: 03/17/17 14:36 Dose: 300 mg Heparin Sodium (Porcine) (Heparin -) 5,000 unit SQ BID [facility] Last Admin: 03/17/17 09:42 Dose: 5,000 unit IV Flush (Picc Line Flush) 8 ml IVPUSH PRN PRN PRN Reason: Protocol Piperacillin Sod/Tazobactam (Sod 4.5 gm/ Dextrose) 100 mls @ 200 mls/hr IVPB Q8H-IV [facility]ARI PRN Reason: Protocol Last Admin: 03/17/17 17:03 Dose: 200 mls/hr Insulin Aspart (Novolog Vial Sliding Scale -) 1 vial SQ ACHS ZARI PRN Reason: Protocol Last Admin: 03/17/17 17:00 Dose: 8 units Multivitamins/Minerals/Vitamin C (Tab-A-Vit -) 1 tab PO DAILY [facility] Last Admin: 03/17/17 09:42 Dose: 1 tab Polyethylene Glycol (Miralax (For Daily Use) -) 17 gm PO DAILY [facility] Last Admin: 03/17/17 09:43 Dose: 17 gm Thiamine HCl (Vitamin B1 -) 100 mg PO DAILY [facility] Last Admin: 03/17/17 09:42 Dose: 100 mg - Objective Vital Signs: Vital Signs Temperature 98.1 F 03/17/17 14:00 Pulse Rate 93 H 03/17/17 14:00 Respiratory Rate 20 03/17/17 14:00 Blood Pressure 106/62 03/17/17 14:00 O2 Sat by Pulse Oximetry (%) 99 03/17/17 09:00 Constitutional: Yes: No Distress HENT: Yes: Atraumatic Neck: Yes: Supple Cardiovascular: Yes: Regular Rate and Rhythm Respiratory: Yes: CTA Bilaterally Gastrointestinal: Yes: Normal Bowel Sounds Extremities: Yes: WNL Neurological: Yes: Alert, Oriented Labs: CBC, BMP 03/16/17 08:36 03/16/17 08:36 INR, PTT INR 1.08 (0.82-1.09) 03/11/17 10:46 Problem List - Problems (1) Diabetes mellitus Assessment/Plan: bgms on insulin Code(s): E11.9 - TYPE 2 DIABETES MELLITUS WITHOUT COMPLICATIONS Qualifiers: (2) HTN (hypertension) Assessment/Plan: on meds stable Code(s): I10 - ESSENTIAL (PRIMARY) HYPERTENSION Qualifiers: (3) Hypercholesterolemia Assessment/Plan: on meds stable Code(s): E78.0 - PURE HYPERCHOLESTEROLEMIA * DO NOT USE * (4) Pressure ulcer, stage IV Assessment/Plan: S/P FLAP CLOSURE SURGERY Code(s): L89.94 - PRESSURE ULCER OF UNSPECIFIED SITE, STAGE 4 (5) Cerebrovascular accident (CVA) Code(s): I63.9 - CEREBRAL INFARCTION, UNSPECIFIED Qualifiers: CVA mechanism: occlusion Precerebral and cerebral artery: middle cerebral artery, left
[2017-03-17] MEDS: ATORVASTATIN CA 20 MG TABLET (FP) PO SCH (21:00)
[2017-03-18] MEDS ORDERED: DEXTROSE 5%-WATER 100 ML IVPB ONE ×3 (02:36→16:24)
[2017-03-18] MEDS ORDERED: PIPERACILLIN/TAZOBACTAM 4.5 GM VIAL IVPB ONE ×3 (02:36→16:24)
[2017-03-18] MEDS: PIPERACILLIN/TAZOB 4.5 GM 4.5 GM in DEXTROSE 5%-WATER 100 ML IVPB SCH ×3 (02:39→17:08)
[2017-03-18] MEDS: GABAPENTIN 300 MG CAPSULE (FP) PO SCH ×3 (06:09→21:07)
[2017-03-18] MEDS: INSULIN SLIDING SCALE (NOVOLOG) 1 VIAL SQ SCH ×4 (06:28→21:12)
[2017-03-18] MEDS ORDERED: INSULIN (NOVOLOG) ASPART 100 UNITS/ML 10ML VIAL ONE ×2 (06:36→11:17)
[2017-03-18] MEDS: FOLIC ACID 1 MG TABLET (FP) PO SCH (10:37)
[2017-03-18] MEDS: HEPARIN NA (PORCINE) 5,000 UNITS/ML 1ML VIAL SQ SCH ×2 (10:37→21:07)
[2017-03-18] MEDS: CLOPIDOGREL BISULFATE 75 MG TABLET (FP) PO SCH (10:37)
[2017-03-18] MEDS: COLCHICINE 0.6 MG TABLET (FP) PO SCH (10:37)
[2017-03-18] MEDS: THIAMINE HCL 100 MG TABLET (FP) PO SCH (10:37)
[2017-03-18] MEDS: MULTIVITAMINS (DAILY MVI) TABLET (FP) PO SCH (10:37)
[2017-03-18] MEDS: ASPIRIN 81 MG CHEWABLE TABLETS PO SCH (10:37)
[2017-03-18] MEDS: POLYETHYLENE GLYCOL 3350 119 GM BTL PO SCH (10:43)
--- NOTE | 2017-03-18 13:10 | PN ---
Progress Note, Physician History of Present Illness: patient stable no new issues - Current Medication List Current Medications: Active Medications Aspirin (Asa -) 81 mg PO DAILY [facility] Last Admin: 03/18/17 10:37 Dose: 81 mg Atorvastatin Calcium (Lipitor -) 20 mg PO HS [facility] Last Admin: 03/17/17 21:00 Dose: 20 mg Bupropion HCl (Wellbutrin Xl -) 300 mg PO DAILY [facility] Last Admin: 03/18/17 10:37 Dose: 300 mg Clopidogrel Bisulfate (Plavix -) 75 mg PO DAILY [facility] Last Admin: 03/18/17 10:37 Dose: 75 mg Colchicine (Colcrys -) 0.6 mg PO DAILY [facility] Last Admin: 03/18/17 10:37 Dose: 0.6 mg Folic Acid (Folic Acid -) 1 mg PO DAILY [facility] Last Admin: 03/18/17 10:37 Dose: 1 mg Gabapentin (Neurontin -) 300 mg PO TID [facility] Last Admin: 03/18/17 06:09 Dose: 300 mg Heparin Sodium (Porcine) (Heparin -) 5,000 unit SQ BID [facility] Last Admin: 03/18/17 10:37 Dose: 5,000 unit IV Flush (Picc Line Flush) 8 ml IVPUSH PRN PRN PRN Reason: Protocol Piperacillin Sod/Tazobactam (Sod 4.5 gm/ Dextrose) 100 mls @ 200 mls/hr IVPB Q8H-IV [facility] PRN Reason: Protocol Last Admin: 03/18/17 10:36 Dose: 200 mls/hr Insulin Aspart (Novolog Vial Sliding Scale -) 1 vial SQ ACHS [facility] PRN Reason: Protocol Last Admin: 03/18/17 11:20 Dose: 10 units Multivitamins/Minerals/Vitamin C (Tab-A-Vit -) 1 tab PO DAILY [facility] Last Admin: 03/18/17 10:37 Dose: 1 tab Polyethylene Glycol (Miralax (For Daily Use) -) 17 gm PO DAILY [facility] Last Admin: 03/18/17 10:43 Dose: 17 gm Thiamine HCl (Vitamin B1 -) 100 mg PO DAILY [facility] Last Admin: 03/18/17 10:37 Dose: 100 mg - Objective Vital Signs: Vital Signs Temperature 98.4 F 03/18/17 06:00 Pulse Rate 93 H 03/18/17 10:43 Respiratory Rate 20 03/18/17 06:00 Blood Pressure 105/62 03/18/17 06:00 O2 Sat by Pulse Oximetry (%) 98 03/18/17 10:43 Constitutional: Yes: No Distress, Calm Cardiovascular: Yes: Regular Rate and Rhythm Respiratory: Yes: Regular, CTA Bilaterally Gastrointestinal: Yes: Normal Bowel Sounds, Soft Musculoskeletal: Yes: Other Extremities: Yes: Other Neurological: Yes: Alert, Other Psychiatric: Yes: Alert Labs: CBC, BMP 03/16/17 08:36 03/16/17 08:36 INR, PTT INR 1.08 (0.82-1.09) 03/11/17 10:46 Assessment/Plan Problem List (1) Pressure ulcer of sacral region, stage 4 Code(s): L89.153 - PRESSURE ULCER OF SACRAL REGION, STAGE 3 (2) Cerebrovascular accident (CVA) Code(s): I63.9 - CEREBRAL INFARCTION, UNSPECIFIED Qualifiers: CVA mechanism: occlusion Precerebral and cerebral artery: middle cerebral artery, left (3) Diabetes mellitus Code(s): E11.9 - TYPE 2 DIABETES MELLITUS WITHOUT COMPLICATIONS Qualifiers: Diabetes mellitus type: type 2 Diabetes mellitus complication status: without complication Diabetes mellitus adjunct faculty for medical 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
--- NOTE | 2017-03-18 16:28 | PN ---
Progress Note, Physician History of Present Illness: doing well - Current Medication List Current Medications: Active Medications Aspirin (Asa -) 81 mg PO DAILY [facility] Last Admin: 03/18/17 10:37 Dose: 81 mg Atorvastatin Calcium (Lipitor -) 20 mg PO HS [facility] Last Admin: 03/17/17 21:00 Dose: 20 mg Bupropion HCl (Wellbutrin Xl -) 300 mg PO DAILY [facility] Last Admin: 03/18/17 10:37 Dose: 300 mg Clopidogrel Bisulfate (Plavix -) 75 mg PO DAILY [facility] Last Admin: 03/18/17 10:37 Dose: 75 mg Colchicine (Colcrys -) 0.6 mg PO DAILY [facility] Last Admin: 03/18/17 10:37 Dose: 0.6 mg Folic Acid (Folic Acid -) 1 mg PO DAILY [facility] Last Admin: 03/18/17 10:37 Dose: 1 mg Gabapentin (Neurontin -) 300 mg PO TID [facility] Last Admin: 03/18/17 14:13 Dose: 300 mg Heparin Sodium (Porcine) (Heparin -) 5,000 unit SQ BID [facility] Last Admin: 03/18/17 10:37 Dose: 5,000 unit IV Flush (Picc Line Flush) 8 ml IVPUSH PRN PRN PRN Reason: Protocol Piperacillin Sod/Tazobactam (Sod 4.5 gm/ Dextrose) 100 mls @ 200 mls/hr IVPB Q8H-IV [facility] PRN Reason: Protocol Last Admin: 03/18/17 10:36 Dose: 200 mls/hr Insulin Aspart (Novolog Vial Sliding Scale -) 1 vial SQ ACHS [facility] PRN Reason: Protocol Last Admin: 03/18/17 11:20 Dose: 10 units Multivitamins/Minerals/Vitamin C (Tab-A-Vit -) 1 tab PO DAILY [facility] Last Admin: 03/18/17 10:37 Dose: 1 tab Polyethylene Glycol (Miralax (For Daily Use) -) 17 gm PO DAILY [facility] Last Admin: 03/18/17 10:43 Dose: 17 gm Thiamine HCl (Vitamin B1 -) 100 mg PO DAILY [facility] Last Admin: 03/18/17 10:37 Dose: 100 mg - Objective Vital Signs: Vital Signs Temperature 98.0 F 03/18/17 14:00 Pulse Rate 101 H 03/18/17 14:00 Respiratory Rate 20 03/18/17 14:00 Blood Pressure 107/56 03/18/17 14:00 O2 Sat by Pulse Oximetry (%) 98 03/18/17 10:43 Constitutional: Yes: No Distress HENT: Yes: Atraumatic Neck: Yes: Supple Cardiovascular: Yes: Regular Rate and Rhythm Respiratory: Yes: CTA Bilaterally Gastrointestinal: Yes: Normal Bowel Sounds Neurological: Yes: Alert, Oriented Labs: CBC, BMP 03/16/17 08:36 03/16/17 08:36 INR, PTT INR 1.08 (0.82-1.09) 03/11/17 10:46 Problem List - Problems (1) Diabetes mellitus Assessment/Plan: bgms on insulin Code(s): E11.9 - TYPE 2 DIABETES MELLITUS WITHOUT COMPLICATIONS Qualifiers: (2) HTN (hypertension) Assessment/Plan: on meds stable Code(s): I10 - ESSENTIAL (PRIMARY) HYPERTENSION Qualifiers: (3) Hypercholesterolemia Assessment/Plan: on meds stable Code(s): E78.0 - PURE HYPERCHOLESTEROLEMIA * DO NOT USE * (4) Pressure ulcer, stage IV Assessment/Plan: S/P FLAP CLOSURE SURGERY on iv bax wound care dcplanning picc line placement need id to let us know how many days of abx Code(s): L89.94 - PRESSURE ULCER OF UNSPECIFIED SITE, STAGE 4 (5) Cerebrovascular accident (CVA) Code(s): I63.9 - CEREBRAL INFARCTION, UNSPECIFIED Qualifiers: CVA mechanism: occlusion Precerebral and cerebral artery: middle cerebral artery, left Assessment/Plan
[2017-03-18] MEDS: ATORVASTATIN CA 20 MG TABLET (FP) PO SCH (21:07)
[2017-03-19] MEDS ORDERED: DEXTROSE 5%-WATER 100 ML IVPB ONE ×2 (00:42→11:33)
[2017-03-19] MEDS ORDERED: PIPERACILLIN/TAZOBACTAM 4.5 GM VIAL IVPB ONE ×2 (00:42→11:33)
[2017-03-19] MEDS: PIPERACILLIN/TAZOB 4.5 GM 4.5 GM in DEXTROSE 5%-WATER 100 ML IVPB SCH ×2 (01:22→11:56)
[2017-03-19] MEDS: GABAPENTIN 300 MG CAPSULE (FP) PO SCH (05:30)
[2017-03-19] MEDS: INSULIN SLIDING SCALE (NOVOLOG) 1 VIAL SQ SCH ×2 (06:22→11:57)
[2017-03-19 07:46] VITALS: BP 118/60; PULSE 92; TEMP 98
[2017-03-19] MEDS ORDERED: INSULIN (NOVOLOG) ASPART 100 UNITS/ML 10ML VIAL ONE (11:33)
[2017-03-19] MEDS: COLCHICINE 0.6 MG TABLET (FP) PO SCH (11:52)
[2017-03-19] MEDS: ASPIRIN 81 MG CHEWABLE TABLETS PO SCH (11:52)
[2017-03-19] MEDS: MULTIVITAMINS (DAILY MVI) TABLET (FP) PO SCH (11:52)
[2017-03-19] MEDS: THIAMINE HCL 100 MG TABLET (FP) PO SCH (11:53)
[2017-03-19] MEDS: CLOPIDOGREL BISULFATE 75 MG TABLET (FP) PO SCH (11:53)
[2017-03-19] MEDS: FOLIC ACID 1 MG TABLET (FP) PO SCH (11:53)
[2017-03-19] MEDS: HEPARIN NA (PORCINE) 5,000 UNITS/ML 1ML VIAL SQ SCH (11:54)
[2017-03-19] MEDS: POLYETHYLENE GLYCOL 3350 119 GM BTL PO SCH (11:58)
[2017-03-19] MEDS ORDERED: BISACODYL 10 MG SUPP.RECT RC ONE (12:45)
--- NOTE | 2017-03-19 14:03 | PN ---
Progress Note, Physician History of Present Illness: patient stable no new issues picc line in place - Objective Vital Signs: Vital Signs Temperature 98.0 F 03/19/17 07:46 Pulse Rate 92 H 03/19/17 07:46 Respiratory Rate 18 03/19/17 07:46 Blood Pressure 118/60 03/19/17 07:46 O2 Sat by Pulse Oximetry (%) 98 03/19/17 09:00 Constitutional: Yes: No Distress, Calm Cardiovascular: Yes: Regular Rate and Rhythm Respiratory: Yes: Regular, CTA Bilaterally Gastrointestinal: Yes: Normal Bowel Sounds, Soft Musculoskeletal: Yes: Other Extremities: Yes: Other Wound/Incision: Yes: Dressing Dry and Intact, Other Neurological: Yes: Alert Psychiatric: Yes: Alert Labs: CBC, BMP 03/16/17 08:36 03/16/17 08:36 INR, PTT INR 1.08 (0.82-1.09) 03/11/17 10:46 Assessment/Plan Problem List (1) Pressure ulcer of sacral region, stage 4 Code(s): L89.153 - PRESSURE ULCER OF SACRAL REGION, STAGE 3 (2) Cerebrovascular accident (CVA) Code(s): I63.9 - CEREBRAL INFARCTION, UNSPECIFIED Qualifiers: CVA mechanism: occlusion Precerebral and cerebral artery: middle cerebral artery, left (3) Diabetes mellitus Code(s): E11.9 - TYPE 2 DIABETES MELLITUS WITHOUT COMPLICATIONS Qualifiers: Diabetes mellitus type: type 2 Diabetes mellitus complication status: without complication Diabetes mellitus ferry terminal agent insulin use: without usp use Qualified Code(s): E11.9 - Type 2 diabetes mellitus without complications await for all the bacteria to be identified will treat as sacral osteo plan continue abx complete the course
--- NOTE | 2017-03-19 21:54 | DS ---
Physical Examination Vital Signs: Vital Signs Temperature 98.0 F 03/19/17 07:46 Pulse Rate 92 H 03/19/17 07:46 Respiratory Rate 18 03/19/17 07:46 Blood Pressure 118/60 03/19/17 07:46 O2 Sat by Pulse Oximetry (%) 98 03/19/17 09:00 Extremities: Yes: WNL Neurological: Yes: Alert, Oriented Labs: CBC, BMP 03/16/17 08:36 03/16/17 08:36 Discharge Summary Reason For Visit: SACRAL ULCER Current Active Problems Cystitis (Acute) Hematuria (Acute) - Instructions Diet, Activity, Other Instructions: sacral flap still fragile- no pulling, pushing on buttocks/hip joints not to lie supine longer than 30 min turn side to side on a low relief mattress nutritional support-high protein diet/vitamin C FOLLOW UP wound care clinic - one month - avoid trauma during transportation patient is constipated- md aware- miralax with dulcolax suppository given today Referrals: Sharon Escobar MD [Staff Physician] - Tyson Shine MD [Staff Physician] - Disposition: NURSING HOME FACILITY - Home Medications Comprehensive Discharge Medication List: Ambulatory Orders Aspirin [ASA -] 81 mg PO DAILY #30 tab.chew 10/05/16 Colchicine 0.6 mg PO DAILY #30 capsule 10/05/16 Gabapentin [Neurontin -] 300 mg PO Q8H #90 capsule 10/05/16 Atorvastatin Ca [Lipitor] 20 mg PO HS #90 tablet 10/31/16 Bupropion HCl [Bupropion HCl Sr] 300 mg PO DAILY #90 tablet.er 10/31/16 Folic Acid - 1 mg PO DAILY #90 tablet 10/31/16 Iron Polysaccharide Complex [Ferrex 150] 150 mg PO DAILY #90 capsule 10/31/16 Multivitamins [Multivit ([facility] Formulary)] 1 tab PO DAILY #90 tab 10/31/16 Sennosides [Senna -] 2 tab PO HS #120 tablet 10/31/16 Thiamine HCl [Vitamin B1 -] 100 mg PO DAILY #90 10/31/16 Clopidogrel Bisulfate [Plavix -] 75 mg PO DAILY 03/03/17 Insulin (Levemir) [Levemir Vial] 8 units SQ HS 03/03/17 Piperacillin/Tazob 4.5 gm [Zosyn -] 4.5 gm IVPB Q8H-IV #60 vial 03/18/17 dc to jing
== END 2017-03-19 13:40 | DRG 573 ==
LOC: JASUSAT 10:24 → JSAMEDAYSX 16:43 → J6S 18:30
PROVIDERS: ADMIT Internal Medicine; ATTEND Internal Medicine
PROC: 0JX90ZC Transfer Buttock Subcutaneous Tissue and Fascia with Skin, Subcutaneous Tissue and Fascia, Open Approach (ICD-10-PCS; 2017-03-11)
PROC: 0QBS0ZX Excision of Coccyx, Open Approach, Diagnostic (ICD-10-PCS; 2017-03-11)
PROC: 0JB70ZZ Excision of Back Subcutaneous Tissue and Fascia, Open Approach (ICD-10-PCS; principal; 2017-03-11 12:00)
PROC: 02HV33Z Insertion of Infusion Device into Superior Vena Cava, Percutaneous Approach (ICD-10-PCS; 2017-03-19)
DX: L89.154 Pressure ulcer of sacral region, stage 4 (principal); I69.351 Hemiplegia and hemiparesis following cerebral infarction affecting right dominant side; M86.68 Other chronic osteomyelitis, other site; E11.69 Type 2 diabetes mellitus with other specified complication; E11.42 Type 2 diabetes mellitus with diabetic polyneuropathy; I25.10 Atherosclerotic heart disease of native coronary artery without angina pectoris; L89.609 Pressure ulcer of unspecified heel, unspecified stage; N40.0 Benign prostatic hyperplasia without lower urinary tract symptoms; K80.80 Other cholelithiasis without obstruction; N30.81 Other cystitis with hematuria; I11.0 Hypertensive heart disease with heart failure; I50.9 Heart failure, unspecified; D64.9 Anemia, unspecified; B95.2 Enterococcus as the cause of diseases classified elsewhere; K59.09 Other constipation; Z74.01 Bed confinement status; Z66 Do not resuscitate; Z79.4 Long term (current) use of insulin
CPT/HCPCS: 36415; 36569; 77001-TC; 80053; 82180; 82947; 85025; 85610; 85730; 87070; 87075; 87186; 87205; 88304-TC; 88311-TC; 94760; C1751; J1644